=== PATIENT | female | born 1950 | race Caucasian/White ===

== ENCOUNTER 2016-09-29 21:40 | Emergency (ER) | payer MEDICARE, MEDICAID ==
[~2016-09-29 21:40] MED LIST: BENZ1TAB PO; FAMO20TA2 OR; HYDR-2768 PO; LISI-357 PO; ROSU20 PO; SERT-129 OR; TAB-TAB PO; THEO200T27 OR; TYLE500T PO; VENTAER INH; WARF2TAB OR; ZYPR20TA PO
[2016-09-29 21:43] VITALS: BP 159/67; PULSE 79; RESP 18; TEMP 97.9; O2SAT 99
[2016-09-29] MEDS ORDERED: TOBRAMYCIN SULF 0.3% OPHT SOLN 5 ML BTL EACH EYE STA (21:51)
[2016-09-29] MEDS ORDERED: TOBR0.3S EACH EYE (21:58)
--- NOTE | 2016-09-29 21:58 | PD ---
HPI Chief Complaint: Eye Problems/Injury Time Seen by Provider: 21:55 Travel History International Travel<30 days: No Contact w/Intl Traveler<30days: No Traveled to known affect area: No History of Present Illness HPI 66-year-old white female presents to emergency department with complaints of burning and itching her eyes along with mucoid drainage and matting. She states that this is been present for the past week. She denies any diplopia. No photophobia. No foreign body sensation or pain. She denies any trauma. No recent illness. PFSH Past Medical History Arthritis: Yes Asthma: No Autoimmune Disease: Yes Blood Disorders: No Anxiety: Yes Depression: Yes Heart Rhythm Problems: No Cancer: No Cardiovascular Problems: Yes High Cholesterol: Yes Chemotherapy: No Chest Pain: No Congestive Heart Failure: No COPD: Yes Cerebrovascular Accident: No Diabetes: No Diminished Hearing: No Endocrine: Yes Gastrointestinal Disorders: Yes (rectal pain) GERD: No Glaucoma: No Genitourinary: No Headaches: Yes Hepatitis: No Hiatal Hernia: No Hypertension: No Immune Disorder: No Kidney Stones: No Musculoskeletal: No Neurologic: Yes Psychiatric: Yes Reproductive: No Respiratory: Yes Immunizations Current: Yes Migraines: No Myocardial Infarction: No Radiation Therapy: No Renal Failure: No Schizophrenia: Yes Seizures: No Sickle Cell Disease: No Sleep Apnea: No Thyroid Disease: Yes Ulcer: No PNEUMOCCOCAL Vaccine (Year): 2008 Menopausal: Yes Past Surgical History Abdominal Surgery: Yes AICD: No Appendectomy: Yes Arteriovenous Shunt: No Cardiac Surgery: No Cholecystectomy: Yes Ear Surgery: No Endocrine Surgery: No Eye Surgery: No Genitourinary Surgery: No Gynecologic Surgery: No Insulin Pump: No Joint Replacement: No Neurologic Surgery: Yes ("WATER ON THE BRAIN" IN CHILDHOOD) Oral Surgery: No Pacemaker: No Thoracic Surgery: No Social History Alcohol Use: No Tobacco Use: Yes (2PPD) Substance Use: No Allergies-Medications (Allergen,Severity, Reaction): Coded Allergies: No Known Allergies (Verified , 09/29/16) Reported Meds & Prescriptions Reported Meds & Active Scripts Active Reported Hctz (Hydrochlorothiazide) 25 Mg Tab 25 Mg PO DAILY Sertraline Hcl (Sertraline HCl) 100 Mg Tab 200 Mg OR HS Ventolin Hfa (Albuterol Sulfate) 18 Gm Aero 2 Puff INH Q8HPRN * SHAKE WELL BEFORE USE * Acetaminophen 500 Mg Tab 500 Mg PO TIDPRN Zyprexa (Olanzapine) 20 Mg Tab 20 Mg PO HS Lisinopril 5 Mg Tab 5 Mg PO DAILY Cogentin (Benztropine Mesylate) 2 Mg Tab 1 Mg PO HS Crestor (Rosuvastatin Calcium) 20 Mg Tab 20 Mg PO DAILY Warfarin Sodium 2 Mg Tab 2 Mg OR DAILY Theophylline Er (Theophylline) 200 Mg Tab 200 Mg OR DAILY Famotidine 20 Mg Tab 20 Mg OR BID Multivitamin (Multivitamins) 1 Tab Tab 1 Tab PO DAILY Review of Systems Except as stated in HPI: all other systems reviewed are Neg General / Constitutional: No: Fever, Chills Eyes: Positive: Drainage, Redness, No: Diploplia, Blurred Vision, Photophobia , Foreign Body Sensation, Pain, Tearing, Visual changes HENT: No: Headaches, Sore Throat, Congestion, Earache Cardiovascular: No: Chest Pain or Discomfort, Palpitations Respiratory: No: Cough, Shortness of Breath Gastrointestinal: No: Nausea, Vomiting Physical Exam Narrative GENERAL: Well-developed, well-nourished in no acute distress. Nontoxic appearing. HEAD: Normocephalic, atraumatic. EYES: Pupils equal round and reactive. Extraocular motions intact. No scleral icterus. Patient has mild injection bilaterally with some crusting on the eyelashes. ENT: TMs clear without erythema. The external auditory canals clear. Nose: clear . Posterior pharynx is pink and moist. No tonsillar edema or exudate. Uvula midline. Airway patent. NECK: Trachea midline.Supple, nontender, moves head freely. No central bony tenderness or spasm. CARDIOVASCULAR: Regular rate and rhythm without murmurs, gallops, or rubs. RESPIRATORY: Clear to auscultation. Breath sounds equal bilaterally. No wheezes , rales, or rhonchi. GASTROINTESTINAL: Abdomen soft, non-tender, nondistended. No hepato-splenomegaly , or palpable masses. No guarding. EXTREMITIES: No clubbing, cyanosis, or edema. No joint tenderness, effusion, or edema noted. BACK: Nontender without deformity or crepitance. No flank tenderness. Data Data Last Documented VS Vital Signs Date Time Temp Pulse Resp B/P Pulse Ox O2 Delivery O2 Flow Rate FiO2 09/29/16 21:43 97.9 79 18 159/67 99 Room Air Orders Tobramycin 0.3% Opth Soln (Tobrex 0.3% O (09/29/16 21:51) MDM Medical Decision Making Medical Screen Exam Complete: Yes Emergency Medical Condition: Yes Medical Record Reviewed: Yes Differential Diagnosis MDM: High Differential diagnoses: Acute conjunctivitis (bacterial, viral, allergic, traumatic), glaucoma, iritis, traumatic globe injury, foreign body, corneal abrasion, corneal ulcer, diabetic retinopathy, photokeratitis, herpes keratitis , CMV retinitis Narrative Course This is conjunctivitis. Patient's given tobramycin ophthalmic drops 1 drop in each eye. She will continue 1 drop every 6 hours. Diagnosis Primary Impression: Conjunctivitis Qualified Code: H10.9 - Conjunctivitis of both eyes, unspecified conjunctivitis type Patient Instructions: General Instructions Additional Instructions: Rest. Wash eyelashes with baby shampoo 3 times daily. Warm compresses. Tobramycin ophthalmic drops. One drop in each eye every 6 hours for the next week. Followup with an eye doctor in one week. Follow-up with a medical doctor one week. Return to the ER if any problems. Med/Other Pt SpecificInfo: Prescription(s) given Disposition: 01 DISCHARGE HOME Condition: Guillaume Loja Sep 29, 2016 21:58
== END 2016-09-29 22:51 | disposition home or self-care (01) ==
LOC: NEPK 21:40
DX: H10.9 Unspecified conjunctivitis (principal); E78.00 Pure hypercholesterolemia, unspecified; J44.9 Chronic obstructive pulmonary disease, unspecified; F20.9 Schizophrenia, unspecified
CPT/HCPCS: 99283

== ENCOUNTER 2017-05-31 18:20 | Inpatient (IN) | payer MEDICARE, MEDICAID ==
[~2017-05-31] VITALS: Ht 157.5 cm; Wt 67.0 kg
[~2017-05-31 18:20] MED LIST changes: +TOBR0.3S EACH EYE
[2017-05-31 18:23] VITALS: BP 149/79; PULSE 101; RESP 16; TEMP 99.6; O2SAT 94
[2017-05-31 19:00] VITALS: BP 156/85; PULSE 96; RESP 20; O2SAT 95
[2017-05-31] MEDS ORDERED: SODIUM CHLORIDE 0.9% FLUSH 10 ML FLUSH IV FLUSH PRN ×2 (19:00→22:45)
[2017-05-31] MEDS ORDERED: PANTOPRAZOLE SODIUM 40 MG VIAL IV PUSH ONE (19:00)
[2017-05-31] MEDS ORDERED: MORPHINE SULFATE 4 MG/ML INJ IV PUSH ONE (19:00)
--- NOTE | 2017-05-31 19:00 | PD ---
HPI Chief Complaint: GI Complaint Time Seen by Provider: 18:56 Travel History International Travel<30 days: No Contact w/Intl Traveler<30days: No Traveled to known affect area: No History of Present Illness HPI 67-year-old female with PMH of paranoid schizophrenia, hypertension, CHF, COPD presents to the ED from her [facility] for evaluation of 7/10 rectal pain. Described as constant. Alleviated by lying down. Patient is unsure as to the onset of this pain. She endorses occasional BRBPR. She states she is unsure of her last BM, she estimates "sometime last week." She endorses urinary urgency but it is unsure of the chronicity of this symptom. She denies fevers, chills, nausea, vomiting, anorexia, melena, hematochezia. She treated at her [facility] with an enema and Anusol with no improvement of symptoms. She does not take blood thinners. PFSH Past Medical History Arthritis: Yes Asthma: No Autoimmune Disease: Yes Blood Disorders: No Bipolar Disorder: Yes Anxiety: Yes Depression: Yes Heart Rhythm Problems: No Cancer: No Cardiovascular Problems: Yes High Cholesterol: Yes Chemotherapy: No Chest Pain: No Congestive Heart Failure: No COPD: Yes Cerebrovascular Accident: No Diabetes: No Diminished Hearing: No Endocrine: Yes Gastrointestinal Disorders: Yes (rectal pain) GERD: No Glaucoma: No Genitourinary: No Headaches: Yes Hepatitis: No Hiatal Hernia: No Hypertension: Yes Immune Disorder: No Kidney Stones: No Musculoskeletal: No Neurologic: Yes Psychiatric: Yes Reproductive: No Respiratory: Yes Immunizations Current: Yes Migraines: No Myocardial Infarction: No Radiation Therapy: No Renal Failure: No Schizophrenia: Yes Seizures: No Sickle Cell Disease: No Sleep Apnea: No Thyroid Disease: Yes Ulcer: No Influenza Vaccination: Yes PNEUMOCCOCAL Vaccine (Year): 2008 Menopausal: Yes Past Surgical History Abdominal Surgery: Yes AICD: No Appendectomy: Yes Arteriovenous Shunt: No Cardiac Surgery: No Cholecystectomy: Yes Ear Surgery: No Endocrine Surgery: No Eye Surgery: No Genitourinary Surgery: No Gynecologic Surgery: No Insulin Pump: No Joint Replacement: No Neurologic Surgery: Yes ("WATER ON THE BRAIN" IN CHILDHOOD) Oral Surgery: No Pacemaker: No Thoracic Surgery: No Social History Alcohol Use: No Tobacco Use: Yes (1 PPD) Substance Use: No Allergies-Medications (Allergen,Severity, Reaction): Coded Allergies: No Known Allergies (Verified Adverse Reaction, Unknown, 05/31/17) Reported Meds & Prescriptions Reported Meds & Active Scripts Active Tobrex Opth Drops (Tobramycin Opth Drops) 0.3 % Soln 1 Drop EACH EYE Q6H Reported Hctz (Hydrochlorothiazide) 25 Mg Tab 25 Mg PO DAILY Sertraline 100 mg (Sertraline HCl) 100 Mg Tab 200 Mg OR HS Ventolin Hfa (Albuterol Sulfate) 18 Gm Aero 2 Puff INH Q8HPRN * SHAKE WELL BEFORE USE * Acetaminophen 500 Mg Tab 500 Mg PO TIDPRN Zyprexa (Olanzapine) 20 Mg Tab 20 Mg PO HS Lisinopril 5 mg (Lisinopril) 5 Mg Tab 5 Mg PO DAILY Benztropine Mesylate 2 Mg Tab 1 Mg PO HS Crestor (Rosuvastatin Calcium) 20 Mg Tab 20 Mg PO DAILY Warfarin Sodium 2 Mg Tab 2 Mg OR DAILY Theophylline Er (Theophylline) 200 Mg Tab 200 Mg OR DAILY Famotidine 20 Mg Tab 20 Mg OR BID Multivitamin (Multivitamins) 1 Tab Tab 1 Tab PO DAILY Review of Systems Except as stated in HPI: all other systems reviewed are Neg Physical Exam Narrative GENERAL: Well-nourished, well-developed female in no acute distress. SKIN: Focused skin assessment warm/dry. HEAD: Normocephalic. EYES: No scleral icterus. No injection or drainage. NECK: Supple, trachea midline. No JVD or lymphadenopathy. CARDIOVASCULAR: Regular rate and rhythm without murmurs, gallops, or rubs. RESPIRATORY: Breath sounds coarse but equal bilaterally. No accessory muscle use. GASTROINTESTINAL: Abdomen soft, non-tender, nondistended. Active bowel sounds. RECTAL EXAM: There is full thickness prolapse of the rectum, approximately 8 cm. Easily reducible. Stool is brown, mostly mucus. Guaiac positive. MUSCULOSKELETAL: No cyanosis, or edema. BACK: Nontender without obvious deformity. No CVA tenderness. Data Data Last Documented VS Vital Signs Date Time Temp Pulse Resp B/P (MAP) Pulse Ox O2 Delivery O2 Flow Rate FiO2 05/31/17 22:15 102 22 169/83 (111) 95 Room Air 05/31/17 20:11 21 05/31/17 18:23 99.6 Orders Orders Complete Blood Count With Diff (05/31/17 18:53) Comprehensive Metabolic Panel (05/31/17 18:53) Prothrombin Time / Inr (Pt) (05/31/17 18:53) Act Partial Throm Time (Ptt) (05/31/17 18:53) Urinalysis - C+S If Indicated (05/31/17 18:53) Iv Access Insert/Monitor (05/31/17 18:53) Ecg Monitoring (05/31/17 18:53) Oximetry (05/31/17 18:53) Morphine Inj (Morphine Inj) (05/31/17 19:00) Sodium Chloride 0.9% Flush (Ns Flush) (05/31/17 19:00) Pantoprazole Inj (Protonix Inj) (05/31/17 19:00) Chest, Single Ap (05/31/17 19:32) Methylprednisolone So Succ Inj (Solumedr (05/31/17 19:45) Albuterol Neb (Albuterol Neb) (05/31/17 19:45) Sodium Chlorid 0.9% 500 Ml Inj (Ns 500 M (05/31/17 20:30) Cath For Specimen (05/31/17 20:42) Urine Culture (05/31/17 21:22) Ceftriaxone Inj (Rocephin Inj) (05/31/17 22:30) Admit Order (Ed Use Only) (05/31/17 22:36) Labs Laboratory Tests Test 05/31/17 19:00 05/31/17 21:22 White Blood Count 14.8 TH/MM3 Red Blood Count 3.88 MIL/MM3 Hemoglobin 12.0 GM/DL Hematocrit 35.5 % Mean Corpuscular Volume 91.6 FL Mean Corpuscular Hemoglobin 30.8 PG Mean Corpuscular Hemoglobin Concent 33.7 % Red Cell Distribution Width 14.5 % Platelet Count 340 TH/MM3 Mean Platelet Volume 7.2 FL Neutrophils (%) (Auto) 85.6 % Lymphocytes (%) (Auto) 4.0 % Monocytes (%) (Auto) 9.4 % Eosinophils (%) (Auto) 0.7 % Basophils (%) (Auto) 0.3 % Neutrophils # (Auto) 12.6 TH/MM3 Lymphocytes # (Auto) 0.6 TH/MM3 Monocytes # (Auto) 1.4 TH/MM3 Eosinophils # (Auto) 0.1 TH/MM3 Basophils # (Auto) 0.0 TH/MM3 CBC Comment DIFF FINAL Differential Comment Prothrombin Time 12.4 SEC Prothromb Time International Ratio 1.2 RATIO Activated Partial Thromboplast Time 34.8 SEC Blood Urea Nitrogen 25 MG/DL Creatinine 1.70 MG/DL Random Glucose 162 MG/DL Total Protein 6.8 GM/DL Albumin 2.4 GM/DL Calcium Level 8.3 MG/DL Alkaline Phosphatase 124 U/L Aspartate Amino Transf (AST/SGOT) 29 U/L Alanine Aminotransferase (ALT/SGPT) 24 U/L Total Bilirubin 0.4 MG/DL Sodium Level 130 MEQ/L Potassium Level 4.3 MEQ/L Chloride Level 96 MEQ/L Carbon Dioxide Level 27.4 MEQ/L Anion Gap 7 MEQ/L Estimat Glomerular Filtration Rate 30 ML/MIN Urine Color YELLOW Urine Turbidity CLOUDY Urine pH 6.5 Urine Specific [place] 1.014 Urine Protein 100 mg/dL Urine Glucose (UA) NEG mg/dL Urine Ketones NEG mg/dL Urine Occult Blood LARGE Urine Nitrite NEG Urine Bilirubin NEG Urine Urobilinogen LESS THAN 2.0 MG/DL Urine Leukocyte Esterase LARGE Urine RBC /hpf Urine WBC /hpf Urine Squamous Epithelial Cells 2 /hpf Urine Amorphous Sediment RARE Urine Bacteria MANY /hpf Urine Mucus FEW /lpf Microscopic Urinalysis Comment CULTURE INDICATED MDM Medical Decision Making Medical Screen Exam Complete: Yes Emergency Medical Condition: Yes Differential Diagnosis rectal prolapse versus external hemorrhoids versus prolapsed internal hemorrhoids versus GI bleed versus other Narrative Course 67-year-old female with PMH of paranoid schizophrenia, hypertension, CHF, COPD presents to the ED from her [facility] for evaluation of 7/10 rectal pain. Patient is unsure as to the onset of this pain. She endorses occasional BRBPR. She states she is unsure of her last BM, she estimates "sometime last week." She endorses urinary urgency but it is unsure of the chronicity of this symptom. She treated at her [facility] with an enema and Anusol with no improvement of symptoms. She does not take blood thinners. On exam the patient's abdominal exam is unremarkable. There is an approximate 8 cm rectal prolapse. It is easily reducible but returns immediately after removing pressure. The stool is mostly mucus and guaiac positive. IV was established. Patient was administered 500 mL's normal saline, a dose of IV Protonix. CBC: WBC 14.8 with left shift CMP: Sodium 1:30, chloride 96. BUN 25, creatinine 1.70, chronic per chart review UA: Cloudy, large occult blood, large leukocyte esterase, numerable WBCs. Many bacteria. Coags: INR 1.2 CXR: No acute disease per radiology read. Patient was administered gram Rocephin. I discussed the patient's condition with Dr. Mast. He'll see the patient tomorrow to evaluate for surgical candidacy. I discussed the results the workup with the patient and the plan for admission. She is agreeable. Dr. Schultz agrees to accept the patient to the medicine service. Please see medicine and rectal notes for disposition. HemaPrompt Point of Care Internal Pos. & Neg. Controls: Passed Fecal Specimen Occult Blood: Positive Valorie Hopson May 31, 2017 19:00
[2017-05-31 19:28] LABS: AUTOMATED NEUTROPHIL # 12.6 TH/MM3 (1.8-7.7); BASOPHIL % 0.3 % (0.0-2.0); EOSINOPHIL # 0.1 TH/MM3 (0-0.4); EOSINOPHIL % 0.7 % (0.0-4.0); HEMATOCRIT 35.5 % (35.0-46.0); LYMPHOCYTE # 0.6 TH/MM3 (1.0-4.8); MEAN CELL VOLUME 91.6 FL (80.0-100.0); MEAN CORPUSCULAR HEMOGLOBIN 30.8 PG (27.0-34.0); MEAN CORPUSCULAR HGB CONC 33.7 % (32.0-36.0); MEAN PLATELET VOLUME 7.2 FL (7.0-11.0); MONO % 9.4 % (0.0-8.0); MONOCYTE # 1.4 TH/MM3 (0-0.9); NEUT % 85.6 % (16.0-70.0); PLATELET COUNT 340 TH/MM3 (150-450); RED BLOOD COUNT 3.88 MIL/MM3 (4.00-5.30); RED CELL DISTRIBUTION WIDTH 14.5 % (11.6-17.2); WHITE BLOOD COUNT 14.8 TH/MM3 (4.0-11.0)
[2017-05-31 19:42] LABS: INTERNATIONAL NORMALIZED RATIO 1.2 RATIO; PROTHROMBIN TIME - PATIENT 12.4 SEC (9.8-11.6)
[2017-05-31] MEDS ORDERED: methylPREDNISolone SOD SUCC 125 MG/2 ML VIAL IV PUSH ONE (19:45)
[2017-05-31 19:48] LABS: ALBUMIN 2.4 GM/DL (3.4-5.0); AST (GOT) 29 U/L (15-37); BICARBONATE 27.4 MEQ/L (21.0-32.0); BLOOD UREA NITROGEN 25 MG/DL (7-18); CALCIUM 8.3 MG/DL (8.5-10.1); CHLORIDE 96 MEQ/L (98-107); GLOMERULAR FILTRATION RATE 30 ML/MIN (>89); GLUCOSE,RANDOM 162 MG/DL (74-106); SODIUM (NA) 130 MEQ/L (136-145)
[2017-05-31 19:49] LABS: ALT (GPT) 24 U/L (10-53)
[2017-05-31 19:51] LABS: ALKALINE PHOSPHATASE 124 U/L (45-117); TOTAL BILIRUBIN ADULT 0.4 MG/DL (0.2-1.0); TOTAL PROTEIN 6.8 GM/DL (6.4-8.2)
--- NOTE | 2017-05-31 19:57 | RADRPT ---
EXAM DATE/TIME: 05/31/2017 19:42 [facility] COMPARISON: CHEST SINGLE AP, February 12, 2010, 20:17. INDICATIONS : Short of breath MEDICAL HISTORY : None. SURGICAL HISTORY : None. ENCOUNTER: Initial ACUITY: 1 day PAIN SCORE: 0/10 LOCATION: Bilateral chest FINDINGS: A single view of the chest demonstrates right shunt tube overlies right hemithorax. No consolidation or significant effusion. No pneumothorax. Tortuous aorta. CONCLUSION: 1. No active disease. Tortuous aorta. Guillaume Poole MD on May 31, 2017 at 19:54 Board Certified Radiologist. This report was verified electronically.
[2017-05-31 20:00] VITALS: BP 177/92; PULSE 93; RESP 20; O2SAT 96
[2017-05-31] MEDS: RESP: ALBUTEROL 2.5 MG/3 ML NEB (SCH) INH (20:06)
[2017-05-31 20:11] VITALS: O2SAT 95
[2017-05-31] MEDS ORDERED: SODIUM CHLORID 0.9% 500 ML INJ 500 ML IV ONE (20:30)
[2017-05-31 21:54] LABS: AMORPHOUS SEDIMENT, URINE RARE; BACTERIA, URINE MANY /hpf; BILIRUBIN, URINE NEG (NEG); BLOOD, URINE LARGE (NEG); GLUCOSE,URINE NEG (NEG); KETONE, URINE NEG (NEG); MUCUS URINE FEW /lpf (OCC); NITRITE,URINE NEG (NEG); PH, URINE 6.5 (5.0-8.5); SQUAMOUS EPITHELIAL CELL URINE 2 /hpf (0-5); URINE COLOR YELLOW (YELLW/STRAW); URINE LEUKOCYTE ESTERASE LARGE (NEG)
[2017-05-31 22:15] VITALS: BP 169/83; PULSE 102; RESP 22; O2SAT 95
[2017-05-31] MEDS ORDERED: cefTRIAXone INJ 1,000 MG in SODIUM CHLORIDE 0.9% INJ 100 ML IV ONE (22:30)
--- NOTE | 2017-05-31 22:38 | HHI.HP ---
HPI Service [facility] Primary Care Physician Unknown Admission Diagnosis rectal prolapse, UTI Diagnoses: (1) Rectal prolapse Diagnosis: Principal (2) Rectal bleeding Diagnosis: Principal (3) UTI (urinary tract infection) Diagnosis: Principal (4) Renal insufficiency Diagnosis: Principal (5) COPD (chronic obstructive pulmonary disease) Diagnosis: Principal (6) Schizophrenia (7) Tobacco abuse Diagnosis: Principal Travel History International Travel<30 Days: No Contact w/Intl Traveler <30 Da: No Traveled to Known Affected Are: No History of Present Illness This is a 67-year-old female with a PMH of Anxiety, Depression, Paranoid Schizophrenia, Tobacco Abuse and COPD who was sent to the ER by [facility] secondary to complaints of rectal pain x2-3 wks. Denies nausea/vomiting or diarrhea. Reports occasional episodes of rectal bleeding however unsure how often. On Coumadin per review of medication list, however pt unable to tell me if this is accurate. Pt poor historian, difficult to obtain history. BP 149/79, HR 101, O2 sat 94% on RA, Temp 99.6. WBC 14.8. Creatinine 1.70, previously 1.35 on 04/23/10. UA positive for UTI. CXR with no active disease. On exam, pt noted to have large rectal prolapse. Hemoccult +. Dr. Mast consulted by ER physician , will eval in am for likely surgical intervention. Review of Systems Except as stated in HPI: all other systems reviewed are Neg ROS: 14 point review of systems otherwise negative. Past Family Social History Past Medical History PMH: Anxiety, Depression, Paranoid Schizophrenia, Tobacco Abuse and COPD Past Surgical History PAST SURGICAL HISTORY: Appendectomy, Cholecystectomy Allergies: Coded Allergies: No Known Allergies (Verified Allergy, Unknown, 05/31/17) Family History PAST FAMILY HISTORY: Reviewed. No h/o DM or CAD Social History PAST SOCIAL HISTORY: Negative for alcohol or drugs. Smokes 2ppd. Physical Exam Vital Signs Vital Signs Date Time Temp Pulse Resp B/P (MAP) Pulse Ox O2 Delivery O2 Flow Rate FiO2 05/31/17 22:15 102 22 169/83 (111) 95 Room Air 05/31/17 20:11 95 21 05/31/17 20:00 93 20 177/92 (120) 96 Room Air 05/31/17 19:00 96 20 156/85 (108) 95 Room Air 05/31/17 18:23 99.6 101 16 149/79 (102) 94 Room Air Physical Exam PE: GENERAL: Middle-aged female in no acute distress. HEENT: PERRLA, EOMI. No scleral icterus or conjunctival pallor. No lid lag or facial droop. CARDIOVASCULAR: Regular rate and rhythm. No obvious murmurs to auscultation. No chest tenderness to palpation. RESPIRATORY: No obvious rhonchi, occasional wheezing. Clear to auscultation. Breath sounds equal bilaterally. GASTROINTESTINAL: Abdomen soft, non-tender, nondistended. BS normal. MUSCULOSKELETAL: Extremities without clubbing, cyanosis, or edema. No obvious deformities. NEUROLOGICAL: Awake, alert and oriented x4. No focal neurologic deficits. Moving both upper and lower extremities spontaneously. Laboratory Laboratory Tests Test 05/31/17 19:00 05/31/17 21:22 White Blood Count 14.8 Red Blood Count 3.88 Hemoglobin 12.0 Hematocrit 35.5 Mean Corpuscular Volume 91.6 Mean Corpuscular Hemoglobin 30.8 Mean Corpuscular Hemoglobin Concent 33.7 Red Cell Distribution Width 14.5 Platelet Count 340 Mean Platelet Volume 7.2 Neutrophils (%) (Auto) 85.6 Lymphocytes (%) (Auto) 4.0 Monocytes (%) (Auto) 9.4 Eosinophils (%) (Auto) 0.7 Basophils (%) (Auto) 0.3 Neutrophils # (Auto) 12.6 Lymphocytes # (Auto) 0.6 Monocytes # (Auto) 1.4 Eosinophils # (Auto) 0.1 Basophils # (Auto) 0.0 CBC Comment DIFF FINAL Differential Comment Prothrombin Time 12.4 Prothromb Time International Ratio 1.2 Activated Partial Thromboplast Time 34.8 Blood Urea Nitrogen 25 Creatinine 1.70 Random Glucose 162 Total Protein 6.8 Albumin 2.4 Calcium Level 8.3 Alkaline Phosphatase 124 Aspartate Amino Transf (AST/SGOT) 29 Alanine Aminotransferase (ALT/SGPT) 24 Total Bilirubin 0.4 Sodium Level 130 Potassium Level 4.3 Chloride Level 96 Carbon Dioxide Level 27.4 Anion Gap 7 Estimat Glomerular Filtration Rate 30 Urine Color YELLOW Urine Turbidity CLOUDY Urine pH 6.5 Urine Specific [place] 1.014 Urine Protein 100 Urine Glucose (UA) NEG Urine Ketones NEG Urine Occult Blood LARGE Urine Nitrite NEG Urine Bilirubin NEG Urine Urobilinogen LESS THAN 2.0 Urine Leukocyte Esterase LARGE Urine RBC Urine WBC Urine Squamous Epithelial Cells 2 Urine Amorphous Sediment RARE Urine Bacteria MANY Urine Mucus FEW Microscopic Urinalysis Comment CULTURE INDICATED Date/Time Source Procedure Growth Status 05/31/17 21:22 Urine Random Urine Urine Culture Pending Received Result Diagram: 05/31/17189905/31/171899 Caprini VTE Risk Assessment Caprini VTE Risk Assessment: Mod/High Risk (score >= 2) Caprini Risk Assessment Model Point Value = 1 Point Value = 2 Point Value = 3 Point Value = 5 Age 41-60 Minor surgery BMI > 25 kg/m2 Swollen legs Varicose veins or History of unexplained or recurrent spontaneous Oral contraceptives or hormone replacement Sepsis (< 1 month) Serious lung disease, including pneumonia (< 1 month) Abnormal pulmonary function Acute myocardial infarction Congestive heart failure (< 1 month) History of inflammatory bowel disease Medical patient at bed rest Age 61-74 Arthroscopic surgery Major open surgery (> 45 min) Laparoscopic surgery (> 45 min) Malignancy Confined to bed (> 72 hours) Immobilizing plaster cast Central venous access Age >= 75 History of VTE Family history of VTE Factor V Leiden Prothrombin [id number] Lupus anticoagulant Anticardiolipin antibodies Elevated serum homocysteine Heparin-induced thrombocytopenia Other congenital or acquired thrombophilia Stroke (< 1 month) Elective arthroplasty Hip, pelvis, or leg fracture Acute spinal cord injury (< 1 month) Prophylaxis Regimen Total Risk Factor Score Risk Level Prophylaxis Regimen 0-1 Low Early ambulation 2 Moderate Order ONE of the following: *Sequential Compression Device (SCD) *Heparin 5000 units SQ BID 3-4 Higher Order ONE of the following medications: *Heparin 5000 units SQ TID *Enoxaparin/Lovenox 40 mg SQ daily (WT < 150 kg, CrCl > 30 mL/min) *Enoxaparin/Lovenox 30 mg SQ daily (WT < 150 kg, CrCl > 10-29 mL/min) *Enoxaparin/Lovenox 30 mg SQ BID (WT < 150 kg, CrCl > 30 mL/min) AND/OR *Sequential Compression Device (SCD) 5 or more Highest Order ONE of the following medications: *Heparin 5000 units SQ TID (Preferred with Epidurals) *Enoxaparin/Lovenox 40 mg SQ daily (WT < 150 kg, CrCl > 30 mL/min) *Enoxaparin/Lovenox 30 mg SQ daily (WT < 150 kg, CrCl > 10-29 mL/min) *Enoxaparin/Lovenox 30 mg SQ BID (WT < 150 kg, CrCl > 30 mL/min) AND *Sequential Compression Device (SCD) Assessment and Plan Problem List: (1) Rectal prolapse ICD Code: K62.3 - Rectal prolapse (2) Rectal bleeding ICD Code: K62.5 - Hemorrhage of anus and rectum (3) Renal insufficiency ICD Code: N28.9 - Disorder of kidney and ureter, unspecified (4) UTI (urinary tract infection) ICD Code: N39.0 - Urinary tract infection, site not specified (5) COPD (chronic obstructive pulmonary disease) ICD Code: J44.9 - Chronic obstructive pulmonary disease, unspecified (6) Schizophrenia ICD Code: F20.9 - Schizophrenia, unspecified (7) Tobacco abuse ICD Code: Z72.0 - Tobacco use Assessment and Plan A/P: 1. Rectal Prolapse: c/o rectal pain, large rectal prolapse on exam, reducible. Dr. Mast consulted by ER physician, will eval in am for likely surgical intervention. NPO, IVF, analgesics/antiemetics as needed. 2. Rectal Bleeding: likely secondary to prolapse, Hgb stable at 12.0. Vitals normal. Will monitor, repeat Hgb/Hct in am. Noted to be on Coumadin per med list, unclear if accurate, will hold for now. 3. UTI: U/a w/ UTI. WBC 14, low-grade temp. S/p Rocephin in ER, will continue w/ IV Abx. 4. Renal Insufficiency: VETO. Creatinine 1.70, previously 1.35 on 04/23/10, IVF for hydration, treat UTI as above, repeat labs in am. 5. COPD: Chronic Respiratory Failure w/ Acute Exacerbation, Mild. S/p Solu- Medrol/DuoNeb in ER, will continue w/ treatment. 6. Schizophrenia: Stable. Resume home medications. 7. Tobacco Abuse: Pt counselled. NicoDerm prn if needed. 8. DVT Prophylaxis: SCD/Teds. 9. Social work for d/c planning as needed. 10. Case discussed w/ ER physician at length. Physician Certification 2 Midnight Certification Type: Admission for Inpatient Services Order for Inpatient Services The services are ordered in accordance with Medicare regulations or non- Medicare payer requirements, as applicable. In the case of services not specified as inpatient-only, they are appropriately provided as inpatient services in accordance with the 2-midnight benchmark. Estimated LOS (days): 2 days is the estimated time the patient will need to remain in the hospital, assuming treatment plan goals are met and no additional complications. Post-Hospital Plan: Not yet determined Remedios Schultz MD May 31, 2017 22:38
[2017-05-31] MEDS ORDERED: RESP: ALBUTEROL 2.5 MG/IPRATROPIUM 0.5 MG NEB (PRN) NEB (22:45)
[2017-05-31] MEDS ORDERED: LACTULOSE SYRUP 20 GM/30 ML CUP PO PRN (22:45)
[2017-05-31] MEDS ORDERED: SENNOSIDES 8.6 MG TAB PO PRN (22:45)
[2017-05-31] MEDS ORDERED: MORPHINE SULFATE 4 MG/ML INJ IV PUSH PRN (22:45)
[2017-05-31] MEDS ORDERED: ONDANSETRON HCL 4 MG/2 ML VIAL IVP PRN (22:45)
[2017-05-31] MEDS ORDERED: ACETAMINOPHEN 325 MG TAB PO PRN (22:45)
[2017-05-31] MEDS ORDERED: MAGNESIUM HYDROXIDE SUSP 30 ML CUP PO PRN (22:45)
[2017-05-31] MEDS ORDERED: OLAN20TA PO (23:17)
[2017-05-31] MEDS ORDERED: TYLE325T PO (23:17)
[2017-05-31] MEDS ORDERED: FLUTI44I INH (23:17)
[2017-05-31] MEDS ORDERED: LISI-519 PO (23:17)
[2017-05-31] MEDS ORDERED: DONE10TA7 PO (23:17)
[2017-05-31] MEDS ORDERED: OLAN10TA PO (23:17)
[2017-05-31] MEDS ORDERED: HALO2TAB PO (23:17)
[2017-05-31] MEDS ORDERED: TRAM50TA PO (23:17)
[2017-05-31] MEDS ORDERED: BUPR100T4 PO (23:17)
[2017-05-31] MEDS ORDERED: MULT-65 PO (23:17)
[2017-05-31] MEDS ORDERED: LAMO200T PO (23:17)
[2017-05-31] MEDS ORDERED: BENZ0.5T PO (23:17)
[2017-05-31] MEDS ORDERED: LEVO112T2 PO (23:17)
[2017-05-31] MEDS ORDERED: FURO20TA PO (23:17)
[2017-05-31] MEDS ORDERED: FAMO20TA2 PO (23:17)
[2017-06-01] VITALS: BP 165/78; PULSE 103; RESP 20; TEMP 99.7; O2SAT 95
[2017-06-01] MEDS: methylPREDNISolone SOD SUCC 40 MG/1 ML VIAL IV PUSH SCH ×3 (00:16→21:10)
[2017-06-01] MEDS: SODIUM CHLOR 0.9% 1000 ML INJ 1,000 ML IV SCH ×3 (00:18→11:23)
[2017-06-01] MEDS: ACETAMINOPHEN/HYDROcodone 325 MG/5 MG TAB PO PRN (00:27)
[2017-06-01] MEDS: PIPERACIL-TAZO 2.25 GM PREMIX 50 ML IV SCH ×3 (05:28→18:17)
[2017-06-01 08:00] VITALS: BP 174/80; PULSE 77; RESP 17; TEMP 97.2; O2SAT 92
[2017-06-01 08:21] LABS: AUTOMATED NEUTROPHIL # 13.5 TH/MM3 (1.8-7.7); BASOPHIL % 0.1 % (0.0-2.0); HEMATOCRIT 33.2 % (35.0-46.0); HEMOGLOBIN 11.4 GM/DL (11.6-15.3); LYMPH % 2.1 % (9.0-44.0); LYMPHOCYTE # 0.3 TH/MM3 (1.0-4.8); MEAN CELL VOLUME 92.4 FL (80.0-100.0); MEAN CORPUSCULAR HEMOGLOBIN 31.7 PG (27.0-34.0); MEAN CORPUSCULAR HGB CONC 34.3 % (32.0-36.0); MEAN PLATELET VOLUME 7.3 FL (7.0-11.0); MONO % 1.6 % (0.0-8.0); MONOCYTE # 0.2 TH/MM3 (0-0.9); NEUT % 96.2 % (16.0-70.0); PLATELET COUNT 329 TH/MM3 (150-450); RED CELL DISTRIBUTION WIDTH 14.5 % (11.6-17.2)
[2017-06-01] MEDS: DOCUSATE SODIUM 50 MG/SENNA 8.6 MG TAB PO SCH ×2 (08:35→21:00)
[2017-06-01] MEDS: SODIUM CHLORIDE 0.9% FLUSH 10 ML FLUSH IV FLUSH SCH ×2 (08:35→21:10)
[2017-06-01 08:49] LABS: ALBUMIN 2.3 GM/DL (3.4-5.0); AST (GOT) 23 U/L (15-37); BLOOD UREA NITROGEN 18 MG/DL (7-18); CALCIUM 8.3 MG/DL (8.5-10.1); CHLORIDE 101 MEQ/L (98-107); CREATININE 1.16 MG/DL (0.50-1.00); GLOMERULAR FILTRATION RATE 46 ML/MIN (>89); GLUCOSE,RANDOM 210 MG/DL (74-106); SODIUM (NA) 134 MEQ/L (136-145)
[2017-06-01 08:52] LABS: ALKALINE PHOSPHATASE 113 U/L (45-117); ALT (GPT) 21 U/L (10-53); TOTAL BILIRUBIN ADULT 0.3 MG/DL (0.2-1.0); TOTAL PROTEIN 6.4 GM/DL (6.4-8.2)
--- NOTE | 2017-06-01 10:37 | HHI.PR ---
Subjective Remarks Follow-up rectal prolapse/rectal bleeding/UTI 06/01/17-patient seen and examined, alert and oriented 3, denies any GI. BP elevated. Denies any shortness of breath or chest pain. Currently nothing by mouth pending further evaluation from CRS Objective Vitals Vital Signs Date Time Temp Pulse Resp B/P (MAP) Pulse Ox O2 Delivery O2 Flow Rate FiO2 06/01/17 08:00 97.2 77 17 174/80 (111) 92 06/01/17 01:36 20 06/01/17 00:00 99.7 103 20 165/78 (107) 95 05/31/17 23:41 05/31/17 22:15 102 22 169/83 (111) 95 Room Air 05/31/17 20:11 95 21 05/31/17 20:00 93 20 177/92 (120) 96 Room Air 05/31/17 19:00 96 20 156/85 (108) 95 Room Air 05/31/17 18:23 99.6 101 16 149/79 (102) 94 Room Air I/O 05/31/17 05/31/17 05/31/17 06/01/17 06/01/17 06/01/17 07:00 15:00 23:00 07:00 15:00 23:00 Intake Total 0 ml Balance 0 ml Intake Oral 0 ml # Voids 1 # Bowel Movements 0 Result Diagram: 06/01/17 0751 06/01/17 0751 Imaging Last Impressions Chest X-Ray 05/31/171931 Signed Impressions: Service Date/Time: May 19:42 - CONCLUSION: 1. No active disease. Tortuous aorta. Guillaume Poole MD Objective Remarks GENERAL: NAD SKIN: Warm and dry. HEAD: Normocephalic. EYES: No scleral icterus. No injection or drainage. NECK: Supple, trachea midline. No JVD or lymphadenopathy. CARDIOVASCULAR: Regular rate and rhythm without murmurs, gallops, or rubs. RESPIRATORY: Breath sounds equal bilaterally. No accessory muscle use. GASTROINTESTINAL: Abdomen soft, non-tender, nondistended. MUSCULOSKELETAL: No cyanosis, or edema. : deferred BACK: Nontender without obvious deformity. No CVA tenderness. A/P Problem List: (1) Rectal prolapse ICD Code: K62.3 - Rectal prolapse (2) Rectal bleeding ICD Code: K62.5 - Hemorrhage of anus and rectum (3) Renal insufficiency ICD Code: N28.9 - Disorder of kidney and ureter, unspecified (4) UTI (urinary tract infection) ICD Code: N39.0 - Urinary tract infection, site not specified (5) COPD (chronic obstructive pulmonary disease) ICD Code: J44.9 - Chronic obstructive pulmonary disease, unspecified (6) Schizophrenia ICD Code: F20.9 - Schizophrenia, unspecified (7) Tobacco abuse ICD Code: Z72.0 - Tobacco use Assessment and Plan 67-year-old female with 1. Rectal Prolapse: Dr. Mast consulted by ER physician, pending evaluation. NPO, IVF, analgesics/antiemetics as needed. 2. Rectal Bleeding: likely secondary to prolapse, Hgb stable at 12.0. Vitals normal. monitor, repeat Hgb/Hct in am. Noted to be on Coumadin per med list, unclear if accurate, continue to hold for now. 3. UTI: U/a w/ UTI. Continue Rocephin IV daily pending culture report 4. Renal Insufficiency: VETO. Creatinine 1.70, previously 1.35 on 04/23/10, IVF for hydration, treat UTI as above, repeat labs in am. 5. COPD: Chronic Respiratory Failure w/ Acute Exacerbation, Mild. Decrease Solu-Medrol to 20mg IV Q12H and continue with DuoNeb , LABA 6. Schizophrenia: Stable. continue home medications. 7. Tobacco Abuse: Pt counselled. NicoDerm prn if needed. 8. DVT Prophylaxis: SCD/Teds. 9. Hypertension: labile BP; resume outpatient medications; Vasotec IV PRN Young Foley MD Jun 01, 2017 10:37
[2017-06-01 12:00] VITALS: BP 143/83; PULSE 84; RESP 17; TEMP 98.1; O2SAT 96
[2017-06-01 16:00] VITALS: BP 180/77; PULSE 80; RESP 17; TEMP 98.3; O2SAT 93
[2017-06-01] MEDS ORDERED: MORPHINE SULFATE 2 MG/ML INJ IV PUSH PRN (16:30)
[2017-06-01] MEDS: ENALAPRILAT 2.5 MG/2 ML VIAL IV PUSH PRN (16:37)
[2017-06-01 20:00] VITALS: BP 146/70; PULSE 95; RESP 22; TEMP 99.1; O2SAT 96
[2017-06-01] MEDS: OLANZapine 10 MG TAB PO SCH ×2 (21:00→21:07)
[2017-06-01] MEDS: DONEPEZIL HCL 5 MG TAB PO SCH (21:06)
[2017-06-01] MEDS: SERTRALINE HCL 100 MG TAB PO SCH (21:06)
[2017-06-01] MEDS: buPROPion HCL 100 MG TAB PO SCH (21:07)
[2017-06-01] MEDS: BENZTROPINE MESYLATE 1 MG TAB PO SCH (21:07)
--- NOTE | 2017-06-01 22:24 | HHI.PR ---
Subjective Remarks C/R Surg Pt examined, chart reviewed 67 yo female with long standing incontinence, and now with progr rectal prolapse. Difficulty with control, and prolapse causing more discharge/bleeding. No diarrhea, melana no known wt loss Objective - Vital Signs Date Time Temp Pulse Resp B/P (MAP) Pulse Ox O2 Delivery O2 Flow Rate FiO2 06/01/17 20:00 99.1 95 22 146/70 (95) 96 05/31/17 22:15 Room Air 05/31/17 20:11 21 Result Diagram: 06/01/17 0751 06/01/17 0751 Objective Remarks PE alert Abd - soft, non-tender, no masses, min tympany Rectal - lg prolapse, extreme dilation of anal sphincter - no tone A/P Assessment and Plan Imp: rectal prolapse - difficult to repair due to size of prolapse, and weakness of sphincter cont PO diet if pt wants repair, will prep for Sunday or Sunday -sigmoidoscopy, repair of prolapse or maybe loop colostomy Abran Mast MD Jun 01, 2017 22:24
[2017-06-02] VITALS: BP 179/85; PULSE 72; RESP 22; TEMP 97.2; O2SAT 94
[2017-06-02] MEDS: SODIUM CHLOR 0.9% 1000 ML INJ 1,000 ML IV SCH ×3 (01:52→16:16)
[2017-06-02 04:00] VITALS: BP 168/79; PULSE 69; RESP 20; TEMP 97.3; O2SAT 97
[2017-06-02] MEDS: PIPERACIL-TAZO 2.25 GM PREMIX 50 ML IV SCH ×4 (05:15→17:06)
[2017-06-02] MEDS: LEVOTHYROXINE SODIUM 112 MCG TAB PO SCH (05:19)
[2017-06-02 08:00] VITALS: BP 184/81; PULSE 85; RESP 18; TEMP 97.5; O2SAT 94
[2017-06-02 08:08] LABS: AUTOMATED NEUTROPHIL # 13.2 TH/MM3 (1.8-7.7); BASOPHIL % 0.1 % (0.0-2.0); EOSINOPHIL % 0.1 % (0.0-4.0); HEMATOCRIT 32.3 % (35.0-46.0); LYMPH % 3.4 % (9.0-44.0); LYMPHOCYTE # 0.5 TH/MM3 (1.0-4.8); MEAN CELL VOLUME 91.9 FL (80.0-100.0); MEAN CORPUSCULAR HEMOGLOBIN 31.4 PG (27.0-34.0); MEAN CORPUSCULAR HGB CONC 34.1 % (32.0-36.0); MEAN PLATELET VOLUME 7.1 FL (7.0-11.0); MONOCYTE # 0.9 TH/MM3 (0-0.9); NEUT % 90.4 % (16.0-70.0); PLATELET COUNT 331 TH/MM3 (150-450); RED BLOOD COUNT 3.52 MIL/MM3 (4.00-5.30); RED CELL DISTRIBUTION WIDTH 14.5 % (11.6-17.2); WHITE BLOOD COUNT 14.6 TH/MM3 (4.0-11.0)
[2017-06-02 08:36] LABS: AST (GOT) 32 U/L (15-37); BICARBONATE 25.6 MEQ/L (21.0-32.0); BLOOD UREA NITROGEN 18 MG/DL (7-18); CALCIUM 8.2 MG/DL (8.5-10.1); CHLORIDE 102 MEQ/L (98-107); GLOMERULAR FILTRATION RATE 55 ML/MIN (>89); GLUCOSE,RANDOM 163 MG/DL (74-106); SODIUM (NA) 135 MEQ/L (136-145)
[2017-06-02 08:41] LABS: ALKALINE PHOSPHATASE 98 U/L (45-117); ALT (GPT) 26 U/L (10-53); TOTAL BILIRUBIN ADULT 0.3 MG/DL (0.2-1.0); TOTAL PROTEIN 6.1 GM/DL (6.4-8.2)
[2017-06-02] MEDS: LISINOPRIL 5 MG TAB PO SCH (08:54)
[2017-06-02] MEDS: methylPREDNISolone SOD SUCC 40 MG/1 ML VIAL IV PUSH SCH ×2 (08:54→20:36)
[2017-06-02] MEDS: DOCUSATE SODIUM 50 MG/SENNA 8.6 MG TAB PO SCH ×2 (08:54→20:35)
[2017-06-02] MEDS: DONEPEZIL HCL 5 MG TAB PO SCH ×2 (08:55→20:35)
[2017-06-02] MEDS: SODIUM CHLORIDE 0.9% FLUSH 10 ML FLUSH IV FLUSH SCH ×2 (08:55→20:37)
[2017-06-02] MEDS: buPROPion HCL 100 MG TAB PO SCH ×2 (08:55→20:35)
[2017-06-02] MEDS: FUROSEMIDE 20 MG TAB PO SCH (08:55)
--- NOTE | 2017-06-02 10:01 | HHI.PR ---
Subjective Remarks Follow-up rectal prolapse/rectal bleeding/UTI 06/01/17-patient seen and examined, alert and oriented 3, denies any GI. BP elevated. Denies any shortness of breath or chest pain. Currently nothing by mouth pending further evaluation from CRS 06/02/17-patient seen and examined, stable and no complaints. Was seen by colorectal surgery yesterday and plan for possible repair next week. Denies any bleeding at this time. Objective Vitals Vital Signs Date Time Temp Pulse Resp B/P (MAP) Pulse Ox O2 Delivery O2 Flow Rate FiO2 06/02/17 08:00 97.5 85 18 184/81 (115) 94 06/02/17 04:00 97.3 69 20 168/79 (108) 97 06/02/17 00:00 97.2 72 22 179/85 (116) 94 06/01/17 20:00 99.1 95 22 146/70 (95) 96 06/01/17 16:00 98.3 80 17 180/77 (111) 93 06/01/17 12:00 98.1 84 17 143/83 (103) 96 I/O 06/01/17 06/01/17 06/01/17 06/02/17 06/02/17 06/02/17 07:00 15:00 23:00 07:00 15:00 23:00 Intake Total 0 ml 0 ml 1270 ml Output Total 400 ml 800 ml Balance 0 ml -400 ml 470 ml Intake Oral 0 ml 0 ml 120 ml IV Total 1150 ml Output Urine Total 400 ml 800 ml # Voids 1 7 # Bowel Movements 0 2 0 Result Diagram: 06/02/17 0655 06/02/17 0651 Objective Remarks GENERAL: NAD SKIN: Warm and dry. HEAD: Normocephalic. EYES: No scleral icterus. No injection or drainage. NECK: Supple, trachea midline. No JVD or lymphadenopathy. CARDIOVASCULAR: Regular rate and rhythm without murmurs, gallops, or rubs. RESPIRATORY: Breath sounds equal bilaterally. No accessory muscle use. GASTROINTESTINAL: Abdomen soft, non-tender, nondistended. MUSCULOSKELETAL: No cyanosis, or edema. : deferred BACK: Nontender without obvious deformity. No CVA tenderness. A/P Problem List: (1) Rectal prolapse ICD Code: K62.3 - Rectal prolapse (2) Rectal bleeding ICD Code: K62.5 - Hemorrhage of anus and rectum (3) Renal insufficiency ICD Code: N28.9 - Disorder of kidney and ureter, unspecified (4) UTI (urinary tract infection) ICD Code: N39.0 - Urinary tract infection, site not specified (5) COPD (chronic obstructive pulmonary disease) ICD Code: J44.9 - Chronic obstructive pulmonary disease, unspecified (6) Schizophrenia ICD Code: F20.9 - Schizophrenia, unspecified (7) Tobacco abuse ICD Code: Z72.0 - Tobacco use Assessment and Plan 67-year-old female with 1. Rectal Prolapse: Dr. Mast consulted by ER physician and plan for repair next week. Continue analgesics/antiemetics as needed. 2. Rectal Bleeding: likely secondary to prolapse, Hgb stable .Noted to be on Coumadin per med list, unclear if accurate, continue to hold for now. 3. UTI: U/a w/ UTI. Continue Rocephin IV daily pending culture report 4. Renal Insufficiency: Improving with IVF for hydration 5. COPD: Chronic Respiratory Failure w/ Acute Exacerbation, Mild. Continue Solu-Medrol 20mg IV Q12H and continue with DuoNeb , LABA 6. Schizophrenia: Stable. continue home medications. 7. Tobacco Abuse: Pt counselled. NicoDerm prn if needed. 8. DVT Prophylaxis: SCD/Teds. 9. Hypertension: Labile BP, adjust outpatient medications accordingly; Vasotec IV PRN Young Foley MD Jun 02, 2017 10:01
[2017-06-02 12:00] VITALS: BP 174/81; PULSE 89; RESP 18; TEMP 98.4; O2SAT 94
[2017-06-02] MEDS: ENALAPRILAT 2.5 MG/2 ML VIAL IV PUSH PRN ×2 (13:21→22:31)
[2017-06-02 16:00] VITALS: BP 168/83; PULSE 79; RESP 18; TEMP 97.7; O2SAT 96
[2017-06-02 20:00] VITALS: BP 168/84; PULSE 80; RESP 18; TEMP 97; O2SAT 98
[2017-06-02] MEDS: BENZTROPINE MESYLATE 1 MG TAB PO SCH (20:35)
[2017-06-02] MEDS: OLANZapine 10 MG TAB PO SCH ×2 (20:35)
[2017-06-02] MEDS: SERTRALINE HCL 100 MG TAB PO SCH (20:43)
[2017-06-03] VITALS (7 sets, daily range): BP systolic 164–196; BP diastolic 78–96; PULSE 74–85; RESP 18–20; TEMP 96.8–98.9; O2SAT 92–99
[2017-06-03] MEDS: PIPERACIL-TAZO 2.25 GM PREMIX 50 ML IV SCH ×2 (00:54→05:49)
[2017-06-03] MEDS: LEVOTHYROXINE SODIUM 112 MCG TAB PO SCH (05:49)
[2017-06-03] MEDS: SODIUM CHLOR 0.9% 1000 ML INJ 1,000 ML IV SCH (05:49)
--- NOTE | 2017-06-03 07:24 | HHI.PR ---
Subjective Remarks Rectal prolapse comfortable Objective Vital Signs Date Time Temp Pulse Resp B/P (MAP) Pulse Ox O2 Delivery O2 Flow Rate FiO2 06/03/17 00:00 98.8 85 18 177/81 (113) 92 06/02/17 20:00 97.0 80 18 168/84 (112) 98 06/02/17 16:00 97.7 79 18 168/83 (111) 96 06/02/17 12:00 98.4 89 18 174/81 (112) 94 06/02/17 08:00 97.5 85 18 184/81 (115) 94 I/O 06/02/17 06/02/17 06/02/17 06/03/17 06/03/17 06/03/17 07:00 15:00 23:00 07:00 15:00 23:00 Intake Total 1270 ml 50 ml 530 ml 1050 ml Output Total 800 ml 2125 ml 2750 ml Balance 470 ml 50 ml -1595 ml -1700 ml Intake Oral 120 ml 480 ml IV Total 1150 ml 50 ml 50 ml 1050 ml Output Urine Total 800 ml 2125 ml 2750 ml # Bowel Movements 0 0 5 Result Diagram: 06/02/17 0655 06/02/17 0651 Objective Remarks Abdomen benign Assessment and Plan Assessment and Plan Dr Mast will be here tomorrow to determine type of repair/diversion and date of repair Urine cultures grew both E. Coli and S. aureus, Staph not sensitive to Zosyn, will change to Myrna Mendez MD Jun 03, 2017 07:24
[2017-06-03] MEDS: methylPREDNISolone SOD SUCC 40 MG/1 ML VIAL IV PUSH SCH ×2 (08:12→20:28)
[2017-06-03] MEDS: DONEPEZIL HCL 5 MG TAB PO SCH ×2 (08:12→20:28)
[2017-06-03] MEDS: SODIUM CHLORIDE 0.9% FLUSH 10 ML FLUSH IV FLUSH SCH ×2 (08:12→20:28)
[2017-06-03] MEDS: FUROSEMIDE 20 MG TAB PO SCH (08:12)
[2017-06-03] MEDS: CIPROFLOXACIN 500 MG TAB PO SCH ×2 (08:12→20:28)
[2017-06-03] MEDS: LISINOPRIL 5 MG TAB PO SCH (08:12)
[2017-06-03] MEDS: buPROPion HCL 100 MG TAB PO SCH ×2 (08:12→20:28)
[2017-06-03] MEDS: DOCUSATE SODIUM 50 MG/SENNA 8.6 MG TAB PO SCH ×2 (08:12→20:27)
--- NOTE | 2017-06-03 11:20 | HHI.PR ---
Subjective Remarks Follow-up rectal prolapse/rectal bleeding/UTI 06/01/17-patient seen and examined, alert and oriented 3, denies any GI. BP elevated. Denies any shortness of breath or chest pain. Currently nothing by mouth pending further evaluation from CRS 06/02/17-patient seen and examined, stable and no complaints. Was seen by colorectal surgery yesterday and plan for possible repair next week. Denies any bleeding at this time 06/03/17-patient seen and examined, no significant pain from rectal prolapse. Shortness of breath improved. Objective Vitals Vital Signs Date Time Temp Pulse Resp B/P (MAP) Pulse Ox O2 Delivery O2 Flow Rate FiO2 06/03/17 07:50 98.5 74 20 175/78 (110) 96 06/03/17 04:00 98.9 78 18 169/79 (109) 95 06/03/17 00:00 98.8 85 18 177/81 (113) 92 06/02/17 20:00 97.0 80 18 168/84 (112) 98 06/02/17 16:00 97.7 79 18 168/83 (111) 96 06/02/17 12:00 98.4 89 18 174/81 (112) 94 I/O 06/02/17 06/02/17 06/02/17 06/03/17 06/03/17 06/03/17 07:00 15:00 23:00 07:00 15:00 23:00 Intake Total 1270 ml 50 ml 530 ml 1050 ml Output Total 800 ml 2125 ml 2750 ml Balance 470 ml 50 ml -1595 ml -1700 ml Intake Oral 120 ml 480 ml IV Total 1150 ml 50 ml 50 ml 1050 ml Output Urine Total 800 ml 2125 ml 2750 ml # Voids 2 # Bowel Movements 0 0 5 Result Diagram: 06/02/17 0655 06/02/17 0651 Objective Remarks GENERAL: NAD SKIN: Warm and dry. HEAD: Normocephalic. EYES: No scleral icterus. No injection or drainage. NECK: Supple, trachea midline. No JVD or lymphadenopathy. CARDIOVASCULAR: Regular rate and rhythm without murmurs, gallops, or rubs. RESPIRATORY: Breath sounds equal bilaterally. No accessory muscle use. GASTROINTESTINAL: Abdomen soft, non-tender, nondistended. MUSCULOSKELETAL: No cyanosis, or edema. : deferred BACK: Nontender without obvious deformity. No CVA tenderness. A/P Problem List: (1) Rectal prolapse ICD Code: K62.3 - Rectal prolapse (2) Rectal bleeding ICD Code: K62.5 - Hemorrhage of anus and rectum (3) Renal insufficiency ICD Code: N28.9 - Disorder of kidney and ureter, unspecified (4) UTI (urinary tract infection) ICD Code: N39.0 - Urinary tract infection, site not specified (5) COPD (chronic obstructive pulmonary disease) ICD Code: J44.9 - Chronic obstructive pulmonary disease, unspecified (6) Schizophrenia ICD Code: F20.9 - Schizophrenia, unspecified (7) Tobacco abuse ICD Code: Z72.0 - Tobacco use Assessment and Plan 67-year-old female with 1. Rectal Prolapse: Dr. Mast consulted by ER physician and plan for repair next week. Continue analgesics/antiemetics as needed. 2. Rectal Bleeding: likely secondary to prolapse, Hgb stable .Noted to be on Coumadin per med list, unclear if accurate, continue to hold for now. 3. UTI-E coli: s/p Rocephin IV daily and now on Cipro 500mg BID 4. Renal Insufficiency: Improved with IVF for hydration 5. COPD: Chronic Respiratory Failure w/ Acute Exacerbation, Mild. Continue Solu-Medrol 20mg IV Q12H until 06/04/17 then switch to PO Prednisone and continue with DuoNeb , LABA 6. Schizophrenia: Stable. continue home medications. 7. Tobacco Abuse: Pt counselled. NicoDerm prn if needed. 8. DVT Prophylaxis: SCD/Teds. 9. Hypertension: Labile BP, Increase Lisinopril to 10mg daily and start Hydralazine 25mg Q8H; Vasotec IV PRN Young Foley MD Jun 03, 2017 11:20
[2017-06-03] MEDS ORDERED: LISINOPRIL 5 MG TAB PO ONE (11:30)
[2017-06-03] MEDS: hydrALAZINE HCL 25 MG TAB PO SCH ×3 (11:53→20:28)
[2017-06-03] MEDS: ENALAPRILAT 2.5 MG/2 ML VIAL IV PUSH PRN (16:19)
[2017-06-03] MEDS: BENZTROPINE MESYLATE 1 MG TAB PO SCH (20:27)
[2017-06-03] MEDS: OLANZapine 10 MG TAB PO SCH (20:28)
[2017-06-03] MEDS: SERTRALINE HCL 100 MG TAB PO SCH (20:33)
[2017-06-03] MEDS ORDERED: SULFAMETHOXAZOLE-TRIMETHOPRIM DS 800-160 MG TAB PO SCH (21:00)
[2017-06-04] VITALS (7 sets, daily range): BP systolic 115–186; BP diastolic 71–97; PULSE 80–100; RESP 16–20; TEMP 96–98.2; O2SAT 93–98
[2017-06-04] MEDS: ENALAPRILAT 2.5 MG/2 ML VIAL IV PUSH PRN (02:19)
[2017-06-04] MEDS: LEVOTHYROXINE SODIUM 112 MCG TAB PO SCH (05:50)
[2017-06-04] MEDS: hydrALAZINE HCL 25 MG TAB PO SCH ×3 (05:50→21:29)
[2017-06-04] MEDS: DONEPEZIL HCL 5 MG TAB PO SCH ×2 (08:00→20:09)
[2017-06-04] MEDS: methylPREDNISolone SOD SUCC 40 MG/1 ML VIAL IV PUSH SCH (08:00)
[2017-06-04] MEDS: LISINOPRIL 5 MG TAB PO SCH (08:00)
[2017-06-04] MEDS: FUROSEMIDE 20 MG TAB PO SCH (08:00)
[2017-06-04] MEDS: CIPROFLOXACIN 500 MG TAB PO SCH ×2 (08:01→20:09)
[2017-06-04] MEDS: SODIUM CHLORIDE 0.9% FLUSH 10 ML FLUSH IV FLUSH SCH ×2 (08:01→20:09)
[2017-06-04] MEDS: buPROPion HCL 100 MG TAB PO SCH ×2 (08:01→20:09)
[2017-06-04] MEDS: DOCUSATE SODIUM 50 MG/SENNA 8.6 MG TAB PO SCH ×2 (08:01→08:04)
[2017-06-04] MEDS ORDERED: MAGNESIUM CITRATE SOLN 300 ML BTL PO ONE (11:00)
[2017-06-04] MEDS ORDERED: LACTATED RINGER'S 1000 ML IV PRN (11:15)
[2017-06-04] MEDS ORDERED: METOPROLOL TARTRATE 25 MG TAB PO PRN (11:15)
[2017-06-04] MEDS ORDERED: POVIDONE IODINE 5% (ANTISEPSIS KIT) 4 APPLICATIONS EACH NARE PRN (11:15)
[2017-06-04] MEDS ORDERED: CHLORHEXIDINE GLUCONATE 2 % 1 PACK (2 CLOTHS) TOPICAL PRN (11:15)
[2017-06-04] MEDS ORDERED: SODIUM CHLORID 0.9% 500 ML IV PRN (11:15)
--- NOTE | 2017-06-04 14:28 | HHI.PR ---
Subjective Remarks The patient was nervous about her upcoming surgery. She said she was hungry and thirsty. She otherwise had no acute complaints. Discussed with nursing. Objective Vitals Vital Signs Date Time Temp Pulse Resp B/P (MAP) Pulse Ox O2 Delivery O2 Flow Rate FiO2 06/04/17 12:00 96.1 90 17 130/78 (95) 98 06/04/17 08:00 98.2 84 17 145/75 (98) 95 06/04/17 04:00 96.0 92 20 165/97 (119) 95 06/04/17 00:00 97.7 85 20 186/93 (124) 95 06/03/17 20:00 98.4 78 20 164/81 (108) 97 06/03/17 16:44 173/84 (113) 06/03/17 15:50 98.7 76 20 193/87 (122) 95 I/O 06/03/17 06/03/17 06/03/17 06/04/17 06/04/17 06/04/17 06:59 14:59 22:59 06:59 14:59 22:59 Intake Total 1200 ml 270 ml 1077 ml Output Total 2750 ml 1600 ml Balance -1550 ml 270 ml -523 ml Intake Oral 1077 ml IV Total 1200 ml 270 ml Output Urine Total 2750 ml 1600 ml # Voids 2 # Bowel Movements 5 5 Result Diagram: 06/02/17 0655 06/02/17 0651 Imaging Last Impressions Chest X-Ray 05/31/171931 Signed Impressions: Service Date/Time: May 19:42 - CONCLUSION: 1. No active disease. Tortuous aorta. Guillaume Poole MD Objective Remarks GENERAL: NAD. SKIN: Warm and dry. HEAD: Normocephalic. EYES: No scleral icterus. No injection or drainage. NECK: Supple, trachea midline. No JVD or lymphadenopathy. CARDIOVASCULAR: Regular rate and rhythm without murmurs, gallops, or rubs. RESPIRATORY: Breath sounds equal bilaterally. No accessory muscle use. GASTROINTESTINAL: Abdomen soft, non-tender, nondistended. MUSCULOSKELETAL: No cyanosis, or edema. BACK: Nontender without obvious deformity. No CVA tenderness. Medications and IVs Current Medications Medications (Trade) Dose Ordered Sig/Chrissie Route Start Time Stop Time Status Last Admin (NS Flush) 2 ml UNSCH PRN IV FLUSH 05/31/17 22:45 (NS Flush) 2 ml BID IV FLUSH 06/01/17 09:00 06/04/17 08:01 (Zofran Inj) 4 mg Q6H PRN IVP 05/31/17 22:45 (Tylenol) 650 mg Q6H PRN PO 05/31/17 22:45 ([place] 5-325 Mg) 1 tab Q4H PRN PO 05/31/17 22:45 06/01/17 00:27 (Asuncion-Colace) 1 tab BID PO 06/01/17 09:00 06/03/17 20:27 (Milk Of Magnesia Liq) 30 ml Q12H PRN PO 05/31/17 22:45 (Senokot) 17.2 mg Q12H PRN PO 05/31/17 22:45 (Lactulose Liq) 30 ml DAILY PRN PO 05/31/17 22:45 (Duoneb Neb) 1 ampule Q4HR NEB PRN NEB 05/31/17 22:45 (Cogentin) 1 mg HS PO 06/01/17 21:00 06/03/17 20:27 (Zoloft) 200 mg HS PO 06/01/17 21:00 06/03/17 20:33 (ZyPREXA) 20 mg HS PO 06/01/17 21:00 06/03/17 20:28 (SoluMEDROL INJ) 20 mg Q12HR IV PUSH 06/01/17 21:00 06/04/17 08:00 (Vasotec Inj) 2.5 mg Q6H PRN IV PUSH 06/01/17 10:45 06/04/17 02:19 (Wellbutrin) 100 mg BID PO 06/01/17 21:00 06/04/17 08:01 (Aricept) 10 mg BID PO 06/01/17 21:00 06/04/17 08:00 (Lasix) 20 mg DAILY PO 06/02/17 09:00 06/04/17 08:00 (Synthroid) 112 mcg DAILY@0600 PO 06/02/17 06:00 06/04/17 05:50 (Morphine Inj) 2 mg Q3H PRN IV PUSH 12/15/17 16:30 (Cipro) 500 mg Q12HR PO 06/03/17 09:00 06/04/17 08:01 (Prinivil) 10 mg DAILY PO 06/04/17 09:00 06/04/17 08:00 (Apresoline) 25 mg Q8HR PO 06/03/17 11:30 06/04/17 13:58 Lactated Ringer's 1,000 ml @ 30 mls/hr Q24H PRN IV 06/04/17 11:15 06/07/17 11:14 Sodium Chloride 500 ml @ 30 mls/hr [id number] PRN IV 06/04/17 11:15 06/07/17 11:14 (Lopressor) 25 mg [employer] TECHNICIAN PRN PO 06/04/17 11:15 06/07/17 11:14 (Betadine 5% Antisepsis Kit) 1 applic [employer] TECHNICIAN PRN EACH NARE 06/04/17 11:15 06/07/17 11:14 (Chlorhexidine 2% Cloth) 3 pack [employer] TECHNICIAN PRN TOPICAL 06/04/17 11:15 06/07/17 11:14 A/P Problem List: (1) Rectal prolapse ICD Code: K62.3 - Rectal prolapse (2) Rectal bleeding ICD Code: K62.5 - Hemorrhage of anus and rectum (3) Renal insufficiency ICD Code: N28.9 - Disorder of kidney and ureter, unspecified (4) UTI (urinary tract infection) ICD Code: N39.0 - Urinary tract infection, site not specified (5) COPD (chronic obstructive pulmonary disease) ICD Code: J44.9 - Chronic obstructive pulmonary disease, unspecified (6) Schizophrenia ICD Code: F20.9 - Schizophrenia, unspecified (7) Tobacco abuse ICD Code: Z72.0 - Tobacco use Assessment and Plan Rectal Prolapse Dr. Mast consulted by ER physician and plan for repair 06/04. - Continue analgesics/antiemetics as needed. Rectal Bleeding Likely secondary to prolapse, Hgb stable. Noted to be on Coumadin per med list, unclear if accurate. - continue to hold Coumadin for now. UTI/ Leukocytosis E coli. S/p Rocephin IV daily. - now on Cipro 500mg BID. Renal Insufficiency Improved with IVF for hydration. - monitor. COPD Chronic Respiratory Failure w/ Acute Exacerbation, Mild. - Continue Solu-Medrol 20mg IV Q12H until 06/04/17 then switch to PO Prednisone taper and continue with DuoNeb , LABA. Hypertension Labile BP. - Increase Lisinopril to 10mg daily and start Hydralazine 25mg Q8H; Vasotec IV PRN. DVT Prophylaxis: SCD/Teds. Ayan Lovett DO Jun 04, 2017 14:28
[2017-06-04] MEDS ORDERED: ESMOLOL HCL 100 MG/10 ML VIAL ONE (16:22)
--- NOTE | 2017-06-04 17:02 | EKG ---
Date Performed: 06/04/2017 Time Performed: 11:13:43 PTAGE: 67 years EKG: Sinus rhythm Since previous tracing, no significant change noted NORMAL ECG PREVIOUS TRACING : 02/12/2010 20.01 DOCTOR: Delvis Justice Interpretating Date/Time 06/04/2017 17:01:44
[2017-06-04] MEDS: OLANZapine 10 MG TAB PO SCH (20:09)
[2017-06-04] MEDS: BENZTROPINE MESYLATE 1 MG TAB PO SCH (20:09)
[2017-06-04] MEDS: SERTRALINE HCL 100 MG TAB PO SCH (20:09)
[2017-06-05] VITALS: BP 139/79; PULSE 79; RESP 18; TEMP 97.5; O2SAT 93
[2017-06-05] MEDS ORDERED: LACTATED RINGER'S 1000 ML IV PRN (00:30)
[2017-06-05] MEDS ORDERED: CHLORHEXIDINE GLUCONATE 2 % 1 PACK (2 CLOTHS) TOPICAL PRN (00:30)
[2017-06-05 04:00] VITALS: BP 140/82; PULSE 82; RESP 17; TEMP 96.8; O2SAT 94
[2017-06-05] MEDS: hydrALAZINE HCL 25 MG TAB PO SCH ×3 (05:16→21:15)
[2017-06-05] MEDS: LEVOTHYROXINE SODIUM 112 MCG TAB PO SCH (05:16)
[2017-06-05 08:00] VITALS: BP 144/61; PULSE 74; RESP 16; TEMP 97.3; O2SAT 98
[2017-06-05] MEDS: DONEPEZIL HCL 5 MG TAB PO SCH ×2 (09:51→21:16)
[2017-06-05] MEDS: CIPROFLOXACIN 500 MG TAB PO SCH (09:51)
[2017-06-05] MEDS: FUROSEMIDE 20 MG TAB PO SCH (09:51)
[2017-06-05] MEDS: LISINOPRIL 5 MG TAB PO SCH (09:52)
[2017-06-05] MEDS: buPROPion HCL 100 MG TAB PO SCH ×2 (09:52→21:15)
[2017-06-05] MEDS: predniSONE 20 MG TAB PO SCH (09:52)
[2017-06-05] MEDS: SODIUM CHLORIDE 0.9% FLUSH 10 ML FLUSH IV FLUSH SCH ×2 (09:53→21:00)
[2017-06-05 11:17] LABS: HEMATOCRIT 42.2 % (35.0-46.0); HEMOGLOBIN 14.3 GM/DL (11.6-15.3); MEAN CELL VOLUME 92.7 FL (80.0-100.0); MEAN CORPUSCULAR HEMOGLOBIN 31.4 PG (27.0-34.0); MEAN CORPUSCULAR HGB CONC 33.8 % (32.0-36.0); MEAN PLATELET VOLUME 7.2 FL (7.0-11.0); PLATELET COUNT 503 TH/MM3 (150-450); RED BLOOD COUNT 4.55 MIL/MM3 (4.00-5.30); RED CELL DISTRIBUTION WIDTH 14.8 % (11.6-17.2); WHITE BLOOD COUNT 16.4 TH/MM3 (4.0-11.0)
[2017-06-05 11:42] LABS: BICARBONATE 28.6 MEQ/L (21.0-32.0); CALCIUM 9.1 MG/DL (8.5-10.1); CREATININE 1.84 MG/DL (0.50-1.00); MAGNESIUM 2.2 MG/DL (1.5-2.5)
[2017-06-05 12:00] VITALS: BP 104/63; PULSE 90; RESP 16; TEMP 98.3; O2SAT 97
[2017-06-05] MEDS: SODIUM CHLOR 0.9% 1000 ML INJ 1,000 ML IV SCH ×2 (13:00→21:22)
--- NOTE | 2017-06-05 13:06 | HHI.PR ---
Subjective Remarks The patient was awaiting surgery but apparently drank a bottle of ensure recently. Nursing was at the bedside and was attempting to contact surgery about that. The patient said she wanted to go home soon. Objective Vitals Vital Signs Date Time Temp Pulse Resp B/P (MAP) Pulse Ox O2 Delivery O2 Flow Rate FiO2 06/05/17 08:00 97.3 74 16 144/61 (88) 98 06/05/17 04:00 96.8 82 17 140/82 (101) 94 06/05/17 00:00 97.5 79 18 139/79 (99) 93 06/04/17 20:03 96.8 80 17 115/71 (86) 97 06/04/17 17:09 96.7 100 17 131/94 (106) 93 06/04/17 16:45 98.0 81 18 164/94 (117) 100 06/04/17 16:00 97.2 94 16 152/76 (101) 95 I/O 06/04/17 06/04/17 06/04/17 06/05/17 06/05/17 06/05/17 07:00 15:00 23:00 07:00 15:00 23:00 Intake Total 1110 ml Output Total 1000 ml Balance 110 ml Intake Oral 960 ml Other 150 ml Output Urine Total 1000 ml # Voids 2 2 # Bowel Movements 3 Result Diagram: 06/05/17 0932 06/05/17 0932 Imaging Last Impressions Chest X-Ray 05/31/171931 Signed Impressions: Service Date/Time: May 19:42 - CONCLUSION: 1. No active disease. Tortuous aorta. Guillaume Poole MD Objective Remarks GENERAL: NAD. SKIN: Warm and dry. HEAD: Normocephalic. EYES: No scleral icterus. No injection or drainage. NECK: Supple, trachea midline. No JVD or lymphadenopathy. CARDIOVASCULAR: Regular rate and rhythm without murmurs, gallops, or rubs. RESPIRATORY: Breath sounds equal bilaterally. No accessory muscle use. GASTROINTESTINAL: Abdomen soft, non-tender, nondistended. MUSCULOSKELETAL: No cyanosis, or edema. BACK: Nontender without obvious deformity. No CVA tenderness. PSYCH: Flattened affect. Medications and IVs Current Medications Medications (Trade) Dose Ordered Sig/Chrissie Route Start Time Stop Time Status Last Admin (NS Flush) 2 ml UNSCH PRN IV FLUSH 05/31/17 22:45 (NS Flush) 2 ml BID IV FLUSH 06/01/17 09:00 06/05/17 09:53 (Zofran Inj) 4 mg Q6H PRN IVP 05/31/17 22:45 (Tylenol) 650 mg Q6H PRN PO 05/31/17 22:45 ([place] 5-325 Mg) 1 tab Q4H PRN PO 05/31/17 22:45 06/01/17 00:27 (Duoneb Neb) 1 ampule Q4HR NEB PRN NEB 05/31/17 22:45 (Cogentin) 1 mg HS PO 06/01/17 21:00 06/04/17 20:09 (Zoloft) 200 mg HS PO 06/01/17 21:00 06/04/17 20:09 (ZyPREXA) 20 mg HS PO 06/01/17 21:00 06/04/17 20:09 (Vasotec Inj) 2.5 mg Q6H PRN IV PUSH 06/01/17 10:45 06/04/17 02:19 (Wellbutrin) 100 mg BID PO 06/01/17 21:00 06/05/17 09:52 (Aricept) 10 mg BID PO 06/01/17 21:00 06/05/17 09:51 (Lasix) 20 mg DAILY PO 06/02/17 09:00 06/05/17 09:51 (Synthroid) 112 mcg DAILY@0600 PO 06/02/17 06:00 06/05/17 05:16 (Morphine Inj) 2 mg Q3H PRN IV PUSH 06/01/17 16:30 (Cipro) 500 mg Q12HR PO 06/03/17 09:00 06/05/17 09:51 (Prinivil) 10 mg DAILY PO 06/04/17 09:00 06/05/17 09:52 (Apresoline) 25 mg Q8HR PO 06/03/17 11:30 06/05/17 05:16 (Deltasone) 20 mg DAILY PO 06/05/17 09:00 06/05/17 09:52 Lactated Ringer's 1,000 ml @ 30 mls/hr Q24H PRN IV 06/05/17 00:30 06/08/17 00:29 (Chlorhexidine 2% Cloth) 3 pack [employer] CENTER ASSISTANT PRN TOPICAL 06/05/17 00:30 06/08/17 00:29 A/P Problem List: (1) Rectal prolapse ICD Code: K62.3 - Rectal prolapse (2) Rectal bleeding ICD Code: K62.5 - Hemorrhage of anus and rectum (3) Renal insufficiency ICD Code: N28.9 - Disorder of kidney and ureter, unspecified (4) UTI (urinary tract infection) ICD Code: N39.0 - Urinary tract infection, site not specified (5) COPD (chronic obstructive pulmonary disease) ICD Code: J44.9 - Chronic obstructive pulmonary disease, unspecified (6) Schizophrenia ICD Code: F20.9 - Schizophrenia, unspecified (7) Tobacco abuse ICD Code: Z72.0 - Tobacco use Assessment and Plan Rectal Prolapse Dr. Mast consulted by ER physician and plan for repair 06/06. Status post sigmoidoscopy. - Continue analgesics/antiemetics as needed. - Clear liquid diet and nothing by mouth after midnight. Rectal Bleeding Likely secondary to prolapse, Hgb stable. Noted to be on Coumadin per med list, unclear if accurate. - continue to hold Coumadin for now. UTI/ Leukocytosis E coli. S/p Rocephin IV daily. - now on Cipro 500mg BID. Renal Insufficiency Creatinine increased again. - DC Lasix and lisinopril for now. - IV fluids. - monitor. COPD Chronic Respiratory Failure w/ Acute Exacerbation, Mild. - Continue PO Prednisone taper and continue with DuoNeb , LABA. Hypertension Labile BP. - start Hydralazine 25mg Q8H; Vasotec IV PRN. - DC lisinopril. Add amlodipine if needed. DVT Prophylaxis: SCD/Teds. Discharge Planning Awaiting surgery Ayan Lovett DO Jun 05, 2017 13:06
[2017-06-05] MEDS ORDERED: PILL SPLITTER OTHER PRN (13:15)
[2017-06-05 16:00] VITALS: BP 135/73; PULSE 84; RESP 17; TEMP 97.9; O2SAT 98
--- NOTE | 2017-06-05 17:17 | HHI.PR ---
Subjective Remarks C/R Surg Pt examined, chart reviewed pt ate before surgery - need to lamine repair Objective - Vital Signs Date Time Temp Pulse Resp B/P (MAP) Pulse Ox O2 Delivery O2 Flow Rate FiO2 06/05/17 16:00 97.9 84 17 135/73 (93) 98 Result Diagram: 06/05/1732 06/05/17 0932 Objective Remarks PE alert Abd - soft, non-tender, no masses, min tympany Rectal - lg prolapse, extreme dilation of anal sphincter - no tone A/P Assessment and Plan Imp: rectal prolapse - difficult to repair due to size of prolapse, and weakness of sphincter cont PO diet - NPO after MN if pt wants to try again for tomorrow Abran Mast MD Jun 05, 2017 17:17
[2017-06-05 20:00] VITALS: BP 146/73; PULSE 79; RESP 24; TEMP 99.6; O2SAT 99
[2017-06-05] MEDS: BENZTROPINE MESYLATE 1 MG TAB PO SCH (21:15)
[2017-06-05] MEDS: ACETAMINOPHEN/HYDROcodone 325 MG/5 MG TAB PO PRN (21:15)
[2017-06-05] MEDS: OLANZapine 10 MG TAB PO SCH (21:15)
[2017-06-05] MEDS: SERTRALINE HCL 100 MG TAB PO SCH (21:16)
[2017-06-05] MEDS: CIPROFLOXACIN 750 MG TAB PO SCH (21:16)
[2017-06-06] VITALS (8 sets, daily range): BP systolic 97–133; BP diastolic 60–77; PULSE 75–91; RESP 16–22; TEMP 97.9–98.7; O2SAT 95–98
[2017-06-06] MEDS: LEVOTHYROXINE SODIUM 112 MCG TAB PO SCH (06:09)
[2017-06-06] MEDS: hydrALAZINE HCL 25 MG TAB PO SCH ×3 (06:09→20:46)
[2017-06-06] MEDS: CIPROFLOXACIN 750 MG TAB PO SCH (08:36)
[2017-06-06] MEDS: predniSONE 20 MG TAB PO SCH (08:36)
[2017-06-06] MEDS: buPROPion HCL 100 MG TAB PO SCH ×2 (08:36→20:46)
[2017-06-06] MEDS: DONEPEZIL HCL 5 MG TAB PO SCH ×2 (08:36→20:46)
[2017-06-06] MEDS: SODIUM CHLOR 0.9% 1000 ML INJ 1,000 ML IV SCH (08:41)
[2017-06-06] MEDS: SODIUM CHLORIDE 0.9% FLUSH 10 ML FLUSH IV FLUSH SCH ×2 (08:44→20:45)
[2017-06-06] MEDS ORDERED: ACETAMINOPHEN 1000 MG/100 ML 100 ML IV ONE (09:40)
[2017-06-06 09:51] LABS: HEMATOCRIT 37.2 % (35.0-46.0); HEMOGLOBIN 12.3 GM/DL (11.6-15.3); MEAN CELL VOLUME 92.7 FL (80.0-100.0); MEAN CORPUSCULAR HEMOGLOBIN 30.8 PG (27.0-34.0); MEAN CORPUSCULAR HGB CONC 33.2 % (32.0-36.0); MEAN PLATELET VOLUME 6.4 FL (7.0-11.0); PLATELET COUNT 366 TH/MM3 (150-450); RED BLOOD COUNT 4.01 MIL/MM3 (4.00-5.30); RED CELL DISTRIBUTION WIDTH 14.5 % (11.6-17.2); WHITE BLOOD COUNT 14.8 TH/MM3 (4.0-11.0)
[2017-06-06 10:09] LABS: BICARBONATE 25.7 MEQ/L (21.0-32.0); CREATININE 1.44 MG/DL (0.50-1.00); MAGNESIUM 2.2 MG/DL (1.5-2.5)
[2017-06-06] MEDS ORDERED: metroNIDAZOLE 500 MG INJ 100 ML IV ONE (10:22)
[2017-06-06] MEDS ORDERED: ceFAZolin INJ 1,000 MG VIAL ONE (10:23)
--- NOTE | 2017-06-06 10:24 | HHI.FF ---
Face to Face Verification Diagnosis: (1) Rectal bleeding (2) Rectal prolapse Physical Therapy Order: Evaluate and Treat, Improve ambulation, Strength and gait training Occupational Therapy Order: Evaluate and Treat, Improve ADL, Gross motor coordination, Fine motor coordination Home Health Nursing Order: Medical education Signs/symptoms of disease process Wound care and dressing changes Nursing assessment with vital signs I have seen patient Allison Urban on 06/06/17. My clinical findings support the need for the requested home health care services because: Ltd mobility - disease progression Deconditioned w/ increased weakness Limited ability to care for self Need for psychosocial assistance High risk of falls I certify that my clinical findings support that this patient is homebound because: Post-op weakness Unsteady gait/balance Unsafe to leave home unassisted Need for psychosocial assistance Ayan Lovett DO Jun 06, 2017 10:24
[2017-06-06] MEDS ORDERED: ePHEDrine/NS 25 MG/5 ML SYRINGE IV ONE (12:00)
[2017-06-06] MEDS ORDERED: LIDOCAINE HCL 1% PF 5 ML SYRINGE OTHER ONE (12:00)
[2017-06-06] MEDS ORDERED: NEOSTIGMINE 5 MG/5 ML SYRINGE IV PUSH ONE (12:00)
[2017-06-06] MEDS ORDERED: ESMOLOL HCL 100 MG/10 ML VIAL IV ONE (12:00)
[2017-06-06] MEDS ORDERED: PHENYLEPH/NS 1000 MCG/10 ML SYR IV ONE (12:00)
[2017-06-06] MEDS ORDERED: ROCURONIUM INJ 50 MG/5 ML SYRINGE IV PUSH ONE (12:00)
[2017-06-06] MEDS ORDERED: GLYCOPYRROLATE 1 MG/5 ML SYRINGE IV PUSH ONE (12:00)
[2017-06-06] MEDS ORDERED: NORMOSOL R INJ 1,000 ML IV ONE (12:00)
[2017-06-06] MEDS ORDERED: PROPOFOL 200 MG/20 ML AMP IV ONE (12:00)
[2017-06-06] MEDS ORDERED: ONDANSETRON HCL 4 MG/2 ML VIAL IV ONE (12:00)
[2017-06-06] MEDS ORDERED: DEXAMETHASONE SOD PHOS 4 MG/ML VIAL IV ONE (12:00)
[2017-06-06] MEDS ORDERED: MORPHINE SULFATE 30 MG/30 ML PCA IV SCH (12:15)
[2017-06-06] MEDS ORDERED: POTASSIUM CHLOR 20 MEQ PREMIX 100 ML IV PRN (12:15)
[2017-06-06] MEDS ORDERED: POTASSIUM CHLOR 40 MEQ PREMIX 100 ML IV PRN (12:15)
[2017-06-06] MEDS ORDERED: NALOXONE HCL 0.4 MG/ML AMP IV PUSH PRN (12:15)
[2017-06-06] MEDS ORDERED: BENZOCAINE 6 MG/MENTHOL 10 MG LOZENGE BUCCAL PRN (12:15)
[2017-06-06] MEDS ORDERED: ONDANSETRON HCL 4 MG/2 ML VIAL IV PUSH PRN (12:15)
[2017-06-06] MEDS ORDERED: KETOROLAC TROMETHAMINE 30 MG/ML (IVP) VIAL IVP PRN (12:15)
[2017-06-06] MEDS ORDERED: ACETAMINOPHEN/HYDROcodone 325 MG/5 MG TAB PO PRN (12:15)
[2017-06-06] MEDS ORDERED: Post-op Orders (for Pharmacy) XX ONE (12:15)
[2017-06-06] MEDS ORDERED: *morphine SULFATE 8 MG/ML PERIprocedure ONLY ONE ×2 (12:33→12:46)
[2017-06-06] MEDS: D5-NS + KCL 20 MEQ INJ 1,000 ML IV SCH ×2 (12:50→20:46)
[2017-06-06] MEDS ORDERED: *MEPERIDINE 25 MG INJ VIAL PERIprocedural Use ONLY ONE (12:57)
[2017-06-06] MEDS ORDERED: *HYDROmorphone PF 1 MG VIAL PERIprocedural Use ONLY ONE (12:57)
[2017-06-06] MEDS ORDERED: DO NOT ADM ANY ANTICOAGULANT DRUGS PRN (15:45)
--- NOTE | 2017-06-06 17:04 | HHI.PR ---
Subjective Remarks The pt said that she was scared to . 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 She said the surgery went well. No acute concerns reported. Objective Vitals Vital Signs Date Time Temp Pulse Resp B/P (MAP) Pulse Ox O2 Delivery O2 Flow Rate FiO2 06/06/17 16:47 17 06/06/17 14:30 98.1 90 16 144/72 (96) 99 Nasal Cannula 3 06/06/17 12:14 97.5 108 16 174/85 (114) 97 Nasal Cannula 3 06/06/17 08:00 98.6 78 16 133/63 (86) 95 06/06/17 00:00 98.6 75 22 126/60 (82) 96 06/05/17 20:00 99.6 79 24 146/73 (97) 99 I/O 06/05/17 06/05/17 06/05/17 06/06/17 06/06/17 06/06/17 07:00 15:00 23:00 07:00 15:00 23:00 Intake Total 780 ml 1500 ml 400 ml Output Total 325 ml 42 ml 325 ml Balance 780 ml -325 ml 1458 ml 75 ml Intake Oral 780 ml IV Total 400 ml Other 1500 ml Output Urine Total 325 ml 325 ml Stool Total 2 ml Estimated Blood Loss 40 ml # Voids 2 8 1 # Bowel Movements 3 1 Result Diagram: 06/06/1745 06/06/1745 Imaging Last Impressions Chest X-Ray 05/31/171931 Signed Impressions: Service Date/Time: May 19:42 - CONCLUSION: 1. No active disease. Tortuous aorta. Guillaume Poole MD Objective Remarks GENERAL: NAD. SKIN: Warm and dry. HEAD: Normocephalic. EYES: No scleral icterus. No injection or drainage. NECK: Supple, trachea midline. No JVD or lymphadenopathy. CARDIOVASCULAR: Regular rate and rhythm without murmurs, gallops, or rubs. RESPIRATORY: Breath sounds equal bilaterally. No accessory muscle use. GASTROINTESTINAL: Abdominal binder in place. MUSCULOSKELETAL: No cyanosis, or edema. BACK: Nontender without obvious deformity. No CVA tenderness. PSYCH: Flattened affect. Medications and IVs Current Medications Medications (Trade) Dose Ordered Sig/Chrissie Route Start Time Stop Time Status Last Admin (NS Flush) 2 ml UNSCH PRN IV FLUSH 05/31/17 22:45 (NS Flush) 2 ml BID IV FLUSH 06/01/17 09:00 06/05/17 09:53 (Zofran Inj) 4 mg Q6H PRN IVP 05/31/17 22:45 (Tylenol) 650 mg Q6H PRN PO 05/31/17 22:45 (Duoneb Neb) 1 ampule Q4HR NEB PRN NEB 05/31/17 22:45 (Cogentin) 1 mg HS PO 06/01/17 21:00 06/05/17 21:15 (Zoloft) 200 mg HS PO 06/01/17 21:00 06/05/17 21:16 (ZyPREXA) 20 mg HS PO 06/01/17 21:00 06/05/17 21:15 (Vasotec Inj) 2.5 mg Q6H PRN IV PUSH 06/01/17 10:45 06/04/17 02:19 (Wellbutrin) 100 mg BID PO 06/01/17 21:00 06/06/17 08:36 (Aricept) 10 mg BID PO 06/01/17 21:00 06/06/17 08:36 (Synthroid) 112 mcg DAILY@0600 PO 06/02/17 06:00 06/06/17 06:09 (Morphine Inj) 2 mg Q3H PRN IV PUSH 06/01/17 16:30 (Apresoline) 25 mg Q8HR PO 06/03/17 11:30 06/06/17 06:09 (Deltasone) 20 mg DAILY PO 06/05/17 09:00 06/06/17 08:36 (Chlorhexidine 2% Cloth) 3 pack ASSOCIATE MEDICAL DIRECTOR PRN TOPICAL 06/05/17 00:30 06/08/17 00:29 (Pill Splitter) 1 ea UNSCH PRN OTHER 06/05/17 13:15 Potassium Chloride/Dextrose/ Sod Cl 1,000 ml @ 150 mls/hr Q6H40M IV 06/06/17 12:06 06/06/17 12:50 Cefazolin Sodium 1000 mg/Sodium Chloride 100 ml @ 200 mls/hr Q8H IV 06/06/17 18:00 06/07/17 10:29 Metronidazole 100 ml @ 200 mls/hr Q8H IV 06/06/17 18:00 06/07/17 10:29 (Bard 5-325 Mg) 1 tab Q4H PRN PO 06/06/17 12:15 (Bard 5-325 Mg) 2 tab Q4H PRN PO 06/06/17 12:15 (Toradol Inj) 30 mg Q6H PRN IVP 06/06/17 12:15 06/09/17 12:14 (Protonix Inj) 40 mg DAILY IVP 06/07/17 09:00 (Protonix) 40 mg DAILY PO 06/07/17 09:00 (Reglan Inj) 10 mg Q12HR IVS 06/06/17 21:00 (Zofran Inj) 4 mg Q6H PRN IV PUSH 06/06/17 12:15 (Vasotec Inj) 1.25 mg Q4H PRN IV PUSH 06/06/17 12:15 (Chloraseptic Ole) 1 lozenge UNSCH PRN BUCCAL 06/06/17 12:15 Potassium Chloride 100 ml @ 50 mls/hr UNSCH PRN IV 06/06/17 12:15 Potassium Chloride 100 ml @ 25 mls/hr UNSCH PRN IV 06/06/17 12:15 (Narcan Inj) 0.4 mg UNSCH PRN IV PUSH 06/06/17 12:15 (Morphine 1 Mg/ ml WELCOME CENTER ATTENDANT) 30 mg UNSCH IV 06/06/17 12:15 06/06/17 16:47 WELCOME CENTER ATTENDANT Dosage Infused (Pha) 1 Q8HR .XX 06/06/17 14:00 Miscellaneous Information ALL NURSING DEPARTME... UNSCH PRN .XX 06/06/17 15:45 06/07/17 15:44 A/P Problem List: (1) Rectal prolapse ICD Code: K62.3 - Rectal prolapse (2) Rectal bleeding ICD Code: K62.5 - Hemorrhage of anus and rectum (3) Renal insufficiency ICD Code: N28.9 - Disorder of kidney and ureter, unspecified (4) UTI (urinary tract infection) ICD Code: N39.0 - Urinary tract infection, site not specified (5) COPD (chronic obstructive pulmonary disease) ICD Code: J44.9 - Chronic obstructive pulmonary disease, unspecified (6) Schizophrenia ICD Code: F20.9 - Schizophrenia, unspecified (7) Tobacco abuse ICD Code: Z72.0 - Tobacco use Assessment and Plan Rectal Prolapse Dr. Mast consulted by ER physician and plan for repair 06/06. Status post sigmoidoscopy. - Continue analgesics/antiemetics as needed. - s/p surgery 06/06. Management per CRS. Rectal Bleeding Likely secondary to prolapse, Hgb stable. Noted to be on Coumadin per med list, unclear if accurate. - continue to hold Coumadin for now. UTI/ Leukocytosis E coli. S/p Rocephin IV daily. - on cefazolin per surgery. Renal Insufficiency Creatinine seems stable. - DC Lasix and lisinopril for now. - IV fluids. - monitor. COPD Chronic Respiratory Failure w/ Acute Exacerbation, Mild. - Continue PO Prednisone taper and continue with DuoNeb , LABA. Hypertension Labile BP. - start Hydralazine 25mg Q8H; Vasotec IV PRN. - DC lisinopril. Add amlodipine if needed. DVT Prophylaxis: SCD/Teds. Discharge Planning Per surgery Ayan Lovett DO Jun 06, 2017 17:04
[2017-06-06] MEDS: PCA - TOTAL MG MORPHINE DELIVERED PER SHIFT SCH ×2 (18:30→21:42)
[2017-06-06] MEDS: metroNIDAZOLE 500 MG INJ 100 ML IV SCH (18:34)
[2017-06-06] MEDS: METOCLOPRAMIDE HCL 10 MG/2 ML VIAL IVS SCH (20:45)
[2017-06-06] MEDS: SERTRALINE HCL 100 MG TAB PO SCH (20:45)
[2017-06-06] MEDS: BENZTROPINE MESYLATE 1 MG TAB PO SCH (20:46)
[2017-06-06] MEDS: OLANZapine 10 MG TAB PO SCH (20:46)
[2017-06-07] VITALS (14 sets, daily range): BP systolic 107–159; BP diastolic 60–76; PULSE 74–95; RESP 17–20; TEMP 97–98.4; O2SAT 93–100
[2017-06-07] MEDS: D5-NS + KCL 20 MEQ INJ 1,000 ML IV SCH ×4 (01:26→23:34)
[2017-06-07] MEDS: metroNIDAZOLE 500 MG INJ 100 ML IV SCH ×2 (02:36→09:43)
[2017-06-07] MEDS: LEVOTHYROXINE SODIUM 112 MCG TAB PO SCH (05:39)
[2017-06-07] MEDS: PCA - TOTAL MG MORPHINE DELIVERED PER SHIFT SCH ×3 (05:39→22:00)
[2017-06-07] MEDS: hydrALAZINE HCL 25 MG TAB PO SCH ×3 (05:39→22:12)
[2017-06-07 06:20] LABS: AUTOMATED NEUTROPHIL # 12.5 TH/MM3 (1.8-7.7); BASOPHIL % 0.2 % (0.0-2.0); EOSINOPHIL % 0.3 % (0.0-4.0); HEMATOCRIT 30.8 % (35.0-46.0); LYMPH % 6.2 % (9.0-44.0); LYMPHOCYTE # 0.9 TH/MM3 (1.0-4.8); MEAN CELL VOLUME 94.4 FL (80.0-100.0); MEAN CORPUSCULAR HEMOGLOBIN 30.7 PG (27.0-34.0); MEAN CORPUSCULAR HGB CONC 32.6 % (32.0-36.0); MEAN PLATELET VOLUME 6.9 FL (7.0-11.0); MONO % 5.7 % (0.0-8.0); MONOCYTE # 0.8 TH/MM3 (0-0.9); NEUT % 87.6 % (16.0-70.0); PLATELET COUNT 290 TH/MM3 (150-450); RED BLOOD COUNT 3.26 MIL/MM3 (4.00-5.30); RED CELL DISTRIBUTION WIDTH 15.3 % (11.6-17.2); WHITE BLOOD COUNT 14.2 TH/MM3 (4.0-11.0)
[2017-06-07 06:59] LABS: BICARBONATE 25.5 MEQ/L (21.0-32.0); CALCIUM 7.1 MG/DL (8.5-10.1); CREATININE 1.59 MG/DL (0.50-1.00)
[2017-06-07 07:15] LABS: CALCIUM-PROTEIN CORRECTED 8.2 MG/DL (8.5-10.1); TOTAL PROTEIN 5.1 GM/DL (6.4-8.2)
--- NOTE | 2017-06-07 08:02 | HHI.PR ---
Subjective Remarks C/R Surg POD #1 Pt examined, chart reviewed Afebrile, VSS UO adeq Objective - Vital Signs Date Time Temp Pulse Resp B/P (MAP) Pulse Ox O2 Delivery O2 Flow Rate FiO2 06/07/17 06:39 80 06/07/17 05:39 16 06/07/17 03:00 98.4 107/60 (76) 100 06/07/17 00:05 Nasal Cannula 2.00 Result Diagram: 06/07/1744906/07/17 0450 Objective Remarks PE alert Abd - soft, non-tender, min tympany A/P Assessment and Plan Imp: stable post-op OOB keep Abran Gutierrez MD Jun 07, 2017 08:02
[2017-06-07] MEDS: buPROPion HCL 100 MG TAB PO SCH ×2 (09:39→22:49)
[2017-06-07] MEDS: DONEPEZIL HCL 5 MG TAB PO SCH ×2 (09:39→22:12)
[2017-06-07] MEDS: PANTOPRAZOLE SOD 40 MG DELAYED RELEASE TAB PO SCH (09:39)
[2017-06-07] MEDS: PANTOPRAZOLE SODIUM 40 MG VIAL IVP SCH (09:40)
[2017-06-07] MEDS: METOCLOPRAMIDE HCL 10 MG/2 ML VIAL IVS SCH ×2 (09:41→22:13)
[2017-06-07] MEDS: predniSONE 20 MG TAB PO SCH (09:41)
[2017-06-07] MEDS: SODIUM CHLORIDE 0.9% FLUSH 10 ML FLUSH IV FLUSH SCH ×2 (09:41→21:00)
[2017-06-07] MEDS: SERTRALINE HCL 100 MG TAB PO SCH (22:12)
[2017-06-07] MEDS: OLANZapine 10 MG TAB PO SCH (22:49)
[2017-06-07] MEDS: BENZTROPINE MESYLATE 1 MG TAB PO SCH (22:49)
[2017-06-07] MEDS: ACETAMINOPHEN/HYDROcodone 325 MG/5 MG TAB PO PRN (23:52)
[2017-06-08] VITALS (8 sets, daily range): BP systolic 113–168; BP diastolic 55–80; PULSE 60–101; RESP 18–20; TEMP 96.9–99.3; O2SAT 94–98
[2017-06-08] MEDS: DEXT 5%-NACL 0.9% 1000 ML INJ 1,000 ML IV SCH ×4 (02:05→20:12)
[2017-06-08] MEDS: hydrALAZINE HCL 25 MG TAB PO SCH ×3 (05:47→20:15)
[2017-06-08] MEDS: LEVOTHYROXINE SODIUM 112 MCG TAB PO SCH (05:47)
[2017-06-08] MEDS: PCA - TOTAL MG MORPHINE DELIVERED PER SHIFT SCH ×4 (05:49→23:49)
[2017-06-08] MEDS: DONEPEZIL HCL 5 MG TAB PO SCH ×2 (08:31→20:16)
[2017-06-08] MEDS: SODIUM CHLORIDE 0.9% FLUSH 10 ML FLUSH IV FLUSH SCH ×2 (08:31→20:15)
[2017-06-08] MEDS: PANTOPRAZOLE SODIUM 40 MG VIAL IVP SCH (08:31)
[2017-06-08] MEDS: predniSONE 20 MG TAB PO SCH (08:33)
[2017-06-08] MEDS: PANTOPRAZOLE SOD 40 MG DELAYED RELEASE TAB PO SCH (08:33)
[2017-06-08] MEDS: METOCLOPRAMIDE HCL 10 MG/2 ML VIAL IVS SCH ×3 (08:33→20:15)
[2017-06-08] MEDS: buPROPion HCL 100 MG TAB PO SCH ×2 (09:04→20:16)
[2017-06-08 10:32] LABS: AUTOMATED NEUTROPHIL # 18.4 TH/MM3 (1.8-7.7); BASOPHIL # 0.1 TH/MM3 (0-0.2); BASOPHIL % 0.4 % (0.0-2.0); EOSINOPHIL # 0.1 TH/MM3 (0-0.4); EOSINOPHIL % 0.3 % (0.0-4.0); HEMATOCRIT 32.7 % (35.0-46.0); HEMOGLOBIN 10.7 GM/DL (11.6-15.3); LYMPH % 2.8 % (9.0-44.0); LYMPHOCYTE # 0.6 TH/MM3 (1.0-4.8); MEAN CELL VOLUME 94.9 FL (80.0-100.0); MEAN CORPUSCULAR HEMOGLOBIN 31.1 PG (27.0-34.0); MEAN CORPUSCULAR HGB CONC 32.8 % (32.0-36.0); MONO % 4.3 % (0.0-8.0); MONOCYTE # 0.9 TH/MM3 (0-0.9); NEUT % 92.2 % (16.0-70.0); PLATELET COUNT 280 TH/MM3 (150-450); RED BLOOD COUNT 3.45 MIL/MM3 (4.00-5.30); RED CELL DISTRIBUTION WIDTH 15.5 % (11.6-17.2); WHITE BLOOD COUNT 19.9 TH/MM3 (4.0-11.0)
[2017-06-08 11:17] LABS: CALCIUM 8.3 MG/DL (8.5-10.1); CREATININE 1.13 MG/DL (0.50-1.00)
--- NOTE | 2017-06-08 11:28 | HHI.PR ---
Subjective Remarks late entry - patient seen on 06/07 at 7:30 pm Patient states has some pain in rectal area Denies cp/sob BP slightly elevated Objective Vitals Vital Signs Date Time Temp Pulse Resp B/P (MAP) Pulse Ox O2 Delivery O2 Flow Rate FiO2 06/08/17 08:00 99.2 98 20 168/77 (107) 96 06/08/17 04:56 97.5 78 18 152/72 (98) 94 06/08/17 01:48 97 06/08/17 00:00 99.3 94 18 113/55 (74) 96 06/07/17 20:26 84 06/07/17 20:00 97.0 77 18 153/71 (98) 96 06/07/17 16:00 97.8 94 20 159/74 (102) 98 06/07/17 15:08 98.2 95 18 137/76 (96) 98 06/07/17 14:20 17 06/07/17 12:18 93 Nasal Cannula 2.00 I/O 06/07/17 06/07/17 06/07/17 06/08/17 06/08/17 06/08/17 07:00 15:00 23:00 07:00 15:00 23:00 Intake Total 1180 ml 120 ml 1173 ml 120 ml Output Total 350 ml 350 ml 650 ml Balance -350 ml 830 ml 120 ml 523 ml 120 ml Intake Oral 120 ml 120 ml IV Total 1180 ml 1173 ml Output Urine Total 350 ml 350 ml 650 ml Result Diagram: 06/08/17 0940 06/08/17 0940 Objective Remarks GENERAL: in mild to moderate distress due to pain. SKIN: Warm and dry. HEAD: Normocephalic. EYES: No scleral icterus. No injection or drainage. NECK: Supple, trachea midline. No JVD or lymphadenopathy. CARDIOVASCULAR: Regular rate and rhythm without murmurs, gallops, or rubs. RESPIRATORY: Breath sounds equal bilaterally. No accessory muscle use. GASTROINTESTINAL: Abdominal binder in place. MUSCULOSKELETAL: No cyanosis, or edema. BACK: Nontender without obvious deformity. No CVA tenderness. PSYCH: Flattened affect. A/P Problem List: (1) Rectal prolapse ICD Code: K62.3 - Rectal prolapse (2) Rectal bleeding ICD Code: K62.5 - Hemorrhage of anus and rectum (3) Renal insufficiency ICD Code: N28.9 - Disorder of kidney and ureter, unspecified (4) UTI (urinary tract infection) ICD Code: N39.0 - Urinary tract infection, site not specified (5) COPD (chronic obstructive pulmonary disease) ICD Code: J44.9 - Chronic obstructive pulmonary disease, unspecified (6) Schizophrenia ICD Code: F20.9 - Schizophrenia, unspecified (7) Tobacco abuse ICD Code: Z72.0 - Tobacco use Assessment and Plan Rectal Prolapse Dr. Mast consulted by ER physician and plan for repair 06/06. Status post sigmoidoscopy. - Continue analgesics/antiemetics as needed. - s/p surgery 06/06. Management per CRS. 06/07 Patient with some rectal pain. Currently on Morphine LEAD GENERATOR pump. continue. Rectal Bleeding Likely secondary to prolapse, Hgb stable. Noted to be on Coumadin per med list, unclear if accurate. - continue to hold Coumadin. UTI/ Leukocytosis E coli. S/p Rocephin IV daily. - on cefazolin per surgery. VETO Creatinine seems stable. Lasix and ANGELIKA on hold. 06/07 Creatinine imrpoving and trending down. Continue IV fluids. COPD Chronic Respiratory Failure w/ Acute Exacerbation, Mild. - Continue PO Prednisone taper and continue with DuoNeb , LABA. 06/07 Prednisone taper ends 06/08. Hypertension Labile BP. - Continue 25mg Q8H; Vasotec IV PRN. - DC lisinopril. Add amlodipine if needed. Leukocytosis - Patient on steroids. Monitor cbc. Wali Villatoro MD Jun 08, 2017 11:28
[2017-06-08] MEDS ORDERED: CALCIUM CHLORIDE INJ 2 GM in SODIUM CHLORIDE 0.9% INJ 100 ML IV ONE (12:00)
[2017-06-08] MEDS: PIPERACIL-TAZO 4.5 GM PREMIX 100 ML IV SCH ×3 (12:00→23:50)
--- NOTE | 2017-06-08 14:22 | HHI.PR ---
Subjective Remarks "I feel thirsty ", patient denied having bowel movement today, to me she reported still having rectal bleeding but I'm not sure how reliable her story is at this point Objective Vitals Vital Signs Date Time Temp Pulse Resp B/P (MAP) Pulse Ox O2 Delivery O2 Flow Rate FiO2 06/08/17 12:00 97.7 80 19 163/72 (102) 95 06/08/17 08:00 99.2 98 20 168/77 (107) 96 06/08/17 04:56 97.5 78 18 152/72 (98) 94 06/08/17 01:48 97 06/08/17 00:00 99.3 94 18 113/55 (74) 96 06/07/17 20:26 84 06/07/17 20:00 97.0 77 18 153/71 (98) 96 06/07/17 16:00 97.8 94 20 159/74 (102) 98 06/07/17 15:08 98.2 95 18 137/76 (96) 98 I/O 06/07/17 06/07/17 06/07/17 06/08/17 06/08/17 06/08/17 07:00 15:00 23:00 07:00 15:00 23:00 Intake Total 1180 ml 120 ml 1173 ml 120 ml Output Total 350 ml 350 ml 650 ml Balance -350 ml 830 ml 120 ml 523 ml 120 ml Intake Oral 120 ml 120 ml IV Total 1180 ml 1173 ml Output Urine Total 350 ml 350 ml 650 ml Result Diagram: 06/08/17 0940 06/08/17 0940 Objective Remarks GENERAL: This is a well-nourished, well-developed patient, in no apparent distress. SKIN: No rashes, warm and dry HEAD: Atraumatic. Normocephalic. EYES: Pupils equal round and reactive. Extraocular motions intact. No scleral icterus. ENT: Nose without bleeding, or drainage, Airway patent. NECK: Trachea midline. Supple CARDIOVASCULAR: Regular rate and rhythm without murmurs, gallops, or rubs. RESPIRATORY: Fair air entry bilaterally. No wheezes, rales, or rhonchi. GASTROINTESTINAL: Abdomen soft, non-tender, nondistended. Positive bowel sounds MUSCULOSKELETAL: Extremities without clubbing, cyanosis, or edema. Pedal pulses appreciated NEUROLOGICAL: Awake and alert. Moves all extremity. Normal speech.no focal neurological deficit A/P Problem List: (1) Rectal prolapse ICD Code: K62.3 - Rectal prolapse (2) Rectal bleeding ICD Code: K62.5 - Hemorrhage of anus and rectum (3) Renal insufficiency ICD Code: N28.9 - Disorder of kidney and ureter, unspecified (4) UTI (urinary tract infection) ICD Code: N39.0 - Urinary tract infection, site not specified (5) COPD (chronic obstructive pulmonary disease) ICD Code: J44.9 - Chronic obstructive pulmonary disease, unspecified (6) Schizophrenia ICD Code: F20.9 - Schizophrenia, unspecified (7) Tobacco abuse ICD Code: Z72.0 - Tobacco use Assessment and Plan 06/08: Blood pressure around 168/77 with heart rate 98, WBC 19.9, neutrophil 92% , potassium at 5 creatinine improved from 1.59-1.13 patient is POD #2, will add Zosyn and monitor cultures and WBC CBC in a.m. A/P: Rectal Prolapse Dr. Mast consulted by ER physician and plan for repair 06/06. Status post sigmoidoscopy. - Continue analgesics/antiemetics as needed. - s/p surgery 06/06. Management per CRS. 06/07 Patient with some rectal pain. Currently on Morphine PRESCHOOL LEAD TEACHER pump. continue. Rectal Bleeding Likely secondary to prolapse, Hgb stable. Noted to be on Coumadin per med list, unclear if accurate. - continue to hold Coumadin. UTI/ Leukocytosis E coli with MSSA. S/p Rocephin IV daily. VETO Creatinine seems stable. Lasix and ANGELIKA on hold. 06/07 Creatinine imrpoving and trending down. Continue IV fluids. COPD Chronic Respiratory Failure w/ Acute Exacerbation, Mild. - Continue PO Prednisone taper and continue with DuoNeb , LABA. 06/07 Prednisone taper ends 06/08. Hypertension Labile BP. - Continue hydralazine 25mg Q8H; Vasotec IV PRN. - DC lisinopril. Add amlodipine if needed. Leukocytosis - Patient on steroids. Monitor cbc. Leland Nance MD Jun 08, 2017 14:21
--- NOTE | 2017-06-08 15:26 | HHI.PR ---
Subjective Remarks C/R Surg POD #2 Pt examined, chart reviewed Afebrile, VSS UO adeq Objective - Vital Signs Date Time Temp Pulse Resp B/P (MAP) Pulse Ox O2 Delivery O2 Flow Rate FiO2 06/08/17 14:00 16 06/08/17 12:00 97.7 80 163/72 (102) 95 06/07/17 12:18 Nasal Cannula 2.00 Result Diagram: 06/08/17 0940 06/08/17 0940 Objective Remarks PE alert Abd - soft, non-tender, min tympany, wound dry A/P Assessment and Plan Imp: OOB keep park start PO Abran aMst MD Jun 08, 2017 15:26
[2017-06-08] MEDS: OLANZapine 10 MG TAB PO SCH (20:16)
[2017-06-08] MEDS: BENZTROPINE MESYLATE 1 MG TAB PO SCH (20:16)
[2017-06-08] MEDS: SERTRALINE HCL 100 MG TAB PO SCH (20:16)
[2017-06-09] VITALS (8 sets, daily range): BP systolic 140–178; BP diastolic 66–80; PULSE 65–95; RESP 17–20; TEMP 96.8–98; O2SAT 95–98
[2017-06-09] MEDS: PIPERACIL-TAZO 4.5 GM PREMIX 100 ML IV SCH (05:38)
[2017-06-09] MEDS: hydrALAZINE HCL 25 MG TAB PO SCH ×3 (05:39→21:35)
[2017-06-09] MEDS: LEVOTHYROXINE SODIUM 112 MCG TAB PO SCH (05:39)
[2017-06-09 08:18] LABS: AUTOMATED NEUTROPHIL # 18.3 TH/MM3 (1.8-7.7); BASOPHIL % 0.2 % (0.0-2.0); EOSINOPHIL # 0.1 TH/MM3 (0-0.4); EOSINOPHIL % 0.5 % (0.0-4.0); HEMATOCRIT 31.1 % (35.0-46.0); HEMOGLOBIN 10.5 GM/DL (11.6-15.3); LYMPH % 2.9 % (9.0-44.0); LYMPHOCYTE # 0.6 TH/MM3 (1.0-4.8); MEAN CELL VOLUME 93.6 FL (80.0-100.0); MEAN CORPUSCULAR HEMOGLOBIN 31.6 PG (27.0-34.0); MEAN CORPUSCULAR HGB CONC 33.8 % (32.0-36.0); MEAN PLATELET VOLUME 7.6 FL (7.0-11.0); MONOCYTE # 0.8 TH/MM3 (0-0.9); NEUT % 92.4 % (16.0-70.0); PLATELET COUNT 241 TH/MM3 (150-450); RED BLOOD COUNT 3.32 MIL/MM3 (4.00-5.30); RED CELL DISTRIBUTION WIDTH 15.1 % (11.6-17.2); WHITE BLOOD COUNT 19.8 TH/MM3 (4.0-11.0)
[2017-06-09] MEDS: PANTOPRAZOLE SOD 40 MG DELAYED RELEASE TAB PO SCH (08:21)
[2017-06-09] MEDS: DONEPEZIL HCL 5 MG TAB PO SCH ×2 (08:21→20:13)
[2017-06-09] MEDS: METOCLOPRAMIDE HCL 10 MG/2 ML VIAL IVS SCH (08:22)
[2017-06-09] MEDS: buPROPion HCL 100 MG TAB PO SCH ×2 (08:22→20:13)
[2017-06-09] MEDS: ENALAPRILAT 1.25 MG/ML VIAL IV PUSH PRN ×2 (08:22→16:45)
[2017-06-09] MEDS: PANTOPRAZOLE SODIUM 40 MG VIAL IVP SCH (08:23)
[2017-06-09] MEDS: SODIUM CHLORIDE 0.9% FLUSH 10 ML FLUSH IV FLUSH SCH ×2 (08:23→20:13)
[2017-06-09] MEDS: DEXT 5%-NACL 0.9% 1000 ML INJ 1,000 ML IV SCH (08:24)
[2017-06-09] MEDS: ACETAMINOPHEN/HYDROcodone 325 MG/5 MG TAB PO PRN ×2 (08:35→16:45)
[2017-06-09 08:48] LABS: BICARBONATE 22.5 MEQ/L (21.0-32.0); CALCIUM 8.7 MG/DL (8.5-10.1); CREATININE 1.05 MG/DL (0.50-1.00)
[2017-06-09] MEDS ORDERED: METOCLOPRAMIDE HCL 10 MG/2 ML VIAL IVS PRN (09:45)
[2017-06-09] MEDS ORDERED: CIPROFLOXACIN 400 MG PREMIX 200 ML IV SCH (10:00)
--- NOTE | 2017-06-09 10:03 | HHI.PR ---
Subjective Remarks C/R Surg POD #3 Pt examined, chart reviewed Afebrile, VSS UO adeq +flatus kayla PO Objective - Vital Signs Date Time Temp Pulse Resp B/P (MAP) Pulse Ox O2 Delivery O2 Flow Rate FiO2 06/09/17 08:00 98.0 94 17 170/80 (110) 98 06/07/17 12:18 Nasal Cannula 2.00 Result Diagram: 06/09/17 0640 06/09/17 0640 Objective Remarks PE alert Abd - soft, non-tender, mod tympany, wound dry A/P Assessment and Plan Imp: OOB DC park start PO, adv Abran Mast MD Jun 09, 2017 10:03
--- NOTE | 2017-06-09 11:14 | MP ---
cc: ELSIE JONES M.D. DATE OF SURGERY: 06/06/2017. PREOPERATIVE DIAGNOSIS: Full thickness rectal prolapse. PROCEDURE: Exploratory laparotomy with rectopexy. POSTOPERATIVE DIAGNOSIS Persistent growing fluid-filled rectovaginal cyst, full-thickness rectal prolapse. SURGEON: Elsie Jones MD. DESCRIPTION OF THE PROCEDURE IN DETAIL: The patient was placed in the supine position. After adequate general anesthesia, her legs were placed in [place] stirrups and supported appropriately. The abdomen and perineum were then prepped with Betadine solution and draped in the usual sterile fashion. The abdomen was opened through a lower midline incision. Upon entering the abdomen, a small amount of clear straw-colored ascites was noted. Exploration revealed the peritoneal shunt to be present without any signs of vegetations. Small bowel was run from the ligament of Treitz down to the ileocecal valve and felt to be normal. The appendix did have several fecaliths, which were pushed back up into the cecal lumen. The colon was palpated and felt to be pretty unremarkable except for some redundancy and looping in the sigmoid with a very deep cul-de-sac. The uterus had been previously removed. Liver was palpably normal. Stomach and duodenum were unremarkable. First, the sigmoid colon was mobilized medially by dividing along the white line of T[place]t. The left ureter was identified and carefully preserved. Dissection then proceeded opening up the right retroperitoneal space and dissecting the rectosigmoid off the presacral fascia and dissecting down the presacral fascia toward the pelvic floor. After full mobilization. the cul-de-sac was opened releasing some adhesions anteriorly for full rectal mobilization. After full mobilization, four #0 Prolene the rectopexy stitches were placed through the mesentery tethering the rectosigmoid peritoneum to the presacral fascia. At completion, the rectum did appear to be adequately supported and the lumen of the rectosigmoid was not compromised. Hemostasis was achieved at all sites. The midline incision was closed anatomically in one layer using a running #1 PDS suture to reapproximate the midline fascia. The subcutaneous tissues were irrigated copiously and the skin closed with a few surgical mini. The wound area was washed with normal saline and dried, sterile dressing of Telfa and gauze applied. The patient tolerated the procedure quite well and was brought to recovery room in stable condition. Sponge and needle counts were correct at the end of the procedure. MD EVE Ruth/NKECHI /2:43 PM /10:54 AM
[2017-06-09] MEDS: METOPROLOL TARTRATE 25 MG TAB PO SCH ×2 (13:29→20:13)
--- NOTE | 2017-06-09 14:00 | HHI.PR ---
Subjective Remarks Resting in bed Afebrile Urine output is better, tolerating by mouth Objective Vitals Vital Signs Date Time Temp Pulse Resp B/P (MAP) Pulse Ox O2 Delivery O2 Flow Rate FiO2 06/09/17 12:00 97.3 95 20 149/66 (93) 96 06/09/17 11:42 98 06/09/17 08:00 98.0 94 17 170/80 (110) 98 06/09/17 04:00 87 06/09/17 04:00 97.3 90 18 178/80 (112) 96 06/09/17 00:00 73 06/09/17 00:00 97.2 75 18 166/79 (108) 95 06/08/17 20:00 101 06/08/17 20:00 99.2 100 18 168/80 (109) 94 06/08/17 16:00 96.9 60 20 145/65 (91) 98 06/08/17 15:47 96 06/08/17 14:00 16 I/O 06/08/17 06/08/17 06/08/17 06/09/17 06/09/17 06/09/17 07:00 15:00 23:00 07:00 15:00 23:00 Intake Total 1173 ml 120 ml 480 ml Output Total 650 ml 800 ml 1600 ml Balance 523 ml 120 ml -320 ml -1600 ml Intake Oral 120 ml 480 ml IV Total 1173 ml Output Urine Total 650 ml 800 ml 1600 ml Result Diagram: 06/09/17 0640 06/09/17 0640 Objective Remarks GENERAL: This is a well-nourished, well-developed patient, in no apparent distress. SKIN: No rashes, warm and dry HEAD: Atraumatic. Normocephalic. EYES: Pupils equal round and reactive. Extraocular motions intact. No scleral icterus. ENT: Nose without bleeding, or drainage, Airway patent. NECK: Trachea midline. Supple CARDIOVASCULAR: Regular rate and rhythm without murmurs, gallops, or rubs. RESPIRATORY: Fair air entry bilaterally. No wheezes, rales, or rhonchi. GASTROINTESTINAL: Abdomen soft, non-tender, nondistended. Positive bowel sounds MUSCULOSKELETAL: Extremities without clubbing, cyanosis, or edema. Pedal pulses appreciated NEUROLOGICAL: Awake and alert. Moves all extremity. Normal speech.no focal neurological deficit A/P Problem List: (1) Rectal prolapse ICD Code: K62.3 - Rectal prolapse (2) Rectal bleeding ICD Code: K62.5 - Hemorrhage of anus and rectum (3) Renal insufficiency ICD Code: N28.9 - Disorder of kidney and ureter, unspecified (4) UTI (urinary tract infection) ICD Code: N39.0 - Urinary tract infection, site not specified (5) COPD (chronic obstructive pulmonary disease) ICD Code: J44.9 - Chronic obstructive pulmonary disease, unspecified (6) Schizophrenia ICD Code: F20.9 - Schizophrenia, unspecified (7) Tobacco abuse ICD Code: Z72.0 - Tobacco use Assessment and Plan 06/08: Blood pressure around 168/77 with heart rate 98, WBC 19.9, neutrophil 92% , potassium at 5 creatinine improved from 1.59-1.13 patient is POD #2, will add Zosyn and monitor cultures and WBC CBC in a.m. 06/09: Culture showing Escherichia coli and MSSA will change Zosyn to Cipro for better sensitivity, uncontrolled hypertension with tachycardia will add low dose of Lopressor and monitor, appreciate Dr. Mast input, continue by mouth as tolerated, continue Garcia A/P: Rectal Prolapse Dr. Mast consulted by ER physician and plan for repair 06/06. Status post sigmoidoscopy. - Continue analgesics/antiemetics as needed. - s/p surgery 06/06. Management per CRS. 06/07 Patient with some rectal pain. Currently on Morphine BOBBIN WINDER pump. continue. Rectal Bleeding Likely secondary to prolapse, Hgb stable. Noted to be on Coumadin per med list, unclear if accurate. - continue to hold Coumadin. UTI/ Leukocytosis E coli with MSSA. S/p Rocephin IV daily. VETO Creatinine seems stable. Lasix and ANGELIKA on hold. 06/07 Creatinine imrpoving and trending down. Continue IV fluids. COPD Chronic Respiratory Failure w/ Acute Exacerbation, Mild. - Continue PO Prednisone taper and continue with DuoNeb , LABA. 06/07 Prednisone taper ends 06/08. Hypertension Labile BP. - Continue hydralazine 25mg Q8H; Vasotec IV PRN. - DC lisinopril. Add amlodipine if needed. Leukocytosis - Patient on steroids. Monitor cbc. Leland Nance MD Jun 09, 2017 14:00
[2017-06-09] MEDS: BENZTROPINE MESYLATE 1 MG TAB PO SCH (20:12)
[2017-06-09] MEDS: SERTRALINE HCL 100 MG TAB PO SCH (20:13)
[2017-06-09] MEDS: OLANZapine 10 MG TAB PO SCH (20:13)
[2017-06-10] VITALS: BP 140/75; PULSE 68; RESP 17; TEMP 96.8; O2SAT 95
[2017-06-10] MEDS: DEXT 5%-NACL 0.9% 1000 ML INJ 1,000 ML IV SCH (00:40)
[2017-06-10] MEDS ORDERED: CIPROFLOXACIN 400 MG PREMIX 200 ML IV SCH (01:00)
[2017-06-10 04:00] VITALS: BP 150/70; PULSE 73; RESP 17; TEMP 96.7; O2SAT 95
[2017-06-10] MEDS: hydrALAZINE HCL 25 MG TAB PO SCH ×3 (05:35→22:12)
[2017-06-10] MEDS: LEVOTHYROXINE SODIUM 112 MCG TAB PO SCH (05:35)
[2017-06-10 08:00] VITALS: BP 170/84; PULSE 71; PULSE 79; RESP 18; TEMP 99.7; O2SAT 94
[2017-06-10] MEDS: buPROPion HCL 100 MG TAB PO SCH ×2 (08:18→22:12)
[2017-06-10] MEDS: METOPROLOL TARTRATE 25 MG TAB PO SCH ×2 (08:19→22:13)
[2017-06-10] MEDS: DONEPEZIL HCL 5 MG TAB PO SCH ×2 (08:19→22:12)
[2017-06-10] MEDS: PANTOPRAZOLE SOD 40 MG DELAYED RELEASE TAB PO SCH (08:19)
[2017-06-10] MEDS: ACETAMINOPHEN/HYDROcodone 325 MG/5 MG TAB PO PRN (08:19)
[2017-06-10] MEDS: PANTOPRAZOLE SODIUM 40 MG VIAL IVP SCH (08:19)
[2017-06-10] MEDS: SODIUM CHLORIDE 0.9% FLUSH 10 ML FLUSH IV FLUSH SCH ×2 (08:20→21:00)
--- NOTE | 2017-06-10 09:32 | HHI.PR ---
Subjective Remarks C/R Surg POD 4 Pt examined, chart reviewed Afebrile, VSS UO adeq +flatus/BM kayla PO Objective - Vital Signs Date Time Temp Pulse Resp B/P (MAP) Pulse Ox O2 Delivery O2 Flow Rate FiO2 06/10/17 08:00 99.7 79 18 170/84 (112) 94 06/07/17 12:18 Nasal Cannula 2.00 Result Diagram: 06/09/1740 06/09/17 0640 Objective Remarks PE alert Abd - soft, non-tender, less tympany, wound dry A/P Assessment and Plan Imp: OOB DC park start PO, adv dc to SNF Abran Mast MD Jun 10, 2017 09:31
[2017-06-10] MEDS ORDERED: CIPR-9 PO (10:59)
[2017-06-10 12:00] VITALS: BP 145/78; PULSE 62; RESP 19; TEMP 97.8; O2SAT 97
[2017-06-10 12:12] LABS: AUTOMATED NEUTROPHIL # 14.2 TH/MM3 (1.8-7.7); BASOPHIL # 0.1 TH/MM3 (0-0.2); BASOPHIL % 0.3 % (0.0-2.0); EOSINOPHIL # 0.1 TH/MM3 (0-0.4); EOSINOPHIL % 0.8 % (0.0-4.0); HEMATOCRIT 31.2 % (35.0-46.0); HEMOGLOBIN 10.5 GM/DL (11.6-15.3); LYMPH % 6.2 % (9.0-44.0); MEAN CELL VOLUME 92.8 FL (80.0-100.0); MEAN CORPUSCULAR HEMOGLOBIN 31.3 PG (27.0-34.0); MEAN CORPUSCULAR HGB CONC 33.7 % (32.0-36.0); MEAN PLATELET VOLUME 7.8 FL (7.0-11.0); MONO % 5.5 % (0.0-8.0); MONOCYTE # 0.9 TH/MM3 (0-0.9); NEUT % 87.2 % (16.0-70.0); PLATELET COUNT 257 TH/MM3 (150-450); RED BLOOD COUNT 3.36 MIL/MM3 (4.00-5.30); WHITE BLOOD COUNT 16.2 TH/MM3 (4.0-11.0)
[2017-06-10 16:00] VITALS: BP 176/79; PULSE 66; RESP 16; TEMP 97.7; O2SAT 97
--- NOTE | 2017-06-10 17:00 | HHI.PR ---
Subjective Remarks Patient cleared by all her rectal surgeon for discharge, tolerating by mouth okay, also medically stable enough to be discharged however I discussed with the nurse seems to be difficulty placement around this time of the year, will initiate physical therapy pending proceeding to discharge Objective Vitals Vital Signs Date Time Temp Pulse Resp B/P (MAP) Pulse Ox O2 Delivery O2 Flow Rate FiO2 06/10/17 12:00 97.8 62 19 145/78 (100) 97 06/10/17 08:00 99.7 79 18 170/84 (112) 94 06/10/17 08:00 71 06/10/17 04:00 96.7 73 17 150/70 (96) 95 06/10/17 00:00 96.8 68 17 140/75 (96) 95 06/10/17 00:00 68 06/09/17 20:00 96.8 67 18 140/70 (93) 98 06/09/17 19:59 65 I/O 06/09/17 06/09/17 06/09/17 06/10/17 06/10/17 06/10/17 07:00 15:00 23:00 07:00 15:00 23:00 Intake Total 1300 ml 1875 ml 680 ml Output Total 1600 ml 900 ml 1100 ml 300 ml 350 ml Balance -1600 ml 1300 ml 975 ml -420 ml -300 ml -350 ml Intake Oral 875 ml 480 ml IV Total 1300 ml 1000 ml 200 ml Output Urine Total 1600 ml 900 ml 1100 ml 300 ml 350 ml # Bowel Movements 0 Result Diagram: 06/10/17 1140 06/09/17 0640 Objective Remarks GENERAL: This is a well-nourished, well-developed patient, in no apparent distress. SKIN: No rashes, warm and dry HEAD: Atraumatic. Normocephalic. EYES: Pupils equal round and reactive. Extraocular motions intact. No scleral icterus. ENT: Nose without bleeding, or drainage, Airway patent. NECK: Trachea midline. Supple CARDIOVASCULAR: Regular rate and rhythm without murmurs, gallops, or rubs. RESPIRATORY: Fair air entry bilaterally. No wheezes, rales, or rhonchi. GASTROINTESTINAL: Abdomen soft, non-tender, nondistended. Positive bowel sounds MUSCULOSKELETAL: Extremities without clubbing, cyanosis, or edema. Pedal pulses appreciated NEUROLOGICAL: Awake and alert. Moves all extremity. Normal speech.no focal neurological deficit A/P Problem List: (1) Rectal prolapse ICD Code: K62.3 - Rectal prolapse (2) Rectal bleeding ICD Code: K62.5 - Hemorrhage of anus and rectum (3) Renal insufficiency ICD Code: N28.9 - Disorder of kidney and ureter, unspecified (4) UTI (urinary tract infection) ICD Code: N39.0 - Urinary tract infection, site not specified (5) COPD (chronic obstructive pulmonary disease) ICD Code: J44.9 - Chronic obstructive pulmonary disease, unspecified (6) Schizophrenia ICD Code: F20.9 - Schizophrenia, unspecified (7) Tobacco abuse ICD Code: Z72.0 - Tobacco use Assessment and Plan 06/08: Blood pressure around 168/77 with heart rate 98, WBC 19.9, neutrophil 92% , potassium at 5 creatinine improved from 1.59-1.13 patient is POD #2, will add Zosyn and monitor cultures and WBC CBC in a.m. 06/09: Culture showing Escherichia coli and MSSA will change Zosyn to Cipro for better sensitivity, uncontrolled hypertension with tachycardia will add low dose of Lopressor and monitor, appreciate Dr. Mast input, continue by mouth as tolerated, continue Garcia 06/10: Patient stable and cleared by CRS for discharge, however difficulty placement in rehabilitation at this point, I ordered PT to start evaluating and treating until able to discharge patient, embedded case manager following, will continue Cipropo as an outpatient A/P: Rectal Prolapse Dr. Mast consulted by ER physician and plan for repair 06/06. Status post sigmoidoscopy. - Continue analgesics/antiemetics as needed. - s/p surgery 06/06. Management per CRS. 06/07 Patient with some rectal pain. 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 Rectal Bleeding Likely secondary to prolapse, Hgb stable. Noted to be on Coumadin per med list, unclear if accurate. - continue to hold Coumadin. UTI/ Leukocytosis E coli with MSSA. S/p Rocephin IV daily. VETO Creatinine seems stable. Lasix and ANGELIKA on hold. 06/07 Creatinine imrpoving and trending down. Continue IV fluids. COPD Chronic Respiratory Failure w/ Acute Exacerbation, Mild. - Continue PO Prednisone taper and continue with DuoNeb , LABA. 06/07 Prednisone taper ends 06/08. Hypertension Labile BP. - Continue hydralazine 25mg Q8H; Vasotec IV PRN. - DC lisinopril. Add amlodipine if needed. Leukocytosis - Patient on steroids. Monitor cbc. Leland Nance MD Jun 10, 2017 17:00
[2017-06-10 20:00] VITALS: BP 152/72; PULSE 75; RESP 17; TEMP 98.4; O2SAT 98
[2017-06-10] MEDS: BENZTROPINE MESYLATE 1 MG TAB PO SCH (22:12)
[2017-06-10] MEDS: SERTRALINE HCL 100 MG TAB PO SCH (22:13)
[2017-06-10] MEDS: OLANZapine 10 MG TAB PO SCH (22:13)
[2017-06-11] VITALS: BP 155/68; PULSE 71; RESP 17; TEMP 96.8; O2SAT 96
[2017-06-11] MEDS: hydrALAZINE HCL 25 MG TAB PO SCH ×2 (06:37→13:44)
[2017-06-11] MEDS: LEVOTHYROXINE SODIUM 112 MCG TAB PO SCH (06:37)
[2017-06-11 07:22] LABS: AUTOMATED NEUTROPHIL # 11.6 TH/MM3 (1.8-7.7); BASOPHIL % 0.2 % (0.0-2.0); EOSINOPHIL # 0.1 TH/MM3 (0-0.4); EOSINOPHIL % 0.9 % (0.0-4.0); HEMATOCRIT 29.8 % (35.0-46.0); HEMOGLOBIN 10.3 GM/DL (11.6-15.3); LYMPH % 7.2 % (9.0-44.0); MEAN CELL VOLUME 92.4 FL (80.0-100.0); MEAN CORPUSCULAR HEMOGLOBIN 31.8 PG (27.0-34.0); MEAN CORPUSCULAR HGB CONC 34.5 % (32.0-36.0); MONOCYTE # 0.8 TH/MM3 (0-0.9); NEUT % 85.7 % (16.0-70.0); PLATELET COUNT 240 TH/MM3 (150-450); RED BLOOD COUNT 3.23 MIL/MM3 (4.00-5.30); RED CELL DISTRIBUTION WIDTH 15.1 % (11.6-17.2); WHITE BLOOD COUNT 13.5 TH/MM3 (4.0-11.0)
[2017-06-11 07:47] LABS: BICARBONATE 22.7 MEQ/L (21.0-32.0); CALCIUM 8.4 MG/DL (8.5-10.1); CREATININE 1.08 MG/DL (0.50-1.00)
[2017-06-11 08:00] VITALS: BP 184/74; PULSE 72; RESP 21; TEMP 97.3; O2SAT 96
[2017-06-11 08:06] VITALS: O2SAT 98
[2017-06-11] MEDS: PANTOPRAZOLE SOD 40 MG DELAYED RELEASE TAB PO SCH (08:10)
[2017-06-11] MEDS: METOPROLOL TARTRATE 25 MG TAB PO SCH (08:10)
[2017-06-11] MEDS: buPROPion HCL 100 MG TAB PO SCH (08:10)
[2017-06-11] MEDS: PANTOPRAZOLE SODIUM 40 MG VIAL IVP SCH (08:11)
[2017-06-11] MEDS: DONEPEZIL HCL 5 MG TAB PO SCH (08:11)
[2017-06-11] MEDS: SODIUM CHLORIDE 0.9% FLUSH 10 ML FLUSH IV FLUSH SCH (08:11)
--- NOTE | 2017-06-11 09:40 | HHI.PR ---
Subjective Remarks C/R Surg POD 5 Pt examined, chart reviewed Afebrile, VSS UO adeq +flatus/BM kayla PO Objective - Vital Signs Date Time Temp Pulse Resp B/P (MAP) Pulse Ox O2 Delivery O2 Flow Rate FiO2 06/11/17 08:06 98 21 06/11/17 08:00 97.3 72 21 184/74 (110) 06/07/17 12:18 Nasal Cannula 2.00 Result Diagram: 06/11/1709 06/11/17 0609 Objective Remarks PE alert Abd - soft, non-tender, less tympany, wound dry A/P Assessment and Plan Imp: OOB start PO, adv dc to SNF Abran Mast MD Jun 11, 2017 09:40
--- NOTE | 2017-06-11 11:55 | HHI.DS ---
Discharge Summary Admission Date May 31, 2017 at 22:38 Discharge Date: Jun 11, 2017 Admitting Diagnosis rectal prolapse, UTI (1) Rectal prolapse ICD Code: K62.3 - Rectal prolapse (2) Rectal bleeding ICD Code: K62.5 - Hemorrhage of anus and rectum (3) Renal insufficiency ICD Code: N28.9 - Disorder of kidney and ureter, unspecified (4) UTI (urinary tract infection) ICD Code: N39.0 - Urinary tract infection, site not specified (5) COPD (chronic obstructive pulmonary disease) ICD Code: J44.9 - Chronic obstructive pulmonary disease, unspecified (6) Schizophrenia ICD Code: F20.9 - Schizophrenia, unspecified (7) Tobacco abuse ICD Code: Z72.0 - Tobacco use Procedures See below Brief History - From Admission This is a 67-year-old female with a PMH of Anxiety, Depression, Paranoid Schizophrenia, Tobacco Abuse and COPD who was sent to the ER by [facility] secondary to complaints of rectal pain x2-3 wks. Denies nausea/vomiting or diarrhea. Reports occasional episodes of rectal bleeding however unsure how often. On Coumadin per review of medication list, however pt unable to tell me if this is accurate. Pt poor historian, difficult to obtain history. BP 149/79, HR 101, O2 sat 94% on RA, Temp 99.6. WBC 14.8. Creatinine 1.70, previously 1.35 on 04/23/10. UA positive for UTI. CXR with no active disease. On exam, pt noted to have large rectal prolapse. Hemoccult +. Dr. Mast consulted by ER physician , tika douglas in am for likely surgical intervention. CBC/BMP: 06/11/17 0609 06/11/17 0609 Significant Findings Laboratory Tests Test 06/09/17 06:40 06/10/17 11:40 06/11/17 06:09 White Blood Count 19.8 TH/MM3 (4.0-11.0) 16.2 TH/MM3 (4.0-11.0) 13.5 TH/MM3 (4.0-11.0) Red Blood Count 3.32 MIL/MM3 (4.00-5.30) 3.36 MIL/MM3 (4.00-5.30) 3.23 MIL/MM3 (4.00-5.30) Hemoglobin 10.5 GM/DL (11.6-15.3) 10.5 GM/DL (11.6-15.3) 10.3 GM/DL (11.6-15.3) Hematocrit 31.1 % (35.0-46.0) 31.2 % (35.0-46.0) 29.8 % (35.0-46.0) Neutrophils (%) (Auto) 92.4 % (16.0-70.0) 87.2 % (16.0-70.0) 85.7 % (16.0-70.0) Lymphocytes (%) (Auto) 2.9 % (9.0-44.0) 6.2 % (9.0-44.0) 7.2 % (9.0-44.0) Neutrophils # (Auto) 18.3 TH/MM3 (1.8-7.7) 14.2 TH/MM3 (1.8-7.7) 11.6 TH/MM3 (1.8-7.7) Lymphocytes # (Auto) 0.6 TH/MM3 (1.0-4.8) Creatinine 1.05 MG/DL (0.50-1.00) 1.08 MG/DL (0.50-1.00) Random Glucose 135 MG/DL (74-106) 123 MG/DL (74-106) Sodium Level 134 MEQ/L (136-145) 135 MEQ/L (136-145) Estimat Glomerular Filtration Rate 52 ML/MIN (>89) 50 ML/MIN (>89) Blood Urea Nitrogen 22 MG/DL (7-18) Calcium Level 8.4 MG/DL (8.5-10.1) PE at Discharge PE alert Abd - soft, non-tender, less tympany, wound dry Hospital Course Patient had a sigmoidoscopy by Dr. Mast continued on pain management she had a surgery on 1220, we'll monitor hemoglobin, she was on Rocephin for UTI, she had an VETO we held her diuretic and sultana inhibitor, and monitored BMP, creatinine improved. By mouth started and she gradually tolerated okay Patient eventually cleared by Dr. Mast to be discharged to follow up with him as an outpatient [id number] encounter performed with the patient on discharge day, as well as physical exam, summary of hospitalization course and postdischarge plan has been D/W the patient. D/W nurse D/W case management manager. Discharge medications reviewed and printed and signed, post discharge follow up visit with PCP and other specialist as well as Brief hospital course and discharge summary has been placed. Pt Condition on Discharge: Good Discharge Disposition: Discharge to SNF Discharge Time: > 30 minutes Discharge Instructions DIET: Follow Instructions for: As Tolerated, No Restrictions Activities you can perform: Regular-No Restrictions Activities to Avoid: Lifting/Bending, Strenuous Activity, Driving Follow up Referrals: Appointment for Follow Up - 1 Week with Abran Mast MD New Medications: Ciprofloxacin (Cipro) 500 Mg Tab 500 MG PO BID for Infection, #8 TAB 0 Refills Continued Medications: Acetaminophen (Tylenol) 325 Mg Tab 500 MG PO TID PRN for PAIN 1 TO 10 AND/OR AGITATION, TAB 0 Refills Benztropine (Benztropine) 0.5 Mg Tab 0.5 MG PO BID, #60 TAB 0 Refills Benztropine Mesylate (Benztropine Mesylate) 2 Mg Tab 1 MG PO HS Bupropion HCl (Bupropion HCl) 100 Mg Tab 100 MG PO BID for Control Depression, TAB 0 Refills Donepezil (Donepezil) 10 Mg Tab 10 MG PO BID for Dementia, #30 TAB 0 Refills Famotidine (Famotidine) 20 Mg Tab 20 MG PO BID, #60 TAB 0 Refills Fluticasone 10.6 GM Inh (Flovent Hfa 10.6 GM Inh) 44 Mcg/Act Inh 1 PUFF INH BID for Asthma Management, #1 INHALER 0 Refills Use daily at the same time. Furosemide (Furosemide) 20 Mg Tab 20 MG PO DAILY, #30 TAB 0 Refills Haloperidol (Haloperidol) 2 Mg Tab 2 MG PO TID, TAB 0 Refills Lamotrigine (Lamotrigine) 200 Mg Tab 200 MG PO HS for Control Seizures, #30 TAB 0 Refills Levothyroxine (Levothyroxine) 112 Mcg Tab 112 MCG PO DAILY for Thyroid, #30 TAB 0 Refills Lisinopril 5 mg (Lisinopril 5 mg) 5 Mg Tab 5 MG PO DAILY Multiple Vitamin (Multi-Vitamin Daily) 1 Tab Tab 1 TAB PO DAILY for Nutritional Supplement, TAB 0 Refills Olanzapine (Zyprexa) 20 Mg Tab 20 MG PO HS Olanzapine (Olanzapine) 10 Mg Tab 10 MG PO HS, #30 TAB 0 Refills Olanzapine (Olanzapine) 20 Mg Tab 20 MG PO HS, #30 TAB 0 Refills Sertraline 100 mg (Sertraline 100 mg) 100 Mg Tab 200 MG OR HS Tramadol (Tramadol) 50 Mg Tab 50 MG PO TID PRN for PAIN, TAB 0 Refills Discontinued Medications: Lisinopril (Lisinopril) 5 Mg Tab 5 MG PO DAILY for Blood Pressure Management, #30 TAB 0 Refills Leland Nance MD Jun 11, 2017 11:55
[2017-06-11 12:00] VITALS: BP 134/69; PULSE 62; RESP 20; TEMP 98.9; O2SAT 97
[2017-06-11] MEDS: ACETAMINOPHEN/HYDROcodone 325 MG/5 MG TAB PO PRN (12:52)
[2017-06-11 16:00] VITALS: BP 133/60; PULSE 68; RESP 19; TEMP 99.2; O2SAT 97
== END 2017-06-11 16:22 | DRG 330 ==
LOC: NEPE 18:20 → NEDA 22:37 → OBSVTOIN 22:38 → N07B 23:44 → HCIS 06-06 12:32 → N07A 06-07 16:41
PROVIDERS: ADMIT Hospitalist; ATTEND Hospitalist
PROC: 0DSP0ZZ Reposition Rectum, Open Approach (ICD-10-PCS; principal; 2017-06-06 10:35)
DX: K62.3 Rectal prolapse (principal); K62.5 Hemorrhage of anus and rectum; J96.10 Chronic respiratory failure, unspecified whether with hypoxia or hypercapnia; J44.1 Chronic obstructive pulmonary disease with (acute) exacerbation; F20.9 Schizophrenia, unspecified; N89.8 Other specified noninflammatory disorders of vagina; N39.0 Urinary tract infection, site not specified; B96.20 Unspecified Escherichia coli [E. coli] as the cause of diseases classified elsewhere; B95.61 Methicillin susceptible Staphylococcus aureus infection as the cause of diseases classified elsewhere; Z16.11 Resistance to penicillins; N28.9 Disorder of kidney and ureter, unspecified; I10 Essential (primary) hypertension; F17.210 Nicotine dependence, cigarettes, uncomplicated; Z98.2 Presence of cerebrospinal fluid drainage device
CPT/HCPCS: 71010; 80048; 80053; 81001; 83735; 84155; 85025; 85027; 85610; 85730; 86403; 87077; 87086; 87147; 87186; 93005; 94640; 94664; 96374; 96375; C9113; J0131; J0690; J0696; J0744; J1100; J1170; J2175; J2270; J2370; J2405; J2543; J2710; J2765; J2920; J2930; J3480; J7030; J7040; J7042; J7120; J7512; J7613

== ENCOUNTER 2017-08-03 09:25 | Emergency (ER) | payer MEDICARE, MEDICAID ==
[~2017-08-03] VITALS: Ht 162.6 cm; Wt 60.0 kg
[~2017-08-03 09:25] MED LIST changes: +BENZ0.5T PO; +BUPR100T4 PO; +CIPR-9 PO; +DONE10TA7 PO; -FAMO20TA2 OR; +FAMO20TA2 PO; +FLUTI44I INH; +FURO20TA PO; +HALO2TAB PO; -HYDR-2768 PO; +LAMO200T PO; +LEVO112T2 PO; +MULT-65 PO; +OLAN10TA PO; +OLAN20TA PO; -ROSU20 PO; -TAB-TAB PO; -THEO200T27 OR; -TOBR0.3S EACH EYE; +TRAM50TA PO; +TYLE325T PO; -TYLE500T PO; -VENTAER INH; -WARF2TAB OR
[2017-08-03 09:28] VITALS: BP 127/86; PULSE 86; RESP 14; TEMP 97.8; O2SAT 99
[2017-08-03] MEDS ORDERED: SODIUM CHLOR 0.9% 1000 ML INJ 1,000 ML IV SCH (09:47)
[2017-08-03 09:50] VITALS: BP_SYST 110; BP_SYST 112; BP_SYST 117; BP_DIAS 56; BP_DIAS 60; BP_DIAS 66; RESP 16; O2SAT 99
--- NOTE | 2017-08-03 09:58 | PD ---
HPI Chief Complaint: GI Complaint Time Seen by Provider: 09:37 Travel History International Travel<30 days: No Contact w/Intl Traveler<30days: No Traveled to known affect area: No History of Present Illness HPI The patient is a 67-year-old female who presents emergency department for rectal bleeding and abdominal pain. The patient's symptoms started last night, lower abdominal and pelvic pain and cramping, now with bright red blood per rectum. Patient notes several episodes of bright red blood in the toilet, states it is red, is unable to describe whether it was bright red or dark red. She denies any obvious clots. She does have a history of similar symptoms in the past per her report. The patient was admitted in May for rectal prolapse, underwent evaluation by the colorectal surgeon, Dr. Mast. The patient denies any chest pain, shortness of breath, lightheadedness, or vomiting. She does complain of mild nausea with the abdominal pain. She does have a previous abdominal surgery, is unable to tell me what surgery she had performed. The patient does stay at [facility]. Symptoms are mild to moderate without any alleviating or exacerbating factors. PFSH Past Medical History Arthritis: Yes Asthma: No Autoimmune Disease: Yes Blood Disorders: No Bipolar Disorder: Yes Anxiety: Yes Depression: Yes Heart Rhythm Problems: No Cancer: No Cardiovascular Problems: Yes High Cholesterol: Yes Chemotherapy: No Chest Pain: No Congestive Heart Failure: No COPD: Yes Cerebrovascular Accident: No Diabetes: No Diminished Hearing: No Endocrine: Yes Gastrointestinal Disorders: Yes (rectal pain) GERD: No Glaucoma: No Genitourinary: No Headaches: Yes Hepatitis: No Hiatal Hernia: No Hypertension: Yes Immune Disorder: No Kidney Stones: No Musculoskeletal: No Neurologic: Yes Psychiatric: Yes Reproductive: No Respiratory: Yes Immunizations Current: Yes Migraines: No Myocardial Infarction: No Radiation Therapy: No Renal Failure: No Schizophrenia: Yes Seizures: No Sickle Cell Disease: No Sleep Apnea: No Thyroid Disease: Yes Ulcer: No PNEUMOCCOCAL Vaccine (Year): 2008 Menopausal: Yes Past Surgical History Abdominal Surgery: Yes AICD: No Appendectomy: Yes Arteriovenous Shunt: No Cardiac Surgery: No Cholecystectomy: Yes Ear Surgery: No Endocrine Surgery: No Eye Surgery: No Genitourinary Surgery: No Gynecologic Surgery: No Insulin Pump: No Joint Replacement: No Neurologic Surgery: Yes ("WATER ON THE BRAIN" IN CHILDHOOD) Oral Surgery: No Pacemaker: No Thoracic Surgery: No Social History Alcohol Use: No Tobacco Use: Yes (1 PPD) Substance Use: No Allergies-Medications (Allergen,Severity, Reaction): Coded Allergies: No Known Allergies (Verified Allergy, Unknown, 08/03/17) Reported Meds & Prescriptions Reported Meds & Active Scripts Active Reported Haloperidol 5 Mg Tab 5 Mg PO BID Zoloft (Sertraline HCl) 100 Mg Tab 100 Mg PO HS Lisinopril-Hctz 10-12.5 Mg Tab 1 Tab PO DAILY Atorvastatin (Atorvastatin Calcium) 40 Mg Tab 40 Mg PO HS Tramadol (Tramadol HCl) 50 Mg Tab 50 Mg PO TID PRN Tylenol (Acetaminophen) 325 Mg Tab 500 Mg PO TID PRN Multi-Vitamin Daily (Multiple Vitamin) 1 Tab Tab 1 Tab PO DAILY Olanzapine 10 Mg Tab 20 Mg PO HS Levothyroxine (Levothyroxine Sodium) 112 Mcg Tab 112 Mcg PO DAILY Lamotrigine 200 Mg Tab 200 Mg PO HS Furosemide 20 Mg Tab 20 Mg PO DAILY Flovent Hfa 10.6 GM Inh (Fluticasone Propionate) 44 Mcg/Act Inh 1 Puff INH BID Use daily at the same time. Famotidine 20 Mg Tab 20 Mg PO BID Donepezil 10 Mg Tab 10 Mg PO BID Bupropion HCl 100 Mg Tab 100 Mg PO BID Benztropine (Benztropine Mesylate) 0.5 Mg Tab 0.5 Mg PO BID Benztropine Mesylate 2 Mg Tab 1 Mg PO HS Review of Systems ROS Limitations: Poor Historian Except as stated in HPI: all other systems reviewed are Neg General / Constitutional: No: Fever HENT: No: Lightheadedness Cardiovascular: No: Chest Pain or Discomfort, Dyspnea on exertion Respiratory: No: Shortness of Breath Gastrointestinal: Positive: Nausea, Abdominal Pain, Hematochezia, No: Vomiting , Diarrhea Genitourinary: No: Dysuria Musculoskeletal: No: Weakness Neurologic: Positive: Dizziness Physical Exam Narrative GENERAL: Awake, alert, pleasant 67-year-old female who appears her stated age and is in no acute respiratory distress. SKIN: Focused skin assessment warm/dry. HEAD: Atraumatic. Normocephalic. EYES: Pupils equal and round. No obvious pallor. ENT: No nasal bleeding or discharge. Mucous membranes pink and moist. NECK: Trachea midline. No JVD. CARDIOVASCULAR: Regular rate and rhythm. No murmur appreciated. RESPIRATORY: No accessory muscle use. Clear to auscultation. Breath sounds equal bilaterally. GASTROINTESTINAL: Abdomen soft, well-healed midline surgical scar from the umbilicus inferiorly. Left lower quadrant tenderness but no guarding or rigidity. Rectal: Exam was performed in the presence of a female nurse. Partner blood on digital exam. Poor rectal tone. Grossly guaiac positive. MUSCULOSKELETAL: No obvious deformities. No clubbing. No cyanosis. No edema. NEUROLOGICAL: Awake and alert. No obvious cranial nerve deficits. Motor grossly within normal limits. Speaks in a low voice. Oriented 2 out of 4. PSYCHIATRIC: Appropriate mood and affect; insight and judgment normal. Data Data Last Documented VS Vital Signs Date Time Temp Pulse Resp B/P (MAP) Pulse Ox O2 Delivery O2 Flow Rate FiO2 08/03/17 12:00 97.8 69 15 140/69 (92) 98 Room Air Orders Orders Complete Blood Count With Diff (08/03/17 09:47) Comprehensive Metabolic Panel (08/03/17 09:47) Prothrombin Time / Inr (Pt) (08/03/17 09:47) Act Partial Throm Time (Ptt) (08/03/17 09:47) Ecg Monitoring (08/03/17 09:47) Iv Access Insert/Monitor (08/03/17 09:47) Orthostatic Vital Signs (08/03/17 09:47) Oximetry (08/03/17 09:47) Ondansetron Inj (Zofran Inj) (08/03/17 10:00) Pantoprazole Inj (Protonix Inj) (08/03/17 10:00) Sodium Chlor 0.9% 1000 Ml Inj (Ns 1000 M (08/03/17 09:47) Sodium Chloride 0.9% Flush (Ns Flush) (08/03/17 10:00) Morphine Inj (Morphine Inj) (08/03/17 10:00) Ct Abd/Pel W Iv Contrast(Rout) (08/03/17 ) Sodium Chlorid 0.9% 500 Ml Inj (Ns 500 M (08/03/17 11:15) Iodixanol 320 Inj (Rad Ct) (Visipaque 32 (08/03/17 11:32) Labs Laboratory Tests Test 08/03/17 09:52 White Blood Count 5.4 TH/MM3 Red Blood Count 3.72 MIL/MM3 Hemoglobin 11.3 GM/DL Hematocrit 33.0 % Mean Corpuscular Volume 88.7 FL Mean Corpuscular Hemoglobin 30.4 PG Mean Corpuscular Hemoglobin Concent 34.3 % Red Cell Distribution Width 15.2 % Platelet Count 293 TH/MM3 Mean Platelet Volume 7.0 FL Neutrophils (%) (Auto) 79.1 % Lymphocytes (%) (Auto) 10.6 % Monocytes (%) (Auto) 8.1 % Eosinophils (%) (Auto) 1.8 % Basophils (%) (Auto) 0.4 % Neutrophils # (Auto) 4.3 TH/MM3 Lymphocytes # (Auto) 0.6 TH/MM3 Monocytes # (Auto) 0.4 TH/MM3 Eosinophils # (Auto) 0.1 TH/MM3 Basophils # (Auto) 0.0 TH/MM3 CBC Comment DIFF FINAL Differential Comment Prothrombin Time 10.9 SEC Prothromb Time International Ratio 1.1 RATIO Activated Partial Thromboplast Time 27.8 SEC Blood Urea Nitrogen 32 MG/DL Creatinine 1.63 MG/DL Random Glucose 177 MG/DL Total Protein 7.2 GM/DL Albumin 3.3 GM/DL Calcium Level 9.1 MG/DL Alkaline Phosphatase 215 U/L Aspartate Amino Transf (AST/SGOT) 38 U/L Alanine Aminotransferase (ALT/SGPT) 39 U/L Total Bilirubin 0.4 MG/DL Sodium Level 125 MEQ/L Potassium Level 4.0 MEQ/L Chloride Level 91 MEQ/L Carbon Dioxide Level 29.2 MEQ/L Anion Gap 5 MEQ/L Estimat Glomerular Filtration Rate 31 ML/MIN [facility] Medical Decision Making Medical Screen Exam Complete: Yes Emergency Medical Condition: Yes Medical Record Reviewed: Yes Interpretation(s) Laboratory Tests Test 08/03/17 09:52 White Blood Count 5.4 TH/MM3 Red Blood Count 3.72 MIL/MM3 Hemoglobin 11.3 GM/DL Hematocrit 33.0 % Mean Corpuscular Volume 88.7 FL Mean Corpuscular Hemoglobin 30.4 PG Mean Corpuscular Hemoglobin Concent 34.3 % Red Cell Distribution Width 15.2 % Platelet Count 293 TH/MM3 Mean Platelet Volume 7.0 FL Neutrophils (%) (Auto) 79.1 % Lymphocytes (%) (Auto) 10.6 % Monocytes (%) (Auto) 8.1 % Eosinophils (%) (Auto) 1.8 % Basophils (%) (Auto) 0.4 % Neutrophils # (Auto) 4.3 TH/MM3 Lymphocytes # (Auto) 0.6 TH/MM3 Monocytes # (Auto) 0.4 TH/MM3 Eosinophils # (Auto) 0.1 TH/MM3 Basophils # (Auto) 0.0 TH/MM3 CBC Comment DIFF FINAL Differential Comment Prothrombin Time 10.9 SEC Prothromb Time International Ratio 1.1 RATIO Activated Partial Thromboplast Time 27.8 SEC Blood Urea Nitrogen 32 MG/DL Creatinine 1.63 MG/DL Random Glucose 177 MG/DL Total Protein 7.2 GM/DL Albumin 3.3 GM/DL Calcium Level 9.1 MG/DL Alkaline Phosphatase 215 U/L Aspartate Amino Transf (AST/SGOT) 38 U/L Alanine Aminotransferase (ALT/SGPT) 39 U/L Total Bilirubin 0.4 MG/DL Sodium Level 125 MEQ/L Potassium Level 4.0 MEQ/L Chloride Level 91 MEQ/L Carbon Dioxide Level 29.2 MEQ/L Anion Gap 5 MEQ/L Estimat Glomerular Filtration Rate 31 ML/MIN Last Impressions Abdomen/Pelvis CT 08/03/17 0000 Signed Impressions: Service Date/Time: Thursday, August 03, 2017 11:21 - CONCLUSION: 1. Fluid-filled loops of nondistended distal ileum likely reflecting enteritis. No significant bowel wall thickening or inflammatory change. 2. Normal appendix. 3. 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 4. Nonobstructing punctate bilateral calyceal calculi. 5. Cholelithiasis. 6. Additional ancillary findings, as above. Ford Hutchinson MD Differential Diagnosis Differential diagnosis includes diverticulosis, internal hemorrhoids, AV malformation, angiodysplasia, upper GI bleed, symptomatic anemia, gastritis. Narrative Course IV was established, labs are drawn and sent, and the patient was placed on cardiac telemetry monitoring and continuous pulse oximetry monitoring. Rectal exam was performed, bright red blood on rectal exam which is guaiac positive. CBC was sent to lab. CT of the abdomen and pelvis with IV contrast was obtained. Hemoglobin was 11.3, and improvement from previous hemoglobin during her hospitalization in May. However, sodium was down to 125, previous sodiums were in the 130s. Creatinine is elevated 1.63, baseline appears to be 1.1-1.2. CT reveals enteritis, no significant bowel wall thickening. The patient was administered IV fluids, she lives in the long term facility, she will need repeat sodium and creatinine level next week. She is advised to return if symptoms worsen or progress. Diagnosis Primary Impression: Acute kidney injury Additional Impressions: Hyponatremia Hematochezia Patient Instructions: General Instructions Additional Instructions: Please provide a patient a copy of her CT results and lab results at discharge. You will need a repeat BMP and one week. Follow-up with your primary physician at the long term facility. Disposition: 03 DISCHARGE TO SNF (discharge back to her long term facility) Condition: Stable Marvin Loza MD Aug 03, 2017 09:58
[2017-08-03] MEDS ORDERED: PANTOPRAZOLE SODIUM 40 MG VIAL IVP ONE (10:00)
[2017-08-03] MEDS ORDERED: ONDANSETRON HCL 4 MG/2 ML VIAL IVP ONE (10:00)
[2017-08-03] MEDS ORDERED: MORPHINE SULFATE 4 MG/ML INJ IV PUSH ONE (10:00)
[2017-08-03] MEDS ORDERED: SODIUM CHLORIDE 0.9% FLUSH 10 ML FLUSH IVF PRN (10:00)
[2017-08-03 10:21] LABS: AUTOMATED NEUTROPHIL # 4.3 TH/MM3 (1.8-7.7); BASOPHIL % 0.4 % (0.0-2.0); EOSINOPHIL # 0.1 TH/MM3 (0-0.4); EOSINOPHIL % 1.8 % (0.0-4.0); HEMOGLOBIN 11.3 GM/DL (11.6-15.3); LYMPH % 10.6 % (9.0-44.0); LYMPHOCYTE # 0.6 TH/MM3 (1.0-4.8); MEAN CELL VOLUME 88.7 FL (80.0-100.0); MEAN CORPUSCULAR HEMOGLOBIN 30.4 PG (27.0-34.0); MEAN CORPUSCULAR HGB CONC 34.3 % (32.0-36.0); MONO % 8.1 % (0.0-8.0); MONOCYTE # 0.4 TH/MM3 (0-0.9); NEUT % 79.1 % (16.0-70.0); PLATELET COUNT 293 TH/MM3 (150-450); RED BLOOD COUNT 3.72 MIL/MM3 (4.00-5.30); RED CELL DISTRIBUTION WIDTH 15.2 % (11.6-17.2); WHITE BLOOD COUNT 5.4 TH/MM3 (4.0-11.0)
[2017-08-03 10:30] LABS: INTERNATIONAL NORMALIZED RATIO 1.1 RATIO; PROTHROMBIN TIME - PATIENT 10.9 SEC (9.8-11.6)
[2017-08-03] MEDS ORDERED: ZOLO100T PO (10:40)
[2017-08-03] MEDS ORDERED: ATOR40TA16 PO (10:40)
[2017-08-03] MEDS ORDERED: LISI10TA PO (10:40)
[2017-08-03] MEDS ORDERED: HALO5TAB PO (10:40)
[2017-08-03 10:46] LABS: ALKALINE PHOSPHATASE 215 U/L (45-117); TOTAL BILIRUBIN ADULT 0.4 MG/DL (0.2-1.0); TOTAL PROTEIN 7.2 GM/DL (6.4-8.2)
[2017-08-03 10:53] LABS: ALBUMIN 3.3 GM/DL (3.4-5.0); ALT (GPT) 39 U/L (10-53); AST (GOT) 38 U/L (15-37); BICARBONATE 29.2 MEQ/L (21.0-32.0); BLOOD UREA NITROGEN 32 MG/DL (7-18); CALCIUM 9.1 MG/DL (8.5-10.1); CHLORIDE 91 MEQ/L (98-107); CREATININE 1.63 MG/DL (0.50-1.00); GLOMERULAR FILTRATION RATE 31 ML/MIN (>89); GLUCOSE,RANDOM 177 MG/DL (74-106); SODIUM (NA) 125 MEQ/L (136-145)
[2017-08-03] MEDS ORDERED: SODIUM CHLORID 0.9% 500 ML INJ 500 ML IV ONE (11:15)
[2017-08-03] MEDS ORDERED: IODIXANOL 320 MG/ML 10 ML VIAL (for Rad CT) IVCONTRAST ONE (11:32)
[2017-08-03 12:00] VITALS: BP 140/69; PULSE 69; RESP 15; TEMP 97.8; O2SAT 98
--- NOTE | 2017-08-03 12:02 | RADRPT ---
EXAM DATE/TIME: 08/03/2017 11:21 [facility] COMPARISON: CHEST SINGLE AP, May 31, 2017, 19:42. INDICATIONS : Abdominal pain, rectal bleeding. IV CONTRAST: 95 cc Visipaque (iodixanol) IV ORAL CONTRAST: No oral contrast ingested. RADIATION DOSE: 6.24 CTDIvol (mGy) MEDICAL HISTORY : Cardiovascular disease. Hypertension. Schizophrenia SURGICAL HISTORY : Appendectomy. Cholecystectomy. ENCOUNTER: Initial ACUITY: 1 day PAIN SCALE: 7/10 LOCATION: Bilateral Abdomen TECHNIQUE: Volumetric scanning of the abdomen and pelvis was performed. Using automated exposure control and ad justment of the mA and/or kV according to patient size, radiation dose was kept as low as reasonably achievable to obtain optimal diagnostic quality images. DICOM format image data is available electro nically for review and comparison. FINDINGS: LOWER LUNGS: The visualized lower lungs are clear. LIVER: Homogeneous density without lesion. There is no dilation of the biliary tree. Gallbladder is mildly distended and contains a single probable gallstone SPLEEN: Splenic calcifications consistent with prior granulomatous disease. PANCREAS: Within normal limits. KIDNEYS: 10 mm fat density exophytic lesion in the superior pole of the left kidney likely reflecting a small angiomyolipoma. A second very small subcentimeter hypodense lesion in the inferior pole of the left k idney is too small to characterize. Punctate calcification in the superior pole of the right and left kidney may reflect small calyceal calculi. Kidneys otherwise demonstrate symmetric enhancement witho ut evidence for hydronephrosis. ADRENAL GLANDS: Within normal limits. VASCULAR: Moderate infrarenal aortic calcifications without aneurysm. BOWEL/MESENTERY: Moderate amount of stool throughout the colon. Scattered colonic diverticula. Appendix is visualized and normal in appearance. There are several loops of distal ileum that are fluid-filled but not signi ficantly distended. Otherwise, no evidence for obstruction. No gross bowel wall thickening. No signif icant free fluid or drainable fluid collection. Apparent CONTRACT RUNNER shunt tubing in the right upper quadrant. ABDOMINAL WALL: Within normal limits. RETROPERITONEUM: There is no lymphadenopathy. BLADDER: Mildly distended but otherwise unremarkable. REPRODUCTIVE: Within normal limits. INGUINAL: There is no lymphadenopathy or hernia. MUSCULOSKELETAL: Within normal limits for patient age. CONCLUSION: 1. Fluid-filled loops of nondistended distal ileum likely reflecting enteritis. No significant bowel wall thickening or inflammatory change. 2. Normal appendix. 3. 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 4. Nonobstructing punctate bilateral calyceal calculi. 5. Cholelithiasis. 6. Additional ancillary findings, as above. Ford Hutchinson MD on August 03, 2017 at 11:48 Board Certified Radiologist. This report was verified electronically.
== END 2017-08-04 07:37 ==
LOC: NEPC 09:25 → NEPB 08-04 07:37
DX: N17.9 Acute kidney failure, unspecified (principal); E87.1 Hypo-osmolality and hyponatremia; K92.1 Melena; R10.30 Lower abdominal pain, unspecified; R10.2 Pelvic and perineal pain; R11.0 Nausea; I10 Essential (primary) hypertension; E78.00 Pure hypercholesterolemia, unspecified; E07.9 Disorder of thyroid, unspecified; M19.90 Unspecified osteoarthritis, unspecified site; F20.9 Schizophrenia, unspecified; F31.9 Bipolar disorder, unspecified; F41.8 Other specified anxiety disorders; F17.200 Nicotine dependence, unspecified, uncomplicated; Z86.79 Personal history of other diseases of the circulatory system; Z86.69 Personal history of other diseases of the nervous system and sense organs
CPT/HCPCS: 74177; 80053; 85025; 85610; 85730; 96361; 96374; 96375; 99284; C9113; J2270; J2405; J7030; J7040; Q9967

== ENCOUNTER 2017-08-16 10:41 | Emergency (ER) | payer MEDICARE, MEDICAID ==
[~2017-08-16 10:41] MED LIST changes: +ATOR40TA16 PO; -CIPR-9 PO; -HALO2TAB PO; +HALO5TAB PO; -LISI-357 PO; +LISI10TA PO; -OLAN20TA PO; -SERT-129 OR; +ZOLO100T PO; -ZYPR20TA PO
[2017-08-16 10:48] VITALS: BP 122/64; PULSE 83; RESP 18; TEMP 98.3; O2SAT 98
--- NOTE | 2017-08-16 11:20 | PD ---
HPI Chief Complaint: Pain: Acute or Chronic Time Seen by Provider: 11:04 Travel History International Travel<30 days: No Contact w/Intl Traveler<30days: No Traveled to known affect area: No History of Present Illness HPI 67-year-old female presents to the emergency room for evaluation of left humerus pain for the past 1-2 weeks. Patient states she was walking through the halls of the [facility], where she lives, when she walked into the wall. Since then she has had pain in the humerus. Pain is worsened with range of motion, especially overhead, and when she pushes on it. No radiation. She denies paresthesias. The facility has been giving her Tylenol which generally improves her symptoms. She denies any chest pain. Patient has history of breast cancer, hypercholesterolemia, schizoaffective disorder, COPD, hypothyroidism, and arthritis. PFSH Past Medical History Arthritis: Yes Asthma: No Autoimmune Disease: Yes Blood Disorders: No Bipolar Disorder: Yes Anxiety: Yes Depression: Yes Heart Rhythm Problems: No Cancer: Yes (breast) Cardiovascular Problems: Yes High Cholesterol: Yes Chemotherapy: No Chest Pain: No Congestive Heart Failure: No COPD: Yes Cerebrovascular Accident: No Diabetes: No Diminished Hearing: No Endocrine: Yes Gastrointestinal Disorders: Yes (rectal pain) GERD: No Glaucoma: No Genitourinary: No Headaches: Yes Hepatitis: No Hiatal Hernia: No Heparin Induced Thrombocytopen: No Hypertension: Yes Immune Disorder: No Kidney Stones: No Musculoskeletal: No Neurologic: Yes Psychiatric: Yes Reproductive: No Respiratory: Yes Immunizations Current: Yes Migraines: No Myocardial Infarction: No Radiation Therapy: No Renal Failure: No Schizophrenia: Yes Seizures: No Sickle Cell Disease: No Sleep Apnea: No Thyroid Disease: Yes Ulcer: No PNEUMOCCOCAL Vaccine (Year): 2008 Menopausal: Yes : 0 Para: 0 Past Surgical History Abdominal Surgery: Yes AICD: No Appendectomy: Yes Arteriovenous Shunt: No Cardiac Surgery: No Cholecystectomy: Yes Ear Surgery: No Endocrine Surgery: No Eye Surgery: No Genitourinary Surgery: No Gynecologic Surgery: No Insulin Pump: No Joint Replacement: No Neurologic Surgery: Yes ("WATER ON THE BRAIN" IN CHILDHOOD) Oral Surgery: No Pacemaker: No Thoracic Surgery: No Other Surgery: Yes (apendectomy, cholecystectomy) Social History Alcohol Use: No Tobacco Use: Yes (1 PPD) Substance Use: No Allergies-Medications (Allergen,Severity, Reaction): Coded Allergies: No Known Allergies (Verified Allergy, Unknown, 08/03/17) Reported Meds & Prescriptions Reported Meds & Active Scripts Active Reported Haloperidol 5 Mg Tab 5 Mg PO BID Zoloft (Sertraline HCl) 100 Mg Tab 100 Mg PO HS Lisinopril-Hctz 10-12.5 Mg Tab 1 Tab PO DAILY Atorvastatin (Atorvastatin Calcium) 40 Mg Tab 40 Mg PO HS Tramadol (Tramadol HCl) 50 Mg Tab 50 Mg PO TID PRN Tylenol (Acetaminophen) 325 Mg Tab 500 Mg PO TID PRN Multi-Vitamin Daily (Multiple Vitamin) 1 Tab Tab 1 Tab PO DAILY Olanzapine 10 Mg Tab 20 Mg PO HS Levothyroxine (Levothyroxine Sodium) 112 Mcg Tab 112 Mcg PO DAILY Lamotrigine 200 Mg Tab 200 Mg PO HS Furosemide 20 Mg Tab 20 Mg PO DAILY Flovent Hfa 10.6 GM Inh (Fluticasone Propionate) 44 Mcg/Act Inh 1 Puff INH BID Use daily at the same time. Famotidine 20 Mg Tab 20 Mg PO BID Donepezil 10 Mg Tab 10 Mg PO BID Bupropion HCl 100 Mg Tab 100 Mg PO BID Benztropine (Benztropine Mesylate) 0.5 Mg Tab 0.5 Mg PO BID Benztropine Mesylate 2 Mg Tab 1 Mg PO HS Review of Systems Except as stated in HPI: all other systems reviewed are Neg Physical Exam Narrative GENERAL: Well-nourished, well-developed female no acute distress. Afebrile. Ambulatory. SKIN: Focused skin assessment warm/dry. HEAD: Normocephalic. EYES: No scleral icterus. No injection or drainage. NECK: Supple, trachea midline. No JVD or lymphadenopathy. CARDIOVASCULAR: Regular rate and rhythm without murmurs, gallops, or rubs. RESPIRATORY: Breath sounds equal bilaterally. No accessory muscle use. MUSCULOSKELETAL: No cyanosis. No edema. Limited range overhead range of motion of the left upper extremity secondary to pain. No obvious deformity. Mild tenderness to palpation of the left humerus. 2+ radial pulse. Radial, ulnar, and median nerves intact. Data Data Last Documented VS Vital Signs Date Time Temp Pulse Resp B/P (MAP) Pulse Ox O2 Delivery O2 Flow Rate FiO2 08/16/17 10:48 98.3 83 18 122/64 (83) 98 Orders Orders Humerus (Min 2vws) (08/16/17 ) [facility] Medical Decision Making Medical Screen Exam Complete: Yes Emergency Medical Condition: Yes Medical Record Reviewed: Yes Differential Diagnosis Muscle spasm, strain, contusion, fracture Narrative Course 67-year-old female presents to the emergency room for evaluation of left upper extremity pain after injuring it 2 weeks ago. Patient ran into a wall. Denies any other injuries or fall. Left upper extremity is neurovascularly intact with 2+ radial pulse. Radial, ulnar, median nerves intact. There is tenderness to palpation of the humerus. There is also significant pain with overhead range of motion. Patient denies any chest pain or shortness of breath. X-ray is negative for fracture. There is no significant edema, ecchymosis, or laceration. I suspect muscle strain or tendinitis. She was discharged with orthopedic instructions and told to follow-up with a primary care physician or return for worsening symptoms. She understands and agrees to plan. Diagnosis Primary Impression: Left upper arm pain Referrals: Primary Care Physician Additional Instructions: Rest and drink plenty of fluids. Take Tylenol as directed, as needed for pain. Apply ice to the affected area for 20 minutes at a time, as needed for pain and swelling. Follow-up with a primary care physician. Return to the emergency room for worsening symptoms. Med/Other Pt SpecificInfo: Prescription(s) given Disposition: 01 DISCHARGE HOME Condition: Stable Lily Pickering Aug 16, 2017 11:20
--- NOTE | 2017-08-16 11:25 | RADRPT ---
EXAM DATE/TIME: 08/16/2017 11:13 [facility] COMPARISON: No previous studies available for comparison. INDICATIONS : Left arm pain; No known injury. MEDICAL HISTORY : None. SURGICAL HISTORY : None. ENCOUNTER: Initial ACUITY: 1 day PAIN SCORE: 5/10 LOCATION: Left humerus. FINDINGS: Two view examination of the left humerus demonstrates no evidence of fracture or dislocation. Bony m ineralization is normal. The soft tissue structures are intact. CONCLUSION: Unremarkable examination of the left humerus. Archie Albrecht MD on August 16, 2017 at 11:23 Board Certified Radiologist. This report was verified electronically.
== END 2017-08-16 12:02 | disposition home or self-care (01) ==
LOC: NEPK 10:41
DX: M79.622 Pain in left upper arm (principal); F17.200 Nicotine dependence, unspecified, uncomplicated; E03.9 Hypothyroidism, unspecified; E78.00 Pure hypercholesterolemia, unspecified; I10 Essential (primary) hypertension
CPT/HCPCS: 73060; 99283

== ENCOUNTER 2017-09-29 02:58 | Inpatient (IN) | payer MEDICARE, MEDICAID ==
[~2017-09-29] VITALS: Ht 149.9 cm; Wt 59.4 kg
[2017-09-29] VITALS (16 sets, daily range): BP systolic 118–182; BP diastolic 62–101; PULSE 67–92; RESP 14–27; TEMP 97.2–98.9; O2SAT 95–100
[2017-09-29] MEDS ORDERED: methylPREDNISolone SOD SUCC 125 MG/2 ML VIAL IV PUSH ONE (03:30)
[2017-09-29] MEDS ORDERED: FAMOTIDINE 20 MG/2 ML VIAL IV PUSH SCH (03:30)
[2017-09-29] MEDS ORDERED: RESP: ALBUTEROL 2.5 MG/IPRATROPIUM 0.5 MG NEB (SCH) NEB ONE (03:30)
--- NOTE | 2017-09-29 03:30 | PD ---
HPI Chief Complaint: Allergic/Adverse Reaction Time Seen by Provider: 03:08 Travel History International Travel<30 days: No Contact w/Intl Traveler<30days: No Traveled to known affect area: No History of Present Illness HPI pt has swollen tongue for 2 days and report from evac that Tongue is not acute , but has been swollen same amount and pt reconfirms that tongue is not getting worse , she has obvious tongue swelling but pt can communicate saying that she ate dunner tonight with her tongue this size , She is on lisinopril / HCTZ and EMS gave Benadryl 50 mg IVP en route , No stridor or resp distress on initial eval for possible intubation for airway protection . PFSH Past Medical History Arthritis: Yes Asthma: No Autoimmune Disease: Yes Blood Disorders: No Bipolar Disorder: Yes Anxiety: Yes Depression: Yes Heart Rhythm Problems: No Cancer: Yes (breast) Cardiovascular Problems: Yes High Cholesterol: Yes Chemotherapy: No Chest Pain: No Congestive Heart Failure: No COPD: Yes Cerebrovascular Accident: No Diabetes: No Diminished Hearing: No Endocrine: Yes Gastrointestinal Disorders: Yes (rectal pain) GERD: No Glaucoma: No Genitourinary: No Headaches: Yes Hepatitis: No Hiatal Hernia: No Heparin Induced Thrombocytopen: No Hypertension: Yes Immune Disorder: No Implanted Vascular Access Dvce: No Kidney Stones: No Musculoskeletal: No Neurologic: Yes Psychiatric: Yes Reproductive: No Respiratory: Yes Immunizations Current: Yes Migraines: No Myocardial Infarction: No Radiation Therapy: No Renal Failure: No Schizophrenia: Yes Seizures: No Sickle Cell Disease: No Sleep Apnea: No Thyroid Disease: Yes Ulcer: No Tetanus Vaccination: > 5 Years Influenza Vaccination: Yes PNEUMOCCOCAL Vaccine (Year): 2008 ?: Not Menopausal: Yes : 0 Para: 0 Past Surgical History Abdominal Surgery: Yes AICD: No Appendectomy: Yes Arteriovenous Shunt: No Cardiac Surgery: No Cholecystectomy: Yes Ear Surgery: No Endocrine Surgery: No Eye Surgery: No Genitourinary Surgery: No Gynecologic Surgery: No Insulin Pump: No Joint Replacement: No Neurologic Surgery: Yes ("WATER ON THE BRAIN" IN CHILDHOOD) Oral Surgery: No Pacemaker: No Thoracic Surgery: No Other Surgery: Yes (apendectomy, cholecystectomy) Social History Alcohol Use: No Tobacco Use: Yes (1 PPD) Substance Use: No Allergies-Medications (Allergen,Severity, Reaction): Coded Allergies: lisinopril (Verified Allergy, Severe, Swelling, 09/29/17) Reported Meds & Prescriptions Reported Meds & Active Scripts Active Review of Systems Except as stated in HPI: all other systems reviewed are Neg HENT: Positive: Other (tongue swelling , has been same size for 2 days no resp distress no stridor no SOB pt reports she was able to eat her meals with tongue this size on lisinporil ) Physical Exam Narrative GENERAL: tongue awellon , no stridor no drooling but talking with full mouth sound , SKIN: Warm and dry. HEAD: Atraumatic. Normocephalic. EYES: Pupils equal and round. No scleral icterus. No injection or drainage. ENT: No nasal bleeding or discharge. Tongue large symmetric swelling no lip invilvement uvula not swollen No drooling no stridor auscultated at neck NECK NO STRIDOR auscultated CARDIOVASCULAR: Regular rate and rhythm. RESPIRATORY: No accessory muscle use. Clear to auscultation. Breath sounds equal bilaterally. no resp distress no wheeze , no increase in RR GASTROINTESTINAL: Abdomen soft, non-tender, nondistended. Hepatic and splenic margins not palpable. MUSCULOSKELETAL: Extremities without clubbing, cyanosis, or edema. No obvious deformities. NEUROLOGICAL: Awake and alert. No obvious cranial nerve deficits. Motor grossly within normal limits. Five out of 5 muscle strength in the arms and legs. Normal speech. PSYCHIATRIC: Appropriate mood and affect; insight and judgment normal. Data Data Last Documented VS Vital Signs Date Time Temp Pulse Resp B/P (MAP) Pulse Ox O2 Delivery O2 Flow Rate FiO2 09/29/17 04:01 82 17 182/86 (118) 98 Room Air 09/29/17 03:11 2.00 09/29/17 03:06 98.7 Orders Orders Methylprednisolone So Succ Inj (Solumedr (09/29/17 03:30) Famotidine Inj (Pepcid Inj) (09/29/17 03:30) Albuterol-Ipratropium Neb (Duoneb Neb) (09/29/17 03:30) Epinephrine (1:10,000) Inj (Epinephrine (09/29/17 03:45) Admit Order (Ed Use Only) (09/29/17 04:07) MDM Medical Decision Making Medical Screen Exam Complete: Yes Emergency Medical Condition: Yes Differential Diagnosis lisinopril reaction allergic reaction C1 deficiency , trauma , anaphylaxis other cause of tongue enlargement Narrative Course due to duration of tongue swelling over 2 days without progression I decide to add to benadryl she received form EMS IV steroid pepcid and SQ epi and admit ICU for close monitoring of airway until decrease tongue size occurs . I decide NOT to intubate at this time for emergent airway protection. It is not indicated at this time Diagnosis Primary Impression: Swollen tongue Admitting Information Admitting Physician Requests: Admit Scripts Prednisone (21) 5 mg tab Dose Pack (Prednisone (21) 5 mg tab Dose Pack) 5 Mg Dspk 5 MG PO DIRECTED for Inflammation, #1 DSPK 0 Refills Prov: Hussain Arguelles DO 09/30/17 Sennosides-Docusate Sodium (Gnp Senna Plus 8.6-50 mg) 8.6 Mg-50 Mg Tab 2 TAB PO BID for Bowel Management, #120 TAB Prov: Hussain Arguelles DO 09/30/17 Amlodipine (Norvasc) 5 Mg Tab 5 MG PO DAILY for Blood Pressure Management, #30 TAB Prov: Hussain Arguelles DO 09/30/17 Donepezil (Donepezil) 10 Mg Tab 10 MG PO HS for Dementia, #30 TAB 0 Refills Prov: Hussain Arguelles DO 09/30/17 Benztropine (Benztropine) 0.5 Mg Tab 1 MG PO HS for Anxiety and/or Insomnia, #60 TAB 0 Refills Prov: Hussain Arguelles DO 09/30/17 Anastrozole (Anastrozole) 1 Mg Tab 1 MG PO DAILY for Breast Cancer, #30 TAB 0 Refills Prov: Hussain Arguelles DO 09/30/17 Haloperidol (Haloperidol) 5 Mg Tab 5 MG PO BID for Agitation, #60 TAB 0 Refills Prov: Hussain Arguelles DO 09/30/17 Sertraline (Zoloft) 100 Mg Tab 100 MG PO HS for Depression Control, #30 TAB 0 Refills Prov: Hussain Arguelles DO 09/30/17 Atorvastatin (Atorvastatin) 40 Mg Tab 40 MG PO HS for Cholesterol Management, #30 TAB 0 Refills Prov: Hussain Arguelles DO 09/30/17 Multiple Vitamin (Multi-Vitamin Daily) 1 Tab Tab 1 TAB PO DAILY for Nutritional Supplement, #30 TAB 0 Refills Prov: Hussain Arguelels DO 09/30/17 Olanzapine (Olanzapine) 10 Mg Tab 20 MG PO HS for Anxiety and/or Insomnia, #30 TAB 0 Refills Prov: Hussain Arguelles DO 09/30/17 Levothyroxine (Levothyroxine) 112 Mcg Tab 112 MCG PO DAILY for Thyroid, #30 TAB 0 Refills Prov: Hussain Arguelles DO 09/30/17 Lamotrigine (Lamotrigine) 200 Mg Tab 200 MG PO HS for Control Seizures, #30 TAB 0 Refills Prov: Hussain Arguelles DO 09/30/17 Furosemide (Furosemide) 20 Mg Tab 20 MG PO DAILY for Blood Pressure Management, #30 TAB 0 Refills Prov: Hussain Arguelles DO 09/30/17 Fluticasone 10.6 GM Inh (Flovent Hfa 10.6 GM Inh) 44 Mcg/Act Inh 1 PUFF INH BID for Asthma Management, #1 INHALER 0 Refills Use daily at the same time. Prov: Hussain Arguelles DO 09/30/17 Famotidine (Famotidine) 20 Mg Tab 20 MG PO BID for Manage Heartburn, #60 TAB 0 Refills Prov: Hussain Arguelles DO 09/30/17 Bupropion HCl (Bupropion HCl) 100 Mg Tab 100 MG PO BID for Control Depression, #60 TAB 0 Refills Prov: Hussain Arguelles DO 09/30/17 Benztropine (Benztropine) 0.5 Mg Tab 0.5 MG PO BID for Anxiety, #60 TAB 0 Refills Prov: Hussain Arguelles DO 09/30/17 Irvin Quiñones MD Sep 29, 2017 03:30
[2017-09-29] MEDS ORDERED: EPINEPHrine HCL (1:10,000) 1 MG/10 ML SYRINGE SQ ONE (03:45)
[2017-09-29] MEDS ORDERED: ANAS1TAB PO (04:13)
[2017-09-29] MEDS ORDERED: DONE10TA7 PO (04:13)
[2017-09-29] MEDS ORDERED: BENZ0.5T PO (04:13)
--- NOTE | 2017-09-29 04:23 | HHI.HP ---
[facility] Service Critical Care Medicine Primary Care Physician Unknown Admission Diagnosis swollen tongue Diagnosis: (1) Angioedema Diagnosis: Principal (2) COPD (chronic obstructive pulmonary disease) Diagnosis: Secondary (3) Schizophrenia Diagnosis: Secondary (4) Tobacco abuse Diagnosis: Secondary (5) HTN (hypertension) (6) HLD (hyperlipidemia) Travel History International Travel<30 Days: No Contact w/Intl Traveler <30 Da: No Traveled to Known Affected Are: No History of Present Illness 67-year-old female past medical history of paranoid schizophrenia, dementia, hypertension, hyperlipidemia, COPD, ongoing tobacco abuse, GERD, breast cancer who presented to [facility] emergency department from [facility] with 2 day history of tongue swelling. She states that her tongue began swelling the evening of 09/27/17, maybe slightly worse tonight. This has never happened before. She is on lisinopril and received doses the morning of 09/27 and again at 8 AM on 09/28. She is able to swallow her saliva and was able to eat dinner this evening. She received Benadryl 50 mg IV prior to arrival. In the emergency department she received Solu-Medrol 125 mg IV, epinephrine 0.15 mg subcut, famotidine 20 mg IV, DuoNeb. She states her symptoms feel much improved. ED RN at bedside states tongue swelling seems improved compared with arrival. No pruritus. [facility] which indicates no recent medication additions. Review of Systems ROS Limitations: Poor Historian (Dementia and schizophrenia) Constitutional: DENIES: Fever Eyes: DENIES: Diplopia Ears, nose, mouth, throat: DENIES: Hoarseness, Running Nose, Epistaxis Respiratory: COMPLAINS OF: Shortness of breath, DENIES: Sputum production Cardiovascular: DENIES: Chest pain Gastrointestinal: DENIES: Abdominal pain Musculoskeletal: DENIES: Joint pain Integumentary: DENIES: Rash Hematologic/lymphatic: DENIES: Bruising Immunologic/allergic: DENIES: Urticaria Neurologic: DENIES: Headache Past Family Social History Allergies: Coded Allergies: lisinopril (Verified Allergy, Severe, Swelling, 09/29/17) Past Medical History Paranoid schizophrenia Dementia Anxiety Hyperlipidemia Seizure disorder Rectal prolapse GERD Hypothyroidism Hypertension COPD Tobacco abuse Breast cancer pathology 11/17/15 invasive moderately differentiated ductal carcinoma Past Surgical History Appendectomy Cholecystectomy Normal pressure hydrocephalus status post SENIOR PRINCIPAL ARCHITECT shunt 03/29/16 (Dr. Lopez) Exploratory laparotomy with rectopexy for rectal prolapse 06/06/17 (Dr. Mast) Left breast biopsy 11/17/15 Reported Medications Donepezil 10 mg p.o. nightly Atorvastatin 40 mg p.o. nightly Lisinopril HCTZ 03/29.5 one tab p.o. daily at 8 AM Lamotrigine 200 mg p.o. nightly Bupropion 100 mg p.o. twice daily Sertraline 100 mg p.o. nightly Haldol 5 mg p.o. twice daily Olanzapine 20 mill grams p.o. nightly Benztropine 0.5 mg p.o. twice daily she takes an additional 1 mg p.o. nightly Lasix 20 mg p.o. daily Flovent 1 puff inhaled twice daily Famotidine 20 mg p.o. twice daily Anastrozole 1 mg p.o. daily Levothyroxine 112 micro grams p.o. daily Multivitamin 1 tab p.o. daily Family History No family history of coronary artery disease No known family history of angioedema Social History She has ongoing tobacco abuse, smokes 2 packs of cigarettes per day No alcohol or illicit drug use [facility] Physical Exam Vital Signs Vital Signs Date Time Temp Pulse Resp B/P (MAP) Pulse Ox O2 Delivery O2 Flow Rate FiO2 09/29/17 04:14 78 22 170/83 (112) 100 Room Air 09/29/17 04:01 82 17 182/86 (118) 98 Room Air 09/29/17 03:11 22 100 Nasal Cannula 2.00 09/29/17 03:06 98.7 69 22 180/84 (116) 100 Physical Exam Normal sinus rhythm on the monitor with rate of 83 blood pressure 170/83 sats 99 % on room air GENERAL: Well-nourished, well-developed patient who is sitting up in ED stretcher. She is alert and interactive. SKIN: Warm and dry. No urticaria or rash HEAD: Atraumatic. Normocephalic. EYES: Pupils equal and round. No scleral icterus. No injection or drainage. ENT: No face or appreciable lip swelling. Tongue is diffusely swollen. Edentulous with upper dentures in place; no lower teeth or dentures in place.. Uvula is not fully visualized. There is redundant tissue in her neck but submandibular and submental spaces are soft. No drooling. No nasal bleeding or discharge. Mucous membranes pink and moist. NECK: Trachea midline. No JVD. CARDIOVASCULAR: Regular rate and rhythm, sinus rhythm on the monitor. 2 out of 6 systolic murmur at the apex. RESPIRATORY: Breathing comfortably on room air with no accessory muscle use. Slight expiratory wheeze bilaterally with equal breath sounds bilaterally GASTROINTESTINAL: Abdomen soft, non-tender, nondistended. Bowel sounds present. Well-healed infraumbilical vertical incision. MUSCULOSKELETAL: Extremities without clubbing, cyanosis. Mild bipedal swelling NEUROLOGICAL: Awake and alert. No obvious cranial nerve deficits. Motor grossly within normal limits. Normal speech. Oriented to self, hospital. Caprini VTE Risk Assessment Caprini VTE Risk Assessment: Mod/High Risk (score >= 2) Caprini Risk Assessment Model Point Value = 1 Point Value = 2 Point Value = 3 Point Value = 5 Age 41-60 Minor surgery BMI > 25 kg/m2 Swollen legs Varicose veins or History of unexplained or recurrent spontaneous Oral contraceptives or hormone replacement Sepsis (< 1 month) Serious lung disease, including pneumonia (< 1 month) Abnormal pulmonary function Acute myocardial infarction Congestive heart failure (< 1 month) History of inflammatory bowel disease Medical patient at bed rest Age 61-74 Arthroscopic surgery Major open surgery (> 45 min) Laparoscopic surgery (> 45 min) Malignancy Confined to bed (> 72 hours) Immobilizing plaster cast Central venous access Age >= 75 History of VTE Family history of VTE Factor V Leiden Prothrombin [id number] Lupus anticoagulant Anticardiolipin antibodies Elevated serum homocysteine Heparin-induced thrombocytopenia Other congenital or acquired thrombophilia Stroke (< 1 month) Elective arthroplasty Hip, pelvis, or leg fracture Acute spinal cord injury (< 1 month) Prophylaxis Regimen Total Risk Factor Score Risk Level Prophylaxis Regimen 0-1 Low Early ambulation 2 Moderate Order ONE of the following: *Sequential Compression Device (SCD) *Heparin 5000 units SQ BID 3-4 Higher Order ONE of the following medications: *Heparin 5000 units SQ TID *Enoxaparin/Lovenox 40 mg SQ daily (WT < 150 kg, CrCl > 30 mL/min) *Enoxaparin/Lovenox 30 mg SQ daily (WT < 150 kg, CrCl > 10-29 mL/min) *Enoxaparin/Lovenox 30 mg SQ BID (WT < 150 kg, CrCl > 30 mL/min) AND/OR *Sequential Compression Device (SCD) 5 or more Highest Order ONE of the following medications: *Heparin 5000 units SQ TID (Preferred with Epidurals) *Enoxaparin/Lovenox 40 mg SQ daily (WT < 150 kg, CrCl > 30 mL/min) *Enoxaparin/Lovenox 30 mg SQ daily (WT < 150 kg, CrCl > 10-29 mL/min) *Enoxaparin/Lovenox 30 mg SQ BID (WT < 150 kg, CrCl > 30 mL/min) AND *Sequential Compression Device (SCD) Assessment and Plan Assessment and Plan NEURO: Paranoid schizophrenia Anxiety Dementia Seizure disorder NPH status post SENIOR PRINCIPAL ARCHITECT shunt 03/2016 Continue donepezil 10 mg p.o. nightly Continue lamotrigine 200 mg p.o. nightly, bupropion 100 m's p.o. twice daily, Zoloft 100 mg p.o. nightly, Haldol 5 mg p.o. twice daily, olanzapine 20 mg p.o. nightly Continue benztropine 0.5 mg every morning and 1.5 mg p.o. nightly for extrapyramidal symptoms RESP: COPD Ongoing tobacco abuse Tobacco cessation counseling Continue Flovent 1 puff inhaled twice daily Albuterol every 2 hours as needed Check baseline chest x-ray CV: Hypertension Hyperlipidemia Hold lisinopril/HCTZ. Lisinopril suspected culprit of angioedema Norvasc 5 mg p.o. daily for hypertension Continue atorvastatin 40 mg p.o. nightly Continue Lasix 20 mg p.o. daily GI: Patient has been tolerating p.o. well without difficulty. We will placed on mechanical soft diet. FEN/RENAL: Check BMP ICU electrolyte replacement protocol as long as creatinine is appropriate ID: Monitor for signs and symptoms of infection ALLERGY: Angioedema Symptoms started 09/27. Patient reports symptoms improving since arrival to [facility]. Received Solumedrol 125 mg IV in the ED. Continue 40 mg IV q12 hours. Continue famotidine. Continue Benadryl 25 mg IV q6 hours prn itching, already on anticholinergic therapy with cogentin so monitor for effects (urinary retention etc). Will monitor airway in ICU and plan to transfer back to SNF. Suspect lisinopril was the etiology of angioedema so will hold the lisinopril and use alternative antihypertensive agent. Anastrozole can also cause angioedema but this is much less frequently than with lisinopril. Will continue anastrozole for now while in monitored setting. If there is any worsening after this medication may need to confer with oncology regarding alternative agents HEME: Breast cancer Check CBC Continue anastrozole 1 mg p.o. daily as per discussion above ENDO: Hypothyroidism Continue Synthroid 112 mcg p.o. daily Monitor glucose before meals/at bedtime while on steroids and administer low- dose insulin sliding scale as an PROPH: SCDs and heparin 5000 units subcu every 12 hours for DVT prophylaxis. Famotidine as per above. ACCESS: Peripheral IV providing adequate access at this time Full code. Admit to ICU for airway monitoring, anticipate d/c to SNF tomorrow. Level 3 H&P Rosanna Schmid MD Sep 29, 2017 04:23
[2017-09-29] MEDS ORDERED: RESP: ALBUTEROL 2.5 MG/3 ML NEB (PRN) INH (04:30)
[2017-09-29] MEDS ORDERED: BISACODYL 10 MG SUPP RECTAL PRN (04:30)
[2017-09-29] MEDS ORDERED: ONDANSETRON HCL 4 MG/2 ML VIAL IV PUSH PRN (04:30)
[2017-09-29] MEDS ORDERED: ACETAMINOPHEN 325 MG TAB PO PRN (04:30)
[2017-09-29] MEDS ORDERED: SODIUM CHLORIDE 0.9% FLUSH 10 ML FLUSH IV FLUSH PRN (04:30)
[2017-09-29] MEDS ORDERED: CHLORHEXIDINE GLUCONATE 2 % 1 PACK (2 CLOTHS) TOP PRN (04:30)
[2017-09-29] MEDS ORDERED: MAGNESIUM HYDROXIDE SUSP 30 ML CUP PO PRN (04:30)
[2017-09-29] MEDS ORDERED: MISCELLANEOUS NURSING INFORMATION XX SCH (04:30)
[2017-09-29] MEDS ORDERED: LACTULOSE SYRUP 20 GM/30 ML CUP PO PRN (04:30)
[2017-09-29] MEDS ORDERED: SENNOSIDES 8.6 MG TAB PO PRN (04:30)
[2017-09-29] MEDS ORDERED: POTASSIUM CHLOR 40 MEQ PREMIX 100 ML IV PRN ×2 (04:45)
[2017-09-29] MEDS ORDERED: POTASSIUM PHOSPHATE MONOBASIC 500 MG TAB PO PRN (04:45)
[2017-09-29] MEDS ORDERED: MAGNESIUM OXIDE 400 MG TAB PO PRN (04:45)
[2017-09-29] MEDS ORDERED: POTASSIUM CHLOR 20 MEQ PREMIX 100 ML IV PRN ×2 (04:45)
[2017-09-29] MEDS ORDERED: POTASSIUM PHOSPHATE MONOBASIC 500 MG TAB PO/TUBE PRN (04:45)
[2017-09-29] MEDS ORDERED: POTASSIUM PHOSPHATE INJ 30 MMOL in SODIUM CHLOR 0.9% 250 ML INJ 250 ML IV PRN (04:45)
[2017-09-29] MEDS ORDERED: MAGNESIUM SULFATE INJ 2 GM in SODIUM CHLORIDE 0.9% INJ 96 ML IV PRN (04:45)
[2017-09-29] MEDS ORDERED: POTASSIUM CHLORIDE 25 MEQ EFFERVESCENT TAB PO PRN (04:45)
[2017-09-29] MEDS ORDERED: SODIUM PHOSPHATE INJ 30 MMOL in SODIUM CHLOR 0.9% 250 ML INJ 240 ML IV PRN (04:45)
[2017-09-29] MEDS ORDERED: DEXTROSE 50% IN WATER 50 ML VIAL(D50) IV PUSH PRN (04:45)
[2017-09-29] MEDS ORDERED: MAGNESIUM SULFATE INJ 4 GM in SODIUM CHLORIDE 0.9% INJ 92 ML IV PRN (04:45)
[2017-09-29] MEDS ORDERED: diphenhydrAMINE HCL 50 MG/ML VIAL IV PUSH PRN (04:45)
[2017-09-29] MEDS ORDERED: GLUCAGON 1 MG/ML VIAL OTHER PRN (04:45)
[2017-09-29 05:22] LABS: AUTOMATED NEUTROPHIL # 6.3 TH/MM3 (1.8-7.7); BASOPHIL % 0.5 % (0.0-2.0); EOSINOPHIL # 0.1 TH/MM3 (0-0.4); EOSINOPHIL % 1.7 % (0.0-4.0); HEMATOCRIT 34.3 % (35.0-46.0); HEMOGLOBIN 11.8 GM/DL (11.6-15.3); LYMPH % 10.9 % (9.0-44.0); LYMPHOCYTE # 0.8 TH/MM3 (1.0-4.8); MEAN CELL VOLUME 90.6 FL (80.0-100.0); MEAN CORPUSCULAR HEMOGLOBIN 31.1 PG (27.0-34.0); MEAN CORPUSCULAR HGB CONC 34.3 % (32.0-36.0); MEAN PLATELET VOLUME 7.3 FL (7.0-11.0); MONOCYTE # 0.3 TH/MM3 (0-0.9); NEUT % 82.9 % (16.0-70.0); PLATELET COUNT 191 TH/MM3 (150-450); RED BLOOD COUNT 3.79 MIL/MM3 (4.00-5.30); RED CELL DISTRIBUTION WIDTH 14.3 % (11.6-17.2); WHITE BLOOD COUNT 7.6 TH/MM3 (4.0-11.0)
[2017-09-29] MEDS: LEVOTHYROXINE SODIUM 112 MCG TAB PO SCH (05:28)
[2017-09-29] MEDS: HEPARIN SODIUM - SQ 10,000 UNITS/ML VIAL SQ SCH ×2 (05:28→17:28)
--- NOTE | 2017-09-29 05:38 | RADRPT ---
EXAM DATE/TIME: 09/29/2017 04:37 [place] COMPARISON: CHEST SINGLE AP, May 31, 2017, 19:42. INDICATIONS : Shortness of breath MEDICAL HISTORY : None. SURGICAL HISTORY : None. ENCOUNTER: Initial ACUITY: 1 day PAIN SCORE: Non-responsive. LOCATION: Bilateral chest FINDINGS: The cardiac silhouette is enlarged in transverse diameter. The lungs are free of acute parenchymal op acity. No effusions are identified. The aortic knob is prominent with tortuosity of the descending th oracic aorta. CONCLUSION: 1. Cardiomegaly. No acute pulmonary disease. John Schneider MD on September 29, 2017 at 5:35 Board Certified Radiologist. This report was verified electronically.
[2017-09-29 05:40] LABS: BICARBONATE 25.5 MEQ/L (21.0-32.0); CREATININE 1.27 MG/DL (0.50-1.00)
[2017-09-29] MEDS: INSULIN ASPART SUPPLEMENTAL SCALE SQ SCH ×4 (08:00→20:25)
[2017-09-29] MEDS: BENZTROPINE MESYLATE 1 MG TAB PO SCH ×2 (09:00→18:52)
[2017-09-29] MEDS: methylPREDNISolone SOD SUCC 40 MG/1 ML VIAL IV PUSH SCH ×2 (09:00→21:26)
[2017-09-29] MEDS ORDERED: BENZTROPINE MESYLATE 1 MG TAB PO SCH ×2 (09:00→21:00)
[2017-09-29] MEDS: SODIUM CHLORIDE 0.9% FLUSH 10 ML FLUSH IV FLUSH SCH ×2 (09:00→21:23)
[2017-09-29] MEDS: FAMOTIDINE 20 MG TAB PO SCH ×2 (09:09→21:25)
[2017-09-29] MEDS: amLODIPine BESYLATE 5 MG TAB PO SCH (09:09)
[2017-09-29] MEDS: MULTIVITAMIN TAB PO SCH (09:09)
[2017-09-29] MEDS: RESP: ALBUTEROL 2.5 MG/IPRATROPIUM 0.5 MG NEB (SCH) INH ×3 (09:16→20:48)
[2017-09-29] MEDS: FUROSEMIDE 20 MG TAB PO SCH (09:19)
[2017-09-29] MEDS: DOCUSATE SODIUM 50 MG/SENNA 8.6 MG TAB PO SCH ×2 (09:19→21:25)
[2017-09-29] MEDS: HALOPERIDOL 5 MG TAB PO SCH ×3 (10:32→22:39)
[2017-09-29] MEDS: ANASTROZOLE 1 MG TAB PO SCH (10:32)
[2017-09-29] MEDS: buPROPion HCL 100 MG TAB PO SCH ×2 (10:32→21:24)
--- NOTE | 2017-09-29 17:02 | EKG ---
Date Performed: 09/29/2017 Time Performed: 09:43:02 PTAGE: 67 years EKG: Sinus rhythm POSSIBLE LEFT ATRIAL ENLARGEMENT BORDERLINE ECG Since the PREVIOUS TRACING , no significant change noted PREVIOUS TRACIN06/04/2017 11.13 DOCTOR: Omayra Taylor Interpretating Date/Time 09/29/2017 17:00:38
[2017-09-29] MEDS ORDERED: DONEPEZIL HCL 5 MG TAB PO SCH (21:00)
[2017-09-29] MEDS ORDERED: SERTRALINE HCL 100 MG TAB PO SCH (21:00)
[2017-09-29] MEDS ORDERED: lamoTRIgine 100 MG TAB PO SCH (21:00)
[2017-09-29] MEDS ORDERED: OLANZapine 10 MG TAB PO SCH (21:00)
[2017-09-29] MEDS: FLUTICASONE PROPIONATE 44 MCG/ACT 10.6 GM INHALER INH SCH (21:28)
[2017-09-30] VITALS: BP 153/68; PULSE 83; RESP 18; TEMP 97.9; O2SAT 97
[2017-09-30 04:00] VITALS: BP 142/67; PULSE 74; RESP 18; TEMP 97.9; O2SAT 95
[2017-09-30] MEDS ORDERED: CHLORHEXIDINE GLUCONATE 2 % 1 PACK (2 CLOTHS) TOP SCH (04:00)
[2017-09-30] MEDS: RESP: ALBUTEROL 2.5 MG/IPRATROPIUM 0.5 MG NEB (SCH) INH ×2 (04:28→09:49)
[2017-09-30] MEDS: HEPARIN SODIUM - SQ 10,000 UNITS/ML VIAL SQ SCH (05:26)
[2017-09-30] MEDS: LEVOTHYROXINE SODIUM 112 MCG TAB PO SCH (06:17)
[2017-09-30 08:00] VITALS: BP 140/73; PULSE 73; RESP 18; TEMP 98; O2SAT 97
[2017-09-30] MEDS: SODIUM CHLORIDE 0.9% FLUSH 10 ML FLUSH IV FLUSH SCH (09:00)
[2017-09-30] MEDS: BENZTROPINE MESYLATE 1 MG TAB PO SCH (09:00)
[2017-09-30] MEDS: ANASTROZOLE 1 MG TAB PO SCH (09:00)
[2017-09-30] MEDS: HALOPERIDOL 5 MG TAB PO SCH (09:00)
[2017-09-30] MEDS: FLUTICASONE PROPIONATE 44 MCG/ACT 10.6 GM INHALER INH SCH (09:00)
[2017-09-30] MEDS: buPROPion HCL 100 MG TAB PO SCH (09:23)
[2017-09-30] MEDS: FAMOTIDINE 20 MG TAB PO SCH (09:23)
[2017-09-30] MEDS: DOCUSATE SODIUM 50 MG/SENNA 8.6 MG TAB PO SCH (09:23)
[2017-09-30] MEDS: MULTIVITAMIN TAB PO SCH (09:23)
[2017-09-30] MEDS: FUROSEMIDE 20 MG TAB PO SCH (09:23)
[2017-09-30] MEDS: methylPREDNISolone SOD SUCC 40 MG/1 ML VIAL IV PUSH SCH (09:24)
[2017-09-30] MEDS: amLODIPine BESYLATE 5 MG TAB PO SCH (09:24)
--- NOTE | 2017-09-30 11:27 | HHI.PR ---
Subjective Remarks 67-year-old female past medical history of paranoid schizophrenia, dementia, hypertension, hyperlipidemia, COPD, ongoing tobacco abuse, GERD, breast cancer who presented to [facility] emergency department from [facility] with 2 day history of tongue swelling. She states that her tongue began swelling the evening of 09/27/17, maybe slightly worse tonight. This has never happened before. She is on lisinopril and received doses the morning of 09/27 and again at 8 AM on 09/28. She is able to swallow her saliva and was able to eat dinner this evening. She received Benadryl 50 mg IV prior to arrival. In the emergency department she received Solu-Medrol 125 mg IV, epinephrine 0.15 mg subcut, famotidine 20 mg IV, DuoNeb. She states her symptoms feel much improved. ED RN at bedside states tongue swelling seems improved compared with arrival. No pruritus. Reviewed records from longterm which indicates no recent medication additions. 09-30 NO MORE SWELLING TOLERATING A DIET WANTS TO GO HOME DC TO SNF OR [facility] SIGNED DW RN AND CM AND PT Objective Vitals Vital Signs Date Time Temp Pulse Resp B/P (MAP) Pulse Ox O2 Delivery O2 Flow Rate FiO2 09/30/17 08:00 98.0 73 18 140/73 (95) 97 09/30/17 04:00 97.9 74 18 142/67 (92) 95 09/30/17 00:00 97.9 83 18 153/68 (96) 97 09/29/17 20:00 98.4 92 18 134/65 (88) 98 09/29/17 18:00 88 09/29/17 16:00 98.2 84 20 140/76 (97) 97 09/29/17 16:00 81 09/29/17 14:00 77 09/29/17 14:00 98.2 77 15 163/80 (107) 97 09/29/17 13:00 98.9 73 17 168/92 (117) 97 09/29/17 12:00 82 09/29/17 12:00 98.6 82 15 118/66 (83) 96 I/O 09/29/17 09/29/17 09/29/17 09/30/17 09/30/17 09/30/17 07:00 15:00 23:00 07:00 15:00 23:00 Intake Total 60 ml 1200 ml 240 ml Output Total 0 ml Balance 60 ml 1200 ml 240 ml Intake Oral 60 ml 1200 ml 240 ml Output Urine Total 0 ml Stool Total 0 ml # Voids 3 1 # Bowel Movements 0 1 Result Diagram: 09/29/17 0505 09/29/17 0505 Other Results Laboratory Tests Test 09/29/17 05:00 09/29/17 05:05 Nasal Screen MRSA (PCR) MRSA DETECTED White Blood Count 7.6 TH/MM3 Red Blood Count 3.79 MIL/MM3 Hemoglobin 11.8 GM/DL Hematocrit 34.3 % Mean Corpuscular Volume 90.6 FL Mean Corpuscular Hemoglobin 31.1 PG Mean Corpuscular Hemoglobin Concent 34.3 % Red Cell Distribution Width 14.3 % Platelet Count 191 TH/MM3 Mean Platelet Volume 7.3 FL Neutrophils (%) (Auto) 82.9 % Lymphocytes (%) (Auto) 10.9 % Monocytes (%) (Auto) 4.0 % Eosinophils (%) (Auto) 1.7 % Basophils (%) (Auto) 0.5 % Neutrophils # (Auto) 6.3 TH/MM3 Lymphocytes # (Auto) 0.8 TH/MM3 Monocytes # (Auto) 0.3 TH/MM3 Eosinophils # (Auto) 0.1 TH/MM3 Basophils # (Auto) 0.0 TH/MM3 CBC Comment DIFF FINAL Differential Comment Blood Urea Nitrogen 24 MG/DL Creatinine 1.27 MG/DL Random Glucose 148 MG/DL Calcium Level 9.0 MG/DL Sodium Level 128 MEQ/L Potassium Level 3.7 MEQ/L Chloride Level 94 MEQ/L Carbon Dioxide Level 25.5 MEQ/L Anion Gap 9 MEQ/L Estimat Glomerular Filtration Rate 51 ML/MIN Imaging Last Impressions Chest X-Ray 09/29/17 0000 Signed Impressions: Service Date/Time: Friday, September 29, 2017 04:37 - CONCLUSION: 1. Cardiomegaly. No acute pulmonary disease. John Schneider MD Objective Remarks GENERAL: Awake alert oriented 2-3 appears stated age SKIN: Warm and dry. HEAD: Atraumatic. Normocephalic. EYES: Pupils equal and round. No scleral icterus. No injection or drainage. Extraocular muscles intact ENT: No nasal bleeding or discharge. Mucous membranes pink and moist. Tongue is midline nonswollen NECK: Trachea midline. No JVD. Supple CARDIOVASCULAR: Regular rate and rhythm. S1-S2 no S3-S4 RESPIRATORY: No accessory muscle use. Clear to auscultation. Breath sounds equal bilaterally. GASTROINTESTINAL: Abdomen soft, non-tender, nondistended. Hepatic and splenic margins not palpable. MUSCULOSKELETAL: Extremities without clubbing, cyanosis, or edema. No obvious deformities. NEUROLOGICAL: Awake and alert. No obvious cranial nerve deficits. Motor grossly within normal limits. 4 out of 5 muscle strength in the arms and legs. Normal speech. PSYCHIATRIC: Appropriate mood and affect; insight and judgment normal. Procedures NONE Medications and IVs Current Medications Methylprednisolone Sodium Succinate (SoluMEDROL INJ) 125 mg ONCE ONCE IV PUSH Last administered on 09/29/17 03:27; Start 09/29/17 at 03:30; Stop 09/29/17 at 03:31; Status DC Famotidine (Pepcid Inj) 20 mg ONCE IV PUSH Last administered on 09/29/17at 03:27 ; Start 09/29/17 at 03:30 Albuterol/ Ipratropium (Duoneb Neb) 1 ampule ONCE ONCE NEB Last administered on 09/29/17at 03:32; Start 09/29/17 at 03:30; Stop 09/29/17 at 03:31; Status DC Epinephrine HCl (EPINEPHrine (1:10,000) INJ) 0.15 mg ONCE ONCE SQ Last administered on 09/29/17at 03:43; Start 09/29/17 at 03:45; Stop 09/29/17 at 03:46 ; Status DC Sodium Chloride (NS Flush) 2 ml UNSCH PRN IV FLUSH FLUSH AFTER USING IV ACCESS ; Start 09/29/17 at 04:30 Sodium Chloride (NS Flush) 2 ml BID IV FLUSH Last administered on 09/29/17at 21: 23; Start 09/29/17 at 09:00 Acetaminophen (Tylenol) 650 mg Q6H PRN PO PAIN 1-10 AND/OR FEVER >101F; Start 09/29/17 at 04:30 Famotidine (Pepcid) 20 mg Q12HR PO Last administered on 09/30/17at 09:23; Start 09/29/17 at 09:00 Ondansetron HCl (Zofran Inj) 4 mg Q6H PRN IV PUSH NAUSEA OR VOMITING; Start at 04:30 Albuterol/ Ipratropium (Duoneb Neb) 1 ampule Q6HR NEB INH Last administered on 09/30/17at 09:49; Start 09/29/17 at 10:00 Albuterol Sulfate (Albuterol Neb) 2.5 mg Q2HR NEB PRN INH SOB/WHEEZING; Start 09/29/17 at 04:30 Heparin Sodium (Porcine) (Heparin Inj) 5,000 units Q12H SQ Last administered on 09/30/17at 05:26; Start 09/29/17 at 05:00 Miscellaneous Information 1 [id number] XX Last administered on 09/29/17at 04:30; Start 09/29/17 at 04:30 Chlorhexidine Gluconate (Chlorhexidine 2% Cloth) 3 pack Taper DAILY@04 TOP ; Start 09/30/17 at 04:00; Stop 09/26/18 at 03:59 Chlorhexidine Gluconate (Chlorhexidine 2% Cloth) 3 pack UNSCH PRN TOP HYGIENIC CARE; Start 09/29/17 at 04:30 Senna/Docusate Sodium (Asuncion-Colace) 1 tab BID PO Last administered on at 09:23; Start 09/29/17 at 09:00 Magnesium Hydroxide (Milk Of Magnesia Liq) 30 ml Q12H PRN PO Mild constipation ; Start 09/29/17 at 04:30 Sennosides (Senokot) 17.2 mg Q12H PRN PO Moderate constipation; Start 09/29/17 at 04:30 Bisacodyl (Dulcolax Supp) 10 mg DAILY PRN RECTAL SEVERE CONSITIPATION/ IF NPO ; Start 09/29/17 at 04:30 Lactulose (Lactulose Liq) 30 ml DAILY PRN PO SEVERE CONSITIPATION/ IF PO; Start 09/29/17 at 04:30 Anastrozole (Arimidex) 1 mg DAILY PO Last administered on 09/29/17at 10:32; Start 09/29/17 at 09:00 Benztropine Mesylate (Cogentin) 0.5 mg BID PO ; Start 09/29/17 at 09:00; Stop at 09:00; Status DC Benztropine Mesylate (Cogentin) 1 mg HS PO Last administered on 09/29/17 21:23 ; Start 09/29/17 at 21:00 Bupropion HCl (Wellbutrin) 100 mg BID PO Last administered on 09/30/17 09:23; Start 09/29/17 at 09:00 Donepezil HCl (Aricept) 10 mg HS PO Last administered on 09/29/17 21:25; Start 09/29/17 at 21:00 Fluticasone Propionate (Flovent Hfa 44 Mcg Inh) 1 puff BID INH Last administered on 09/29/17 21:28; Start 09/29/17 at 09:00 Furosemide (Lasix) 20 mg DAILY PO Last administered on 09/30/17 09:23; Start 09/29/17 at 09:00 Haloperidol (Haldol) 5 mg BID PO Last administered on 09/29/17 22:39; Start at 09:00 Lamotrigine (LaMICtal) 200 mg HS PO Last administered on 09/29/17 21:24; Start 09/29/17 at 21:00 Levothyroxine Sodium (Synthroid) 112 mcg DAILY@0700 PO Last administered on 06:17; Start 09/29/17 at 07:00 Olanzapine (ZyPREXA) 20 mg HS PO Last administered on 09/29/17 22:37; Start at 21:00 Sertraline HCl (Zoloft) 100 mg HS PO Last administered on 09/29/17 21:25; Start 09/29/17 at 21:00 Multivitamins (Theragran) 1 tab DAILY PO Last administered on 09/30/17 09:23; Start 09/29/17 at 09:00 Benztropine Mesylate (Cogentin) 0.5 mg DAILY@0900,1800 PO Last administered on 09/29/17 18:52; Start 09/29/17 at 09:00 Dextrose (D50w (Vial) Inj) 50 ml UNSCH PRN IV PUSH HYPOGLYCEMIA-SEE COMMENTS; Start 09/29/17 at 04:45 Glucagon (Glucagon Inj) 1 mg UNSCH PRN OTHER HYPOGLYCEMIA-SEE COMMENTS; Start 09/29/17 at 04:45 Insulin Aspart (NovoLOG SUPPLEMENTAL SCALE) 1 ACHS SLIDING SCALE SQ Last administered on 09/29/17at 17:40; Start 09/29/17 at 08:00 Methylprednisolone Sodium Succinate (SoluMEDROL INJ) 40 mg Q12HR IV PUSH Last administered on 09/30/17at 09:24; Start 09/29/17 at 09:00 Potassium Chloride 100 ml @ 50 mls/hr Q2H PRN IV For Potassium 2.8 - 3.2 mEq/L ; Start 09/29/17 at 04:45; Stop 09/29/17 at 19:09; Status DC Potassium Chloride 100 ml @ 50 mls/hr Q2H PRN IV For Potassium 2.8 - 3.2 mEq/L ; Start 09/29/17 at 04:45; Stop 09/29/17 at 19:09; Status DC Potassium Bicarb/ Potassium Chloride (K-Lyte Cl Eff) 50 meq UNSCH PRN PO For Potassium 3.3 - 3.5 mEq/L; Start 09/29/17 at 04:45; Stop 09/29/17 at 19:09; Status DC Potassium Chloride 100 ml @ 25 mls/hr UNSCH PRN IV For Potassium 3.3 - 3.5 mEq /L; Start 09/29/17 at 04:45; Stop 09/29/17 at 19:09; Status DC Potassium Chloride 100 ml @ 50 mls/hr Q2H PRN IV For Potassium 3.3 - 3.5 mEq/L ; Start 09/29/17 at 04:45; Stop 09/29/17 at 19:09; Status DC Magnesium Sulfate 4 gm/Sodium Chloride 100 ml @ 50 mls/hr UNSCH PRN IV For Magnesium 0.9 - 1.1 mg/dL; Start 09/29/17 at 04:45; Stop 09/29/17 at 19:09; Status DC Magnesium Oxide (Mag-Ox) 800 mg UNSCH PRN PO For Magnesium 1.2 - 1.6 mg/dL; Start 09/29/17 at 04:45; Stop 09/29/17 at 19:09; Status DC Magnesium Sulfate 2 gm/Sodium Chloride 100 ml @ 50 mls/hr UNSCH PRN IV For Magnesium 1.2 - 1.6 mg/dL; Start 09/29/17 at 04:45; Stop 09/29/17 at 19:09; Status DC Potassium Phosphate (K-Phos) 2,000 mg Q4H PRN PO For Phosphorus < 2.5 mg/dL; Start 09/29/17 at 04:45; Stop 09/29/17 at 19:09; Status DC Sodium Phosphate 30 mmol/Sodium Chloride 250 ml @ 42 mls/hr UNSCH PRN IV For Phosphorus < 2.5 mg/dL; Start 09/29/17 at 04:45; Stop 09/29/17 at 19:09; Status DC Potassium Phosphate (K-Phos) 2,000 mg UNSCH PRN PO/TUBE SEE LABEL COMMENTS; Start 09/29/17 at 04:45; Stop 09/29/17 at 19:09; Status DC Potassium Phosphate 30 mmol/ Sodium Chloride 260 ml @ 42 mls/hr UNSCH PRN IV SEE LABEL COMMENTS; Start 09/29/17 at 04:45; Stop 09/29/17 at 19:09; Status DC Amlodipine Besylate (Norvasc) 5 mg DAILY PO Last administered on 09/30/17at 09: 24; Start 09/29/17 at 09:00 Diphenhydramine HCl (Benadryl Inj) 25 mg Q6H PRN IV PUSH itching; Start at 04:45 A/P Problem List: (1) Angioedema ICD Code: T78.3XXA - Angioneurotic edema, initial encounter (2) COPD (chronic obstructive pulmonary disease) ICD Code: J44.9 - Chronic obstructive pulmonary disease, unspecified (3) Schizophrenia ICD Code: F20.9 - Schizophrenia, unspecified (4) Tobacco abuse ICD Code: Z72.0 - Tobacco use (5) HTN (hypertension) ICD Code: I10 - Essential (primary) hypertension (6) HLD (hyperlipidemia) ICD Code: E78.5 - Hyperlipidemia, unspecified Assessment and Plan Assessment and Plan NEURO: Paranoid schizophrenia Anxiety Dementia Seizure disorder 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 nightly Continue lamotrigine 200 mg p.o. nightly, bupropion 100 m's p.o. twice daily, Zoloft 100 mg p.o. nightly, Haldol 5 mg p.o. twice daily, olanzapine 20 mg p.o. nightly Continue benztropine 0.5 mg every morning and 1.5 mg p.o. nightly for extrapyramidal symptoms RESP: COPD Ongoing tobacco abuse Tobacco cessation counseling Continue Flovent 1 puff inhaled twice daily Albuterol every 2 hours as needed Check baseline chest x-ray CV: Hypertension Hyperlipidemia Hold lisinopril/HCTZ. Lisinopril suspected culprit of angioedema Norvasc 5 mg p.o. daily for hypertension Continue atorvastatin 40 mg p.o. nightly Continue Lasix 20 mg p.o. daily Stop lisinopril GI: Patient has been tolerating p.o. well without difficulty. We will placed on mechanical soft diet. FEN/RENAL: Check [facility] ICU electrolyte replacement protocol as long as creatinine is appropriate ID: Monitor for signs and symptoms of infection ALLERGY: Angioedema Symptoms started 09/27. Patient reports symptoms improving since arrival to [facility]. Received Solumedrol 125 mg IV in the ED. Continue 40 mg IV q12 hours. Continue famotidine. Continue Benadryl 25 mg IV q6 hours prn itching, already on anticholinergic therapy with cogentin so monitor for effects (urinary retention etc). Will monitor airway in ICU and plan to transfer back to SNF. Suspect lisinopril was the etiology of angioedema so will hold the lisinopril and use alternative antihypertensive agent. Anastrozole can also cause angioedema but this is much less frequently than with lisinopril. Will continue anastrozole for now while in monitored setting. If there is any worsening after this medication may need to confer with oncology regarding alternative agents Stop lisinopril HEME: Breast cancer Check CBC Continue anastrozole 1 mg p.o. daily as per discussion above ENDO: Hypothyroidism Continue Synthroid 112 mcg p.o. daily Monitor glucose before meals/at bedtime while on steroids and administer low- dose insulin sliding scale as an PROPH: SCDs and heparin 5000 units subcu every 12 hours for DVT prophylaxis. Famotidine as per above. ACCESS: Peripheral IV providing adequate access at this time Full code. Stop lisinopril and patient can be discharged back to SNF versus [facility] today DC TO HOME Discharge Planning DC TO HOME TODAY Hussain Arguelles DO Sep 30, 2017 11:27
[2017-09-30] MEDS ORDERED: ZOLO100T PO (11:35)
[2017-09-30] MEDS ORDERED: ATOR40TA16 PO (11:35)
[2017-09-30] MEDS ORDERED: ANAS1TAB PO (11:35)
[2017-09-30] MEDS ORDERED: LEVO112T2 PO (11:35)
[2017-09-30] MEDS ORDERED: HALO5TAB PO (11:35)
[2017-09-30] MEDS ORDERED: OLAN10TA PO (11:35)
[2017-09-30] MEDS ORDERED: PRED5PAK PO (11:35)
[2017-09-30] MEDS ORDERED: MULT-65 PO (11:35)
[2017-09-30] MEDS ORDERED: BUPR100T4 PO (11:35)
[2017-09-30] MEDS ORDERED: FLUTI44I INH (11:35)
[2017-09-30] MEDS ORDERED: FAMO20TA2 PO (11:35)
[2017-09-30] MEDS ORDERED: BENZ0.5T PO ×2 (11:35)
[2017-09-30] MEDS ORDERED: FURO20TA PO (11:35)
[2017-09-30] MEDS ORDERED: DONE10TA7 PO (11:35)
[2017-09-30] MEDS ORDERED: PERI PO (11:35)
[2017-09-30] MEDS ORDERED: LAMO200T PO (11:35)
[2017-09-30] MEDS ORDERED: AMLO5 PO (11:35)
--- NOTE | 2017-09-30 11:36 | HHI.FF ---
Face to Face Verification Diagnosis: (1) HLD (hyperlipidemia) (2) HTN (hypertension) (3) Tobacco abuse (4) Schizophrenia (5) Angioedema (6) COPD (chronic obstructive pulmonary disease) (7) Renal insufficiency Physical Therapy Order: Evaluate and Treat, Improve ambulation, Strength and gait training Occupational Therapy Order: Evaluate and Treat, Improve ADL, Gross motor coordination, Fine motor coordination Speech Therapy Order: To Improve: Speech and communication skills, Cognitive skills, Swallowing Home Health Nursing Order: Signs/symptoms of disease process Nursing assessment with vital signs Home Health Aide Order: To Assist In: Bathing and personal care, oceanography professor and meal prep I have seen patient Allison Urban on 09/30/17. My clinical findings support the need for the requested home health care services because: Med compliance is questionable I certify that my clinical findings support that this patient is homebound because: Unsteady gait/balance Need for psychosocial assistance Hussain Arguelles DO Sep 30, 2017 11:36
--- NOTE | 2017-09-30 11:41 | HHI.DS ---
Discharge Summary Admission Date Sep 29, 2017 at 04:10 Discharge Date: Sep 30, 2017 Admitting Diagnosis swollen tongue (1) Angioedema ICD Code: T78.3XXA - Angioneurotic edema, initial encounter Diagnosis: Principal (2) COPD (chronic obstructive pulmonary disease) ICD Code: J44.9 - Chronic obstructive pulmonary disease, unspecified Diagnosis: Secondary (3) Schizophrenia ICD Code: F20.9 - Schizophrenia, unspecified Diagnosis: Secondary (4) Tobacco abuse ICD Code: Z72.0 - Tobacco use Diagnosis: Secondary (5) HTN (hypertension) ICD Code: I10 - Essential (primary) hypertension (6) HLD (hyperlipidemia) ICD Code: E78.5 - Hyperlipidemia, unspecified Procedures NONE Brief History - From Admission 67-year-old female past medical history of paranoid schizophrenia, dementia, hypertension, hyperlipidemia, COPD, ongoing tobacco abuse, GERD, breast cancer who presented to [facility] emergency department from [facility], [place] with 2 day history of tongue swelling. She states that her tongue began swelling the evening of 09/27/17, maybe slightly worse tonight. This has never happened before. She is on lisinopril and received doses the morning of 09/27 and again at 8 AM on 09/28. She is able to swallow her saliva and was able to eat dinner this evening. She received Benadryl 50 mg IV prior to arrival. In the emergency department she received Solu-Medrol 125 mg IV, epinephrine 0.15 mg subcut, famotidine 20 mg IV, DuoNeb. She states her symptoms feel much improved. ED RN at bedside states tongue swelling seems improved compared with arrival. No pruritus. [facility] which indicates no recent medication additions. CBC/BMP: 09/29/17 0505 09/29/17 0505 Significant Findings Laboratory Tests Test 09/29/17 05:00 09/29/17 05:05 Red Blood Count 3.79 MIL/MM3 (4.00-5.30) Hematocrit 34.3 % (35.0-46.0) Neutrophils (%) (Auto) 82.9 % (16.0-70.0) Lymphocytes # (Auto) 0.8 TH/MM3 (1.0-4.8) Blood Urea Nitrogen 24 MG/DL (7-18) Creatinine 1.27 MG/DL (0.50-1.00) Random Glucose 148 MG/DL (74-106) Sodium Level 128 MEQ/L (136-145) Chloride Level 94 MEQ/L (98-107) Estimat Glomerular Filtration Rate 51 ML/MIN (>89) Imaging Last Impressions Chest X-Ray 09/29/17 0000 Signed Impressions: Service Date/Time: Friday, September 29, 2017 04:37 - CONCLUSION: 1. Cardiomegaly. No acute pulmonary disease. John Schneider MD PE at Discharge GENERAL: Awake alert oriented 2-3 appears stated age SKIN: Warm and dry. HEAD: Atraumatic. Normocephalic. EYES: Pupils equal and round. No scleral icterus. No injection or drainage. Extraocular muscles intact ENT: No nasal bleeding or discharge. Mucous membranes pink and moist. Tongue is midline nonswollen NECK: Trachea midline. No JVD. Supple CARDIOVASCULAR: Regular rate and rhythm. S1-S2 no S3-S4 RESPIRATORY: No accessory muscle use. Clear to auscultation. Breath sounds equal bilaterally. GASTROINTESTINAL: Abdomen soft, non-tender, nondistended. Hepatic and splenic margins not palpable. MUSCULOSKELETAL: Extremities without clubbing, cyanosis, or edema. No obvious deformities. NEUROLOGICAL: Awake and alert. No obvious cranial nerve deficits. Motor grossly within normal limits. 4 out of 5 muscle strength in the arms and legs. Normal speech. PSYCHIATRIC: Appropriate mood and affect; insight and judgment normal. Hospital Course 67-year-old female past medical history of paranoid schizophrenia, dementia, hypertension, hyperlipidemia, COPD, ongoing tobacco abuse, GERD, breast cancer who presented to [facility] emergency department from [facility], [place] with 2 day history of tongue swelling. She states that her tongue began swelling the evening of 09/27/17, maybe slightly worse tonight. This has never happened before. She is on lisinopril and received doses the morning of 09/27 and again at 8 AM on 09/28. She is able to swallow her saliva and was able to eat dinner this evening. She received Benadryl 50 mg IV prior to arrival. In the emergency department she received Solu-Medrol 125 mg IV, epinephrine 0.15 mg subcut, famotidine 20 mg IV, DuoNeb. She states her symptoms feel much improved. ED RN at bedside states tongue swelling seems improved compared with arrival. No pruritus. [facility] which indicates no recent medication additions. 4-15 NO MORE SWELLING TOLERATING A DIET WANTS TO GO HOME DC TO SNF OR PRISON FORMS SIGNED DW RN AND CM AND PT STOP LISINOPRIL START ON NORVASC Pt Condition on Discharge: Good Discharge Disposition: Discharge to SNF Discharge Time: > 30 minutes Discharge Instructions DIET: Follow Instructions for: Heart Healthy Diet Speech Therapy-Diet Recommends: Regular Activities you can perform: Regular-No Restrictions Follow up Referrals: PCP Follow-up - 2-3 Days New Medications: Prednisone (21) 5 mg tab Dose Pack (Prednisone (21) 5 mg tab Dose Pack) 5 Mg Dspk 5 MG PO DIRECTED for Inflammation, #1 DSPK 0 Refills Amlodipine (Norvasc) 5 Mg Tab 5 MG PO DAILY for Blood Pressure Management, #30 TAB Sennosides-Docusate Sodium (Gnp Senna Plus 8.6-50 mg) 8.6 Mg-50 Mg Tab 2 TAB PO BID for Bowel Management, #120 TAB Continued Medications: Anastrozole (Anastrozole) 1 Mg Tab 1 MG PO DAILY for Breast Cancer, #30 TAB 0 Refills (This prescription has been renewed) Atorvastatin (Atorvastatin) 40 Mg Tab 40 MG PO HS for Cholesterol Management, #30 TAB 0 Refills (This prescription has been renewed) Benztropine (Benztropine) 0.5 Mg Tab 0.5 MG PO BID for Anxiety, #60 TAB 0 Refills (This prescription has been renewed ) Benztropine (Benztropine) 0.5 Mg Tab 1 MG PO HS for Anxiety and/or Insomnia, #60 TAB 0 Refills (This prescription has been renewed) Bupropion HCl (Bupropion HCl) 100 Mg Tab 100 MG PO BID for Control Depression, #60 TAB 0 Refills (This prescription has been renewed) Donepezil (Donepezil) 10 Mg Tab 10 MG PO HS for Dementia, #30 TAB 0 Refills (This prescription has been renewed) Famotidine (Famotidine) 20 Mg Tab 20 MG PO BID for Manage Heartburn, #60 TAB 0 Refills (This prescription has been renewed) Fluticasone 10.6 GM Inh (Flovent Hfa 10.6 GM Inh) 44 Mcg/Act Inh 1 PUFF INH BID for Asthma Management, #1 INHALER 0 Refills (This prescription has been renewed) Use daily at the same time. Furosemide (Furosemide) 20 Mg Tab 20 MG PO DAILY for Blood Pressure Management, #30 TAB 0 Refills (This prescription has been renewed) Haloperidol (Haloperidol) 5 Mg Tab 5 MG PO BID for Agitation, #60 TAB 0 Refills (This prescription has been renewed ) Lamotrigine (Lamotrigine) 200 Mg Tab 200 MG PO HS for Control Seizures, #30 TAB 0 Refills (This prescription has been renewed) Levothyroxine (Levothyroxine) 112 Mcg Tab 112 MCG PO DAILY for Thyroid, #30 TAB 0 Refills (This prescription has been renewed) Multiple Vitamin (Multi-Vitamin Daily) 1 Tab Tab 1 TAB PO DAILY for Nutritional Supplement, #30 TAB 0 Refills (This prescription has been renewed) Olanzapine (Olanzapine) 10 Mg Tab 20 MG PO HS for Anxiety and/or Insomnia, #30 TAB 0 Refills (This prescription has been renewed) Sertraline (Zoloft) 100 Mg Tab 100 MG PO HS for Depression Control, #30 TAB 0 Refills (This prescription has been renewed) Discontinued Medications: Lisinopril-Hctz (Lisinopril-Hctz) 10-12.5 Mg Tab 1 TAB PO DAILY for Blood Pressure Management, #30 TAB 0 Refills Hussain Arguelles DO Sep 30, 2017 11:41
[2017-09-30 11:58] VITALS: BP 156/71; PULSE 77; RESP 18; TEMP 97.9; O2SAT 97
== END 2017-09-30 14:12 | DRG 916 ==
LOC: NEPE 02:58 → NEDA 04:10 → N03A 04:51 → N06A 19:03
PROVIDERS: ADMIT Hospitalist; ATTEND Hospitalist
DX: T78.3XXA Angioneurotic edema, initial encounter (principal); F20.0 Paranoid schizophrenia; F03.90 Unspecified dementia, unspecified severity, without behavioral disturbance, psychotic disturbance, mood disturbance, and anxiety; C50.919 Malignant neoplasm of unspecified site of unspecified female breast; T46.4X5A Adverse effect of angiotensin-converting-enzyme inhibitors, initial encounter; J44.9 Chronic obstructive pulmonary disease, unspecified; I10 Essential (primary) hypertension; E78.5 Hyperlipidemia, unspecified; K21.9 Gastro-esophageal reflux disease without esophagitis; E03.9 Hypothyroidism, unspecified; G40.909 Epilepsy, unspecified, not intractable, without status epilepticus; R01.1 Cardiac murmur, unspecified; F41.9 Anxiety disorder, unspecified; E07.9 Disorder of thyroid, unspecified; M19.90 Unspecified osteoarthritis, unspecified site; F17.210 Nicotine dependence, cigarettes, uncomplicated
CPT/HCPCS: 71045; 80048; 82948; 85025; 87641; 93005; 94640; 94664; 96372; 96374; 96375; J0171; J1644; J1815; J2920; J2930

== ENCOUNTER 2018-04-04 16:23 | Inpatient (IN) ==
[2018-04-04] MEDS ORDERED: Sod Chloride 0.9% Inj 1,000 ML IV.SIG ONE (20:48)
--- NOTE | 2018-04-04 21:19 | XR ---
EXAM DATE: 04/04/2018 8:48 PM EDT AGE/SEX: 68 years / Female INDICATIONS: . Chest pain. CLINICAL DATA: This is the patient's initial encounter. Patient reports that signs and symptoms have been present for 1 day and indicates a pain score of 6/10. MEDICAL/SURGICAL HISTORY: . Cardiovascular disease. Hypertension. Schizophrenia None. COMPARISON: . FINDINGS: PA and lateral views of the chest demonstrate the lungs to be symmetrically aerated without evidence of mass, infiltrate or effusion. The cardiomediastinal contours are unremarkable. Osseous structures are intact. Patient has a ventriculoperitoneal shunt catheter. CONCLUSION: No acute cardiopulmonary disease demonstrated. Electronically signed by: Archie Tompkins MD 04/04/2018 9:18 PM EDT
--- NOTE | 2018-04-04 21:25 | ED ---
HPI General Chief Complaint: Dizziness Stated Complaint: Medical Clearance Time Seen by Provider: 04/04/18 20:35 Source: patient Mode of arrival: ambulatory Limitations: no limitations History of Present Illness HPI Narrative: Patient is a 68-year-old female with unknown past sickle history who presents with complaint of dizziness that began at some point this afternoon. Last known well is unknown. She states that she was eating and began to feel dizzy and is unsure if it is associated with head movement or not. She also describes slight weakness to the bilateral upper extremities but no numbness. She states that she is having a more difficult time trying to pronounce words than normal. No changes with swallowing. She has chronic blurry vision but states it is not worse than normal. No chest pain nor dyspnea. No abdominal pain. No headache. Patient asked "How do you know if you could be or not?" She insisted on making sure she was not . MD complaint: Reports dizziness Onset (ago): hour(s) Timing: sudden onset Description: Reports off-balance History of similar episodes: No History of trauma: No Severity: mild Relieving factors: nothing Exacerbating factors: nothing Related Data Home Medications Medication Instructions Recorded Confirmed acetaminophen 325 mg PO BID PRN 04/04/18 04/04/18 amlodipine 5 mg PO DAILY 04/04/18 04/04/18 anastrozole 1 mg PO DAILY 04/04/18 04/04/18 aspirin [Aspir-81] 81 mg PO DAILY 04/04/18 04/04/18 atorvastatin 40 mg PO HS 04/04/18 04/04/18 benztropine 0.5 mg PO BID 04/04/18 04/04/18 bupropion HCl [Wellbutrin SR] 100 mg PO BID 04/04/18 04/04/18 donepezil 10 mg PO HS 04/04/18 04/04/18 famotidine 20 mg PO BID 04/04/18 04/04/18 fluticasone [Flovent HFA] 1 inh INHALATION Q12H 04/04/18 04/04/18 furosemide 20 mg PO DAILY 04/04/18 04/04/18 haloperidol 5 mg PO BID 04/04/18 04/04/18 hydroxyzine pamoate 25 mg PO BID 04/04/18 04/04/18 lamotrigine 200 mg PO HS 04/04/18 04/04/18 levothyroxine 112 mcg PO DAILY 04/04/18 04/04/18 meloxicam 7.5 mg PO DAILY 04/04/18 04/04/18 olanzapine 20 mg PO DAILY 04/04/18 04/04/18 sennosides-docusate sodium [Senna 1 tab PO BID 04/04/18 04/04/18 with Docusate Sodium] sertraline 200 mg PO HS 04/04/18 04/04/18 Allergies Allergy/AdvReac Type Severity Reaction Status Date / Time lisinopril Allergy Severe Swelling Verified 09/29/17 04:17 Review of Systems ROS: all other systems reviewed are negative [facility] Medical History Medical History Medical history unknown (Acute) Surgical history unknown (Acute) Social History Social History Substance History: No History of Abuse Smoking Status: Current every day smoker Tobacco Type: Cigarettes How Often Do You Have a Drink Containing Alcohol: Never Recent Travel in [facility] within the Last 8 Weeks: No Recent Out of Country Travel within the Last 8 Weeks: No Immunization History Tetanus Immunization: Unsure Exam Narrative Exam Narrative: GENERAL: Well-appearing female in no acute distress SKIN: Focused skin assessment warm/dry. No rashes. HEAD: Atraumatic. Normocephalic. EYES: Pupils equal and round. No scleral icterus. No injection or drainage. ENT: No nasal bleeding or discharge. Mucous membranes pink and dry. No rashes. NECK: Trachea midline. No JVD. CARDIOVASCULAR: Regular rate and rhythm. No murmur appreciated. Intact and equal peripheral pulses. Normal cap refill. RESPIRATORY: No accessory muscle use. Clear to auscultation. Breath sounds equal bilaterally. GASTROINTESTINAL: Abdomen soft, non-tender, nondistended. Hepatic and splenic margins not palpable. MUSCULOSKELETAL: No obvious deformities. No clubbing. No cyanosis. No edema. NEUROLOGICAL: Awake and alert but confused. No obvious cranial nerve deficits. Motor grossly within normal limits. Normal sensation. Normal finger-nose with intermittently abnormal heel calderon. Normal speech. PSYCHIATRIC: Appropriate mood and affect; insight and judgment normal. Course Initial Documented Vital Signs Temperature 98.5 F 04/04/18 17:00 Pulse Rate 71 04/04/18 17:00 Blood Pressure 156/84 H 04/04/18 17:00 Pulse Oximetry 100 04/04/18 17:00 Last Documented Vital Signs Temperature 98.5 F 04/04/18 17:00 Pulse Rate 71 04/04/18 17:00 Blood Pressure 156/84 H 04/04/18 17:00 Pulse Oximetry 99 04/04/18 21:46 Medical Decision Making MDM Narrative Medical decision making narrative: Patient is a 68-year-old female with unknown past medical history who presents with complaint of dizziness. EKG is without acute ischemic changes. Labs show slight worsening of renal insufficiency but are otherwise unremarkable. Urine is pending. CT does show a [employer] shunt with hydronephrosis and no previous imaging with which to compare. An acute shunt series has been ordered and is pending. I spoke with Dr. Almeida, neurosurgeon on -call whom reviewed the images and recommended she be admitted, made NPO at midnight and have an MRI. Patient will be admitted to Dr Garg for further management. Medical Screen Exam Complete: Yes Emergency Medical Condition: Yes Differential Diagnosis Differential Diagnosis: Differential diagnosis includes but is not limited to stroke, TIA, UTI, electrolyte abnormality. Medical Records Medical records reviewed: Yes I reviewed the patient's medical records. Lab Data Lab results reviewed: Yes I reviewed the patient's lab results. Result diagrams: 04/04/18 21:22 04/04/18 21:22 POC Results POC Urine Results Negative Lab Results 04/04/18 04/04/18 04/04/18 Range/Units 21:22 21:22 21:22 WBC 7.8 (4.0-11.0) th/mm3 RBC 4.32 (4.00-5.30) mil/mm3 Hgb 13.8 (11.6-15.3) gm/dL Hct 40.1 (35.0-46.0) % MCV 93.0 (80.0-100.0) fL MCH 31.9 (27.0-34.0) pg MCHC 34.3 (32.0-36.0) % RDW 14.0 (11.6-17.2) % Plt Count 212 (150-450) th/mm3 MPV 7.9 (7.0-11.0) fL Neut % (Auto) 65.7 (16.0-70.0) % Lymph % (Auto) 22.2 (9.0-44.0) % [place] % (Auto) 9.9 H (0.0-8.0) % Eos % (Auto) 1.5 (0.0-4.0) % Baso % (Auto) 0.7 (0.0-2.0) % Neut # (Auto) 5.1 (1.8-7.7) th/mm3 Lymph # (Auto) 1.7 (1.0-4.8) th/mm3 [place] # (Auto) 0.8 (0.0-0.9) th/mm3 Eos # (Auto) 0.1 (0.0-0.4) th/mm3 Baso # (Auto) 0.1 (0.0-0.2) th/mm3 WBC Differential . Differential Comment Auto diff final Sodium 133 L (136-145) meq/L Potassium 3.8 (3.5-5.1) meq/L Chloride 98 (98-107) meq/L Carbon Dioxide 28.7 (21.0-32.0) meq/L Anion Gap 6 (5-15) meq/L BUN 20 H (7-18) mg/dL Creatinine 1.51 H (0.50-1.00) mg/dL Estimated GFR 41 L (>89) mL/min Random Glucose 93 (74-106) mg/dL Calcium 9.3 (8.5-10.1) mg/dL Troponin I Less than 0.02 L (0.02-0.05) ng/mL Imaging Data Attestation: I personally reviewed and interpreted this imaging study as follows : My impression: No acute cardiopulmonary process. Radiologist's impression: Chest X-Ray 04/04/18 20:48 CONCLUSION: No acute cardiopulmonary disease demonstrated. Head CT 04/04/18 20:48 CONCLUSION: 1. Right frontal ventriculostomy tube with mild to moderate hydrocephalus. Small frontal subdural hygromas. No prior study for comparison. No significant mass effect or midline shift. . Shunt Study 04/04/18 22:23 CONCLUSION: Normal appearance of the shunt tubing. ECG Data EKG Prior to Arrival: No Attestation: I personally reviewed and interpreted this ECG as follows: (Sinus rhythm at a rate of [address] or T wave changes.) Discharge Plan Discharge Disposition Patient Disposition: 30 Still Patient Discharge Condition Condition: Stable Discharge Details Diagnosis: Dizziness, S/P [employer] shunt Physicians Team ED Provider: Alejandra Garrido Primary Care Provider: UNKNOWN, Rxs /Orders / Referrals /Forms Prescriptions: No Action anastrozole 1 mg Tablet 1 mg PO DAILY RF: 0 acetaminophen 325 mg Tablet 325 mg PO BID PRN (Reason: Pain) RF: 0 benztropine 0.5 mg Tablet 0.5 mg PO BID RF: 0 lamotrigine 200 mg Tablet 200 mg PO HS RF: 0 haloperidol 5 mg Tablet 5 mg PO BID RF: 0 donepezil 10 mg Tablet 10 mg PO HS RF: 0 sennosides-docusate sodium [Senna with Docusate Sodium] 8.6-50 mg Tablet 1 tab PO BID RF: 0 sertraline 100 mg Tablet 200 mg PO HS RF: 0 aspirin [Aspir-81] 81 mg Tablet,Delayed Release (Dr/Ec) 81 mg PO DAILY RF: 0 bupropion HCl [Wellbutrin SR] 100 mg Tablet Sustained-Release 12 Hr 100 mg PO BID RF: 0 meloxicam 7.5 mg Tablet 7.5 mg PO DAILY RF: 0 famotidine 20 mg Tablet 20 mg PO BID RF: 0 fluticasone [Flovent HFA] 44 mcg/actuation Hfa Aerosol Inhaler 1 inh INHALATION Q12H RF: 0 furosemide 20 mg Tablet 20 mg PO DAILY RF: 0 olanzapine 20 mg Tablet 20 mg PO DAILY RF: 0 levothyroxine 112 mcg Tablet 112 mcg PO DAILY RF: 0 amlodipine 5 mg PO DAILY RF: 0 atorvastatin 40 mg PO HS RF: 0 hydroxyzine pamoate 25 mg PO BID RF: 0 Status ED Status: With Doctor
[2018-04-04 21:40] LABS: Baso # (Auto) 0.1 th/mm3 (0.0-0.2); Baso % (Auto) 0.7 % (0.0-2.0); Eos # (Auto) 0.1 th/mm3 (0.0-0.4); Eos % (Auto) 1.5 % (0.0-4.0); Hematocrit 40.1 % (35.0-46.0); Hemoglobin 13.8 gm/dL (11.6-15.3); Lymph # (Auto) 1.7 th/mm3 (1.0-4.8); Lymph % (Auto) 22.2 % (9.0-44.0); Mean Corpuscular HGB Conc 34.3 % (32.0-36.0); Mean Corpuscular Hemoglobin 31.9 pg (27.0-34.0); Mean Platelet Volume 7.9 fL (7.0-11.0); Mono # (Auto) 0.8 th/mm3 (0.0-0.9); Mono % (Auto) 9.9 % (0.0-8.0); Neut # (Auto) 5.1 th/mm3 (1.8-7.7); Neut % (Auto) 65.7 % (16.0-70.0); Platelet Count 212 th/mm3 (150-450); Red Blood Count 4.32 mil/mm3 (4.00-5.30); White Blood Count 7.8 th/mm3 (4.0-11.0)
[2018-04-04 21:59] LABS: Calcium 9.3 mg/dL (8.5-10.1); Carbon Dioxide 28.7 meq/L (21.0-32.0); Potassium 3.8 meq/L (3.5-5.1)
--- NOTE | 2018-04-04 22:17 | CT ---
EXAM DATE: 04/04/2018 9:05 PM EDT AGE/SEX: 68 years / Female INDICATIONS: Dizziness. CLINICAL DATA: This is the patient's initial encounter. Patient reports that signs and symptoms have been present for 1 day and indicates a pain score of 0/10. MEDICAL/SURGICAL HISTORY: None. None. RADIATION DOSE: 56.35 CTDI (mGy) COMPARISON: No prior exams available for comparison. TECHNIQUE: CT of the head without contrast. Using automated exposure control and adjustment of the mA and/or kV according to patient size, radiation dose was kept as low as reasonably achievable to ob tain optimal diagnostic quality images. DICOM format image data is available electronically for revi ew and comparison. FINDINGS: Right frontal ventriculostomy tube tip in the right lateral ventricle near septum pellucidum. Mild to moderate hydrocephalus present. No prior CT for comparison. Bifrontal subdural hygromas measuring up to around 9 mm in diameter. Paranasal sinuses are clear. No acute bony abnormality. No evidence for recent infarction. CONCLUSION: 1. Right frontal ventriculostomy tube with mild to moderate hydrocephalus. Small frontal subdural hy gromas. No prior study for comparison. No significant mass effect or midline shift. . Electronically signed by: Guillaume Poole MD 04/04/2018 10:15 PM EDT
--- NOTE | 2018-04-04 23:04 | XR ---
EXAM DATE: 04/04/2018 10:23 PM EDT AGE/SEX: 68 years / Female INDICATIONS: Shunt patency. CLINICAL DATA: This is the patient's initial encounter. Patient reports that signs and symptoms have been present for 1 day and indicates a pain score of 0/10. MEDICAL/SURGICAL HISTORY: . Cardiovascular disease. Hypertension. Schizophrenia None. COMPARISON: No prior exams available for comparison. FINDINGS: Examination includes two-view skull, two-view C-spine, and frontal views of the chest and abdomen. Ventriculostomy shunt tip is projected projects over the right frontal region. The alignment of th e tubing with the reservoir is maintained without evidence of separation. The shunt tubing has a normal course through the neck and chest without discontinuity or kink. The shunt tubing is coiled in the abdomen without displacement of the bowel about the distal tip. CONCLUSION: Normal appearance of the shunt tubing. Electronically signed by: Archie Reynaga MD 04/04/2018 11:02 PM EDT
[2018-04-04 23:08] LABS: Bilirubin,Urine Negative (Negative); Clarity,Urine Clear (Clear); Color,Urine Colorless (Yellw/Straw); Glucose,Urine (UA) Negative (Negative); Leukocyte Esterase,Urine Negative (Negative); Nitrite,Urine Negative (Negative); Specific Gravity,Urine 1.001 (1.002-1.035)
[2018-04-05] MEDS ORDERED: Bisacodyl 10 MG Supp RECTAL PRN (00:56)
[2018-04-05] MEDS ORDERED: Sodium Chloride 0.9% 2 ML Flush PRN IV.FLUSH (01:02)
[2018-04-05] MEDS: Sod Chloride 0.9% Inj 1,000 ML IV.CONT SCH ×3 (02:27→23:26)
--- NOTE | 2018-04-05 03:31 | P.HP ---
History of Present Illness Service: [facility] Primary Care Physician: UNKNOWN History of Present Illness: 68-year-old female who is an extremely poor historian but endorses a past medical history of arthritis presents to the emergency department for evaluation of difficulty with ambulation and standing. The patient reports that at approximately 3 PM yesterday after dinner, she stood up and attempted to walk and was afraid that she was going to fall over secondary to lower extremity weakness. She denies any syncopal episode. No chest pain or shortness of breath. No abdominal pain. No nausea/vomiting/diarrhea. She states her weakness was bilateral. On head CT the patient was noted to have a CPA TAX shunt with hydrocephalus. Inpatient Certification: I certify that the inpatient services were ordered in accordance with Medicare regulations governing the order. This includes certification that hospital inpatient services are reasonable and necessary and in the case of services not specified as inpatient-only under 42 CFR 419.22(n), that they are appropriately provided as inpatient services in accordance to with the 2-midnight benchmark under 43 CFR 412.3(e) Estimated Total Length of Stay (Days): 3 Plans for Post Hospital Care: Not yet determined Review of Systems All other systems reviewed negative except as stated in HPI PMFSH - History History Provided By: Patient - Medical History Medical History: Medical History (Last Reviewed 04/05/18 @ 03:22 by Lisa Garg MD) COPD (chronic obstructive pulmonary disease) Depression GERD (gastroesophageal reflux disease) HTN (hypertension) Hx of cardiac arrhythmia PTSD (post-traumatic stress disorder) Schizo affective schizophrenia - Surgical History Surgical History: Surgical History (Last Reviewed 04/05/18 @ 03:22 by Lisa Garg MD) History of brain shunt - Family History Family History: Family History (Last Updated 04/05/18 @ 03:23 by Lisa Garg MD) Other Family history unknown - Tobacco History Tobacco Use In Past 30 Days: Yes Smoking Status: Current every day smoker Tobacco Type: Cigarettes - Alcohol History How Often Do You Have a Drink Containing Alcohol: Never - Substance Use History Substance History: No History of Abuse - Travel History Recent Travel in the [place] Within the Last 8 Weeks: No Recent Travel Out of the Country Within the Last 8 Weeks: No - Immunization History Tetanus Immunization: Unsure Medications and Allergies Active Medications: Active Medications Albuterol (Duoneb Neb (Prn)) 1 ampul NEB Q2HR NEB PRN PRN Reason: SHORTNESS OF BREATH/WHEEZING Amlodipine Besylate (Norvasc) 5 mg PO DAILY [facility] Anastrozole (Arimidex) 1 mg PO DAILY [facility] Atorvastatin Calcium (Lipitor) 40 mg PO HS [facility] Benztropine Mesylate (Cogentin) 0.5 mg PO BID [facility] Bisacodyl (Dulcolax Supp) 10 mg RECTAL DAILY PRN PRN Reason: SEVERE CONSITIPATION Bupropion HCl (Wellbutrin Sr) 100 mg PO BID [facility] Donepezil HCl (Aricept) 10 mg PO HS [facility] Famotidine (Pepcid) 10 mg PO BID [facility] Furosemide (Lasix) 20 mg PO DAILY [facility] Haloperidol (Haldol) 5 mg PO BID [facility] Hydroxyzine Pamoate (Vistaril) 25 mg PO BID [facility] Sodium Chloride (Ns Inj) 1,000 mls @ 100 mls/hr IV.CONT .Q10H [facility] Last Admin: 04/05/18 02:27 Dose: 100 mls/hr Lamotrigine (Lamictal) 200 mg PO HS [facility] Levothyroxine Sodium (Synthroid) 112 mcg PO DAILY@0600 [facility] Miscellaneous (Pill Splitter) 1 each OTHER UNSCH PRN PRN Reason: PILL SPIT Olanzapine (Zyprexa) 20 mg PO DAILY [facility] Ondansetron HCl (Zofran Inj) 4 mg IV.PUSH Q6H PRN PRN Reason: NAUSEA OR VOMITING Senna/Docusate Sodium (Asuncion-Colace) 1 tab PO BID [facility] Sennosides (Senokot) 17.2 mg PO Q12H PRN PRN Reason: Moderate Constipation Sertraline HCl (Zoloft) 200 mg PO HS [facility] Sodium Chloride (Ns Flush) 2 ml IV.FLUSH BID [facility] Sodium Chloride (Ns Flush) 2 ml IV.FLUSH PRN PRN PRN Reason: FLUSH AFTER USING IV ACCESS Allergies Allergy/AdvReac Type Severity Reaction Status Date / Time lisinopril Allergy Severe Swelling Verified 09/29/17 04:17 Home Medications Medication Instructions Recorded Confirmed Type acetaminophen 325 mg PO BID PRN 04/04/18 04/04/18 History amlodipine 5 mg PO DAILY 04/04/18 04/04/18 History anastrozole 1 mg PO DAILY 04/04/18 04/04/18 History aspirin [Aspir-81] 81 mg PO DAILY 04/04/18 04/04/18 History atorvastatin 40 mg PO HS 04/04/18 04/04/18 History benztropine 0.5 mg PO BID 04/04/18 04/04/18 History bupropion HCl [Wellbutrin SR] 100 mg PO BID 04/04/18 04/04/18 History donepezil 10 mg PO HS 04/04/18 04/04/18 History famotidine 20 mg PO BID 04/04/18 04/04/18 History fluticasone [Flovent HFA] 1 inh INHALATION Q12H 04/04/18 04/04/18 History furosemide 20 mg PO DAILY 04/04/18 04/04/18 History haloperidol 5 mg PO BID 04/04/18 04/04/18 History hydroxyzine pamoate 25 mg PO BID 04/04/18 04/04/18 History lamotrigine 200 mg PO HS 04/04/18 04/04/18 History levothyroxine 112 mcg PO DAILY 04/04/18 04/04/18 History meloxicam 7.5 mg PO DAILY 04/04/18 04/04/18 History olanzapine 20 mg PO DAILY 04/04/18 04/04/18 History sennosides-docusate sodium [Senna 1 tab PO BID 04/04/18 04/04/18 History with Docusate Sodium] sertraline 200 mg PO HS 04/04/18 04/04/18 History Exam Vital signs: Vital Signs 04/04/18 17:00 04/04/18 21:46 04/04/18 23:30 Temperature 98.5 F Pulse Rate 71 76 Respiratory Rate 18 Blood Pressure 156/84 H 178/98 H Pulse Oximetry 100 99 97 04/05/18 00:35 04/05/18 00:57 Temperature Pulse Rate 74 72 Respiratory Rate 18 18 Blood Pressure 176/81 H Pulse Oximetry 97 95 Intake & Output 04/04/18 04/04/18 04/05/18 06:59 18:59 06:59 Intake Total 1000 / 1000 Balance 1000 / 1000 Weight 61.689 kg Intake: IV 1000 / 1000 NS Inj 1,000 ML @ Wide Open IV. 1000 / 1000 SIG BOLUS ONE Rx#:[id number] Narrative: Gen.: No acute distress Head: Normocephalic. Atraumatic. EENT: Pupils equal round and reactive to light. Nose without drainage. Airway intact. Throat without injection. Cardiovascular: Regular rate and rhythm. No murmurs, rubs or gallops. Respiratory: Lungs clear to auscultation bilaterally. No wheezes or rhonchi. Abdomen: Soft, nontender, nondistended. No peritoneal signs. Musculoskeletal: No gross deformities. No edema. Skin: No obvious rashes or erythema. Neuro: Cranial nerves II through XII grossly intact. 5/5 strength throughout. Normal speech. Results - Labs CBC & Chem 7: 04/04/18 21:22 04/04/18 21:22 Labs: Laboratory Results - last 24 hr 04/04/18 04/04/18 04/04/18 21:22 21:22 21:22 WBC 7.8 RBC 4.32 Hgb 13.8 Hct 40.1 MCV 93.0 MCH 31.9 MCHC 34.3 RDW 14.0 Plt Count 212 MPV 7.9 Neut % (Auto) 65.7 Lymph % (Auto) 22.2 [place] % (Auto) 9.9 H Eos % (Auto) 1.5 Baso % (Auto) 0.7 Neut # (Auto) 5.1 Lymph # (Auto) 1.7 [place] # (Auto) 0.8 Eos # (Auto) 0.1 Baso # (Auto) 0.1 WBC Differential . Differential Comment Auto diff final Sodium 133 L Potassium 3.8 Chloride 98 Carbon Dioxide 28.7 Anion Gap 6 BUN 20 H Creatinine 1.51 H Estimated GFR 41 L Random Glucose 93 Calcium 9.3 Troponin I Less than 0.02 L Urine Color Urine Clarity Urine pH Ur Specific [place] Urine Protein Urine Glucose (UA) Urine Ketones Urine Occult Blood Urine Nitrate Urine Bilirubin Urine Urobilinogen Ur Leukocyte Esterase Urine WBC Micro UA Comment Ur Microscopic Review Urine Culture Comments 04/04/18 22:46 WBC RBC Hgb Hct MCV MCH MCHC RDW Plt Count MPV Neut % (Auto) Lymph % (Auto) [place] % (Auto) Eos % (Auto) Baso % (Auto) Neut # (Auto) Lymph # (Auto) [place] # (Auto) Eos # (Auto) Baso # (Auto) WBC Differential Differential Comment Sodium Potassium Chloride Carbon Dioxide Anion Gap BUN Creatinine Estimated GFR Random Glucose Calcium Troponin I Urine Color Colorless Urine Clarity Clear Urine pH 7.0 Ur Specific [place] 1.001 L Urine Protein Negative Urine Glucose (UA) Negative Urine Ketones Negative Urine Occult Blood Negative Urine Nitrate Negative Urine Bilirubin Negative Urine Urobilinogen Less than 2 Ur Leukocyte Esterase Negative Urine WBC Less than 1 Micro UA Comment Culture not ind Ur Microscopic Review Not Reportable Urine Culture Comments Culture not ind - Imaging Impressions Chest X-Ray 04/04/18 20:48 CONCLUSION: No acute cardiopulmonary disease demonstrated. Head CT 04/04/18 20:48 CONCLUSION: 1. Right frontal ventriculostomy tube with mild to moderate hydrocephalus. Small frontal subdural hygromas. No prior study for comparison. No significant mass effect or midline shift. . Shunt Study 04/04/18 22:23 CONCLUSION: Normal appearance of the shunt tubing. Caprini VTE Risk Assessment Caprini VTE Risk Assessment: Moderate/High Risk (score >= 2) Caprini Risk Assessment Model: Point Value = 1 Point Value = 2 Point Value = 3 Point Value = 5 Age 41-60 Minor surgery BMI > 25 kg/m2 Swollen legs Varicose veins or History of unexplained or recurrent spontaneous Oral contraceptives or hormone replacement Sepsis (< 1 month) Serious lung disease, including pneumonia (< 1 month) Abnormal pulmonary function Acute myocardial infarction Congestive heart failure (< 1 month) History of inflammatory bowel disease Medical patient at bed rest Age 61-74 Arthroscopic surgery Major open surgery (> 45 min) Laparoscopic surgery (> 45 min) Malignancy Confined to bed (> 72 hours) Immobilizing plaster cast Central venous access Age >= 75 History of VTE Family history of VTE Factor V Leiden Prothrombin [id number] Lupus anticoagulant Anticardiolipin antibodies Elevated serum homocysteine Heparin-induced thrombocytopenia Other congenital or acquired thrombophilia Stroke (< 1 month) Elective arthroplasty Hip, pelvis, or leg fracture Acute spinal cord injury (< 1 month) Prophylaxis Regimen: Total Risk Factor Score Risk Level Prophylaxis Regimen 0-1 Low Early ambulation 2 Moderate Order ONE of the following: *Sequential Compression Device (SCD) *Heparin 5000 units SQ BID 3-4 Higher Order ONE of the following medications: *Heparin 5000 units SQ TID *Enoxaparin/Lovenox 40 mg SQ daily (WT < 150 kg, CrCl > 30 mL/min) *Enoxaparin/Lovenox 30 mg SQ daily (WT < 150 kg, CrCl > 10-29 mL/min) *Enoxaparin/Lovenox 30 mg SQ BID (WT < 150 kg, CrCl > 30 mL/min) AND/OR *Sequential Compression Device (SCD) 5 or more Highest Order ONE of the following medications: *Heparin 5000 units SQ TID (Preferred with Epidurals) *Enoxaparin/Lovenox 40 mg SQ daily (WT < 150 kg, CrCl > 30 mL/min) *Enoxaparin/Lovenox 30 mg SQ daily (WT < 150 kg, CrCl > 10-29 mL/min) *Enoxaparin/Lovenox 30 mg SQ BID (WT < 150 kg, CrCl > 30 mL/min) AND *Sequential Compression Device (SCD) Assessment and Plan - Plan Assessment/plan: 1. Weakness/hydrocephalus Head CT shows right frontal ventriculostomy tube with mild to moderate hydrocephalus Shunt study normal Neurosurgery consulted, appreciate recommendations 2. Hypertension/hyperlipidemia Continue home medications 3. Hypothyroidism Continue home Synthroid 4. Dementia/schizophrenia Continue home medications 5. Chronic kidney disease Creatinine 1.51, baseline Monitor renal function FEN NPO Electrolytes: Monitor and replete as needed NS at 100 cc/hour Holding pharmacologic anticoagulation until cleared by neurosurgery
[2018-04-05] MEDS: Levothyroxine 112 MCG Tablet PO SCH (05:36)
[2018-04-05] MEDS ORDERED: amLODIPine 5 MG Tablet PO SCH (09:00)
[2018-04-05] MEDS ORDERED: OLANZapine 10 MG Tablet PO SCH (09:00)
[2018-04-05] MEDS ORDERED: Haloperidol 5 MG Tablet PO SCH (09:00)
--- NOTE | 2018-04-05 09:08 | P.PNIM ---
Subjective Interval history: Follow up lower extremity weakness, hydrosephalus, HTN, and CKD. Patient seen in examined, PT in the room for evaluation and treatment. Patient denies any pain,, chest pain, but c/o some SOB with exertion. Patient denies any headache or dizziness at this time. Denies any nausea, vomiting, diarrhea or constipation. Denies any fever or chills, Patient stated she lives in an [facility] and all of a sudden she cannot walk. Patient stated she was walking before. Stated she might need the walker now. Physical Exam Vital signs: Vital Signs 04/04/18 17:00 04/04/18 21:46 04/04/18 23:30 Temperature 98.5 F Pulse Rate 71 76 Respiratory Rate 18 Blood Pressure 156/84 H 178/98 H Pulse Oximetry 100 99 97 04/05/18 00:35 04/05/18 00:57 04/05/18 05:00 Temperature Pulse Rate 74 72 81 Respiratory Rate 18 18 Blood Pressure 176/81 H 179/86 H Pulse Oximetry 97 95 97 04/05/18 07:45 Temperature 98.8 F Pulse Rate 76 Respiratory Rate 18 Blood Pressure 170/84 H Pulse Oximetry 97 Intake & Output 04/04/18 04/05/18 04/05/18 18:59 06:59 18:59 Intake Total 1000 / 1000 Balance 1000 / 1000 Weight 61.689 kg Intake: IV 1000 / 1000 NS Inj 1,000 ML @ Wide Open IV. 1000 / 1000 SIG BOLUS ONE Rx#:[id number] Narrative: GENERAL: well developed, elderly female, in no apparent distress SKIN: Warm and dry. HEAD: Atraumatic. Normocephalic. EYES: Pupils equal and round. No scleral icterus. No injection or drainage. ENT: No nasal bleeding or discharge. Mucous membranes pink and moist. NECK: Trachea midline. No JVD. CARDIOVASCULAR: Regular rate and rhythm. RESPIRATORY: No accessory muscle use. Clear to auscultation. Breath sounds equal bilaterally. GASTROINTESTINAL: Abdomen soft, non-tender, nondistended. Hepatic and splenic margins not palpable. MUSCULOSKELETAL: Extremities without clubbing, cyanosis, or edema. No obvious deformities. NEUROLOGICAL: Awake and alert. No obvious cranial nerve deficits. Generalized weakness, moving all 4 extremities. Normal speech. PSYCHIATRIC: Appropriate mood and affect; insight and judgment poor. Results - Labs CBC & Chem 7: 04/04/18 21:22 04/04/18 21:22 Laboratory Results - last 24 hr 04/04/18 04/04/18 04/04/18 21:22 21:22 21:22 WBC 7.8 RBC 4.32 Hgb 13.8 Hct 40.1 MCV 93.0 MCH 31.9 MCHC 34.3 RDW 14.0 Plt Count 212 MPV 7.9 Neut % (Auto) 65.7 Lymph % (Auto) 22.2 [place] % (Auto) 9.9 H Eos % (Auto) 1.5 Baso % (Auto) 0.7 Neut # (Auto) 5.1 Lymph # (Auto) 1.7 [place] # (Auto) 0.8 Eos # (Auto) 0.1 Baso # (Auto) 0.1 WBC Differential . Differential Comment Auto diff final Sodium 133 L Potassium 3.8 Chloride 98 Carbon Dioxide 28.7 Anion Gap 6 BUN 20 H Creatinine 1.51 H Estimated GFR 41 L Random Glucose 93 Calcium 9.3 Troponin I Less than 0.02 L Urine Color Urine Clarity Urine pH Ur Specific [place] Urine Protein Urine Glucose (UA) Urine Ketones Urine Occult Blood Urine Nitrate Urine Bilirubin Urine Urobilinogen Ur Leukocyte Esterase Urine WBC Micro UA Comment Ur Microscopic Review Urine Culture Comments 04/04/18 22:46 WBC RBC Hgb Hct MCV MCH MCHC RDW Plt Count MPV Neut % (Auto) Lymph % (Auto) [place] % (Auto) Eos % (Auto) Baso % (Auto) Neut # (Auto) Lymph # (Auto) [place] # (Auto) Eos # (Auto) Baso # (Auto) WBC Differential Differential Comment Sodium Potassium Chloride Carbon Dioxide Anion Gap BUN Creatinine Estimated GFR Random Glucose Calcium Troponin I Urine Color Colorless Urine Clarity Clear Urine pH 7.0 Ur Specific [place] 1.001 L Urine Protein Negative Urine Glucose (UA) Negative Urine Ketones Negative Urine Occult Blood Negative Urine Nitrate Negative Urine Bilirubin Negative Urine Urobilinogen Less than 2 Ur Leukocyte Esterase Negative Urine WBC Less than 1 Micro UA Comment Culture not ind Ur Microscopic Review Not Reportable Urine Culture Comments Culture not ind - Imaging Impressions Chest X-Ray 04/04/18 20:48 CONCLUSION: No acute cardiopulmonary disease demonstrated. Head CT 04/04/18 20:48 CONCLUSION: 1. Right frontal ventriculostomy tube with mild to moderate hydrocephalus. Small frontal subdural hygromas. No prior study for comparison. No significant mass effect or midline shift. . Shunt Study 04/04/18 22:23 CONCLUSION: Normal appearance of the shunt tubing. Assessment and Plan - Assessment (1) Hypertension, uncontrolled Code(s): I10 - Essential (primary) hypertension Status: Acute (2) Dementia Code(s): F03.90 - Unspecified dementia without behavioral disturbance Status: Acute (3) Schizophrenia Code(s): F20.9 - Schizophrenia, unspecified Status: Acute (4) Dizziness Code(s): R42 - Dizziness and giddiness Status: Acute (5) S/P [employer] shunt Code(s): Z98.2 - Presence of cerebrospinal fluid drainage device Status: Acute (6) Polypharmacy Code(s): Z79.899 - Other prison (current) drug therapy Status: Acute - Plan This is a 68yo elderly female with PMH of Hydrocephalus, came in to the ED for evaluation of unable to walk and lower extremity weakness Acute weakness/Hydrocephalus, acute on chronic Head CT shows right frontal ventriculostomy tube with mild to moderate hydrocephalus -Shunt study normal -Neurosurgery consulted, appreciate recommendations: Shunt system is continuous and ventricles appear consistent with mild brain atrophy consistent with baseline exam, not consistent with shunt malfunction. -Chest x-ray showed no acute cardiopulmonary disease -Continue IVF normal saline -PT OT rehab per protocol, gait training and ambulation History of dementia/schizophrenia/polypharmacy -Reviewed home medications, Zoloft, Aricept, Haldol, Zyprexa, patient was on the maximum dose of Zyprexa, and Zoloft and a high dose of Haldol most likely will contribute on her acute general weakness and unable to walk. Will taper dose down -Change Haldol to as needed, decrease Zyprexa dose -Continue Aricept and Zoloft -Monitor mental status Hypertension, uncontrolled Blood pressure uncontrolled -Increase amlodipine dose -Add as needed clonidine for systolic blood pressure greater than 160 and diastolic greater than 90 -Continue atorvastatin History of Hypothyroidism/ Hyperlipidemia -Continue home Synthroid -Continue atorvastatin -monitor TSH, lipid, BMP Chronic kidney disease -Creatinine 1.51, baseline -Monitor renal function -Avoid nephrotoxins DVT prophylaxis: SCD Code Status: Full code Discussed Condition With: Patient and nurse Discharge Planning: Plan for discharge back to the retirement in 2-3 days if patient stable, and cleared with physical therapy for gait training and ambulation.
--- NOTE | 2018-04-05 09:44 | P.CONNS ---
History of Present Illness Primary Care Provider: UNKNOWN Chief Complaint: confusion History of Present Illness: 68yoF who lives in a facility, presented with dizziness and confusion, noted to have a shunt. Imaging reviewed showing mild ventriculomegaly but external fluid spaces consistent with hydrocephalus ex vacuo. Shunt system evaluated on xrays and appears intact. Patient states shunt was placed a few years ago but no records of this here and she is not a great historian. [facility] - History History Provided By: Patient - Medical History Medical History: Medical History (Last Reviewed 04/05/18 @ 08:12 by Ayan Robledo) COPD (chronic obstructive pulmonary disease) Depression GERD (gastroesophageal reflux disease) HTN (hypertension) Hx of cardiac arrhythmia PTSD (post-traumatic stress disorder) Schizo affective schizophrenia - Surgical History Surgical History: Surgical History (Last Reviewed 04/05/18 @ 08:12 by Ayan Robledo) History of brain shunt - Family History Family History: Family History (Last Updated 04/05/18 @ 03:23 by Lisa Garg MD) Other Family history unknown - Tobacco History Tobacco Use In Past 30 Days: Yes Smoking Status: Current every day smoker Tobacco Type: Cigarettes - Alcohol History How Often Do You Have a Drink Containing Alcohol: Never - Substance Use History Substance History: No History of Abuse - Travel History Recent Travel in the [place] Within the Last 8 Weeks: No Recent Travel Out of the Country Within the Last 8 Weeks: No - Immunization History Tetanus Immunization: Unsure Medications and Allergies Active Medications: Active Medications Albuterol (Duoneb Neb (Prn)) 1 ampul NEB Q2HR NEB PRN PRN Reason: SHORTNESS OF BREATH/WHEEZING Amlodipine Besylate (Norvasc) 5 mg PO DAILY [facility] Anastrozole (Arimidex) 1 mg PO DAILY [facility] Atorvastatin Calcium (Lipitor) 40 mg PO HS [facility] Benztropine Mesylate (Cogentin) 0.5 mg PO BID [facility] Bisacodyl (Dulcolax Supp) 10 mg RECTAL DAILY PRN PRN Reason: SEVERE CONSITIPATION Bupropion HCl (Wellbutrin Sr) 100 mg PO BID [facility] Donepezil HCl (Aricept) 10 mg PO HS [facility] Famotidine (Pepcid) 10 mg PO BID [facility] Furosemide (Lasix) 20 mg PO DAILY [facility] Haloperidol (Haldol) 5 mg PO BID [facility] Hydroxyzine Pamoate (Vistaril) 25 mg PO BID [facility] Sodium Chloride (Ns Inj) 1,000 mls @ 100 mls/hr IV.CONT .Q10H [facility] Last Admin: 04/05/18 02:27 Dose: 100 mls/hr Lamotrigine (Lamictal) 200 mg PO HS [facility] Levothyroxine Sodium (Synthroid) 112 mcg PO DAILY@0600 [facility] Last Admin: 04/05/18 05:36 Dose: 112 mcg Miscellaneous (Pill Splitter) 1 each OTHER UNSCH PRN PRN Reason: PILL SPIT Olanzapine (Zyprexa) 20 mg PO DAILY [facility] Ondansetron HCl (Zofran Inj) 4 mg IV.PUSH Q6H PRN PRN Reason: NAUSEA OR VOMITING Senna/Docusate Sodium (Asuncion-Colace) 1 tab PO BID [facility] Sennosides (Senokot) 17.2 mg PO Q12H PRN PRN Reason: Moderate Constipation Sertraline HCl (Zoloft) 200 mg PO HS [facility] Sodium Chloride (Ns Flush) 2 ml IV.FLUSH BID [facility] Sodium Chloride (Ns Flush) 2 ml IV.FLUSH PRN PRN PRN Reason: FLUSH AFTER USING IV ACCESS Allergies Allergy/AdvReac Type Severity Reaction Status Date / Time lisinopril Allergy Severe Swelling Verified 09/29/17 04:17 Home Medications Medication Instructions Recorded Confirmed Type acetaminophen 325 mg PO BID PRN 04/04/18 04/04/18 History amlodipine 5 mg PO DAILY 04/04/18 04/04/18 History anastrozole 1 mg PO DAILY 04/04/18 04/04/18 History aspirin [Aspir-81] 81 mg PO DAILY 04/04/18 04/04/18 History atorvastatin 40 mg PO HS 04/04/18 04/04/18 History benztropine 0.5 mg PO BID 04/04/18 04/04/18 History bupropion HCl [Wellbutrin SR] 100 mg PO BID 04/04/18 04/04/18 History donepezil 10 mg PO HS 04/04/18 04/04/18 History famotidine 20 mg PO BID 04/04/18 04/04/18 History fluticasone [Flovent HFA] 1 inh INHALATION Q12H 04/04/18 04/04/18 History furosemide 20 mg PO DAILY 04/04/18 04/04/18 History haloperidol 5 mg PO BID 04/04/18 04/04/18 History hydroxyzine pamoate 25 mg PO BID 04/04/18 04/04/18 History lamotrigine 200 mg PO HS 04/04/18 04/04/18 History levothyroxine 112 mcg PO DAILY 04/04/18 04/04/18 History meloxicam 7.5 mg PO DAILY 04/04/18 04/04/18 History olanzapine 20 mg PO DAILY 04/04/18 04/04/18 History sennosides-docusate sodium [Senna 1 tab PO BID 04/04/18 04/04/18 History with Docusate Sodium] sertraline 200 mg PO HS 04/04/18 04/04/18 History Exam Vital signs: Vital Signs 04/04/18 17:00 04/04/18 21:46 04/04/18 23:30 Temperature 98.5 F Pulse Rate 71 76 Respiratory Rate 18 Blood Pressure 156/84 H 178/98 H Pulse Oximetry 100 99 97 04/05/18 00:35 04/05/18 00:57 04/05/18 05:00 Temperature Pulse Rate 74 72 81 Respiratory Rate 18 18 18 Blood Pressure 176/81 H 179/86 H Pulse Oximetry 97 95 97 04/05/18 07:45 Temperature 98.8 F Pulse Rate 76 Respiratory Rate 18 Blood Pressure 170/84 H Pulse Oximetry 97 Intake & Output 04/04/18 04/05/18 04/05/18 18:59 06:59 18:59 Intake Total 1000 / 1000 Balance 1000 / 1000 Weight 61.689 kg Intake: IV 1000 / 1000 NS Inj 1,000 ML @ Wide Open IV. 1000 / 1000 SIG BOLUS ONE Rx#:[id number] Narrative: A&O to person, place Full strength UE/LE Reflexes symmetric physiologic CN intact Results - Laboratory Findings CBC and BMP: 04/04/18 21:22 04/04/18 21:22 Abnormal lab findings: Abnormal Labs 04/04/18 04/04/18 04/04/18 21:22 21:22 21:22 [place] % (Auto) 9.9 H Sodium 133 L BUN 20 H Creatinine 1.51 H Estimated GFR 41 L Troponin I Less than 0.02 L Ur Specific [place] 04/04/18 22:46 [place] % (Auto) Sodium BUN Creatinine Estimated GFR Troponin I Ur Specific [place] 1.001 L Assessment and Plan - Plan 68yoF with dizziness and confusion. Reviewed her head CT and shunt series as well as examined her. This picture is not consistent with shunt malfunction. We do not have records of her shunt placement nor indication. She answered appropriately for me and did not endorse any kind fo headache. Shunt system is continuous and ventricles appear consistent with mild brain atrophy consistent with baseline exam. Defer remainder of workup to primary team.
[2018-04-05] MEDS: Famotidine 20 MG Tablet PO SCH ×2 (10:07→21:17)
[2018-04-05] MEDS: Senna/Docusate Sodium 8.6/50 MG Tablet PO SCH ×2 (10:08→21:17)
[2018-04-05] MEDS: Furosemide 20 MG Tablet PO SCH (10:08)
[2018-04-05] MEDS: Sodium Chloride 0.9% 2 ML Flush BID IV.FLUSH SCH ×2 (10:09→21:18)
[2018-04-05] MEDS: buPROPion 100 MG ER 12 HR Tablet PO SCH ×2 (10:38→21:17)
[2018-04-05] MEDS: Anastrozole 1 MG Tablet PO SCH (10:40)
[2018-04-05] MEDS ORDERED: Haloperidol 5 MG Tablet PO PRN (15:38)
[2018-04-05] MEDS ORDERED: Gadobutrol PF 7.5 MMOL/7.5 ML Vial (for RAD) IV.SIG ONE (17:39)
--- NOTE | 2018-04-05 17:57 | MR ---
EXAM DATE: 04/05/2018 3:46 PM EDT AGE/SEX: 68 years / Female INDICATIONS: Confusion. CLINICAL DATA: This is the patient's initial encounter. Patient reports that signs and symptoms have been present for 1 day and indicates a pain score of 0/10. MEDICAL/SURGICAL HISTORY: Carcinoma, breast. Chronic obstructive pulmonary disease. . Shunt pl acement. COMPARISON: [facility] [place], SHUNT SERIES, 04/04/2018. [facility] [place], CT HEAD W/O CONTRAST, 04/04/2018. . TECHNIQUE: Multiplanar, multisequence examination of the brain was performed without and with 6 ml Ga davist (gadobutrol) contrast as a single exam dose. FINDINGS: Fusion weighted images demonstrate no evidence for acute infarction. There are stable diffuse promine nce of the CSF spaces particularly the ventricles. The patient has a known LIFE EDUCATOR shunt, which is best vi sualized on recent CT. Bilateral mastoid secretions are noted. There is no hemorrhage or mass identif ied. No abnormal areas of enhancement are seen. CONCLUSION: 1. Stable ventriculomegaly and atrophy identified. Electronically signed by: Miles Saldivar MD 04/05/2018 5:55 PM EDT
[2018-04-05] MEDS: lamoTRIgine 100 MG Tablet PO SCH (21:16)
[2018-04-05] MEDS: amLODIPine 5 MG Tablet PO SCH (21:17)
[2018-04-05] MEDS: Sertraline 100 MG Tablet PO SCH (21:17)
--- NOTE | 2018-04-05 21:44 | ECG ---
Date Performed: 04/04/2018 Time Performed: 20:28:22 PTAGE: 68 years EKG: Sinus rhythm Since the previous tracing, no significant change noted NORMAL ECG PREVIOUS TRACING : 09/29/2017 09.43 DOCTOR: Jl Lozoya Interpretating Date/Time 04/05/2018 21:43:25
[2018-04-06] MEDS: Levothyroxine 112 MCG Tablet PO SCH (05:23)
[2018-04-06] MEDS: Sod Chloride 0.9% Inj 1,000 ML IV.CONT SCH ×3 (06:01→18:04)
[2018-04-06] MEDS: OLANZapine 10 MG Tablet PO SCH (09:07)
[2018-04-06] MEDS: Famotidine 20 MG Tablet PO SCH ×2 (09:08→20:43)
[2018-04-06] MEDS: Anastrozole 1 MG Tablet PO SCH (09:08)
[2018-04-06] MEDS: Senna/Docusate Sodium 8.6/50 MG Tablet PO SCH ×2 (09:08→20:44)
[2018-04-06] MEDS: Furosemide 20 MG Tablet PO SCH (09:08)
[2018-04-06] MEDS: amLODIPine 5 MG Tablet PO SCH (09:08)
[2018-04-06] MEDS: Sodium Chloride 0.9% 2 ML Flush BID IV.FLUSH SCH ×2 (09:09→20:44)
[2018-04-06] MEDS: buPROPion 100 MG ER 12 HR Tablet PO SCH ×2 (09:09→20:43)
[2018-04-06 09:39] LABS: Baso # (Auto) 0.1 th/mm3 (0.0-0.2); Eos # (Auto) 0.1 th/mm3 (0.0-0.4); Hematocrit 39.2 % (35.0-46.0); Lymph % (Auto) 15.6 % (9.0-44.0); Mean Corpuscular HGB Conc 33.3 % (32.0-36.0); Mean Corpuscular Hemoglobin 31.4 pg (27.0-34.0); Mean Corpuscular Volume 94.4 fL (80.0-100.0); Mean Platelet Volume 7.7 fL (7.0-11.0); Mono # (Auto) 0.6 th/mm3 (0.0-0.9); Mono % (Auto) 9.4 % (0.0-8.0); Neut # (Auto) 4.6 th/mm3 (1.8-7.7); Platelet Count 193 th/mm3 (150-450); Red Blood Count 4.15 mil/mm3 (4.00-5.30); Red Cell Distribution Width 14.6 % (11.6-17.2); White Blood Count 6.3 th/mm3 (4.0-11.0)
[2018-04-06 10:09] LABS: Magnesium 1.7 mg/dL (1.5-2.5)
[2018-04-06 10:18] LABS: Chol/HDL Ratio 3.29 Ratio; HDL Cholesterol 50.7 mg/dL (40.0-60.0); Thyroid Stimulating Hormone 1.27 uIU/mL (0.358-3.740)
--- NOTE | 2018-04-06 13:48 | P.PN ---
Subjective Interval history: Patient doing well. Reports that she is tolerating p.o. and voiding/stooling well. No overnight concerns per RN. Physical Exam Vital signs: Vital Signs 04/05/18 15:46 04/05/18 20:00 04/06/18 00:00 Temperature 97.9 F 98.3 F 97.9 F Pulse Rate 69 65 71 Respiratory Rate 16 18 18 Blood Pressure 174/91 H 161/90 H 149/78 H Pulse Oximetry 94 L 95 95 04/06/18 04:00 04/06/18 08:00 04/06/18 08:55 Temperature 97.6 F 98.5 F Pulse Rate 70 65 Respiratory Rate 18 18 18 Blood Pressure 170/85 H 154/82 H Pulse Oximetry 98 95 04/06/18 12:00 Temperature 97.9 F Pulse Rate 69 Respiratory Rate 20 Blood Pressure 148/90 H Pulse Oximetry 95 Intake & Output 04/05/18 04/06/18 04/06/18 18:59 06:59 18:59 Intake Total 1000 / 1000 1999 / 1999 1240 / 1240 Output Total 400 / 400 Balance 1000 / 1000 1999 / 1999 840 / 840 Weight 61.5 kg Intake: IV 1000 / 1000 1999 / 1999 1000 / 1000 NS Inj 1,000 ML @ 100 mls/hr IV 1000 / 1000 1999 / 2000 1000 / 1000 .CONT .Q10H JESÚS Rx#:[id number] Oral 0 / 0 240 / 240 Output: Urine 400 / 400 Other: # Voids 4 3 1 Date of Last Bowel Movement 04/06/18 # Bowel Movements 0 1 Narrative: GENERAL: well developed, elderly female, in no apparent distress SKIN: Warm and dry. HEENT: Atraumatic. Normocephalic. PERRLA. No scleral icterus. No injection or drainage. MOM. NECK: Trachea midline. No JVD. CARDIOVASCULAR: Regular rate and rhythm. S1 and S2, no murmurs, rubs, or gallops. RESPIRATORY: CTA x2 GASTROINTESTINAL: Abdomen soft, non-tender, nondistended. Hepatic and splenic margins not palpable. MUSCULOSKELETAL: Extremities without clubbing, cyanosis, or edema. No obvious deformities. NEUROLOGICAL: AAO x3, no focal deficits, right facial droop noted. PSYCHIATRIC: Appropriate mood and affect; insight and judgment poor. Results - Labs CBC & Chem 7: 10/20/18 08:44 04/04/18 21:22 Laboratory Results - last 24 hr 04/06/18 04/06/18 08:44 08:44 WBC 6.3 RBC 4.15 Hgb 13.0 Hct 39.2 MCV 94.4 MCH 31.4 MCHC 33.3 RDW 14.6 Plt Count 193 MPV 7.7 Neut % (Auto) 72.0 H Lymph % (Auto) 15.6 [place] % (Auto) 9.4 H Eos % (Auto) 2.0 Baso % (Auto) 1.0 Neut # (Auto) 4.6 Lymph # (Auto) 1.0 [place] # (Auto) 0.6 Eos # (Auto) 0.1 Baso # (Auto) 0.1 WBC Differential . Differential Comment Auto diff final Magnesium 1.7 Triglycerides 119 Cholesterol 167 LDL Cholesterol, Calc 93 HDL Cholesterol 50.7 Cholesterol/HDL Ratio 3.29 TSH 1.270 - Imaging Impressions Head MRI 04/05/18 07:05 CONCLUSION: 1. Stable ventriculomegaly and atrophy identified. Assessment and Plan - Assessment (1) Hypertension, uncontrolled Code(s): I10 - Essential (primary) hypertension Status: Chronic (2) Dementia Code(s): F03.90 - Unspecified dementia without behavioral disturbance Status: Chronic (3) Schizophrenia Code(s): F20.9 - Schizophrenia, unspecified Status: Chronic (4) Dizziness Code(s): R42 - Dizziness and giddiness Status: Resolved (5) S/P CRAWLER CRANE OPERATOR shunt Code(s): Z98.2 - Presence of cerebrospinal fluid drainage device Status: Chronic (6) Polypharmacy Code(s): Z79.899 - Other fpc (current) drug therapy Status: Acute - Plan This is a 68 y/o elderly female with PMHx of Hydrocephalus, dementia, and schizophrenia who presented to the ED reporting inability to walk, patient was admitted for inpatient management, HD#3 1. Acute weakness/Hx of Hydrocephalus s/p shunt, sx now resolved Head CT shows right frontal ventriculostomy tube with mild to moderate hydrocephalus Shunt study normal Neurosurgery consulted, appreciate recommendations: Shunt system is continuous and ventricles appear consistent with mild brain atrophy consistent with baseline exam, not consistent with shunt malfunction. Per PT needs SNF on D/C, patient lives at [facility] Per NeuroSx on 04/05: 68yoF with dizziness and confusion. Reviewed her head CT and shunt series as well as examined her. This picture is not consistent with shunt malfunction. We do not have records of her shunt placement nor indication. She answered appropriately for me and did not endorse any kind fo headache. Shunt system is continuous and ventricles appear consistent with mild brain atrophy consistent with baseline exam. Defer remainder of workup to primary team. 2. History of Dementia/Schizophrenia/Polypharmacy/Depression Reviewed home medications, Zoloft, Cogentin, Lamictal, Wellbutrin, Aricept, Haldol, Zyprexa, patient was on the maximum dose of Zyprexa, and Zoloft and a high dose of Haldol most likely will contribute on her acute general weakness and unable to walk. Doses decreased. Change Haldol to as needed, decrease Zyprexa dose Continue Aricept and Zoloft 3. Hypertension Blood pressure uncontrolled Increase Amlodipine to 10mg QD today, cont. Lasix Cont. Clonidine PRN Continue to monitor 4. History of Hypothyroidism/Hyperlipidemia Continue home Synthroid Continue atorvastatin 5. Acute on Chronic Kidney Disease Creatinine 1.51, 1.21 on 09/2017 Checking stat BMP Monitor renal function Avoid nephrotoxins 6. Hyponatremia Likely due to to psych meds Sodium 133 on 04/04 Follow-up stat BMP Follow-up in a.m. 7. Hx of Breast CA?? Patient on Anastrozole at home but is a poor historian Will continue 8. GI/DVT prophylaxis: SCD and Pepcid 9. Dispo: Needs SNF or HH, needs wheeled walker (came from [facility]), will discuss discharge with case management as patient stable. Code Status: full Discussed Condition With: patient, RN
[2018-04-06 17:46] LABS: Calcium 8.5 mg/dL (8.5-10.1); Carbon Dioxide 29.5 meq/L (21.0-32.0); Potassium 3.9 meq/L (3.5-5.1)
[2018-04-06] MEDS: amLODIPine 10 MG Tablet PO SCH (18:13)
[2018-04-06] MEDS: Sertraline 100 MG Tablet PO SCH (20:43)
[2018-04-06] MEDS: lamoTRIgine 100 MG Tablet PO SCH (20:44)
[2018-04-07 01:50] VITALS: RESP 18
[2018-04-07] MEDS: Sod Chloride 0.9% Inj 1,000 ML IV.CONT SCH (03:20)
[2018-04-07] MEDS: Levothyroxine 112 MCG Tablet PO SCH (06:22)
[2018-04-07] MEDS: amLODIPine 10 MG Tablet PO SCH ×2 (06:22→18:41)
[2018-04-07] MEDS: Senna/Docusate Sodium 8.6/50 MG Tablet PO SCH (08:40)
[2018-04-07] MEDS: Famotidine 20 MG Tablet PO SCH (08:40)
[2018-04-07] MEDS: buPROPion 100 MG ER 12 HR Tablet PO SCH (08:40)
[2018-04-07] MEDS: Anastrozole 1 MG Tablet PO SCH (08:40)
[2018-04-07] MEDS: Furosemide 20 MG Tablet PO SCH (08:40)
[2018-04-07] MEDS: Sodium Chloride 0.9% 2 ML Flush BID IV.FLUSH SCH (08:41)
[2018-04-07] MEDS: OLANZapine 10 MG Tablet PO SCH (08:41)
[2018-04-07 11:19] LABS: Baso % (Auto) 0.8 % (0.0-2.0); Eos # (Auto) 0.1 th/mm3 (0.0-0.4); Eos % (Auto) 1.8 % (0.0-4.0); Hematocrit 38.2 % (35.0-46.0); Hemoglobin 13.1 gm/dL (11.6-15.3); Lymph # (Auto) 0.8 th/mm3 (1.0-4.8); Lymph % (Auto) 12.9 % (9.0-44.0); Mean Corpuscular HGB Conc 34.4 % (32.0-36.0); Mean Platelet Volume 7.7 fL (7.0-11.0); Mono # (Auto) 0.6 th/mm3 (0.0-0.9); Mono % (Auto) 9.3 % (0.0-8.0); Neut # (Auto) 4.5 th/mm3 (1.8-7.7); Neut % (Auto) 75.2 % (16.0-70.0); Platelet Count 200 th/mm3 (150-450); Red Blood Count 4.11 mil/mm3 (4.00-5.30); Red Cell Distribution Width 14.1 % (11.6-17.2); White Blood Count 5.9 th/mm3 (4.0-11.0)
[2018-04-07 11:46] LABS: Alanine Aminotransferase 21 U/L (10-53); Albumin 3.2 g/dL (3.4-5.0); Alkaline Phosphatase 172 U/L (45-117); Anion Gap 8 meq/L (5-15); Aspartate Aminotransferase 17 U/L (15-37); Blood Urea Nitrogen 18 mg/dL (7-18); Calcium 9.3 mg/dL (8.5-10.1); Carbon Dioxide 26.8 meq/L (21.0-32.0); Chloride 103 meq/L (98-107); Glomerular Filtration Rate 49 mL/min (>89); Glucose,Random 120 mg/dL (74-106); Potassium 3.9 meq/L (3.5-5.1); Sodium 138 meq/L (136-145); Total Protein 6.9 g/dL (6.4-8.2)
--- NOTE | 2018-04-07 12:24 | P.PN ---
Subjective Interval history: Patient doing well. Reports that her strength is back to baseline. Patient is tolerating p.o., and voiding/stooling well. No overnight concerns per RN Physical Exam Vital signs: Vital Signs 04/06/18 16:00 04/06/18 16:31 04/06/18 20:00 Temperature 98 F 98.2 F Pulse Rate 65 66 66 Respiratory Rate 18 16 Blood Pressure 146/76 H 171/76 H Pulse Oximetry 98 98 04/07/18 00:00 04/07/18 04:00 04/07/18 07:49 Temperature 98.4 F 98.3 F Pulse Rate 62 60 Respiratory Rate 18 18 18 Blood Pressure 148/75 H 138/77 Pulse Oximetry 97 97 04/07/18 08:00 04/07/18 12:00 Temperature 98.8 F 97.4 F L Pulse Rate 63 79 Respiratory Rate 18 18 Blood Pressure 159/80 H 116/77 Pulse Oximetry 96 96 Intake & Output 04/06/18 04/07/18 04/07/18 18:59 06:59 18:59 Intake Total 1480 / 1480 1000 / 1000 900 / 900 Output Total 400 / 400 Balance 1080 / 1080 1000 / 1000 900 / 900 Weight 61.5 kg Intake: IV 1000 / 1000 1000 / 1000 900 / 900 NS Inj 1,000 ML @ 100 mls/hr IV 1000 / 1000 1000 / 1000 900 / 900 .CONT .Q10H JESÚS Rx#:[id number] Oral 480 / 480 Output: Urine 400 / 400 Other: # Voids 1 1 Date of Last Bowel Movement 04/06/18 # Bowel Movements 1 Narrative: GENERAL: well developed, elderly female, in no apparent distress SKIN: Warm and dry. HEENT: Atraumatic. Normocephalic. PERRLA. No scleral icterus. No injection or drainage. MOM. NECK: Trachea midline. No JVD. CARDIOVASCULAR: Regular rate and rhythm. S1 and S2, no murmurs, rubs, or gallops. RESPIRATORY: CTA x2 GASTROINTESTINAL: Abdomen soft, non-tender, nondistended. Hepatic and splenic margins not palpable. MUSCULOSKELETAL: Extremities without clubbing, cyanosis, or edema. No obvious deformities. NEUROLOGICAL: AAO x3, no focal deficits, right facial droop noted. PSYCHIATRIC: Appropriate mood and affect; insight and judgment poor. Results - Labs CBC & Chem 7: 04/07/18 10:30 10/21/18 10:30 Laboratory Results - last 24 hr 04/06/18 04/07/18 04/07/18 16:04 10:30 10:30 WBC 5.9 RBC 4.11 Hgb 13.1 Hct 38.2 MCV 93.0 MCH 32.0 MCHC 34.4 RDW 14.1 Plt Count 200 MPV 7.7 Neut % (Auto) 75.2 H Lymph % (Auto) 12.9 [place] % (Auto) 9.3 H Eos % (Auto) 1.8 Baso % (Auto) 0.8 Neut # (Auto) 4.5 Lymph # (Auto) 0.8 L [place] # (Auto) 0.6 Eos # (Auto) 0.1 Baso # (Auto) 0.0 WBC Differential . Differential Comment Auto diff final Sodium 139 138 Potassium 3.9 3.9 Chloride 104 103 Carbon Dioxide 29.5 26.8 Anion Gap 6 8 BUN 21 H 18 Creatinine 1.23 H 1.30 H Estimated GFR 52 L 49 L Random Glucose 80 120 H Calcium 8.5 D 9.3 D Total Bilirubin 0.4 AST 17 ALT 21 Alkaline Phosphatase 172 H Total Protein 6.9 Albumin 3.2 L Assessment and Plan - Assessment (1) Hypertension, uncontrolled Code(s): I10 - Essential (primary) hypertension Status: Chronic (2) Dementia Code(s): F03.90 - Unspecified dementia without behavioral disturbance Status: Chronic (3) Schizophrenia Code(s): F20.9 - Schizophrenia, unspecified Status: Chronic (4) Dizziness Code(s): R42 - Dizziness and giddiness Status: Resolved (5) S/P DIRECTOR ORANGE shunt Code(s): Z98.2 - Presence of cerebrospinal fluid drainage device Status: Chronic (6) Polypharmacy Code(s): Z79.899 - 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 Acute weakness/Hx of Hydrocephalus s/p shunt, sx now resolved Head CT shows right frontal ventriculostomy tube with mild to moderate hydrocephalus Shunt study normal Neurosurgery consulted, appreciate recommendations: Shunt system is continuous and ventricles appear consistent with mild brain atrophy consistent with baseline exam, not consistent with shunt malfunction. Per PT needs SNF on D/C, patient lives at [facility] which is an [facility] Per NeuroSx on 04/05: 68yoF with dizziness and confusion. Reviewed her head CT and shunt series as well as examined her. This picture is not consistent with shunt malfunction. We do not have records of her shunt placement nor indication. She answered appropriately for me and did not endorse any kind fo headache. Shunt system is continuous and ventricles appear consistent with mild brain atrophy consistent with baseline exam. Defer remainder of workup to primary team. 2. History of Dementia/Schizophrenia/Polypharmacy/Depression Reviewed home medications, Zoloft, Cogentin, Lamictal, Wellbutrin, Aricept, Haldol, Zyprexa, patient was on the maximum dose of Zyprexa, and Zoloft and a high dose of Haldol most likely will contribute on her acute general weakness and unable to walk. Doses decreased. Change Haldol to as needed, decrease Zyprexa dose Continue Aricept and Zoloft 3. Hypertension Improved Cont. Amlodipine 10mg QD and Lasix Cont. Clonidine PRN Continue to monitor 4. History of Hypothyroidism/Hyperlipidemia Continue home Synthroid Continue atorvastatin 5. Acute on Chronic Kidney Disease Creatinine 1.31 today, at baseline, 1.21 on 09/2017 Monitor renal function Avoid nephrotoxins 6. Hyponatremia, resolved Likely due to to psych meds Sodium 138 today 7. Hx of Breast CA?? Patient on Anastrozole at home but is a poor historian Will continue 8. GI/DVT prophylaxis: SCD and Pepcid 9. Dispo: Stable for discharge at [facility], given prescription for adjusted psych meds. Follow-up with PCP in 1 week. Code Status: full Discussed Condition With: patient, RN
--- NOTE | 2018-04-07 12:32 | P.DS ---
Date of admission: 04/04/18 23:03 Primary care physician: UNKNOWN Brief History from admission: This is a 68-year-old Female who is an extremely poor historian but endorses a PMhx of Arthritis presents to the emergency department for evaluation of difficulty with ambulation and standing. The patient reports that at approximately 3 PM yesterday after dinner, she stood up and attempted to walk and was afraid that she was going to fall over secondary to lower extremity weakness. She denies any syncopal episode. No chest pain or shortness of breath. No abdominal pain. No nausea/vomiting/diarrhea. She states her weakness was bilateral. On head CT the patient was noted to have a NUCLEAR STATION OPERATOR shunt with hydrocephalus. DS: Diagnosis - Discharge Diagnosis (1) Hypertension, uncontrolled Status: Chronic (2) Dementia Status: Chronic (3) Schizophrenia Status: Chronic (4) Dizziness Status: Resolved (5) S/P NUCLEAR STATION OPERATOR shunt Status: Chronic (6) Polypharmacy Status: Acute DS: Medications - Discharge Medications Prescriptions: amlodipine [Norvasc] 10 mg PO QAM #30 tab donepezil 5 mg PO HS 30 Days #30 tab lamotrigine [Lamictal] 200 mg PO HS #30 tab olanzapine 10 mg PO DAILY #30 tab DS: Summary Hospital Course: This is a 68 y/o elderly female with PMHx of Hydrocephalus, Dementia, and schizophrenia who presented to the ED reporting inability to walk, patient was admitted for inpatient management. Neurosurgery was consulted and the patient' s admission and a shunt study was done which was WNL. Per their recommendations , the shunt system was continuous and ventricles appeared consistent with mild brain atrophy consistent with baseline exam, not consistent with shunt malfunction. Upon admission it was noted that the patient was on multiple home medications for dementia, schizophrenia, and depression. These were adjusted as it was suspected polypharmacy was the cause of her symptoms. Patient at the time was on Haldol which was scheduled this was decreased to PRN only. The patient's Zyprexa dose was decreased to 10 mg from 20 mg. The patient's donepezil was decreased to 5 mg PO QD. per physical therapy evaluation patient needed to go to an SNF on discharge, despite the fact that the patient lives at an [facility] which is [facility]. The patient's confusion and weakness improved to baseline prior to her discharge. Patient was given a prescription for a wheeled walker which was recommended per PT. Patient was advised that she needs to take her meds as Rx as she may have weakness/falls if she does not take them appropriately. Due to poorly controlled hypertension during her hospitalization the patient's amlodipine was adjusted to 10 mg p.o. daily and her Lasix was continued. On the day of discharge patient had Creatinine 1.31, baseline was 1.21 on 2017. Of note patient is a poor historian, it is unsure if she has a Hx of Breast CA, however patient was continued on home Anastrozole. F/U with PCP in 1wk. - Time Spent with Patient Total time spent providing and/or coordinating discharge services: Greater than 30 minutes Exam Vital signs: Vital Signs 04/06/18 16:00 04/06/18 16:31 04/06/18 20:00 Temperature 98 F 98.2 F Pulse Rate 65 66 66 Respiratory Rate 18 16 Blood Pressure 146/76 H 171/76 H Pulse Oximetry 98 98 04/07/18 00:00 04/07/18 04:00 04/07/18 07:49 Temperature 98.4 F 98.3 F Pulse Rate 62 60 Respiratory Rate 18 18 18 Blood Pressure 148/75 H 138/77 Pulse Oximetry 97 97 04/07/18 08:00 04/07/18 12:00 Temperature 98.8 F 97.4 F L Pulse Rate 63 79 Respiratory Rate 18 18 Blood Pressure 159/80 H 116/77 Pulse Oximetry 96 96 Intake & Output 04/06/18 04/07/18 04/07/18 18:59 06:59 18:59 Intake Total 1480 / 1480 1000 / 1000 900 / 900 Output Total 400 / 400 Balance 1080 / 1080 1000 / 1000 900 / 900 Weight 61.5 kg Intake: IV 1000 / 1000 1000 / 1000 900 / 900 NS Inj 1,000 ML @ 100 mls/hr IV 1000 / 1000 1000 / 1000 900 / 900 .CONT .Q10H JESÚS Rx#:[id number] Oral 480 / 480 Output: Urine 400 / 400 Other: # Voids 1 1 Date of Last Bowel Movement 04/06/18 # Bowel Movements 1 Narrative: GENERAL: well developed, elderly female, in no apparent distress SKIN: Warm and dry. HEENT: Atraumatic. Normocephalic. PERRLA. No scleral icterus. No injection or drainage. MOM. NECK: Trachea midline. No JVD. CARDIOVASCULAR: Regular rate and rhythm. S1 and S2, no murmurs, rubs, or gallops. RESPIRATORY: CTA x2 GASTROINTESTINAL: Abdomen soft, non-tender, nondistended. Hepatic and splenic margins not palpable. MUSCULOSKELETAL: Extremities without clubbing, cyanosis, or edema. No obvious deformities. NEUROLOGICAL: AAO x3, no focal deficits, right facial droop noted. PSYCHIATRIC: Appropriate mood and affect; insight and judgment poor. Results Procedures completed during hospitalization: n/a Labs on day of discharge: Labs from last 24 hours 04/07/18 04/07/18 04/06/18 10:30 10:30 16:04 WBC 5.9 RBC 4.11 Hgb 13.1 Hct 38.2 MCV 93.0 MCH 32.0 MCHC 34.4 RDW 14.1 Plt Count 200 MPV 7.7 Neut % (Auto) 75.2 H Lymph % (Auto) 12.9 [place] % (Auto) 9.3 H Eos % (Auto) 1.8 Baso % (Auto) 0.8 Neut # (Auto) 4.5 Lymph # (Auto) 0.8 L [place] # (Auto) 0.6 Eos # (Auto) 0.1 Baso # (Auto) 0.0 WBC Differential . Differential Comment Auto diff final Sodium 138 139 Potassium 3.9 3.9 Chloride 103 104 Carbon Dioxide 26.8 29.5 Anion Gap 8 6 BUN 18 21 H Creatinine 1.30 H 1.23 H Estimated GFR 49 L 52 L Random Glucose 120 H 80 Calcium 9.3 D 8.5 D Total Bilirubin 0.4 AST 17 ALT 21 Alkaline Phosphatase 172 H Total Protein 6.9 Albumin 3.2 L - Impressions ITS Impressions Chest X-Ray 04/04/18 20:48 CONCLUSION: No acute cardiopulmonary disease demonstrated. Head CT 04/04/18 20:48 CONCLUSION: 1. Right frontal ventriculostomy tube with mild to moderate hydrocephalus. Small frontal subdural hygromas. No prior study for comparison. No significant mass effect or midline shift. . Shunt Study 04/04/18 22:23 CONCLUSION: Normal appearance of the shunt tubing. Head MRI 04/05/18 07:05 CONCLUSION: 1. Stable ventriculomegaly and atrophy identified. Discharge Plan - Discharge Disposition Patient Disposition: Discharge to SNF - Discharge Condition Condition: Stable - Discharge Order Discharge Orders: Discharge Order (Routine); Ordered 04/07/18 Ordered By: Daija Mcghee - Physicians Team Primary Care Provider: UNKNOWN, Attending Provider: Daija Mcghee Other Providers: Kash Almeida MD ; [facility]
[2018-04-07 16:52] VITALS: BP 128/72; TEMP 98.4; O2SAT 98
[2018-04-07 17:31] VITALS: PULSE 73
== END 2018-04-07 18:57 ==
LOC: NEPE 16:23 → NEDA 23:03 → NEDH 04-05 05:53 → N05 04-05 09:31
PROVIDERS: ADMIT Family Medicine; ATTEND Family Medicine

== ENCOUNTER 2018-07-28 13:48 | Inpatient (IN) ==
--- NOTE | 2018-07-28 14:34 | ED ---
HPI General Chief complaint: Altered Mental Status Stated complaint: AMS Time Seen by Provider: 07/28/18 13:54 History of Present Illness HPI narrative: Patient history and physical performed with female nurse radiotelegrapher present all times per Patient is a 68-year-old female apparently with a history of dementia schizophrenia normally feeds herself but is normally not oriented according to EMS report presents emergency department for evaluation of increased altered mental status. Patient apparently has a history of [employer] shunt in place, looking back through her records she was here in march of 2018 with increasing altered mental status and had been evaluated by neuro since then her baseline mental status appears to have been documented is nearly a phasic. The patient would not converse with me and would not follow any commands on my examination, her eyes are open and she does track me around the room and she is fairly alert. She did verbalize to nurse her name. This significantly limits further history. Related Data Home Medications Medication Instructions Recorded Confirmed acetaminophen 325 mg PO BID PRN 04/04/18 07/28/18 anastrozole 1 mg PO DAILY 04/04/18 07/28/18 aspirin [Aspir-81] 81 mg PO DAILY 04/04/18 07/28/18 atorvastatin 40 mg PO HS 04/04/18 07/28/18 benztropine 1.5 mg PO HS 04/04/18 07/28/18 bupropion HCl [Wellbutrin SR] 150 mg PO DAILY 04/04/18 07/28/18 famotidine 20 mg PO BID 04/04/18 07/28/18 furosemide 20 mg PO DAILY 04/04/18 07/28/18 levothyroxine 112 mcg PO DAILY 04/04/18 07/28/18 sennosides-docusate sodium [Senna 1 tab PO BID 04/04/18 07/28/18 with Docusate Sodium] alprazolam 0.5 mg PO DAILY 07/28/18 07/28/18 benztropine 1 mg PO QAM 07/28/18 07/28/18 potassium chloride 20 meq PO DAILY 07/28/18 07/28/18 Previous Rx's Medication Instructions Recorded amlodipine [Norvasc] 10 mg PO QAM #30 tab 04/07/18 Allergies Allergy/AdvReac Type Severity Reaction Status Date / Time lisinopril Allergy Severe Swelling Verified 07/28/18 14:15 Review of Systems ROS Unobtainable ROS Unobtainable: unobtainable due to mental status [facility] Medical History Medical History COPD (chronic obstructive pulmonary disease) (Acute) Depression (Acute) GERD (gastroesophageal reflux disease) (Acute) HTN (hypertension) (Acute) Hx of cardiac arrhythmia (Acute) PTSD (post-traumatic stress disorder) (Acute) Schizo affective schizophrenia (Acute) Surgical History Surgical History History of brain shunt (Acute) Family History Family History Other Family history unknown Social History Social History Substance History: Unable to Obtain Second Hand Smoke Exposure: No Smoking Status: Former smoker Tobacco Type: Cigarettes and Cigars Packs Per Day: 2 Cigarettes Per Day: 40.0 How Often Do You Have a Drink Containing Alcohol: Unable to Obtain Recent Travel in [facility] within the Last 8 Weeks: No Recent Out of Country Travel within the Last 8 Weeks: No Immunization History Tetanus Immunization: Unsure Exam Narrative Exam Narrative: GENERAL: Well-developed very thin nontoxic appearance. SKIN: Focused skin assessment warm/dry. No rash seen, no other bruising seen on her person. HEAD: Small bruise noted to right forehead, no joyce signs no raccoon's eyes. Normocephalic. EYES: Pupils equal and round. No scleral icterus. No injection or drainage. ENT: No nasal bleeding or discharge. Mucous membranes pink and moist. NECK: Trachea midline. No JVD. CARDIOVASCULAR: Regular rhythm with mild tachycardia. 2+ medical pulses in all 4 extremities.. No murmur appreciated. RESPIRATORY: No accessory muscle use. Clear to auscultation. Breath sounds equal bilaterally. GASTROINTESTINAL: Abdomen soft, non-tender, nondistended. Hepatic and splenic margins not palpable. MUSCULOSKELETAL: No obvious deformities. No clubbing. No cyanosis. No edema. NEUROLOGICAL: Awake and alert. We will not participate in neurologic exam. Does move all 4 extremities. PSYCHIATRIC: Unable to assess Course Initial Documented Vital Signs Temperature 99.3 F 07/28/18 13:58 Pulse Rate 106 H 07/28/18 13:58 Respiratory Rate 21 07/28/18 13:58 Blood Pressure 123/64 07/28/18 13:58 Pulse Oximetry 100 07/28/18 13:58 Last Documented Vital Signs Temperature 97.8 F 08/08/18 12:00 Pulse Rate 72 08/08/18 12:00 Respiratory Rate 17 08/08/18 12:00 Blood Pressure 125/65 08/08/18 12:00 Pulse Oximetry 97 08/08/18 12:00 Critical Care Time Critical Care Time: Yes Total Critical Care Time: 35 Attestation: Aggregate critical care time was 35 minutes. Time to perform other separately billable procedures was not included in the critical care time. My time did not include minutes spent treating any other patients simultaneously or on activities that did not directly contribute to the patient's treatment. The services I provided to this patient were to treat and/or prevent clinically significant deterioration that could result in: , disability, organ failure I provided critical care services requiring my management, as noted below: Chart data review, documentation time, medication orders and management, vital sign assessments/reviewing monitor data, ordering and reviewing lab tests, ordering and interpreting/reviewing x-rays and diagnostic studies, care of the patient and discussion of the patient with the admitting physicians. Medical Decision Making MDM Narrative Medical decision making narrative: Patient seen and examined by me, laboratory workup significant for bandemia, nitrate positive urine. Patient vital signs stable, given a liter normal saline, Rocephin, lactic acid within normal limits. Patient will be admitted for UTI with sepsis. Also with altered mental status. Discussed with hospitalist outside residential sales professional. Medical Screen Exam Complete: Yes Emergency Medical Condition: Yes Lab Data Result diagrams: 08/08/18 11:37 08/08/18 11:37 Lab Results 07/28/18 07/28/18 07/28/18 Range/Units 14:25 14:25 14:28 WBC 9.1 (4.0-11.0) th/mm3 RBC 3.80 L (4.00-5.30) mil/mm3 Hgb 12.3 (11.6-15.3) gm/dL Hct 36.1 (35.0-46.0) % MCV 94.9 (80.0-100.0) fL MCH 32.3 (27.0-34.0) pg MCHC 34.0 (32.0-36.0) % RDW 15.7 (11.6-17.2) % Plt Count 255 (150-450) th/mm3 MPV 7.8 (7.0-11.0) fL Prelim Diff (Auto) Manual diff required Neut % (Auto) (16.0-70.0) % Lymph % (Auto) (9.0-44.0) % [place] % (Auto) (0.0-8.0) % Eos % (Auto) (0.0-4.0) % Baso % (Auto) (0.0-2.0) % Neut # (Auto) (1.8-7.7) th/mm3 Lymph # (Auto) (1.0-4.8) th/mm3 [place] # (Auto) (0.0-0.9) th/mm3 Eos # (Auto) (0.0-0.4) th/mm3 Baso # (Auto) (0.0-0.2) th/mm3 WBC Differential Manual diff final Seg Neuts % (Manual) 72 H (16-70) % Band Neuts % (Manual) 24 H (0-6) % Lymphocytes % (Manual) 3 L (9-44) % Monocytes % (Manual) 1 (0-8) % Abs Neuts (Manual) 8.7 H (1.8-7.7) th/mm3 Differential Comment . Platelet Estimate Normal (Normal) Platelet Morphology Normal (Normal) RBC Morphology Normal (Normal) PT 11.0 (9.8-11.6) sec INR 1.1 Ratio APTT 22.3 L (23.4-31.7) sec Sodium (136-145) meq/L Potassium (3.5-5.1) meq/L Chloride (98-107) meq/L Carbon Dioxide (21.0-32.0) meq/L Anion Gap (5-15) meq/L BUN (7-18) mg/dL Creatinine (0.50-1.00) mg/dL Estimated GFR (>89) mL/min POC Glucose (68-110) mg/dl Random Glucose (74-106) mg/dL Lactic Acid (0.4-2.0) mmol/L Calcium (8.5-10.1) mg/dL Magnesium (1.5-2.5) mg/dL Total Bilirubin (0.2-1.0) mg/dL AST (15-37) U/L ALT (10-53) U/L Alkaline Phosphatase (45-117) U/L Total Protein (6.4-8.2) g/dL Albumin (3.4-5.0) g/dL Urine Color Yellow (Yellw/Straw) Urine Clarity Cloudy H (Clear) Urine pH 7.0 (5.0-8.5) Ur Specific [place] 1.009 (1.002-1.035) Urine Protein Negative (Neg-Trace) mg/dL Urine Glucose (UA) Negative (Negative) mg/dL Urine Ketones Negative (Negative) mg/dL Urine Occult Blood Negative (Negative) Urine Nitrate Positive H (Negative) Urine Bilirubin Negative (Negative) Urine Urobilinogen Less than 2 (Less than 2) mg/dL Ur Leukocyte Esterase Large H (Negative) Urine RBC 1 (0-3) /hpf Urine WBC (0-5) /hpf Urine WBC Clumps Few H (None) Ur Squamous Epith Cells 1 (0-5) /hpf Urine Bacteria Many H (None) /hpf Hyaline Casts 3 (0-3) /lpf Urine Mucus Few H (Occasional) /lpf Micro UA Comment Cath-culture ind Ur Microscopic Review Not Reportable Urine Culture Comments Cath-cult indicated CSF Volume (1) mL CSF Supernat Color (1) (Clear) CSF Gross Blood (1) (0) CSF Volume (2) mL CSF Supernat Color (2) (Clear) CSF Gross Blood (2) (0) CSF WBC (2) (0-10) /mm3 CSF RBC (2) (None) /mm3 CSF Neutrophils % % CSF Lymphocytes % % CSF Monocytes % % CSF Glucose (40-80) mg/dL Vancomycin Trough (5.0-10.0) mcg/mL 07/28/18 07/28/18 07/29/18 Range/Units 14:28 14:30 04:08 WBC 10.4 (4.0-11.0) th/mm3 RBC 3.46 L (4.00-5.30) mil/mm3 Hgb 11.2 L (11.6-15.3) gm/dL Hct 32.6 L (35.0-46.0) % MCV 94.2 (80.0-100.0) fL MCH 32.3 (27.0-34.0) pg MCHC 34.3 (32.0-36.0) % RDW 15.8 (11.6-17.2) % Plt Count 238 (150-450) th/mm3 MPV 8.2 (7.0-11.0) fL Prelim Diff (Auto) Neut % (Auto) 84.4 H (16.0-70.0) % Lymph % (Auto) 10.0 (9.0-44.0) % [place] % (Auto) 5.1 (0.0-8.0) % Eos % (Auto) 0.2 (0.0-4.0) % Baso % (Auto) 0.3 (0.0-2.0) % Neut # (Auto) 8.8 H (1.8-7.7) th/mm3 Lymph # (Auto) 1.0 (1.0-4.8) th/mm3 [place] # (Auto) 0.5 (0.0-0.9) th/mm3 Eos # (Auto) 0.0 (0.0-0.4) th/mm3 Baso # (Auto) 0.0 (0.0-0.2) th/mm3 WBC Differential . Seg Neuts % (Manual) (16-70) % Band Neuts % (Manual) (0-6) % Lymphocytes % (Manual) (9-44) % Monocytes % (Manual) (0-8) % Abs Neuts (Manual) (1.8-7.7) th/mm3 Differential Comment Auto diff final Platelet Estimate (Normal) Platelet Morphology (Normal) RBC Morphology (Normal) PT (9.8-11.6) sec INR Ratio APTT (23.4-31.7) sec Sodium 140 (136-145) meq/L Potassium 3.7 (3.5-5.1) meq/L Chloride 105 (98-107) meq/L Carbon Dioxide 27.6 (21.0-32.0) meq/L Anion Gap 7 (5-15) meq/L BUN 22 H (7-18) mg/dL Creatinine 1.36 H (0.50-1.00) mg/dL Estimated GFR 47 L (>89) mL/min POC Glucose (68-110) mg/dl Random Glucose 98 (74-106) mg/dL Lactic Acid 1.6 (0.4-2.0) mmol/L Calcium 8.7 (8.5-10.1) mg/dL Magnesium 1.7 (1.5-2.5) mg/dL Total Bilirubin 0.5 (0.2-1.0) mg/dL AST 23 (15-37) U/L ALT 18 (10-53) U/L Alkaline Phosphatase 160 H (45-117) U/L Total Protein 6.2 L (6.4-8.2) g/dL Albumin 2.9 L (3.4-5.0) g/dL Urine Color (Yellw/Straw) Urine Clarity (Clear) Urine pH (5.0-8.5) Ur Specific Adrian (1.002-1.035) Urine Protein (Neg-Trace) mg/dL Urine Glucose (UA) (Negative) mg/dL Urine Ketones (Negative) mg/dL Urine Occult Blood (Negative) Urine Nitrate (Negative) Urine Bilirubin (Negative) Urine Urobilinogen (Less than 2) mg/dL Ur Leukocyte Esterase (Negative) Urine RBC (0-3) /hpf Urine WBC (0-5) /hpf Urine WBC Clumps (None) Ur Squamous Epith Cells (0-5) /hpf Urine Bacteria (None) /hpf Hyaline Casts (0-3) /lpf Urine Mucus (Occasional) /lpf Micro UA Comment Ur Microscopic Review Urine Culture Comments CSF Volume (1) mL CSF Supernat Color (1) (Clear) CSF Gross Blood (1) (0) CSF Volume (2) mL CSF Supernat Color (2) (Clear) CSF Gross Blood (2) (0) CSF WBC (2) (0-10) /mm3 CSF RBC (2) (None) /mm3 CSF Neutrophils % % CSF Lymphocytes % % CSF Monocytes % % CSF Glucose (40-80) mg/dL Vancomycin Trough (5.0-10.0) mcg/mL 07/29/18 07/30/18 07/30/18 Range/Units 04:09 06:41 06:41 WBC (4.0-11.0) th/mm3 RBC (4.00-5.30) mil/mm3 Hgb (11.6-15.3) gm/dL Hct (35.0-46.0) % MCV (80.0-100.0) fL MCH (27.0-34.0) pg MCHC (32.0-36.0) % RDW (11.6-17.2) % Plt Count (150-450) th/mm3 MPV (7.0-11.0) fL Prelim Diff (Auto) Neut % (Auto) (16.0-70.0) % Lymph % (Auto) (9.0-44.0) % [place] % (Auto) (0.0-8.0) % Eos % (Auto) (0.0-4.0) % Baso % (Auto) (0.0-2.0) % Neut # (Auto) (1.8-7.7) th/mm3 Lymph # (Auto) (1.0-4.8) th/mm3 [place] # (Auto) (0.0-0.9) th/mm3 Eos # (Auto) (0.0-0.4) th/mm3 Baso # (Auto) (0.0-0.2) th/mm3 WBC Differential Seg Neuts % (Manual) (16-70) % Band Neuts % (Manual) (0-6) % Lymphocytes % (Manual) (9-44) % Monocytes % (Manual) (0-8) % Abs Neuts (Manual) (1.8-7.7) th/mm3 Differential Comment Platelet Estimate (Normal) Platelet Morphology (Normal) RBC Morphology (Normal) PT (9.8-11.6) sec INR Ratio APTT (23.4-31.7) sec Sodium 141 138 (136-145) meq/L Potassium 3.4 L 3.2 L (3.5-5.1) meq/L Chloride 107 105 (98-107) meq/L Carbon Dioxide 28.0 26.4 (21.0-32.0) meq/L Anion Gap 6 7 (5-15) meq/L BUN 21 H 15 (7-18) mg/dL Creatinine 1.06 H 0.83 (0.50-1.00) mg/dL Estimated GFR 62 L 68 L (>89) mL/min POC Glucose (68-110) mg/dl Random Glucose 111 H 142 H (74-106) mg/dL Lactic Acid (0.4-2.0) mmol/L Calcium 8.6 8.7 (8.5-10.1) mg/dL Magnesium 1.5 (1.5-2.5) mg/dL Total Bilirubin (0.2-1.0) mg/dL AST (15-37) U/L ALT (10-53) U/L Alkaline Phosphatase (45-117) U/L Total Protein (6.4-8.2) g/dL Albumin (3.4-5.0) g/dL Urine Color (Yellw/Straw) Urine Clarity (Clear) Urine pH (5.0-8.5) Ur Specific [place] (1.002-1.035) Urine Protein (Neg-Trace) mg/dL Urine Glucose (UA) (Negative) mg/dL Urine Ketones (Negative) mg/dL Urine Occult Blood (Negative) Urine Nitrate (Negative) Urine Bilirubin (Negative) Urine Urobilinogen (Less than 2) mg/dL Ur Leukocyte Esterase (Negative) Urine RBC (0-3) /hpf Urine WBC (0-5) /hpf Urine WBC Clumps (None) Ur Squamous Epith Cells (0-5) /hpf Urine Bacteria (None) /hpf Hyaline Casts (0-3) /lpf Urine Mucus (Occasional) /lpf Micro UA Comment Ur Microscopic Review Urine Culture Comments CSF Volume (1) mL CSF Supernat Color (1) (Clear) CSF Gross Blood (1) (0) CSF Volume (2) mL CSF Supernat Color (2) (Clear) CSF Gross Blood (2) (0) CSF WBC (2) (0-10) /mm3 CSF RBC (2) (None) /mm3 CSF Neutrophils % % CSF Lymphocytes % % CSF Monocytes % % CSF Glucose (40-80) mg/dL Vancomycin Trough (5.0-10.0) mcg/mL 07/30/18 07/31/18 07/31/18 Range/Units 13:59 08:08 08:08 WBC (4.0-11.0) th/mm3 RBC (4.00-5.30) mil/mm3 Hgb (11.6-15.3) gm/dL Hct (35.0-46.0) % MCV (80.0-100.0) fL MCH (27.0-34.0) pg MCHC (32.0-36.0) % RDW (11.6-17.2) % Plt Count (150-450) th/mm3 MPV (7.0-11.0) fL Prelim Diff (Auto) Neut % (Auto) (16.0-70.0) % Lymph % (Auto) (9.0-44.0) % [place] % (Auto) (0.0-8.0) % Eos % (Auto) (0.0-4.0) % Baso % (Auto) (0.0-2.0) % Neut # (Auto) (1.8-7.7) th/mm3 Lymph # (Auto) (1.0-4.8) th/mm3 [place] # (Auto) (0.0-0.9) th/mm3 Eos # (Auto) (0.0-0.4) th/mm3 Baso # (Auto) (0.0-0.2) th/mm3 WBC Differential Seg Neuts % (Manual) (16-70) % Band Neuts % (Manual) (0-6) % Lymphocytes % (Manual) (9-44) % Monocytes % (Manual) (0-8) % Abs Neuts (Manual) (1.8-7.7) th/mm3 Differential Comment Platelet Estimate (Normal) Platelet Morphology (Normal) RBC Morphology (Normal) PT (9.8-11.6) sec INR Ratio APTT (23.4-31.7) sec Sodium 136 (136-145) meq/L Potassium 3.6 (3.5-5.1) meq/L Chloride 103 (98-107) meq/L Carbon Dioxide 25.7 (21.0-32.0) meq/L Anion Gap 7 (5-15) meq/L BUN 10 (7-18) mg/dL Creatinine 0.84 Cancelled (0.50-1.00) mg/dL Estimated GFR 67 L Cancelled (>89) mL/min POC Glucose 128 H (68-110) mg/dl Random Glucose 129 H (74-106) mg/dL Lactic Acid (0.4-2.0) mmol/L Calcium 8.8 (8.5-10.1) mg/dL Magnesium (1.5-2.5) mg/dL Total Bilirubin (0.2-1.0) mg/dL AST (15-37) U/L ALT (10-53) U/L Alkaline Phosphatase (45-117) U/L Total Protein (6.4-8.2) g/dL Albumin (3.4-5.0) g/dL Urine Color (Yellw/Straw) Urine Clarity (Clear) Urine pH (5.0-8.5) Ur Specific [place] (1.002-1.035) Urine Protein (Neg-Trace) mg/dL Urine Glucose (UA) (Negative) mg/dL Urine Ketones (Negative) mg/dL Urine Occult Blood (Negative) Urine Nitrate (Negative) Urine Bilirubin (Negative) Urine Urobilinogen (Less than 2) mg/dL Ur Leukocyte Esterase (Negative) Urine RBC (0-3) /hpf Urine WBC (0-5) /hpf Urine WBC Clumps (None) Ur Squamous Epith Cells (0-5) /hpf Urine Bacteria (None) /hpf Hyaline Casts (0-3) /lpf Urine Mucus (Occasional) /lpf Micro UA Comment Ur Microscopic Review Urine Culture Comments CSF Volume (1) mL CSF Supernat Color (1) (Clear) CSF Gross Blood (1) (0) CSF Volume (2) mL CSF Supernat Color (2) (Clear) CSF Gross Blood (2) (0) CSF WBC (2) (0-10) /mm3 CSF RBC (2) (None) /mm3 CSF Neutrophils % % CSF Lymphocytes % % CSF Monocytes % % CSF Glucose (40-80) mg/dL Vancomycin Trough (5.0-10.0) mcg/mL 08/01/18 08/01/18 08/02/18 Range/Units 06:18 14:19 06:04 WBC (4.0-11.0) th/mm3 RBC (4.00-5.30) mil/mm3 Hgb (11.6-15.3) gm/dL Hct (35.0-46.0) % MCV (80.0-100.0) fL MCH (27.0-34.0) pg MCHC (32.0-36.0) % RDW (11.6-17.2) % Plt Count (150-450) th/mm3 MPV (7.0-11.0) fL Prelim Diff (Auto) Neut % (Auto) (16.0-70.0) % Lymph % (Auto) (9.0-44.0) % [place] % (Auto) (0.0-8.0) % Eos % (Auto) (0.0-4.0) % Baso % (Auto) (0.0-2.0) % Neut # (Auto) (1.8-7.7) th/mm3 Lymph # (Auto) (1.0-4.8) th/mm3 [place] # (Auto) (0.0-0.9) th/mm3 Eos # (Auto) (0.0-0.4) th/mm3 Baso # (Auto) (0.0-0.2) th/mm3 WBC Differential Seg Neuts % (Manual) (16-70) % Band Neuts % (Manual) (0-6) % Lymphocytes % (Manual) (9-44) % Monocytes % (Manual) (0-8) % Abs Neuts (Manual) (1.8-7.7) th/mm3 Differential Comment Platelet Estimate (Normal) Platelet Morphology (Normal) RBC Morphology (Normal) PT (9.8-11.6) sec INR Ratio APTT (23.4-31.7) sec Sodium 137 (136-145) meq/L Potassium 3.3 L (3.5-5.1) meq/L Chloride 102 (98-107) meq/L Carbon Dioxide 28.0 (21.0-32.0) meq/L Anion Gap 7 (5-15) meq/L BUN 13 (7-18) mg/dL Creatinine 1.13 H 0.95 (0.50-1.00) mg/dL Estimated GFR 48 L 58 L (>89) mL/min POC Glucose (68-110) mg/dl Random Glucose 122 H (74-106) mg/dL Lactic Acid (0.4-2.0) mmol/L Calcium 9.3 (8.5-10.1) mg/dL Magnesium (1.5-2.5) mg/dL Total Bilirubin (0.2-1.0) mg/dL AST (15-37) U/L ALT (10-53) U/L Alkaline Phosphatase (45-117) U/L Total Protein (6.4-8.2) g/dL Albumin (3.4-5.0) g/dL Urine Color (Yellw/Straw) Urine Clarity (Clear) Urine pH (5.0-8.5) Ur Specific [place] (1.002-1.035) Urine Protein (Neg-Trace) mg/dL Urine Glucose (UA) (Negative) mg/dL Urine Ketones (Negative) mg/dL Urine Occult Blood (Negative) Urine Nitrate (Negative) Urine Bilirubin (Negative) Urine Urobilinogen (Less than 2) mg/dL Ur Leukocyte Esterase (Negative) Urine RBC (0-3) /hpf Urine WBC (0-5) /hpf Urine WBC Clumps (None) Ur Squamous Epith Cells (0-5) /hpf Urine Bacteria (None) /hpf Hyaline Casts (0-3) /lpf Urine Mucus (Occasional) /lpf Micro UA Comment Ur Microscopic Review Urine Culture Comments CSF Volume (1) mL CSF Supernat Color (1) (Clear) CSF Gross Blood (1) (0) CSF Volume (2) mL CSF Supernat Color (2) (Clear) CSF Gross Blood (2) (0) CSF WBC (2) (0-10) /mm3 CSF RBC (2) (None) /mm3 CSF Neutrophils % % CSF Lymphocytes % % CSF Monocytes % % CSF Glucose (40-80) mg/dL Vancomycin Trough 10.6 H (5.0-10.0) mcg/mL 08/03/18 08/04/18 08/05/18 Range/Units 08:47 11:40 07:58 WBC (4.0-11.0) th/mm3 RBC (4.00-5.30) mil/mm3 Hgb (11.6-15.3) gm/dL Hct (35.0-46.0) % MCV (80.0-100.0) fL MCH (27.0-34.0) pg MCHC (32.0-36.0) % RDW (11.6-17.2) % Plt Count (150-450) th/mm3 MPV (7.0-11.0) fL Prelim Diff (Auto) Neut % (Auto) (16.0-70.0) % Lymph % (Auto) (9.0-44.0) % [place] % (Auto) (0.0-8.0) % Eos % (Auto) (0.0-4.0) % Baso % (Auto) (0.0-2.0) % Neut # (Auto) (1.8-7.7) th/mm3 Lymph # (Auto) (1.0-4.8) th/mm3 [place] # (Auto) (0.0-0.9) th/mm3 Eos # (Auto) (0.0-0.4) th/mm3 Baso # (Auto) (0.0-0.2) th/mm3 WBC Differential Seg Neuts % (Manual) (16-70) % Band Neuts % (Manual) (0-6) % Lymphocytes % (Manual) (9-44) % Monocytes % (Manual) (0-8) % Abs Neuts (Manual) (1.8-7.7) th/mm3 Differential Comment Platelet Estimate (Normal) Platelet Morphology (Normal) RBC Morphology (Normal) PT (9.8-11.6) sec INR Ratio APTT (23.4-31.7) sec Sodium 138 137 (136-145) meq/L Potassium 3.7 3.8 (3.5-5.1) meq/L Chloride 105 102 (98-107) meq/L Carbon Dioxide 25.7 24.8 (21.0-32.0) meq/L Anion Gap 7 10 (5-15) meq/L BUN 9 9 (7-18) mg/dL Creatinine 0.77 0.87 (0.50-1.00) mg/dL Estimated GFR 74 L 65 L (>89) mL/min POC Glucose (68-110) mg/dl Random Glucose 122 H 118 H (74-106) mg/dL Lactic Acid (0.4-2.0) mmol/L Calcium 8.7 9.4 (8.5-10.1) mg/dL Magnesium (1.5-2.5) mg/dL Total Bilirubin (0.2-1.0) mg/dL AST (15-37) U/L ALT (10-53) U/L Alkaline Phosphatase (45-117) U/L Total Protein (6.4-8.2) g/dL Albumin (3.4-5.0) g/dL Urine Color (Yellw/Straw) Urine Clarity (Clear) Urine pH (5.0-8.5) Ur Specific [place] (1.002-1.035) Urine Protein (Neg-Trace) mg/dL Urine Glucose (UA) (Negative) mg/dL Urine Ketones (Negative) mg/dL Urine Occult Blood (Negative) Urine Nitrate (Negative) Urine Bilirubin (Negative) Urine Urobilinogen (Less than 2) mg/dL Ur Leukocyte Esterase (Negative) Urine RBC (0-3) /hpf Urine WBC (0-5) /hpf Urine WBC Clumps (None) Ur Squamous Epith Cells (0-5) /hpf Urine Bacteria (None) /hpf Hyaline Casts (0-3) /lpf Urine Mucus (Occasional) /lpf Micro UA Comment Ur Microscopic Review Urine Culture Comments CSF Volume (1) mL CSF Supernat Color (1) (Clear) CSF Gross Blood (1) (0) CSF Volume (2) mL CSF Supernat Color (2) (Clear) CSF Gross Blood (2) (0) CSF WBC (2) (0-10) /mm3 CSF RBC (2) (None) /mm3 CSF Neutrophils % % CSF Lymphocytes % % CSF Monocytes % % CSF Glucose (40-80) mg/dL Vancomycin Trough 15.3 H (5.0-10.0) mcg/mL 08/06/18 08/06/18 08/07/18 Range/Units 17:20 17:20 06:21 WBC 5.7 (4.0-11.0) th/mm3 RBC 3.77 L (4.00-5.30) mil/mm3 Hgb 11.8 (11.6-15.3) gm/dL Hct 35.0 (35.0-46.0) % MCV 92.8 (80.0-100.0) fL MCH 31.4 (27.0-34.0) pg MCHC 33.8 (32.0-36.0) % RDW 15.4 (11.6-17.2) % Plt Count 338 D (150-450) th/mm3 MPV 8.1 (7.0-11.0) fL Prelim Diff (Auto) Neut % (Auto) 64.7 (16.0-70.0) % Lymph % (Auto) 18.3 (9.0-44.0) % [place] % (Auto) 14.9 H (0.0-8.0) % Eos % (Auto) 1.3 (0.0-4.0) % Baso % (Auto) 0.8 (0.0-2.0) % Neut # (Auto) 3.7 (1.8-7.7) th/mm3 Lymph # (Auto) 1.0 (1.0-4.8) th/mm3 [place] # (Auto) 0.8 (0.0-0.9) th/mm3 Eos # (Auto) 0.1 (0.0-0.4) th/mm3 Baso # (Auto) 0.0 (0.0-0.2) th/mm3 WBC Differential . Seg Neuts % (Manual) (16-70) % Band Neuts % (Manual) (0-6) % Lymphocytes % (Manual) (9-44) % Monocytes % (Manual) (0-8) % Abs Neuts (Manual) (1.8-7.7) th/mm3 Differential Comment Auto diff final Platelet Estimate (Normal) Platelet Morphology (Normal) RBC Morphology (Normal) PT (9.8-11.6) sec INR Ratio APTT (23.4-31.7) sec Sodium (136-145) meq/L Potassium (3.5-5.1) meq/L Chloride (98-107) meq/L Carbon Dioxide (21.0-32.0) meq/L Anion Gap (5-15) meq/L BUN (7-18) mg/dL Creatinine (0.50-1.00) mg/dL Estimated GFR (>89) mL/min POC Glucose (68-110) mg/dl Random Glucose (74-106) mg/dL Lactic Acid (0.4-2.0) mmol/L Calcium (8.5-10.1) mg/dL Magnesium (1.5-2.5) mg/dL Total Bilirubin (0.2-1.0) mg/dL AST (15-37) U/L ALT (10-53) U/L Alkaline Phosphatase (45-117) U/L Total Protein (6.4-8.2) g/dL Albumin (3.4-5.0) g/dL Urine Color (Yellw/Straw) Urine Clarity (Clear) Urine pH (5.0-8.5) Ur Specific [place] (1.002-1.035) Urine Protein (Neg-Trace) mg/dL Urine Glucose (UA) (Negative) mg/dL Urine Ketones (Negative) mg/dL Urine Occult Blood (Negative) Urine Nitrate (Negative) Urine Bilirubin (Negative) Urine Urobilinogen (Less than 2) mg/dL Ur Leukocyte Esterase (Negative) Urine RBC (0-3) /hpf Urine WBC (0-5) /hpf Urine WBC Clumps (None) Ur Squamous Epith Cells (0-5) /hpf Urine Bacteria (None) /hpf Hyaline Casts (0-3) /lpf Urine Mucus (Occasional) /lpf Micro UA Comment Ur Microscopic Review Urine Culture Comments CSF Volume (1) 4.0 mL CSF Supernat Color (1) Clear (Clear) CSF Gross Blood (1) 0 (0) CSF Volume (2) 6.0 mL CSF Supernat Color (2) Clear (Clear) CSF Gross Blood (2) 0 (0) CSF WBC (2) 1 (0-10) /mm3 CSF RBC (2) 1 H (None) /mm3 CSF Neutrophils % 0 % CSF Lymphocytes % 72 % CSF Monocytes % 28 % CSF Glucose 75 (40-80) mg/dL Vancomycin Trough (5.0-10.0) mcg/mL 08/07/18 08/08/18 08/08/18 Range/Units 06:21 09:45 11:37 WBC 5.4 (4.0-11.0) th/mm3 RBC 4.11 (4.00-5.30) mil/mm3 Hgb 12.8 (11.6-15.3) gm/dL Hct 38.5 (35.0-46.0) % MCV 93.8 (80.0-100.0) fL MCH 31.1 (27.0-34.0) pg MCHC 33.2 (32.0-36.0) % RDW 15.5 (11.6-17.2) % Plt Count 376 (150-450) th/mm3 MPV 8.1 (7.0-11.0) fL Prelim Diff (Auto) Neut % (Auto) (16.0-70.0) % Lymph % (Auto) (9.0-44.0) % [place] % (Auto) (0.0-8.0) % Eos % (Auto) (0.0-4.0) % Baso % (Auto) (0.0-2.0) % Neut # (Auto) (1.8-7.7) th/mm3 Lymph # (Auto) (1.0-4.8) th/mm3 [place] # (Auto) (0.0-0.9) th/mm3 Eos # (Auto) (0.0-0.4) th/mm3 Baso # (Auto) (0.0-0.2) th/mm3 WBC Differential Seg Neuts % (Manual) (16-70) % Band Neuts % (Manual) (0-6) % Lymphocytes % (Manual) (9-44) % Monocytes % (Manual) (0-8) % Abs Neuts (Manual) (1.8-7.7) th/mm3 Differential Comment Platelet Estimate (Normal) Platelet Morphology (Normal) RBC Morphology (Normal) PT (9.8-11.6) sec INR Ratio APTT (23.4-31.7) sec Sodium 139 (136-145) meq/L Potassium 3.7 (3.5-5.1) meq/L Chloride 104 (98-107) meq/L Carbon Dioxide 26.4 (21.0-32.0) meq/L Anion Gap 9 (5-15) meq/L BUN 10 (7-18) mg/dL Creatinine 0.83 (0.50-1.00) mg/dL Estimated GFR 68 L (>89) mL/min POC Glucose (68-110) mg/dl Random Glucose 138 H (74-106) mg/dL Lactic Acid (0.4-2.0) mmol/L Calcium 9.3 (8.5-10.1) mg/dL Magnesium (1.5-2.5) mg/dL Total Bilirubin (0.2-1.0) mg/dL AST (15-37) U/L ALT (10-53) U/L Alkaline Phosphatase (45-117) U/L Total Protein (6.4-8.2) g/dL Albumin (3.4-5.0) g/dL Urine Color (Yellw/Straw) Urine Clarity (Clear) Urine pH (5.0-8.5) Ur Specific Adrian (1.002-1.035) Urine Protein (Neg-Trace) mg/dL Urine Glucose (UA) (Negative) mg/dL Urine Ketones (Negative) mg/dL Urine Occult Blood (Negative) Urine Nitrate (Negative) Urine Bilirubin (Negative) Urine Urobilinogen (Less than 2) mg/dL Ur Leukocyte Esterase (Negative) Urine RBC (0-3) /hpf Urine WBC (0-5) /hpf Urine WBC Clumps (None) Ur Squamous Epith Cells (0-5) /hpf Urine Bacteria (None) /hpf Hyaline Casts (0-3) /lpf Urine Mucus (Occasional) /lpf Micro UA Comment Ur Microscopic Review Urine Culture Comments CSF Volume (1) mL CSF Supernat Color (1) (Clear) CSF Gross Blood (1) (0) CSF Volume (2) mL CSF Supernat Color (2) (Clear) CSF Gross Blood (2) (0) CSF WBC (2) (0-10) /mm3 CSF RBC (2) (None) /mm3 CSF Neutrophils % % CSF Lymphocytes % % CSF Monocytes % % CSF Glucose (40-80) mg/dL Vancomycin Trough 20.4 H (5.0-10.0) mcg/mL 08/08/18 Range/Units 11:37 WBC (4.0-11.0) th/mm3 RBC (4.00-5.30) mil/mm3 Hgb (11.6-15.3) gm/dL Hct (35.0-46.0) % MCV (80.0-100.0) fL MCH (27.0-34.0) pg MCHC (32.0-36.0) % RDW (11.6-17.2) % Plt Count (150-450) th/mm3 MPV (7.0-11.0) fL Prelim Diff (Auto) Neut % (Auto) (16.0-70.0) % Lymph % (Auto) (9.0-44.0) % [place] % (Auto) (0.0-8.0) % Eos % (Auto) (0.0-4.0) % Baso % (Auto) (0.0-2.0) % Neut # (Auto) (1.8-7.7) th/mm3 Lymph # (Auto) (1.0-4.8) th/mm3 [place] # (Auto) (0.0-0.9) th/mm3 Eos # (Auto) (0.0-0.4) th/mm3 Baso # (Auto) (0.0-0.2) th/mm3 WBC Differential Seg Neuts % (Manual) (16-70) % Band Neuts % (Manual) (0-6) % Lymphocytes % (Manual) (9-44) % Monocytes % (Manual) (0-8) % Abs Neuts (Manual) (1.8-7.7) th/mm3 Differential Comment Platelet Estimate (Normal) Platelet Morphology (Normal) RBC Morphology (Normal) PT (9.8-11.6) sec INR Ratio APTT (23.4-31.7) sec Sodium 141 (136-145) meq/L Potassium 3.7 (3.5-5.1) meq/L Chloride 105 (98-107) meq/L Carbon Dioxide 28.9 (21.0-32.0) meq/L Anion Gap 7 (5-15) meq/L BUN 13 (7-18) mg/dL Creatinine 1.01 H (0.50-1.00) mg/dL Estimated GFR 54 L (>89) mL/min POC Glucose (68-110) mg/dl Random Glucose 83 (74-106) mg/dL Lactic Acid (0.4-2.0) mmol/L Calcium 9.3 (8.5-10.1) mg/dL Magnesium (1.5-2.5) mg/dL Total Bilirubin (0.2-1.0) mg/dL AST (15-37) U/L ALT (10-53) U/L Alkaline Phosphatase (45-117) U/L Total Protein (6.4-8.2) g/dL Albumin (3.4-5.0) g/dL Urine Color (Yellw/Straw) Urine Clarity (Clear) Urine pH (5.0-8.5) Ur Specific Adrian (1.002-1.035) Urine Protein (Neg-Trace) mg/dL Urine Glucose (UA) (Negative) mg/dL Urine Ketones (Negative) mg/dL Urine Occult Blood (Negative) Urine Nitrate (Negative) Urine Bilirubin (Negative) Urine Urobilinogen (Less than 2) mg/dL Ur Leukocyte Esterase (Negative) Urine RBC (0-3) /hpf Urine WBC (0-5) /hpf Urine WBC Clumps (None) Ur Squamous Epith Cells (0-5) /hpf Urine Bacteria (None) /hpf Hyaline Casts (0-3) /lpf Urine Mucus (Occasional) /lpf Micro UA Comment Ur Microscopic Review Urine Culture Comments CSF Volume (1) mL CSF Supernat Color (1) (Clear) CSF Gross Blood (1) (0) CSF Volume (2) mL CSF Supernat Color (2) (Clear) CSF Gross Blood (2) (0) CSF WBC (2) (0-10) /mm3 CSF RBC (2) (None) /mm3 CSF Neutrophils % % CSF Lymphocytes % % CSF Monocytes % % CSF Glucose (40-80) mg/dL Vancomycin Trough (5.0-10.0) mcg/mL Imaging Data Radiologist's impression: Head CT 07/28/18 14:15 CONCLUSION: 1. No acute intracranial abnormality. 2. Stable ventriculomegaly with shunt. . Shunt Study 07/28/18 14:15 CONCLUSION: Unremarkable exam. Shuntogram 08/06/18 11:20 CONCLUSION: 1. Uncomplicated shunt aspiration with patent intraventricular limb Discharge Plan Discharge Disposition Patient Disposition: ED Admit(ED Internal Use Only) Discharge Condition Condition: Fair Discharge Order Discharge Orders: Discharge Order (Routine); Ordered 08/08/18 Ordered By: Nessa Mccollum ED Use Only Admit Order (Routine); Ordered 07/28/18 Ordered By: Donald Ace Discharge Details Anticipated Discharge Date: 08/08/18 Diagnosis: Acute UTI, Sepsis Physicians Team ED Provider: Donald Ace Primary Care Provider: UNKNOWN, Attending Provider: Ry Robison Other Providers: [facility] ; Fang Mendieta ; Dajuan Lopez ; Mendez Feliciano Status ED Status: Left Department Discharge Information Discharge Date/Time: 07/28/18 18:05
[2018-07-28 14:40] LABS: Hematocrit 36.1 % (35.0-46.0); Hemoglobin 12.3 gm/dL (11.6-15.3); Mean Corpuscular Hemoglobin 32.3 pg (27.0-34.0); Mean Corpuscular Volume 94.9 fL (80.0-100.0); Mean Platelet Volume 7.8 fL (7.0-11.0); Platelet Count 255 th/mm3 (150-450); Red Cell Distribution Width 15.7 % (11.6-17.2); White Blood Count 9.1 th/mm3 (4.0-11.0)
[2018-07-28 14:51] LABS: Bacteria,Urine Many /hpf; Bilirubin,Urine Negative (Negative); Clarity,Urine Cloudy (Clear); Color,Urine Yellow (Yellw/Straw); Glucose,Urine (UA) Negative (Negative); Hyaline Casts,Urine 3 /lpf (0-3); Leukocyte Esterase,Urine Large (Negative); Mucus,Urine Few /lpf (Occasional); Nitrite,Urine Positive (Negative); Specific Gravity,Urine 1.009 (1.002-1.035); Squamous Epithelial Cell,Urine 1 /hpf (0-5)
--- NOTE | 2018-07-28 15:03 | XR ---
EXAM DATE: 07/28/2018 2:56 PM EST AGE/SEX: 68 years / Female INDICATIONS: Shunt patency CLINICAL DATA: This is the patient's initial encounter. Patient reports that signs and symptoms have been present for 1 day and indicates a pain score of Nonresponsive. MEDICAL/SURGICAL HISTORY: . Hypertension. Chronic obstructive pulmonary disease. Gastroesophage al reflux disease. Smoker. Schizophrenia. Cardiac arrhythmia. . Shunt. COMPARISON: No prior exams available for comparison. FINDINGS: Examination includes two-view skull, two-view C-spine, and frontal views of the chest and abdomen. Ventriculostomy shunt tip is projected in the midline approaching from a right parietal approach . The alignment of the tubing with the reservoir is maintained without evidence of separation. The shunt tubing has a normal course through the neck and chest without discontinuity or kink. The shunt tubing is within the right lower quadrant without displacement of the bowel about the dista l tip. CONCLUSION: Unremarkable exam. Electronically signed by: Servando Matt MD Board Certified Radiologist 07/28/2018 3:02 PM EST
[2018-07-28 15:06] LABS: Alanine Aminotransferase 18 U/L (10-53); Albumin 2.9 g/dL (3.4-5.0); Anion Gap 7 meq/L (5-15); Aspartate Aminotransferase 23 U/L (15-37); Blood Urea Nitrogen 22 mg/dL (7-18); Calcium 8.7 mg/dL (8.5-10.1); Carbon Dioxide 27.6 meq/L (21.0-32.0); Chloride 105 meq/L (98-107); Glomerular Filtration Rate 47 mL/min (>89); Glucose,Random 98 mg/dL (74-106); Magnesium 1.7 mg/dL (1.5-2.5); Potassium 3.7 meq/L (3.5-5.1); Sodium 140 meq/L (136-145)
[2018-07-28 15:07] LABS: Activated Partial Thrombo Time 22.3 sec (23.4-31.7); INR 1.1 Ratio
[2018-07-28 15:08] LABS: Alkaline Phosphatase 160 U/L (45-117); Total Protein 6.2 g/dL (6.4-8.2)
[2018-07-28 15:16] LABS: Lymphocytes 3 % (9-44); Monocytes 1 % (0-8); Platelet Estimate Normal (Normal); Platelet Morphology Normal (Normal); RBC Morphology Normal (Normal)
[2018-07-28] MEDS ORDERED: Sod Chloride 0.9% Inj 1,000 ML IV.SIG SCH (15:45)
--- NOTE | 2018-07-28 16:20 | CT ---
EXAM DATE: 07/28/2018 4:09 PM EST AGE/SEX: 68 years / Female INDICATIONS: Cephalgia. CLINICAL DATA: This is the patient's initial encounter. Patient reports that signs and symptoms have been present for 1 day and indicates a pain score of Nonresponsive. MEDICAL/SURGICAL HISTORY: Chronic obstructive pulmonary disease. Hypertension. Gastroesophageal r eflux disease. . brain shunt RADIATION DOSE: 34.50 CTDI (mGy) [place] [facility] [place]. . TECHNIQUE: CT of the head without contrast. Using automated exposure control and adjustment of the mA and/or kV according to patient size, radiation dose was kept as low as reasonably achievable to ob tain optimal diagnostic quality images. DICOM format image data is available electronically for revi ew and comparison. FINDINGS: Cerebrum: Ventriculomegaly is unchanged from the prior examination. A ventriculostomy is seen enteri ng via a right frontal approach and terminating in the region of the right lateral ventricle near the midline. No evidence of midline shift, mass lesion, hemorrhage or acute infarction. No extraaxial f luid collections are seen. Posterior Fossa: The cerebellum and brainstem are intact. The 4th ventricle is midline. The cerebe llopontine angle is unremarkable. Extracranial: The visualized portion of the orbits is intact. Skull: The calvaria is intact. No evidence of skull fracture. CONCLUSION: 1. No acute intracranial abnormality. 2. Stable ventriculomegaly with shunt. . Electronically signed by: Servando Matt MD Board Certified Radiologist 07/28/2018 4:19 PM EST
[2018-07-28] MEDS ORDERED: Bisacodyl 10 MG Supp RECTAL PRN (16:44)
[2018-07-28] MEDS ORDERED: Acetaminophen 325 MG Tablet PO PRN (16:44)
[2018-07-28] MEDS ORDERED: Enoxaparin Inj 40 MG/0.4 ML Syringe SQ SCH ×2 (16:45→16:48)
[2018-07-28] MEDS: amLODIPine 10 MG Tablet PO SCH (17:40)
[2018-07-28] MEDS: Sod Chloride 0.9% Inj 1,000 ML IV.CONT SCH (17:49)
--- NOTE | 2018-07-28 18:36 | P.HPIM ---
History of Present Illness Primary Care Physician: UNKNOWN Chief Complaint: Altered mental status History of Present Illness: Patient is a 68-year-old female apparently with a history of dementia schizophrenia normally feeds herself but is normally not oriented according to EMS report presents emergency department for evaluation of increased altered mental status. 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 The patient would not converse with me and would not follow any commands on my examination, her eyes are open and she does track me around the room and she is fairly alert. She did verbalize to nurse her name. This significantly limits further history. The patient is found with UTI and sepsis she is admitted in the hospital for further evaluation and treatment. Inpatient Certification Inpatient Certification: I certify that the inpatient services were ordered in accordance with Medicare regulations governing the order. This includes certification that hospital inpatient services are reasonable and necessary and in the case of services not specified as inpatient-only under 42 CFR 419.22(n), that they are appropriately provided as inpatient services in accordance to with the 2-midnight benchmark under 43 CFR 412.3(e) Estimated Total Length of Stay (Days): 4 Plans for Post Hospital Care: Not yet determined Review of Systems Records reviewed, history obtained from records and staff ROS Unobtainable: unobtainable due to mental condition and unobtainable due to mental status PMFSH Medical History Medical History COPD (chronic obstructive pulmonary disease) (Acute) Depression (Acute) GERD (gastroesophageal reflux disease) (Acute) HTN (hypertension) (Acute) Hx of cardiac arrhythmia (Acute) PTSD (post-traumatic stress disorder) (Acute) Schizo affective schizophrenia (Acute) Surgical History Surgical History History of brain shunt (Acute) Family History Family History Other Family history unknown Social History Social History Substance History: Unable to Obtain Second Hand Smoke Exposure: No Smoking Status: Cognitive impairment Tobacco Type: Cigarettes and Cigars How Often Do You Have a Drink Containing Alcohol: Unable to Obtain Recent Travel in [facility] within the Last 8 Weeks: No Recent Out of Country Travel within the Last 8 Weeks: No Immunization History Tetanus Immunization: Unsure Medications and Allergies Allergies Allergy/AdvReac Type Severity Reaction Status Date / Time lisinopril Allergy Severe Swelling Verified 07/28/18 14:15 Home Medications Medication Instructions Recorded Confirmed Type acetaminophen 325 mg PO BID PRN 04/04/18 07/28/18 History anastrozole 1 mg PO DAILY 04/04/18 07/28/18 History aspirin [Aspir-81] 81 mg PO DAILY 04/04/18 07/28/18 History atorvastatin 40 mg PO HS 04/04/18 07/28/18 History benztropine 1.5 mg PO HS 04/04/18 07/28/18 History bupropion HCl [Wellbutrin SR] 150 mg PO DAILY 04/04/18 07/28/18 History famotidine 20 mg PO BID 04/04/18 07/28/18 History furosemide 20 mg PO DAILY 04/04/18 07/28/18 History levothyroxine 112 mcg PO DAILY 04/04/18 07/28/18 History sennosides-docusate sodium [Senna 1 tab PO BID 04/04/18 07/28/18 History with Docusate Sodium] alprazolam 0.5 mg PO DAILY 07/28/18 07/28/18 History benztropine 1 mg PO QAM 07/28/18 07/28/18 History potassium chloride 20 meq PO DAILY 07/28/18 07/28/18 History Active Medications: Active Medications Acetaminophen (Tylenol) 650 mg PO Q4H PRN PRN Reason: Temp > 100.4 Al Hydroxide/Mg Hydroxide (Milk Of Magnesia Liq) 30 ml PO Q12H PRN PRN Reason: Mild Constipation Amlodipine Besylate (Norvasc) 10 mg PO DAILY [facility] Last Admin: 07/28/18 17:40 Dose: 10 mg Anastrozole (Arimidex) 1 mg PO DAILY [facility] Aspirin (Ecotrin) 81 mg PO DAILY [facility] Atorvastatin Calcium (Lipitor) 40 mg PO HS [facility] Benztropine Mesylate (Cogentin) 1.5 mg PO HS [facility] Benztropine Mesylate (Cogentin) 1 mg PO DAILY [facility] Bisacodyl (Dulcolax Supp) 10 mg RECTAL DAILY PRN PRN Reason: SEVERE CONSITIPATION Bupropion HCl (Wellbutrin Sr) 150 mg PO DAILY [facility] Enoxaparin Sodium (Lovenox Inj) 30 mg SQ Q24H [facility] Famotidine (Pepcid) 10 mg PO BID [facility] Furosemide (Lasix) 20 mg PO DAILY [facility] Ceftriaxone Sodium 1,000 mg/ (Sodium Chloride) 100 mls @ 200 mls/hr IV.SIG Q24H [facility] Sodium Chloride (Ns Inj) 1,000 mls @ 70 mls/hr IV.CONT .[id number] [facility] Last Admin: 07/28/18 17:49 Dose: 70 mls/hr Lactulose (Lactulose Liq) 30 ml PO DAILY PRN PRN Reason: SEVERE CONSITIPATION Levothyroxine Sodium (Synthroid) 112 mcg PO DAILY@0600 [facility] Miscellaneous (Pill Splitter) 1 each OTHER UNSCH PRN PRN Reason: PILL SPLITTER Ondansetron HCl (Zofran Inj) 4 mg IV.PUSH Q6H PRN PRN Reason: NAUSEA OR VOMITING Potassium Chloride (K-Dur) 20 meq PO DAILY [facility] Senna/Docusate Sodium (Asuncion-Colace) 1 tab PO BID [facility] Sennosides (Senokot) 17.2 mg PO Q12H PRN PRN Reason: Moderate Constipation Sodium Chloride (Ns Flush) 2 ml IV.FLUSH BID [facility] Sodium Chloride (Ns Flush) 2 ml IV.FLUSH UNSCH PRN PRN Reason: FLUSH AFTER USING IV ACCESS Physical Exam Vital signs: Vital Signs 07/28/18 13:58 07/28/18 14:36 07/28/18 16:44 Temperature 99.3 F Pulse Rate 106 H 102 H 109 H Respiratory Rate 21 21 Blood Pressure 123/64 Pulse Oximetry 100 100 100 07/28/18 17:33 07/28/18 17:34 Temperature Pulse Rate 110 H 106 H Respiratory Rate 14 Blood Pressure 123/82 Pulse Oximetry 94 L Intake & Output 07/27/18 07/28/18 07/28/18 18:59 06:59 18:59 Intake Total 1100 / 1100 Balance 1100 / 1100 Weight 45.359 kg Intake: IV 1100 / 1100 NS Inj 1,000 ML @ 1000 mls/hr 1000 / 1000 IV.SIG BOLUS [facility] Rx#:[id number] Rocephin Inj 1,000 MG In NS Inj 100 / 100 100 ML @ 200 mls/hr IV.SIG ONCE ONE Rx#:[id number] Other: # Voids 1 Narrative: GENERAL: Well-developed, very thin 68 yo female, appears in nad. SKIN: warm/dry. HEAD: Small bruise noted to right forehead, no joyce signs no raccoon's eyes. Normocephalic. EYES: No scleral icterus. No injection or drainage. ENT: No nasal bleeding or discharge. Mucous membranes pink and moist. NECK: Trachea midline. No JVD. CARDIOVASCULAR: Regular rhythm with mild tachycardia. RESPIRATORY: No accessory muscle use. Clear to auscultation. Breath sounds equal bilaterally. GASTROINTESTINAL: Abdomen soft, non-tender, nondistended. Hepatic and splenic margins not palpable. MUSCULOSKELETAL: No obvious deformities. No clubbing. No cyanosis. No edema. NEUROLOGICAL: Awake and alert. We will not participate in neurologic exam. Does move all 4 extremities. Per records patient appears to be at baseline mentation. PSYCHIATRIC: Unable to assess, however per records patient is at baseline Urinary Catheter Management Straight: Cath placed during this visit: yes Reason for continuing: Not indwelling catheter Insertion date: 07/28/18 Insertion time: 14:20 Results Labs CBC & Chem 7: 07/28/18 14:25 07/28/18 14:[address] 07/28/18 14:15 CONCLUSION: 1. No acute intracranial abnormality. 2. Stable ventriculomegaly with shunt. . Shunt Study 07/28/18 14:15 CONCLUSION: Unremarkable exam. Caprini VTE Risk Assessment Caprini VTE Risk Assessment: Moderate/High Risk (score >= 2) Caprini Risk Assessment Model: Point Value = 1 Point Value = 2 Point Value = 3 Point Value = 5 Age 41-60 Minor surgery BMI > 25 kg/m2 Swollen legs Varicose veins or History of unexplained or recurrent spontaneous Oral contraceptives or hormone replacement Sepsis (< 1 month) Serious lung disease, including pneumonia (< 1 month) Abnormal pulmonary function Acute myocardial infarction Congestive heart failure (< 1 month) History of inflammatory bowel disease Medical patient at bed rest Age 61-74 Arthroscopic surgery Major open surgery (> 45 min) Laparoscopic surgery (> 45 min) Malignancy Confined to bed (> 72 hours) Immobilizing plaster cast Central venous access Age >= 75 History of VTE Family history of VTE Factor V Leiden Prothrombin [id number] Lupus anticoagulant Anticardiolipin antibodies Elevated serum homocysteine Heparin-induced thrombocytopenia Other congenital or acquired thrombophilia Stroke (< 1 month) Elective arthroplasty Hip, pelvis, or leg fracture Acute spinal cord injury (< 1 month) Prophylaxis Regimen: Total Risk Factor Score Risk Level Prophylaxis Regimen 0-1 Low Early ambulation 2 Moderate Order ONE of the following: *Sequential Compression Device (SCD) *Heparin 5000 units SQ BID 3-4 Higher Order ONE of the following medications: *Heparin 5000 units SQ TID *Enoxaparin/Lovenox 40 mg SQ daily (WT < 150 kg, CrCl > 30 mL/min) *Enoxaparin/Lovenox 30 mg SQ daily (WT < 150 kg, CrCl > 10-29 mL/min) *Enoxaparin/Lovenox 30 mg SQ BID (WT < 150 kg, CrCl > 30 mL/min) AND/OR *Sequential Compression Device (SCD) 5 or more Highest Order ONE of the following medications: *Heparin 5000 units SQ TID (Preferred with Epidurals) *Enoxaparin/Lovenox 40 mg SQ daily (WT < 150 kg, CrCl > 30 mL/min) *Enoxaparin/Lovenox 30 mg SQ daily (WT < 150 kg, CrCl > 10-29 mL/min) *Enoxaparin/Lovenox 30 mg SQ BID (WT < 150 kg, CrCl > 30 mL/min) AND *Sequential Compression Device (SCD) Assessment and Plan Plan 68-year-old female apparently with a history of dementia schizophrenia normally feeds herself but is normally not oriented according to EMS report presents emergency department for evaluation of increased altered mental status. 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 The patient is found with UTI and sepsis on admission she is admitted for further evaluation and treatment. 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
[2018-07-28] MEDS: Enoxaparin Inj 30 MG/0.3 ML Syringe SQ SCH (21:43)
[2018-07-28] MEDS: Famotidine 20 MG Tablet PO SCH (21:43)
[2018-07-28] MEDS: Senna/Docusate Sodium 8.6/50 MG Tablet PO SCH (21:43)
[2018-07-29 04:54] LABS: Baso % (Auto) 0.3 % (0.0-2.0); Eos % (Auto) 0.2 % (0.0-4.0); Hematocrit 32.6 % (35.0-46.0); Hemoglobin 11.2 gm/dL (11.6-15.3); Mean Corpuscular HGB Conc 34.3 % (32.0-36.0); Mean Corpuscular Hemoglobin 32.3 pg (27.0-34.0); Mean Corpuscular Volume 94.2 fL (80.0-100.0); Mean Platelet Volume 8.2 fL (7.0-11.0); Mono # (Auto) 0.5 th/mm3 (0.0-0.9); Mono % (Auto) 5.1 % (0.0-8.0); Neut # (Auto) 8.8 th/mm3 (1.8-7.7); Neut % (Auto) 84.4 % (16.0-70.0); Platelet Count 238 th/mm3 (150-450); Red Blood Count 3.46 mil/mm3 (4.00-5.30); Red Cell Distribution Width 15.8 % (11.6-17.2); White Blood Count 10.4 th/mm3 (4.0-11.0)
[2018-07-29 05:14] LABS: Calcium 8.6 mg/dL (8.5-10.1); Potassium 3.4 meq/L (3.5-5.1)
[2018-07-29] MEDS: Levothyroxine 112 MCG Tablet PO SCH (05:32)
[2018-07-29] MEDS: Furosemide 20 MG Tablet PO SCH (09:52)
[2018-07-29] MEDS: Senna/Docusate Sodium 8.6/50 MG Tablet PO SCH ×2 (09:52→20:44)
[2018-07-29] MEDS: Famotidine 20 MG Tablet PO SCH ×2 (09:52→20:44)
[2018-07-29] MEDS: Anastrozole 1 MG Tablet PO SCH (09:54)
[2018-07-29] MEDS: buPROPion 150 MG 12 HR Tablet PO SCH (09:55)
[2018-07-29] MEDS: amLODIPine 10 MG Tablet PO SCH (09:55)
[2018-07-29] MEDS ORDERED: Vancomycin Consult Pharmacy OTHER PRN (11:33)
[2018-07-29] MEDS ORDERED: Vancomycin Inj 1,000 MG in Sodium Chlor 0.9% Inj 250 ML IV.SIG ONE (11:34)
[2018-07-29] MEDS: Sod Chloride 0.9% Inj 1,000 ML IV.CONT SCH ×2 (12:22→20:45)
--- NOTE | 2018-07-29 13:18 | P.PNIM ---
Subjective Interval history: Follow up for Sepsis, UTI: Patient seen and examined, opens eyes, not verbalizing much. Not following commands. No fever. Difficult to obtain ROS. Discussed with RN, no acute changes overnight. Physical Exam Vital signs: Vital Signs 07/28/18 13:58 07/28/18 14:36 07/28/18 16:44 Temperature 99.3 F Pulse Rate 106 H 102 H 109 H Respiratory Rate 21 21 Blood Pressure 123/64 Pulse Oximetry 100 100 100 07/28/18 17:33 07/28/18 17:34 07/28/18 20:00 Temperature 98.0 F Pulse Rate 110 H 106 H 107 H Respiratory Rate 14 20 Blood Pressure 123/82 148/79 H Pulse Oximetry 94 L 97 07/29/18 00:00 07/29/18 04:00 07/29/18 07:30 Temperature 97.7 F 97.0 F L 97.5 F L Pulse Rate 95 H 87 Respiratory Rate 18 18 20 Blood Pressure 122/60 120/65 119/56 L Pulse Oximetry 96 99 98 07/29/18 11:53 Temperature 97.8 F Pulse Rate 82 Respiratory Rate 20 Blood Pressure 103/62 Pulse Oximetry 98 Intake & Output 07/28/18 07/29/18 07/29/18 18:59 06:59 18:59 Intake Total 1100 / 1100 0 / 0 600 / 600 Balance 1100 / 1100 0 / 0 600 / 600 Weight 45.359 kg 47 kg Intake: IV 1100 / 1100 600 / 600 NS Inj 1,000 ML @ 70 mls/hr IV. 600 / 600 CONT .[id number] [facility] Rx#:[id number] NS Inj 1,000 ML @ 1000 mls/hr 1000 / 1000 IV.SIG BOLUS [facility] Rx#:[id number] Rocephin Inj 1,000 MG In NS Inj 100 / 100 100 ML @ 200 mls/hr IV.SIG ONCE ONE Rx#:[id number] Oral 0 / 0 Other: # Voids 1 1 Date of Last Bowel Movement 07/26/18 Narrative: GENERAL: 88-year-old thin built, female, appears older than stated age SKIN: warm/dry. HEAD: Small bruise noted to right forehead, Normocephalic. EYES: No scleral icterus. No injection or drainage. ENT: No nasal bleeding or discharge. Mucous membranes pink and moist. NECK: Trachea midline. No JVD. CARDIOVASCULAR: Regular rhythm with mild tachycardia. RESPIRATORY: No accessory muscle use. Clear to auscultation. Breath sounds equal bilaterally. GASTROINTESTINAL: Abdomen soft, non-tender, nondistended. Hepatic and splenic margins not palpable. MUSCULOSKELETAL: No obvious deformities. No clubbing. No cyanosis. No edema. NEUROLOGICAL: Awake and alert. Does move all 4 extremities. Does not verbalize. PSYCHIATRIC: Unable to assess. Urinary Catheter Management Straight: Cath placed during this visit: yes Reason for continuing: Not indwelling catheter Insertion date: 07/28/18 Insertion time: 14:20 Results Labs CBC & Chem 7: 07/29/18 04:08 07/29/18 04:09 Labs: Microbiology 07/28/18 14:29 Blood - Peripheral Aerobic Blood Culture - Preliminary No growth in 1 day 07/28/18 14:29 Blood - Peripheral Anaerobic Blood Culture - Preliminary Group B beta Strep 07/28/18 14:30 Blood - Peripheral Aerobic Blood Culture - Preliminary No growth in 1 day 07/28/18 14:30 Blood - Peripheral Anaerobic Blood Culture - Preliminary gram positive cocci Imaging Imaging: Impressions Head CT 07/28/18 14:15 CONCLUSION: 1. No acute intracranial abnormality. 2. Stable ventriculomegaly with shunt. . Shunt Study 07/28/18 14:15 CONCLUSION: Unremarkable exam. Assessment and Plan (1) Sepsis: Code(s): A41.9 - Sepsis, unspecified organism Status: Acute (2) Acute UTI: Code(s): N39.0 - Urinary tract infection, site not specified Status: Acute (3) Schizophrenia: Code(s): F20.9 - Schizophrenia, unspecified Status: Chronic (4) Dementia: Code(s): F03.90 - Unspecified dementia without behavioral disturbance Status: Chronic (5) Hypertension, uncontrolled: Code(s): I10 - Essential (primary) hypertension Status: Chronic (6) Acute metabolic encephalopathy: Code(s): G93.41 - Metabolic encephalopathy Status: Acute Plan Patient is a 68-year-old female apparently with a history of dementia schizophrenia normally feeds herself but is normally not oriented. Per EMS report presented to emergency department for evaluation of increased altered mental status. 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 Pt. unable to provide any history, per review of EMR, pt. aphasic. Found with UTI and sepsis. Sepsis on admission with bandemia and tachycardia, UTI -Continue with IV fluids--Normal saline at 70 an hour Continue with Rocephin 1 g IV daily Follow urine cultures, Urine culture positive for gram-negative rods Blood cultures positive for gram-positive cocci -Add 1 g of Vanco, pharmacy for consult -May need ID consult, follow cultures VETO Secondary to dehydration Continue with IV fluids Avoid nephrotoxic agents Follow BMP -Replace potassium -Creatinine improved Acute metabolic encephalopathy, secondary to infection, also with history of schizophrenia, dementia -Continue Cogentin -Continue Wellbutrin History of [employer] shunt -[employer] shunt study done, findings stable Hypertension Continue Norvasc 10 mg p.o. daily Continue Lasix 20 mg p.o. daily/Continue replacement potassium daily -Monitor blood pressure and adjust as necessary History of breast cancer -Continue with anastrozole 1 mg p.o. daily Lovenox for DVT prophylaxis Pepcid for GI prophylaxis Physical therapy evaluation Follow labs in the morning Code Status: Full code Discussed Condition With: RN, Dr. Hiral Solis CM Discharge Planning: Poss dc in 2 days back to SNF Progress Note: Quality VTE Deep Vein Thrombosis/Pulmonary Embolism Present on Admission: No _ (1) Dementia Qualifiers: Alzheimer's disease onset: Dementia behavioral disturbance: Dementia type : (2) Schizophrenia Qualifiers: Schizophrenia type: (3) Sepsis Qualifiers: Sepsis type:
--- NOTE | 2018-07-29 14:04 | ECG ---
Date Performed: 07/28/2018 Time Performed: 15:07:18 PTAGE: 68 years EKG: SINUS TACHYCARDIA NONSPECIFIC T-WAVE ABNORMALITY ABNORMAL RHYTHM ECG Since the PREVIOUS TRACING , no significant change noted PREVIOUS TRACIN06/03/2018 04.20 DOCTOR: Alfredo Mendieta Interpretating Date/Time 07/29/2018 14:03:58
[2018-07-29] MEDS: Enoxaparin Inj 30 MG/0.3 ML Syringe SQ SCH (17:51)
[2018-07-29] MEDS: Vancomycin Inj 750 MG in Sodium Chlor 0.9% Inj 250 ML IV.SIG SCH (17:51)
[2018-07-30] MEDS: Levothyroxine 112 MCG Tablet PO SCH (05:35)
[2018-07-30 07:56] LABS: Calcium 8.7 mg/dL (8.5-10.1); Carbon Dioxide 26.4 meq/L (21.0-32.0); Potassium 3.2 meq/L (3.5-5.1)
[2018-07-30] MEDS ORDERED: Magnesium Oxide 400 MG Tablet PO ONE (09:26)
[2018-07-30] MEDS: Senna/Docusate Sodium 8.6/50 MG Tablet PO SCH ×2 (09:41→22:39)
[2018-07-30] MEDS: Furosemide 20 MG Tablet PO SCH (09:41)
[2018-07-30] MEDS: buPROPion 150 MG 12 HR Tablet PO SCH (09:42)
[2018-07-30] MEDS: Famotidine 20 MG Tablet PO SCH ×2 (09:43→22:39)
[2018-07-30] MEDS: Anastrozole 1 MG Tablet PO SCH (09:43)
[2018-07-30] MEDS: amLODIPine 10 MG Tablet PO SCH (10:01)
[2018-07-30] MEDS: Sod Chloride 0.9% Inj 1,000 ML IV.CONT SCH ×2 (10:27→15:36)
--- NOTE | 2018-07-30 13:32 | P.PNIM ---
Subjective Interval history: Follow up on patient with sepsis, UTI. Patient seen and examined. Patient encountered in her room voraciously eating breakfast with assistance. Patient does not indicate that she is in any pain. Discussed with nursing staff, no adverse events noted overnight. Physical Exam Vital signs: Vital Signs 07/29/18 16:00 07/29/18 20:00 07/29/18 23:33 Temperature 98.5 F 98.9 F 98.5 F Pulse Rate 80 89 89 Respiratory Rate 17 16 17 Blood Pressure 116/60 166/88 H 126/82 Pulse Oximetry 95 100 100 07/30/18 03:15 07/30/18 04:21 07/30/18 08:00 Temperature 98.9 F 98.8 F Pulse Rate 91 H 95 H 87 Respiratory Rate 17 16 Blood Pressure 140/80 110/81 Pulse Oximetry 99 94 L 07/30/18 12:00 Temperature 98.4 F Pulse Rate 87 Respiratory Rate 18 Blood Pressure 115/58 L Pulse Oximetry 100 Intake & Output 07/29/18 07/30/18 07/30/18 18:59 06:59 18:59 Intake Total 700 / 700 1037.5 / 1037.5 1000 / 1000 Output Total 580 / 580 Balance 700 / 700 457.5 / 457.5 1000 / 1000 Weight 47 kg Intake: IV 700 / 700 657.5 / 657.5 1000 / 1000 NS Inj 1,000 ML @ 70 mls/hr IV. 600 / 600 400 / 400 1000 / 1000 CONT .[id number] [facility] Rx#:[id number] Vancomycin Inj 750 MG In NS Inj 257.5 / 257.5 250 ML @ 250 mls/hr IV.SIG Q24H [facility] Rx#:[id number] Rocephin Inj 1,000 MG In NS Inj 100 / 100 100 ML @ 200 mls/hr IV.SIG Q24H [facility] Rx#:[id number] Oral 380 / 380 Output: Urine 580 / 580 Other: # Voids 3 Date of Last Bowel Movement 07/26/18 07/26/18 07/26/18 Narrative: GENERAL: This is a well-developed well-nourished elderly female patient, who appears older than stated age, no acute distress. Awake. SKIN: Warm/dry, no generalized rash. HEAD: Small bruise noted to right forehead, Normocephalic. EYES: Pupils equal and round. No scleral icterus. ENT: No nasal discharge. Mucous membranes pink and moist. NECK: Trachea midline. CARDIOVASCULAR: Regular rate and rhythm RESPIRATORY: No accessory muscle use. Clear to auscultation. Breath sounds equal bilaterally. GASTROINTESTINAL: Abdomen soft, non-tender, nondistended. MUSCULOSKELETAL: No obvious deformities. No edema noted. NEUROLOGICAL: Awake and alert. +Aphasia. Does not follow commands. Able to move all extremities spontaneously. PSYCHIATRIC: Unable to assess. Urinary Catheter Management Straight: Cath placed during this visit: yes Reason for continuing: Not indwelling catheter Insertion date: 07/28/18 Insertion time: 14:20 Results Labs CBC & Chem 7: 07/29/18 04:08 07/30/18 06:41 Labs: Microbiology 07/28/18 14:30 Blood - Peripheral Aerobic Blood Culture - Preliminary No growth in 2 days 07/28/18 14:30 Blood - Peripheral Anaerobic Blood Culture - Preliminary gram positive cocci 07/28/18 14:29 Blood - Peripheral Aerobic Blood Culture - Preliminary No growth in 2 days 07/28/18 14:29 Blood - Peripheral Anaerobic Blood Culture - Preliminary Group B beta Strep 07/28/18 14:25 Catheterized Urine Urine Culture - Final Escherichia coli Assessment and Plan (1) Sepsis: Code(s): A41.9 - Sepsis, unspecified organism Status: Acute (2) Acute UTI: Code(s): N39.0 - Urinary tract infection, site not specified Status: Acute (3) Schizophrenia: Code(s): F20.9 - Schizophrenia, unspecified Status: Chronic (4) Dementia: Code(s): F03.90 - Unspecified dementia without behavioral disturbance Status: Chronic (5) Hypertension, uncontrolled: Code(s): I10 - Essential (primary) hypertension Status: Chronic (6) Acute metabolic encephalopathy: Code(s): G93.41 - Metabolic encephalopathy Status: Acute Plan 68-year-old female apparently with a history of dementia schizophrenia normally feeds herself but is normally not oriented. Per EMS report presented to emergency department for evaluation of increased altered mental status. 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 Pt. unable to provide any history, per review of EMR, pt. aphasic. Found with UTI and sepsis. Sepsis on admission with bandemia and tachycardia, UTI, improved Bacteremia -ID consulted, appreciate assistance -BCX + GPC and group B beta strep -UCX +E coli -Continue on IV vancomycin and Rocephin pending ID eval/recs -Follow blood cultures until finalized VETO Secondary to dehydration, resolved s/p IVF hydration -D/C IV fluids -Avoid nephrotoxic agents -Continue to monitor renal indices as indicated Acute metabolic encephalopathy, secondary to infection, also with history of schizophrenia, dementia Aphasia -suspect patient has returned to baseline mentation -Continue Cogentin -Continue Wellbutrin -consult speech therapy for swallow evaluation History of ROUTER OPERATOR RADIAL shunt -ROUTER OPERATOR RADIAL shunt study done, findings stable Hypertension -Continue Norvasc 10 mg p.o. daily -Continue Lasix 20 mg p.o. daily/Continue replacement potassium daily -Monitor blood pressure and adjust as necessary Hypokalemia -K 3.2, mag level 1.5 -po repletion ordered -repeat BMP in am History of breast cancer -Continue with anastrozole 1 mg p.o. daily Lovenox for DVT prophylaxis Pepcid for GI prophylaxis Code Status: FULL Discussed Condition With: patient, nursing staff, Dr. Bell Progress Note: Quality VTE Deep Vein Thrombosis/Pulmonary Embolism Present on Admission: No _ (1) Dementia Qualifiers: Alzheimer's disease onset: Dementia behavioral disturbance: Dementia type : (2) Schizophrenia Qualifiers: Schizophrenia type: (3) Sepsis Qualifiers: Sepsis type:
[2018-07-30] MEDS: Vancomycin Inj 750 MG in Sodium Chlor 0.9% Inj 250 ML IV.SIG SCH (14:03)
[2018-07-30] MEDS: Enoxaparin Inj 30 MG/0.3 ML Syringe SQ SCH (17:07)
--- NOTE | 2018-07-30 18:12 | P.CONID ---
History of Present Illness Service: ID Consult date: 07/30/18 Requesting Physician: Nessa Mccollum Reason for Consult: bacteremia UTI Primary Care Provider: UNKNOWN Chief Complaint: Altered mental status History of Present Illness: Pt is unable to provide meaningful history HIstory obtained thru the chart 68-year-old female apparently with a history of dementia schizophrenia and DATABASE ARCHITECT shunt presents emergency department for evaluation of increased altered mental status. The patient would not converse with me and would not follow any commands on my examination, her eyes are open and she does track me around the room and she is fairly alert. Initial w/u showed abnormal UA with pyuria, urine clx + for E.coli Pt has also bacteremia 2/2 group B strap Pt denies abdominal pain or headach Pt is on ROcvephin and vancomycin CT head with stable venticulomegaly and shunt Review of Systems unobtainable due to mental status PMFSH - History History Provided By: Medical Record - Medical History Medical History: Medical History (Last Reviewed 07/28/18 @ 18:28 by Fabi Kolb MD) COPD (chronic obstructive pulmonary disease) Depression GERD (gastroesophageal reflux disease) HTN (hypertension) Hx of cardiac arrhythmia PTSD (post-traumatic stress disorder) Schizo affective schizophrenia - Surgical History Surgical History: Surgical History (Last Reviewed 07/28/18 @ 18:28 by Fabi Kolb MD) History of brain shunt - Family History Family History: Family History (Last Reviewed 07/28/18 @ 18:28 by Fabi Kolb MD) Other Family history unknown - Tobacco History Second Hand Smoke Exposure: No Smoking Status: Cognitive impairment Tobacco Type: Cigarettes, Cigars - Alcohol History How Often Do You Have a Drink Containing Alcohol: Unable to Obtain - Substance Use History Substance History: Unable to Obtain - Travel History Recent Travel in the [place] Within the Last 8 Weeks: No Recent Travel Out of the Country Within the Last 8 Weeks: No - Immunization History Tetanus Immunization: Unsure Medications and Allergies Active Medications: Active Medications Acetaminophen (Tylenol) 650 mg PO Q4H PRN PRN Reason: Temp > 100.4 Al Hydroxide/Mg Hydroxide (Milk Of Magnesia Liq) 30 ml PO Q12H PRN PRN Reason: Mild Constipation Amlodipine Besylate (Norvasc) 10 mg PO DAILY [facility] Last Admin: 07/30/18 10:01 Dose: 10 mg Anastrozole (Arimidex) 1 mg PO DAILY [facility] Last Admin: 07/30/18 09:43 Dose: 1 mg Aspirin (Ecotrin) 81 mg PO DAILY [facility] Last Admin: 07/30/18 09:42 Dose: 81 mg Atorvastatin Calcium (Lipitor) 40 mg PO HS [facility] Last Admin: 07/29/18 20:45 Dose: 40 mg Benztropine Mesylate (Cogentin) 1.5 mg PO HS [facility] Last Admin: 07/29/18 20:44 Dose: 1.5 mg Benztropine Mesylate (Cogentin) 1 mg PO DAILY [facility] Last Admin: 07/30/18 10:00 Dose: 1 mg Bisacodyl (Dulcolax Supp) 10 mg RECTAL DAILY PRN PRN Reason: SEVERE CONSITIPATION Bupropion HCl (Wellbutrin Sr) 150 mg PO DAILY [facility] Last Admin: 07/30/18 09:42 Dose: 150 mg Enoxaparin Sodium (Lovenox Inj) 30 mg SQ Q24H [facility] Last Admin: 07/30/18 17:07 Dose: 30 mg Famotidine (Pepcid) 10 mg PO BID [facility] Last Admin: 07/30/18 09:43 Dose: 10 mg Furosemide (Lasix) 20 mg PO DAILY [facility] Last Admin: 07/30/18 09:41 Dose: 20 mg Ceftriaxone Sodium 1,000 mg/ (Sodium Chloride) 100 mls @ 200 mls/hr IV.SIG Q24H [facility] Last Admin: 07/30/18 16:46 Dose: 200 mls/hr Sodium Chloride (Ns Inj) 1,000 mls @ 70 mls/hr IV.CONT .[id number] [facility] Last Admin: 07/30/18 15:36 Dose: Not Given Vancomycin HCl 750 mg/ Sodium (Chloride) 257.5 mls @ 250 mls/hr IV.SIG Q24H [facility] Last Infusion: 07/30/18 15:05 Dose: Infused Lactulose (Lactulose Liq) 30 ml PO DAILY PRN PRN Reason: SEVERE CONSITIPATION Levothyroxine Sodium (Synthroid) 112 mcg PO DAILY@0600 [facility] Last Admin: 07/30/18 05:35 Dose: 112 mcg Miscellaneous (Pill Splitter) 1 each OTHER UNSCH PRN PRN Reason: PILL SPLITTER Miscellaneous Information ([facility] Ordered Lab Info) 1 each OTHER ONCE ONE Stop: 08/01/18 13:46 Ondansetron HCl (Zofran Inj) 4 mg IV.PUSH Q6H PRN PRN Reason: NAUSEA OR VOMITING Pharmacy Profile Note (Vancomycin Consult Pharmacy) 1 each OTHER UNSCH PRN PRN Reason: Pharmacy to dose Potassium Chloride (K-Dur) 20 meq PO DAILY [facility] Last Admin: 07/30/18 10:00 Dose: 20 meq Senna/Docusate Sodium (Asuncion-Colace) 1 tab PO BID [facility] Last Admin: 07/30/18 09:41 Dose: 1 tab Sennosides (Senokot) 17.2 mg PO Q12H PRN PRN Reason: Moderate Constipation Sodium Chloride (Ns Flush) 2 ml IV.FLUSH BID [facility] Last Admin: 07/30/18 09:50 Dose: 2 ml Sodium Chloride (Ns Flush) 2 ml IV.FLUSH UNSCH PRN PRN Reason: FLUSH AFTER USING IV ACCESS Allergies Allergy/AdvReac Type Severity Reaction Status Date / Time lisinopril Allergy Severe Swelling Verified 07/28/18 14:15 Home Medications Medication Instructions Recorded Confirmed Type acetaminophen 325 mg PO BID PRN 04/04/18 07/28/18 History anastrozole 1 mg PO DAILY 04/04/18 07/28/18 History aspirin [Aspir-81] 81 mg PO DAILY 04/04/18 07/28/18 History atorvastatin 40 mg PO HS 04/04/18 07/28/18 History benztropine 1.5 mg PO HS 04/04/18 07/28/18 History bupropion HCl [Wellbutrin SR] 150 mg PO DAILY 04/04/18 07/28/18 History famotidine 20 mg PO BID 04/04/18 07/28/18 History furosemide 20 mg PO DAILY 04/04/18 07/28/18 History levothyroxine 112 mcg PO DAILY 04/04/18 07/28/18 History sennosides-docusate sodium [Senna 1 tab PO BID 04/04/18 07/28/18 History with Docusate Sodium] alprazolam 0.5 mg PO DAILY 07/28/18 07/28/18 History benztropine 1 mg PO QAM 07/28/18 07/28/18 History potassium chloride 20 meq PO DAILY 07/28/18 07/28/18 History Exam Vital signs: Vital Signs 07/29/18 20:00 07/29/18 23:33 07/30/18 03:15 Temperature 98.9 F 98.5 F Pulse Rate 89 89 91 H Respiratory Rate 16 17 Blood Pressure 166/88 H 126/82 Pulse Oximetry 100 100 07/30/18 04:21 07/30/18 08:00 07/30/18 12:00 Temperature 98.9 F 98.8 F 98.4 F Pulse Rate 95 H 82 87 Respiratory Rate 17 16 18 Blood Pressure 140/80 110/81 115/58 L Pulse Oximetry 99 94 L 100 07/30/18 16:00 Temperature 97.9 F Pulse Rate 86 Respiratory Rate 17 Blood Pressure 118/90 Pulse Oximetry 97 Intake & Output 07/29/18 07/30/18 07/30/18 18:59 06:59 18:59 Intake Total 700 / 700 1037.5 / 1037.5 1457.5 / 1457.5 Output Total 580 / 580 Balance 700 / 700 457.5 / 457.5 1457.5 / 1457.5 Weight 47 kg Intake: IV 700 / 700 657.5 / 657.5 1457.5 / 1457.5 NS Inj 1,000 ML @ 70 mls/hr IV. 600 / 600 400 / 400 1000 / 1000 CONT .[id number] [facility] Rx#:[id number] Vancomycin Inj 750 MG In NS Inj 257.5 / 257.5 257.5 / 257.5 250 ML @ 250 mls/hr IV.SIG Q24H [facility] Rx#:[id number] Rocephin Inj 1,000 MG In NS Inj 100 / 100 100 ML @ 200 mls/hr IV.SIG Q24H [facility] Rx#:[id number] Oral 380 / 380 Output: Urine 580 / 580 Other: # Voids 3 Date of Last Bowel Movement 07/26/18 07/26/18 07/26/18 - Constitutional no acute distress, thin - Routine HEENT Exam Head: Present: normocephalic, atraumatic Eye: Present: EOMI, PERRL ENT: Present: mucous membranes dry. Absent: dentition normal (edentuoous) Comments: SHunt reservoir palpable R paretal area - Routine Neck Exam Present: supple. Absent: JVD, lymphadenopathy - Routine Respiratory Exam Present: CTA bilaterally. Absent: accessory muscle use, decreased breath sounds - Routine Cardiovascular Exam Present: RRR, S1, S2. Absent: murmur, gallop, rubs - Routine Abdominal Exam Present: soft, normoactive bowel sounds. Absent: tenderness, distended - Routine Extremities Exam Absent: cyanosis, clubbing, edema - Routine Skin Exam Present: intact. Absent: cyanosis, rash - Routine Neurological Exam Present: alert, moving all extremities. Absent: oriented X3, CN II-XII intact, normal speech (incoherent speech) Results - Labs CBC & Chem 7: 07/29/18 04:08 07/30/18 06:41 Labs: Laboratory Results - last 24 hr 07/30/18 07/30/18 07/30/18 06:41 06:41 13:59 Sodium 138 Potassium 3.2 L Chloride 105 Carbon Dioxide 26.4 Anion Gap 7 BUN 15 Creatinine 0.83 Estimated GFR 68 L POC Glucose 128 H Random Glucose 142 H Calcium 8.7 Magnesium 1.5 - Imaging Head CT 07/28/18 14:15 CONCLUSION: 1. No acute intracranial abnormality. 2. Stable ventriculomegaly with shunt. . Shunt Study 07/28/18 14:15 CONCLUSION: Unremarkable exam. Assessment and Plan - Plan Group Bstrep bacteremia MOre groam positive bacteremia, ID still P UTI, E.coli cont CFTX cont vancomycin 2 D echo further rec' sto follow
[2018-07-31] MEDS: Levothyroxine 112 MCG Tablet PO SCH (05:11)
--- NOTE | 2018-07-31 07:40 | P.PNIM ---
Subjective Interval history: Follow up on patient with sepsis, UTI. Patient seen and examined. Patient is encountered in her room bare chested with her gown up around her neck. She begins to giggle when I walk in the room. Patient does respond when asked how she is doing by responding "I think I am all right". She does not respond to any other ROS questions. DW nursing staff, no adverse events noted overnight. Physical Exam Vital signs: Vital Signs 07/30/18 08:00 07/30/18 12:00 07/30/18 16:00 Temperature 98.8 F 98.4 F 97.9 F Pulse Rate 82 87 86 Respiratory Rate 16 18 17 Blood Pressure 110/81 115/58 L 118/90 Pulse Oximetry 94 L 100 97 07/30/18 18:31 07/30/18 20:00 07/30/18 23:25 Temperature 97.6 F Pulse Rate 84 80 84 Respiratory Rate 17 Blood Pressure 129/60 Pulse Oximetry 95 07/30/18 23:53 07/31/18 04:08 Temperature 98.0 F 98.0 F Pulse Rate 85 95 H Respiratory Rate 18 17 Blood Pressure 114/76 138/80 Pulse Oximetry 96 97 Intake & Output 07/30/18 07/31/18 07/31/18 18:59 06:59 18:59 Intake Total 1557.5 / 1557.5 380 / 380 Output Total 700 / 700 2500 / 2500 Balance 857.5 / 857.5 -2120 / -2120 Weight 47 kg Intake: IV 1557.5 / 1557.5 NS Inj 1,000 ML @ 70 mls/hr IV. 1000 / 1000 CONT .[id number] [facility] Rx#:[id number] Vancomycin Inj 750 MG In NS Inj 257.5 / 257.5 250 ML @ 250 mls/hr IV.SIG Q24H [facility] Rx#:[id number] Rocephin Inj 1,000 MG In NS Inj 100 / 100 100 ML @ 200 mls/hr IV.SIG Q24H [facility] Rx#:[id number] Oral 380 / 380 Output: Urine 700 / 700 2500 / 2500 Other: Date of Last Bowel Movement 07/26/18 07/26/18 # Incontinent Bowel Movements 0 Narrative: GENERAL: This is a well-developed well-nourished elderly female patient, who appears older than stated age, no acute distress. Awake and alert. Confused. SKIN: Warm/dry, no generalized rash. HEAD: Small bruise noted to right forehead, Normocephalic. EYES: Pupils equal and round. No scleral icterus. ENT: No nasal discharge. Mucous membranes pink and moist. NECK: Trachea midline. CARDIOVASCULAR: Regular rate and rhythm RESPIRATORY: No accessory muscle use. Clear to auscultation. Breath sounds equal bilaterally. GASTROINTESTINAL: Abdomen soft, non-tender, nondistended. MUSCULOSKELETAL: No obvious deformities. No edema noted. NEUROLOGICAL: Awake and alert. +Aphasia. Confused. Does not follow commands. Able to move all extremities spontaneously. Minimal verbalization. PSYCHIATRIC: Calm and cooperative. Urinary Catheter Management Straight: Cath placed during this visit: yes Reason for continuing: Not indwelling catheter Insertion date: 07/28/18 Insertion time: 14:20 Results Labs CBC & Chem 7: 07/29/18 04:08 07/31/18 08:08 Labs: Microbiology 07/28/18 14:29 Blood - Peripheral Aerobic Blood Culture - Preliminary gram positive cocci 07/28/18 14:29 Blood - Peripheral Anaerobic Blood Culture - Preliminary Group B beta Strep 07/28/18 14:30 Blood - Peripheral Aerobic Blood Culture - Preliminary No growth in 2 days 07/28/18 14:30 Blood - Peripheral Anaerobic Blood Culture - Preliminary gram positive cocci 07/28/18 14:25 Catheterized Urine Urine Culture - Final Escherichia coli Assessment and Plan Plan 68-year-old female apparently with a history of dementia schizophrenia normally feeds herself but is normally not oriented. Per EMS report presented to emergency department for evaluation of increased altered mental status. 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 Pt. unable to provide any history, per review of EMR, pt. aphasic. Found with UTI and sepsis. Sepsis on admission with bandemia and tachycardia, UTI, improved Bacteremia -ID consulted, appreciate assistance. 2D echo ordered/pending -BCX + staph aureus and group B beta strep -UCX +E coli -Continue on IV vancomycin and Rocephin pending ID eval/recs -Repeat blood cultures ordered. 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 daily -Continue Lasix 20 mg p.o. daily/Continue replacement potassium daily -Monitor blood pressure and adjust as necessary Hypokalemia -resolved s/p repletion History of breast cancer -Continue with anastrozole 1 mg p.o. daily Lovenox for DVT prophylaxis Pepcid for GI prophylaxis Code Status: FULL Discussed Condition With: patient, nursing staff, Dr. Bell Progress Note: Quality VTE Deep Vein Thrombosis/Pulmonary Embolism Present on Admission: No
[2018-07-31 08:37] LABS: Calcium 8.8 mg/dL (8.5-10.1); Carbon Dioxide 25.7 meq/L (21.0-32.0); Potassium 3.6 meq/L (3.5-5.1)
[2018-07-31] MEDS: amLODIPine 10 MG Tablet PO SCH (10:48)
[2018-07-31] MEDS: buPROPion 150 MG 12 HR Tablet PO SCH (10:48)
[2018-07-31] MEDS: Furosemide 20 MG Tablet PO SCH (10:48)
[2018-07-31] MEDS: Senna/Docusate Sodium 8.6/50 MG Tablet PO SCH ×2 (10:48→21:05)
[2018-07-31] MEDS: Anastrozole 1 MG Tablet PO SCH (10:49)
[2018-07-31] MEDS: Famotidine 20 MG Tablet PO SCH ×2 (10:49→21:05)
[2018-07-31] MEDS: Vancomycin Inj 750 MG in Sodium Chlor 0.9% Inj 250 ML IV.SIG SCH (13:00)
--- NOTE | 2018-07-31 16:25 | P.PNID ---
Subjective Remarks: pt is afebrile and confused she is growing MSSA, GBS in multiple bottles pt denies [employer] SLEEP SCIENTIST shunt [place] [address] Lopez Antibiotics: CFTX vanco Past Medical History: dementia, schitzophrenia Allergies/Adverse Reactions: Allergies lisinopril Allergy (Severe, Verified 07/28/18 14:15) Swelling Objective Vital Signs 07/30/18 16:00 07/30/18 18:31 07/30/18 20:00 Temperature 97.9 F 97.6 F Pulse Rate 86 84 80 Respiratory Rate 17 17 Blood Pressure 118/90 129/60 Pulse Oximetry 97 95 07/30/18 23:25 07/30/18 23:53 07/31/18 04:08 Temperature 98.0 F 98.0 F Pulse Rate 84 85 95 H Respiratory Rate 18 17 Blood Pressure 114/76 138/80 Pulse Oximetry 96 97 07/31/18 08:00 07/31/18 12:00 07/31/18 14:56 Temperature 97.7 F 98.5 F 98.2 F Pulse Rate 114 H 114 H 82 Respiratory Rate 17 19 18 Blood Pressure 128/77 154/88 H 130/62 Pulse Oximetry 99 96 99 Intake & Output 07/30/18 07/31/18 07/31/18 18:59 06:59 18:59 Intake Total 1557.5 / 1557.5 380 / 380 Output Total 700 / 700 2500 / 2500 800 / 800 Balance 857.5 / 857.5 -2120 / -2120 -800 / -800 Weight 47 kg Intake: IV 1557.5 / 1557.5 NS Inj 1,000 ML @ 70 mls/hr IV. 1000 / 1000 CONT .[id number] [facility] Rx#:[id number] Vancomycin Inj 750 MG In NS Inj 257.5 / 257.5 250 ML @ 250 mls/hr IV.SIG Q24H [facility] Rx#:[id number] Rocephin Inj 1,000 MG In NS Inj 100 / 100 100 ML @ 200 mls/hr IV.SIG Q24H [facility] Rx#:[id number] Oral 380 / 380 Output: Urine 700 / 700 2500 / 2500 800 / 800 Other: Date of Last Bowel Movement 07/26/18 07/26/18 07/26/18 # Incontinent Bowel Movements 0 07/28/18 14:30 Blood - Peripheral Aerobic Blood Culture - Preliminary Group B beta Strep Staphylococcus aureus 07/28/18 14:30 Blood - Peripheral Anaerobic Blood Culture - Preliminary 07/28/18 14:29 Blood - Peripheral Aerobic Blood Culture - Preliminary gram positive cocci 07/28/18 14:29 Blood - Peripheral Anaerobic Blood Culture - Preliminary Group B beta Strep Staphylococcus aureus 07/28/18 14:25 Catheterized Urine Urine Culture - Final Escherichia coli Lab - Chemistry Results 07/30/18 07/30/18 07/30/18 06:41 06:41 13:59 Sodium 138 Potassium 3.2 L Chloride 105 Carbon Dioxide 26.4 Anion Gap 7 BUN 15 Creatinine 0.83 Estimated GFR 68 L POC Glucose 128 H Random Glucose 142 H Calcium 8.7 Magnesium 1.5 07/31/18 07/31/18 08:08 08:08 Sodium 136 Potassium 3.6 Chloride 103 Carbon Dioxide 25.7 Anion Gap 7 BUN 10 Creatinine 0.84 Cancelled Estimated GFR 67 L Cancelled POC Glucose Random Glucose 129 H Calcium 8.8 Magnesium Imaging: ITS Impressions Head CT 07/28/18 14:15 CONCLUSION: 1. No acute intracranial abnormality. 2. Stable ventriculomegaly with shunt. . Shunt Study 07/28/18 14:15 CONCLUSION: Unremarkable exam. Physical Exam: GENERAL: NAD SKIN: Warm and dry. HEAD: Atraumatic. Normocephalic. EYES: Pupils equal and round. No scleral icterus. No injection or drainage. ENT: No nasal bleeding or discharge. Mucous membranes pink and moist. NECK: Trachea midline. No JVD. CARDIOVASCULAR: Regular rate and rhythm. RESPIRATORY: No accessory muscle use. Clear to auscultation. Breath sounds equal bilaterally. GASTROINTESTINAL: Abdomen soft, non-tender, nondistended. Hepatic and splenic margins not palpable. MUSCULOSKELETAL: Extremities without clubbing, cyanosis, or edema. NEUROLOGICAL: Awake and alert. Incoherent speech . follwos commands PSYCHIATRIC: calm, cooperative but definetely incoherent Assessment and Plan - Plan Group Bstrep bacteremia MSSA bacteremia Source is unclear. UTI, E.coli cont CFTX cont vancomycin 2 D echo repat blood clx If w/u unrevealing for source will consider shunt resevoir aspiration
[2018-07-31] MEDS: Enoxaparin Inj 30 MG/0.3 ML Syringe SQ SCH (17:26)
[2018-07-31] MEDS: Metoprolol Tartrate 25 MG Tablet PO SCH (21:04)
[2018-08-01] MEDS: Levothyroxine 112 MCG Tablet PO SCH (05:26)
[2018-08-01] MEDS: Metoprolol Tartrate 25 MG Tablet PO SCH ×2 (08:38→22:11)
[2018-08-01] MEDS: buPROPion 150 MG 12 HR Tablet PO SCH (08:38)
[2018-08-01] MEDS: amLODIPine 10 MG Tablet PO SCH (08:39)
[2018-08-01] MEDS: Furosemide 20 MG Tablet PO SCH (08:39)
[2018-08-01] MEDS: Anastrozole 1 MG Tablet PO SCH (08:39)
[2018-08-01] MEDS: Famotidine 20 MG Tablet PO SCH ×2 (08:40→22:10)
[2018-08-01] MEDS: Senna/Docusate Sodium 8.6/50 MG Tablet PO SCH ×2 (08:40→22:11)
[2018-08-01] MEDS ORDERED: Pharmacy Ordered Lab Info OTHER ONE (13:45)
[2018-08-01] MEDS ORDERED: Sod Chloride 0.9% Inj 1,000 ML IV.CONT SCH (13:53)
--- NOTE | 2018-08-01 13:59 | P.PNIM ---
Subjective Interval history: Follow up on patient with sepsis, UTI. Patient seen and examined. Patient does not voice any acute medical complaints or concerns. Appears comfortable. DW RN, no adverse events noted overnight. Physical Exam Vital signs: Vital Signs 07/31/18 14:56 07/31/18 20:00 08/01/18 00:00 Temperature 98.2 F 97.8 F 98.0 F Pulse Rate 82 87 80 Respiratory Rate 18 18 18 Blood Pressure 130/62 110/88 142/83 H Pulse Oximetry 99 97 95 08/01/18 04:00 08/01/18 08:00 Temperature 98.6 F 97.7 F Pulse Rate 72 76 Respiratory Rate 18 16 Blood Pressure 125/59 L 125/74 Pulse Oximetry 95 98 Intake & Output 07/31/18 08/01/18 08/01/18 18:59 06:59 18:59 Intake Total 1077.5 / 1077.5 120 / 120 Output Total 800 / 800 Balance 277.5 / 277.5 120 / 120 Weight 47.1 kg Intake: IV 357.5 / 357.5 Vancomycin Inj 750 MG In NS Inj 257.5 / 257.5 250 ML @ 250 mls/hr IV.SIG Q24H [facility] Rx#:[id number] Rocephin Inj 1,000 MG In NS Inj 100 / 100 100 ML @ 200 mls/hr IV.SIG Q24H [facility] Rx#:[id number] Oral 720 / 720 120 / 120 Output: Urine 800 / 800 Other: # Voids 3 # Urine Diapers 3 Date of Last Bowel Movement 07/26/18 08/01/18 # Bowel Movements 1 Narrative: GENERAL: This is a well-developed well-nourished elderly female patient, who appears older than stated age, no acute distress. Awake and alert. Confused. SKIN: Warm/dry, no generalized rash. HEENT: Normocephalic. Pupils equal and round. No scleral icterus. No nasal discharge. Mucous membranes pink and moist. NECK: Trachea midline. CARDIOVASCULAR: Regular rate and rhythm RESPIRATORY: No accessory muscle use. Poor effort. Clear to auscultation anteriorly. Breath sounds equal bilaterally. GASTROINTESTINAL: Abdomen soft, non-tender, nondistended. +BS. MUSCULOSKELETAL: No obvious deformities. No edema noted. NEUROLOGICAL: Awake and alert. +Aphasia. Confused. Does not follow commands. Able to move all extremities spontaneously. Minimal verbalization. PSYCHIATRIC: Calm and cooperative. Urinary Catheter Management Straight: Cath placed during this visit: yes Reason for continuing: Not indwelling catheter Insertion date: 07/28/18 Insertion time: 14:20 Results Labs CBC & Chem 7: 07/29/18 04:08 08/01/18 06:18 Labs: Microbiology 07/31/18 16:00 Blood - Peripheral Aerobic Blood Culture - Preliminary No growth in 1 day 07/31/18 16:00 Blood - Peripheral Anaerobic Blood Culture - Preliminary No growth in 1 day 07/31/18 16:05 Blood - Peripheral Aerobic Blood Culture - Preliminary No growth in 1 day 07/31/18 16:05 Blood - Peripheral Anaerobic Blood Culture - Preliminary No growth in 1 day 07/28/18 14:30 Blood - Peripheral Aerobic Blood Culture - Final Group B beta Strep S. aureus MRSA 07/28/18 14:30 Blood - Peripheral Anaerobic Blood Culture - Preliminary 07/28/18 14:29 Blood - Peripheral Aerobic Blood Culture - Final Rothia species 07/28/18 14:29 Blood - Peripheral Anaerobic Blood Culture - Final Group B beta Strep S. aureus MRSA Assessment and Plan Plan 68-year-old female apparently with a history of dementia schizophrenia normally feeds herself but is normally not oriented. Per EMS report presented to emergency department for evaluation of increased altered mental status. Patient apparently has a history of PROPERTY MANAGEMENT COORDINATOR shunt in place. Pt. unable to provide any history, per review of EMR, pt. aphasic. Found with UTI and sepsis. Sepsis on admission with bandemia and tachycardia, UTI, improved MSSA and GBS Bacteremia -ID following, appreciate assistance. 2D echo ordered/pending. Per ID, If w/u unrevealing for source will consider shunt resevoir aspiration -BCX + staph aureus and group B beta strep -Continue on IV vancomycin and Rocephin pending ID eval/recs -Repeat blood cultures with no growth x 1 day, follow until finalized Ecoli UTI -on IV abx as above VETO on suspected CKD ?Vancomycin related -give 1L IVF -monitor I&Os -alerted ID, consider holding Vanc -hold Lasix -Avoid nephrotoxic agents -Continue to monitor renal indices as indicated Acute metabolic encephalopathy, secondary to infection, also with history of schizophrenia, dementia Aphasia -suspect patient has returned to baseline mentation -Continue Cogentin -Continue Wellbutrin -per ST, changed to puree diet with thin liquids History of PROPERTY MANAGEMENT COORDINATOR shunt -PROPERTY MANAGEMENT COORDINATOR shunt study done, findings stable Hypertension -Continue Norvasc 10 mg p.o. daily and Lopressor 12.5mg BID -Lasix on hold - monitor K, may need to d/c scheduled K repletion, will continue for now while on IVF. -Monitor blood pressure and adjust as necessary Hypokalemia -resolved s/p repletion History of breast cancer -Continue with anastrozole 1 mg p.o. daily Lovenox for DVT prophylaxis Pepcid for GI prophylaxis Code Status: FULL Discussed Condition With: patient, nursing staff, Dr. Bell Discharge Planning: Discharge pending ID workup Progress Note: Quality VTE Deep Vein Thrombosis/Pulmonary Embolism Present on Admission: No
[2018-08-01] MEDS: Vancomycin Inj 750 MG in Sodium Chlor 0.9% Inj 250 ML IV.SIG SCH (14:35)
--- NOTE | 2018-08-01 16:40 | ECHRPT ---
Indication: SEPSIS- ENDOCARDITIS CONCLUSIONS Technically difficult study Normal left ventricular size. Mild concentric left ventricular hypertrophy. The left ventricular systolic function is low normal with an estimated ejection fraction in the rang e of 50- 55%. Mitral annular calcification is present. Aortic valve sclerosis is present. BP: / HR: Rhythm: MEASUREMENTS (Male / Female) Normal Values Technical Quality:Technically difficult study 2D ECHO LV Diastolic Diameter PLAX 3.5 cm 4.2 - 5.9 / 3.9 - 5.3 cm LV Systolic Diameter PLAX 2.9 cm IVS Diastolic Thickness 0.9 cm 0.6 - 1.0 / 0.6 - 0.9 cm LVPW Diastolic Thickness 0.8 cm 0.6 - 1.0 / 0.6 - 0.9 cm LV Relative Wall Thickness 0.5 FINDINGS LEFT VENTRICLE Normal left ventricular size. Mild concentric left ventricular hypertrophy. The left ventricular systolic function is low normal with an estimated ejection fraction in the rang e of 50- 55%. RIGHT VENTRICLE Normal right ventricular size and systolic function. LEFT ATRIUM The left atrial size is normal. RIGHT ATRIUM The right atrial size is normal. ATRIAL SEPTUM Normal atrial septal thickness without atrial level shunting by limited color doppler interrogation. AORTA The aortic root and proximal ascending aorta are normal in size on limited imaging. MITRAL VALVE No vegetation noted Mitral annular calcification is present. AORTIC VALVE No vegetation noted Aortic valve sclerosis is present. TRICUSPID VALVE No vegetation noted PULMONARY VALVE The pulmonary valve is not well visualized. VESSELS The inferior vena cava is normal in size. PERICARDIUM No pericardial effusion. Parker Wilson MD, FACC (Electronically Signed) Final Date:01 August 2018 16:39
[2018-08-01] MEDS: Enoxaparin Inj 30 MG/0.3 ML Syringe SQ SCH (20:10)
--- NOTE | 2018-08-01 23:36 | P.PNID ---
Subjective Remarks: Pt seen earlier today during rounds pt is afebrile 2 D echo negative but tech difficult 2/2 lack of cooperation from the pt she remains quite confused she is growing MSSA, GBS, Rothia in multiple bottles pt denies ROQUE BID CLERK shunt placeD [place] [address] Lopez Antibiotics: CFTX vanco Past Medical History: dementia, schitzophrenia Allergies/Adverse Reactions: Allergies lisinopril Allergy (Severe, Verified 07/28/18 14:15) Swelling Objective Vital Signs 08/01/18 00:00 08/01/18 04:00 08/01/18 08:00 Temperature 98.0 F 98.6 F 97.7 F Pulse Rate 80 72 76 Respiratory Rate 18 18 16 Blood Pressure 142/83 H 125/59 L 125/74 Pulse Oximetry 95 95 98 08/01/18 16:00 08/01/18 20:00 Temperature 97.6 F 97.9 F Pulse Rate 70 70 Respiratory Rate 16 18 Blood Pressure 121/72 133/74 Pulse Oximetry 95 18 L Intake & Output 08/01/18 08/01/18 08/02/18 06:59 18:59 06:59 Intake Total 120 / 120 957.5 / 957.5 Balance 120 / 120 957.5 / 957.5 Weight 47.1 kg Intake: IV 357.5 / 357.5 Vancomycin Inj 750 MG In NS Inj 257.5 / 257.5 250 ML @ 250 mls/hr IV.SIG Q24H [facility] Rx#:[id number] Rocephin Inj 1,000 MG In NS Inj 100 / 100 100 ML @ 200 mls/hr IV.SIG Q24H [facility] Rx#:[id number] Oral 120 / 120 600 / 600 Other: # Voids 3 # Incontinent Voids 3 # Urine Diapers 1 Date of Last Bowel Movement 08/01/18 # Bowel Movements 1 07/31/18 16:00 Blood - Peripheral Aerobic Blood Culture - Preliminary No growth in 1 day 07/31/18 16:00 Blood - Peripheral Anaerobic Blood Culture - Preliminary No growth in 1 day 07/31/18 16:05 Blood - Peripheral Aerobic Blood Culture - Preliminary No growth in 1 day 07/31/18 16:05 Blood - Peripheral Anaerobic Blood Culture - Preliminary No growth in 1 day 07/28/18 14:30 Blood - Peripheral Aerobic Blood Culture - Final Group B beta Strep S. aureus MRSA 07/28/18 14:30 Blood - Peripheral Anaerobic Blood Culture - Preliminary 07/28/18 14:29 Blood - Peripheral Aerobic Blood Culture - Final Rothia species 07/28/18 14:29 Blood - Peripheral Anaerobic Blood Culture - Final Group B beta Strep S. aureus MRSA 07/28/18 14:25 Catheterized Urine Urine Culture - Final Escherichia coli Lab - Chemistry Results 07/31/18 07/31/18 08/01/18 08:08 08:08 06:18 Sodium 136 Potassium 3.6 Chloride 103 Carbon Dioxide 25.7 Anion Gap 7 BUN 10 Creatinine 0.84 Cancelled 1.13 H Estimated GFR 67 L Cancelled 48 L Random Glucose 129 H Calcium 8.8 Imaging: ITS Impressions Head CT 07/28/18 14:15 CONCLUSION: 1. No acute intracranial abnormality. 2. Stable ventriculomegaly with shunt. . Shunt Study 07/28/18 14:15 CONCLUSION: Unremarkable exam. Physical Exam: GENERAL: NAD SKIN: Warm and dry. HEAD: Atraumatic. Normocephalic. EYES: Pupils equal and round. No scleral icterus. No injection or drainage. ENT: No nasal bleeding or discharge. Mucous membranes pink and moist. NECK: Trachea midline. No JVD. CARDIOVASCULAR: Regular rate and rhythm. RESPIRATORY: No accessory muscle use. Clear to auscultation. Breath sounds equal bilaterally. GASTROINTESTINAL: Abdomen soft, non-tender, nondistended. Hepatic and splenic margins not palpable. MUSCULOSKELETAL: Extremities without clubbing, cyanosis, or edema. NEUROLOGICAL: Awake and alert. Incoherent speech . follwos commands PSYCHIATRIC: calm, cooperative but definetely incoherent Assessment and Plan - Plan Group Bstrep bacteremia MSSA bacteremia Source is unclear. UTI, E.coli cont CFTX cont vancomycin fu repat blood clx If w/u unrevealing for source will consider shunt resevoir aspiration
[2018-08-02] MEDS: Levothyroxine 112 MCG Tablet PO SCH (05:49)
[2018-08-02 06:56] LABS: Calcium 9.3 mg/dL (8.5-10.1); Potassium 3.3 meq/L (3.5-5.1)
[2018-08-02] MEDS: Vancomycin Inj 1,000 MG in Sodium Chlor 0.9% Inj 250 ML IV.SIG SCH (10:08)
[2018-08-02] MEDS: Senna/Docusate Sodium 8.6/50 MG Tablet PO SCH ×2 (10:08→20:48)
[2018-08-02] MEDS: buPROPion 150 MG 12 HR Tablet PO SCH (10:08)
[2018-08-02] MEDS: Metoprolol Tartrate 25 MG Tablet PO SCH ×2 (10:08→20:49)
[2018-08-02] MEDS: amLODIPine 10 MG Tablet PO SCH (10:08)
[2018-08-02] MEDS: Anastrozole 1 MG Tablet PO SCH (10:09)
[2018-08-02] MEDS: Famotidine 20 MG Tablet PO SCH ×2 (10:09→20:48)
[2018-08-02] MEDS: Enoxaparin Inj 30 MG/0.3 ML Syringe SQ SCH ×2 (16:39→17:24)
--- NOTE | 2018-08-02 17:28 | P.PNIM ---
Subjective Interval history: Follow up on patient with sepsis, bacteremia, UTI. Patient seen and examined. Patient remains significantly confused. Patient is unable to provide any meaningful history and cannot maintain a fluid conversation. She does not voice any acute medical complaints or concerns. Discussed with nursing staff, no adverse events noted overnight. Physical Exam Vital signs: Vital Signs 08/01/18 20:00 08/02/18 00:00 08/02/18 04:00 Temperature 97.9 F 97.7 F 97.3 F L Pulse Rate 72 67 65 Respiratory Rate 18 17 18 Blood Pressure 133/74 121/68 126/71 Pulse Oximetry 18 L 100 100 08/02/18 08:00 08/02/18 12:00 08/02/18 16:00 Temperature 97.5 F L 97.5 F L 97 F L Pulse Rate 73 66 66 Respiratory Rate 16 16 16 Blood Pressure 153/65 H 147/61 H 117/58 L Pulse Oximetry 97 95 96 Intake & Output 08/01/18 08/02/18 08/02/18 18:59 06:59 18:59 Intake Total 957.5 / 957.5 1000 / 1000 250 / 250 Balance 957.5 / 957.5 1000 / 1000 250 / 250 Weight 65.3 kg Intake: IV 357.5 / 357.5 1000 / 1000 250 / 250 NS Inj 1,000 ML @ 75 mls/hr IV. 1000 / 1000 CONT .[id number] [facility] Rx#:[id number] Vancomycin Inj 1,000 MG In NS 250 / 250 Inj 250 ML @ 250 mls/hr IV.SIG Q24H [facility] Rx#:[id number] Vancomycin Inj 750 MG In NS Inj 257.5 / 257.5 250 ML @ 250 mls/hr IV.SIG Q24H [facility] Rx#:[id number] Rocephin Inj 1,000 MG In NS Inj 100 / 100 100 ML @ 200 mls/hr IV.SIG Q24H [facility] Rx#:[id number] Oral 600 / 600 Other: # Voids 1 1 # Incontinent Voids 3 1 # Urine Diapers 1 1 Date of Last Bowel Movement 08/01/18 # Bowel Movements 1 # Incontinent Bowel Movements 0 Narrative: GENERAL: This is a well-developed well-nourished elderly female patient, who appears older than stated age, no acute distress. Awake and alert. Confused. Lying in bed without her gown on. SKIN: Warm/dry, no generalized rash. HEENT: Normocephalic. Pupils equal and round. No scleral icterus. No nasal discharge. Mucous membranes pink and moist. NECK: Trachea midline. CARDIOVASCULAR: Regular rate and rhythm RESPIRATORY: No accessory muscle use. Poor effort. Clear to auscultation anteriorly. Breath sounds equal bilaterally. GASTROINTESTINAL: Abdomen soft, non-tender, nondistended. +BS. MUSCULOSKELETAL: No obvious deformities. No edema noted. NEUROLOGICAL: Awake and alert. +Aphasia. Confused. Does not follow commands. Able to move all extremities spontaneously. Minimal verbalization. PSYCHIATRIC: Calm and cooperative. Urinary Catheter Management Straight: Cath placed during this visit: yes Reason for continuing: Not indwelling catheter Insertion date: 07/28/18 Insertion time: 14:20 Results Labs CBC & Chem 7: 07/29/18 04:08 08/03/18 08:47 Labs: Microbiology 07/31/18 16:00 Blood - Peripheral Aerobic Blood Culture - Preliminary No growth in 2 days 07/31/18 16:00 Blood - Peripheral Anaerobic Blood Culture - Preliminary No growth in 2 days 07/31/18 16:05 Blood - Peripheral Aerobic Blood Culture - Preliminary No growth in 2 days 07/31/18 16:05 Blood - Peripheral Anaerobic Blood Culture - Preliminary No growth in 2 days 07/28/18 14:30 Blood - Peripheral Aerobic Blood Culture - Final Group B beta Strep S. aureus MRSA 07/28/18 14:30 Blood - Peripheral Anaerobic Blood Culture - Final Assessment and Plan Plan 68-year-old female apparently with a history of dementia schizophrenia normally feeds herself but is normally not oriented. Per EMS report presented to emergency department for evaluation of increased altered mental status. 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 Pt. unable to provide any history, per review of EMR, pt. aphasic. Found with UTI and sepsis. Sepsis on admission with bandemia and tachycardia, UTI, improved MSSA and GBS Bacteremia, unclear source Echocardiogram - no vegetation, EF 50-55% -ID following, appreciate assistance. Per ID, If w/u unrevealing for source will consider shunt resevoir aspiration -BCX + staph aureus and group B beta strep -Continue on IV vancomycin and Rocephin pending ID eval/recs -Repeat blood cultures with no growth x 2 days, follow until finalized Ecoli UTI -on IV abx as above VETO on suspected CKD ?Vancomycin related, unlikely Vanc trough 10.6 -creatinine improved s/p IVF -monitor I&Os -continue to hold Lasix -Avoid nephrotoxic agents -Continue to monitor renal indices as indicated Acute metabolic encephalopathy, secondary to infection, also with history of schizophrenia, dementia Aphasia -suspect patient has returned to baseline mentation -Continue Cogentin -Continue Wellbutrin -per ST, changed to puree diet with thin liquids History of RUNSTITCHING MACHINE OPERATOR shunt -RUNSTITCHING MACHINE OPERATOR shunt study done, findings stable Hypertension -Continue Norvasc 10 mg p.o. daily and Lopressor 12.5mg BID -Lasix on hold - monitor K, may need to d/c scheduled K repletion. -Monitor blood pressure and adjust as necessary Hypokalemia -K 3.3 -po repletion ordered -monitor K History of breast cancer -Continue with anastrozole 1 mg p.o. daily Lovenox for DVT prophylaxis Pepcid for GI prophylaxis Code Status: FULL Discussed Condition With: patient, nursing staff, Dr. Bell Discharge Planning: Discharge pending ID workup Progress Note: Quality VTE Deep Vein Thrombosis/Pulmonary Embolism Present on Admission: No
[2018-08-03] MEDS: Levothyroxine 112 MCG Tablet PO SCH (05:46)
[2018-08-03] MEDS: amLODIPine 10 MG Tablet PO SCH (09:27)
[2018-08-03] MEDS: buPROPion 150 MG 12 HR Tablet PO SCH (09:28)
[2018-08-03] MEDS: Anastrozole 1 MG Tablet PO SCH (09:28)
[2018-08-03] MEDS: Famotidine 20 MG Tablet PO SCH ×2 (09:28→21:46)
[2018-08-03] MEDS: Metoprolol Tartrate 25 MG Tablet PO SCH ×2 (09:28→21:45)
[2018-08-03] MEDS: Senna/Docusate Sodium 8.6/50 MG Tablet PO SCH ×2 (09:29→21:46)
[2018-08-03 10:21] LABS: Calcium 8.7 mg/dL (8.5-10.1); Carbon Dioxide 25.7 meq/L (21.0-32.0); Potassium 3.7 meq/L (3.5-5.1)
[2018-08-03] MEDS: Vancomycin Inj 1,000 MG in Sodium Chlor 0.9% Inj 250 ML IV.SIG SCH (10:34)
--- NOTE | 2018-08-03 11:29 | P.PNIM ---
Subjective Interval history: Follow up on patient with sepsis, bacteremia, UTI. Patient seen and examined. Patient remains confused. She does not voice any acute medical complaints or concerns. She denies any complaints of pain. She denies any fever chills. She denies any chest pain or shortness of breath. Physical Exam Vital signs: Vital Signs 08/02/18 12:00 08/02/18 16:00 08/02/18 20:00 Temperature 97.5 F L 97 F L 97.8 F Pulse Rate 66 66 72 Respiratory Rate 16 16 20 Blood Pressure 147/61 H 117/58 L 120/66 Pulse Oximetry 95 96 97 08/03/18 00:00 08/03/18 04:00 Temperature 97.7 F 97.6 F Pulse Rate 63 69 Respiratory Rate 20 20 Blood Pressure 116/62 126/62 Pulse Oximetry 99 97 Intake & Output 08/02/18 08/03/18 08/03/18 18:59 06:59 18:59 Intake Total 350 / 350 150 / 150 Output Total 350 / 350 200 / 200 400 / 400 Balance 0 / 0 -50 / -50 -400 / -400 Weight 59.8 kg Intake: IV 350 / 350 Vancomycin Inj 1,000 MG In NS 250 / 250 Inj 250 ML @ 250 mls/hr IV.SIG Q24H [facility] Rx#:[id number] Rocephin Inj 1,000 MG In NS Inj 100 / 100 100 ML @ 200 mls/hr IV.SIG Q24H [facility] Rx#:[id number] Oral 150 / 150 Output: Urine 350 / 350 200 / 200 Gastric Drainage 400 / 400 Gastrostomy Tube (PEG) 400 / 400 Other: # Voids 1 2 # Incontinent Voids 1 # Urine Diapers 1 Narrative: GENERAL: This is a well-developed well-nourished elderly female patient, who appears older than stated age. Awake and alert. Confused. In no acute distress. SKIN: Warm/dry, no generalized rash. HEENT: Normocephalic. Pupils equal and round. No scleral icterus. No nasal discharge. Airway patent. NECK: Trachea midline. CARDIOVASCULAR: Regular rate and rhythm. RESPIRATORY: No accessory muscle use. Poor effort. Clear to auscultation. Breath sounds equal bilaterally. GASTROINTESTINAL: Abdomen soft, non-tender, nondistended. +BS. MUSCULOSKELETAL: No obvious deformities. No edema noted. NEUROLOGICAL: Awake and alert. +Aphasia. Confused. Does not follow commands. Able to move all extremities spontaneously. Minimal verbalization. PSYCHIATRIC: Calm and cooperative. Urinary Catheter Management Straight: Cath placed during this visit: yes Reason for continuing: Not indwelling catheter Insertion date: 07/28/18 Insertion time: 14:20 Results Labs CBC & Chem 7: 07/29/18 04:08 08/03/18 08:47 Labs: Microbiology 07/31/18 16:00 Blood - Peripheral Aerobic Blood Culture - Preliminary No growth in 3 days 07/31/18 16:00 Blood - Peripheral Anaerobic Blood Culture - Preliminary No growth in 3 days 07/31/18 16:05 Blood - Peripheral Aerobic Blood Culture - Preliminary No growth in 3 days 07/31/18 16:05 Blood - Peripheral Anaerobic Blood Culture - Preliminary No growth in 3 days 07/28/18 14:30 Blood - Peripheral Aerobic Blood Culture - Final Group B beta Strep S. aureus MRSA 07/28/18 14:30 Blood - Peripheral Anaerobic Blood Culture - Final Assessment and Plan Plan 68-year-old female apparently with a history of dementia schizophrenia normally feeds herself but is normally not oriented. Per EMS report presented to emergency department for evaluation of increased altered mental status. Patient apparently has a history of SHRIMP TRAWLER CAPTAIN shunt in place. Pt. unable to provide any history, per review of EMR, pt. aphasic. Found with UTI and sepsis. Sepsis on admission with bandemia and tachycardia, UTI, improved MSSA and GBS Bacteremia, unclear source Echocardiogram - no vegetation, EF 50-55% -ID following, appreciate assistance. Per ID, If w/u unrevealing for source will consider shunt reservoir aspiration. -Continue on IV vancomycin and Rocephin pending ID eval/recs -Repeat blood cultures with no growth x 3 days, follow until finalized. Notified ID, awaiting plan for continued w/u, ?shunt aspiration. Ecoli UTI -on IV abx as above VETO on suspected CKD, resolved ?Vancomycin related, unlikely Vanc trough 10.6. Likely poor oral intake with diuretic use. -creatinine improved s/p IVF -monitor I&Os -continue to hold Lasix -Avoid nephrotoxic agents -Continue to monitor renal indices as indicated Acute metabolic encephalopathy, secondary to infection, also with history of schizophrenia, dementia Aphasia -suspect patient has returned to baseline mentation -Continue Cogentin -Continue Wellbutrin -per ST, changed to puree diet with thin liquids History of SHRIMP TRAWLER CAPTAIN shunt -SHRIMP TRAWLER CAPTAIN shunt study done, findings stable Hypertension, controlled -Continue Norvasc 10 mg p.o. daily and Lopressor 12.5mg BID -Lasix on hold - monitor K, may need to d/c scheduled K repletion. -Monitor blood pressure and adjust as necessary Hypokalemia, resolved -K 3.3 -resolved s/p po repletion -continue on daily scheduled repletion, repeat K level in 2 days History of breast cancer -Continue with anastrozole 1 mg p.o. daily Lovenox for DVT prophylaxis Pepcid for GI prophylaxis Code Status: FULL Discussed Condition With: patient, nursing staff, Dr. Bell Discharge Planning: Discharge pending ID workup Progress Note: Quality VTE Deep Vein Thrombosis/Pulmonary Embolism Present on Admission: No
--- NOTE | 2018-08-03 12:49 | P.CONNS ---
History of Present Illness Service: neurosurg Consult date: 08/03/18 Requesting Physician: Fang Mendieta Reason for Consult: hydrocephalus Primary Care Provider: UNKNOWN Chief Complaint: Altered mental status History of Present Illness: This consultation has been requested in writing by the requesting physician to evaluate the patient for possible neurosurgical treatment. A copy of this consultation will be forwarded to the requesting physician to aid in the medical decision process. Treatment recommendations will be provided as well. This is a 68-year-old female with a history of dementia and schizophrenia, who normally feeds herself, but she now presented to [place] emergency department for evaluation of altered mental status. Patient has a history of hydrocephalus and a CLINICAL APPLICATION CONSULTANT shunt.She was here in 2017 with increasing altered mental status and had been evaluated by neuro since then her baseline mental status appears to have been decreased. The patient would not communicate meningfully and she would not follow any commands on my examination. She is awake, her eyes are open and she does tracks around the room. She did verbalize to nurse her name. She is unable to provide any further history. \ She was found to have an UTI and sepsis she is admitted in the hospital for further evaluation and treatment. Family History: unobtainable due to mental condition and unobtainable due to mental status Review of Systems unobtainable due to mental condition and unobtainable due to mental status PMFSH - History History Provided By: Medical Record - Medical History Medical History: Medical History (Last Reviewed 08/03/18 @ 12:22 by Dajuan Lopez MD) COPD (chronic obstructive pulmonary disease) Depression GERD (gastroesophageal reflux disease) HTN (hypertension) Hx of cardiac arrhythmia PTSD (post-traumatic stress disorder) Schizo affective schizophrenia - Surgical History Surgical History: Surgical History (Last Reviewed 08/03/18 @ 12:22 by Dajuan Lopez MD) History of brain shunt - Family History Family History: Family History (Last Reviewed 08/03/18 @ 12:22 by Dajuan Lopez MD) Other Family history unknown - Tobacco History Second Hand Smoke Exposure: No Smoking Status: Cognitive impairment Tobacco Type: Cigarettes, Cigars - Alcohol History How Often Do You Have a Drink Containing Alcohol: Unable to Obtain - Substance Use History Substance History: Unable to Obtain - Travel History Recent Travel in the [facility] Within the Last 8 Weeks: No Recent Travel Out of the Country Within the Last 8 Weeks: No - Immunization History Tetanus Immunization: Unsure Medications and Allergies Active Medications: Active Medications Acetaminophen (Tylenol) 650 mg PO Q4H PRN PRN Reason: Temp > 100.4 Al Hydroxide/Mg Hydroxide (Milk Of Magnbenjy Liq) 30 ml PO Q12H PRN PRN Reason: Mild Constipation Amlodipine Besylate (Norvasc) 10 mg PO DAILY [facility] Last Admin: 08/03/18 09:27 Dose: 10 mg Anastrozole (Arimidex) 1 mg PO DAILY [facility] Last Admin: 08/03/18 09:28 Dose: 1 mg Aspirin (Ecotrin) 81 mg PO DAILY [facility] Last Admin: 08/03/18 09:28 Dose: 81 mg Atorvastatin Calcium (Lipitor) 40 mg PO HS [facility] Last Admin: 08/02/18 20:49 Dose: 40 mg Benztropine Mesylate (Cogentin) 1.5 mg PO HS [facility] Last Admin: 08/02/18 20:48 Dose: 1.5 mg Benztropine Mesylate (Cogentin) 1 mg PO DAILY [facility] Last Admin: 08/03/18 09:29 Dose: 1 mg Bisacodyl (Dulcolax Supp) 10 mg RECTAL DAILY PRN PRN Reason: SEVERE CONSITIPATION Bupropion HCl (Wellbutrin Sr) 150 mg PO DAILY [facility] Last Admin: 08/03/18 09:28 Dose: 150 mg Enoxaparin Sodium (Lovenox Inj) 30 mg SQ Q24H [facility] Last Admin: 08/02/18 17:24 Dose: Not Given Famotidine (Pepcid) 10 mg PO BID [facility] Last Admin: 08/03/18 09:28 Dose: 10 mg Furosemide (Lasix) 20 mg PO DAILY [facility] Last Admin: 08/01/18 08:39 Dose: 20 mg Ceftriaxone Sodium 1,000 mg/ (Sodium Chloride) 100 mls @ 200 mls/hr IV.SIG Q24H [facility] Last Infusion: 08/02/18 17:25 Dose: Infused Sodium Chloride (Ns Inj) 1,000 mls @ 70 mls/hr IV.CONT .[id number] [facility] Last Admin: 07/30/18 15:36 Dose: Not Given Vancomycin HCl 1,000 mg/ (Sodium Chloride) 250 mls @ 250 mls/hr IV.SIG Q24H [facility] Last Admin: 08/03/18 10:34 Dose: 200 mls/hr Lactulose (Lactulose Liq) 30 ml PO DAILY PRN PRN Reason: SEVERE CONSITIPATION Levothyroxine Sodium (Synthroid) 112 mcg PO DAILY@0600 [facility] Last Admin: 08/03/18 05:46 Dose: 112 mcg Metoprolol Tartrate (Lopressor) 12.5 mg PO BID [facility] Last Admin: 08/03/18 09:28 Dose: 12.5 mg Miscellaneous (Pill Splitter) 1 each OTHER UNSCH PRN PRN Reason: PILL SPLITTER Miscellaneous Information ([facility] Ordered Lab Info) 0 each OTHER ONCE ONE Stop: 08/04/18 09:46 Ondansetron HCl (Zofran Inj) 4 mg IV.PUSH Q6H PRN PRN Reason: NAUSEA OR VOMITING Pharmacy Profile Note (Vancomycin Consult Pharmacy) 1 each OTHER UNSCH PRN PRN Reason: Pharmacy to dose Potassium Chloride (K-Dur) 20 meq PO DAILY [facility] Last Admin: 08/03/18 09:28 Dose: 20 meq Senna/Docusate Sodium (Asuncion-Colace) 1 tab PO BID [facility] Last Admin: 08/03/18 09:29 Dose: 1 tab Sennosides (Senokot) 17.2 mg PO Q12H PRN PRN Reason: Moderate Constipation Sodium Chloride (Ns Flush) 2 ml IV.FLUSH BID [facility] Last Admin: 08/03/18 09:29 Dose: Not Given Sodium Chloride (Ns Flush) 2 ml IV.FLUSH UNSCH PRN PRN Reason: FLUSH AFTER USING IV ACCESS Allergies Allergy/AdvReac Type Severity Reaction Status Date / Time lisinopril Allergy Severe Swelling Verified 07/28/18 14:15 Home Medications Medication Instructions Recorded Confirmed Type acetaminophen 325 mg PO BID PRN 04/04/18 07/28/18 History anastrozole 1 mg PO DAILY 04/04/18 07/28/18 History aspirin [Aspir-81] 81 mg PO DAILY 04/04/18 07/28/18 History atorvastatin 40 mg PO HS 04/04/18 07/28/18 History benztropine 1.5 mg PO HS 04/04/18 07/28/18 History bupropion HCl [Wellbutrin SR] 150 mg PO DAILY 04/04/18 07/28/18 History famotidine 20 mg PO BID 04/04/18 07/28/18 History furosemide 20 mg PO DAILY 04/04/18 07/28/18 History levothyroxine 112 mcg PO DAILY 04/04/18 07/28/18 History sennosides-docusate sodium [Senna 1 tab PO BID 04/04/18 07/28/18 History with Docusate Sodium] alprazolam 0.5 mg PO DAILY 07/28/18 07/28/18 History benztropine 1 mg PO QAM 07/28/18 07/28/18 History potassium chloride 20 meq PO DAILY 07/28/18 07/28/18 History Exam Vital signs: Vital Signs 08/02/18 16:00 08/02/18 20:00 08/03/18 00:00 Temperature 97 F L 97.8 F 97.7 F Pulse Rate 66 72 63 Respiratory Rate 16 20 20 Blood Pressure 117/58 L 120/66 116/62 Pulse Oximetry 96 97 99 08/03/18 04:00 08/03/18 08:00 Temperature 97.6 F 97.9 F Pulse Rate 69 103 H Respiratory Rate 20 15 Blood Pressure 126/62 139/60 Pulse Oximetry 97 98 Intake & Output 08/02/18 08/03/18 08/03/18 18:59 06:59 18:59 Intake Total 350 / 350 150 / 150 Output Total 350 / 350 200 / 200 400 / 400 Balance 0 / 0 -50 / -50 -400 / -400 Weight 59.8 kg Intake: IV 350 / 350 Vancomycin Inj 1,000 MG In NS 250 / 250 Inj 250 ML @ 250 mls/hr IV.SIG Q24H [facility] Rx#:[id number] Rocephin Inj 1,000 MG In NS Inj 100 / 100 100 ML @ 200 mls/hr IV.SIG Q24H [facility] Rx#:[id number] Oral 150 / 150 Output: Urine 350 / 350 200 / 200 Gastric Drainage 400 / 400 Gastrostomy Tube (PEG) 400 / 400 Other: # Voids 1 2 # Incontinent Voids 1 # Urine Diapers 1 Narrative: Narrative: GENERAL: Well-developed, very thin 68 yo female, appears comfortable SKIN: warm/dry. HEAD: Small bruise noted to right forehead, no joyce signs no raccoon's eyes. Normocephalic. EYES: No scleral icterus. No injection or drainage. ENT: No nasal bleeding or discharge. Mucous membranes pink and moist. NECK: Trachea midline. No JVD. CARDIOVASCULAR: Regular rhythm with mild tachycardia. RESPIRATORY: No accessory muscle use. Clear to auscultation. Breath sounds equal bilaterally. GASTROINTESTINAL: Abdomen soft, non-tender, nondistended. Hepatic and splenic margins not palpable. MUSCULOSKELETAL: No obvious deformities. No clubbing. No cyanosis. No edema. NEUROLOGICAL: Awake and alert. We will not participate in neurologic exam. Does move all 4 extremities. Per records patient appears to be at baseline mentation. PSYCHIATRIC: Unable to assess, however she appears to be at baseline Results - Laboratory Findings CBC and BMP: 07/29/18 04:08 08/03/18 08:47 Abnormal lab findings: Abnormal Labs 07/28/18 07/28/18 07/28/18 14:25 14:25 14:28 RBC 3.80 L Hgb Hct Neut % (Auto) Neut # (Auto) Seg Neuts % (Manual) 72 H Band Neuts % (Manual) 24 H Lymphocytes % (Manual) 3 L Abs Neuts (Manual) 8.7 H APTT 22.3 L Potassium BUN Creatinine Estimated GFR POC Glucose Random Glucose Alkaline Phosphatase Total Protein Albumin Urine Clarity Cloudy H Urine Nitrate Positive H Ur Leukocyte Esterase Large H Urine WBC Clumps Few H Urine Bacteria Many H Urine Mucus Few H Vancomycin Trough 07/28/18 07/29/18 07/29/18 14:28 04:08 04:09 RBC 3.46 L Hgb 11.2 L Hct 32.6 L Neut % (Auto) 84.4 H Neut # (Auto) 8.8 H Seg Neuts % (Manual) Band Neuts % (Manual) Lymphocytes % (Manual) Abs Neuts (Manual) APTT Potassium 3.4 L BUN 22 H 21 H Creatinine 1.36 H 1.06 H Estimated GFR 47 L 62 L POC Glucose Random Glucose 111 H Alkaline Phosphatase 160 H Total Protein 6.2 L Albumin 2.9 L Urine Clarity Urine Nitrate Ur Leukocyte Esterase Urine WBC Clumps Urine Bacteria Urine Mucus Vancomycin Trough 07/30/18 07/30/18 07/31/18 06:41 13:59 08:08 RBC Hgb Hct Neut % (Auto) Neut # (Auto) Seg Neuts % (Manual) Band Neuts % (Manual) Lymphocytes % (Manual) Abs Neuts (Manual) APTT Potassium 3.2 L BUN Creatinine Estimated GFR 68 L 67 L POC Glucose 128 H Random Glucose 142 H 129 H Alkaline Phosphatase Total Protein Albumin Urine Clarity Urine Nitrate Ur Leukocyte Esterase Urine WBC Clumps Urine Bacteria Urine Mucus Vancomycin Trough 08/01/18 08/01/18 08/02/18 06:18 14:19 06:04 RBC Hgb Hct Neut % (Auto) Neut # (Auto) Seg Neuts % (Manual) Band Neuts % (Manual) Lymphocytes % (Manual) Abs Neuts (Manual) APTT Potassium 3.3 L BUN Creatinine 1.13 H Estimated GFR 48 L 58 L POC Glucose Random Glucose 122 H Alkaline Phosphatase Total Protein Albumin Urine Clarity Urine Nitrate Ur Leukocyte Esterase Urine WBC Clumps Urine Bacteria Urine Mucus Vancomycin Trough 10.6 H 08/03/18 08:47 RBC Hgb Hct Neut % (Auto) Neut # (Auto) Seg Neuts % (Manual) Band Neuts % (Manual) Lymphocytes % (Manual) Abs Neuts (Manual) APTT Potassium BUN Creatinine Estimated GFR 74 L POC Glucose Random Glucose 122 H Alkaline Phosphatase Total Protein Albumin Urine Clarity Urine Nitrate Ur Leukocyte Esterase Urine WBC Clumps Urine Bacteria Urine Mucus Vancomycin Trough Assessment and Plan - Plan 68-year-old female apparently with a history of dementia schizophrenia and sepsis She has a CLINICAL APPLICATION CONSULTANT shunt in place I have reviewed the clinical and radiological findings Head CT 07/28/18 14:15 CONCLUSION: 1. No acute intracranial abnormality. 2. Stable ventriculomegaly with shunt. Shunt Study 07/28/18 14:15 CONCLUSION: Unremarkable exam. Neuro: neuro checks in a serial fashion. The patient is found with UTI and sepsis. There are no signs of meningitis. Further evaluation could be obtained by Sending CSF for glucose, protein, cell count, cultures Pulmonary: aggressive pulmonary toilette, nasotracheal suction, and breathing treatments with nebulizers. Sepsis on admission with bandemia and tachycardia, UTI Dehydration. Careful IV hydration Mild VETO. monitor closely urine output, BUN and creatinine History of schizophrenia, dementia. Coninue home meds Blood cultures and urine cultures pending ID. Started on Rocephin IV antibiotic Monitor on telemetry until sepsis resolved renal. Gentle IV fluids, hold Lasix, monitor kidney function creatinine is not at baseline Daily PT and OT Endocrine: Monitor serial Acu checks and SSI as needed in detail Protonix for stress ulcer prophylaxis Continue Lamberto hose and SCD's for DVT prophylaxis Caprini VTE Risk Assessment Caprini VTE Risk Assessment: Moderate/High Risk (score >= 2) Caprini Risk Assessment Model: Point Value = 1 Point Value = 2 Point Value = 3 Point Value = 5 Age 41-60 Minor surgery BMI > 25 kg/m2 Swollen legs Varicose veins or History of unexplained or recurrent spontaneous Oral contraceptives or hormone replacement Sepsis (< 1 month) Serious lung disease, including pneumonia (< 1 month) Abnormal pulmonary function Acute myocardial infarction Congestive heart failure (< 1 month) History of inflammatory bowel disease Medical patient at bed rest Age 61-74 Arthroscopic surgery Major open surgery (> 45 min) Laparoscopic surgery (> 45 min) Malignancy Confined to bed (> 72 hours) Immobilizing plaster cast Central venous access Age >= 75 History of VTE Family history of VTE Factor V Leiden Prothrombin [id number] Lupus anticoagulant Anticardiolipin antibodies Elevated serum homocysteine Heparin-induced thrombocytopenia Other congenital or acquired thrombophilia Stroke (< 1 month) Elective arthroplasty Hip, pelvis, or leg fracture Acute spinal cord injury (< 1 month) Prophylaxis Regimen: Total Risk Factor Score Risk Level Prophylaxis Regimen 0-1 Low Early ambulation 2 Moderate Order ONE of the following: *Sequential Compression Device (SCD) *Heparin 5000 units SQ BID 3-4 Higher Order ONE of the following medications: *Heparin 5000 units SQ TID *Enoxaparin/Lovenox 40 mg SQ daily (WT < 150 kg, CrCl > 30 mL/min) *Enoxaparin/Lovenox 30 mg SQ daily (WT < 150 kg, CrCl > 10-29 mL/min) *Enoxaparin/Lovenox 30 mg SQ BID (WT < 150 kg, CrCl > 30 mL/min) AND/OR *Sequential Compression Device (SCD) 5 or more Highest Order ONE of the following medications: *Heparin 5000 units SQ TID (Preferred with Epidurals) *Enoxaparin/Lovenox 40 mg SQ daily (WT < 150 kg, CrCl > 30 mL/min) *Enoxaparin/Lovenox 30 mg SQ daily (WT < 150 kg, CrCl > 10-29 mL/min) *Enoxaparin/Lovenox 30 mg SQ BID (WT < 150 kg, CrCl > 30 mL/min) AND *Sequential Compression Device (SCD) Further recommendations will be provided depending on the patient's clinical evaluation and follow up studies. Discussed the plan with dr mendieta
[2018-08-03] MEDS: Enoxaparin Inj 30 MG/0.3 ML Syringe SQ SCH (18:30)
[2018-08-04] MEDS: Levothyroxine 112 MCG Tablet PO SCH (06:56)
[2018-08-04] MEDS: Metoprolol Tartrate 25 MG Tablet PO SCH ×2 (09:25→21:14)
[2018-08-04] MEDS: buPROPion 150 MG 12 HR Tablet PO SCH (09:25)
[2018-08-04] MEDS: Famotidine 20 MG Tablet PO SCH ×2 (09:26→21:13)
[2018-08-04] MEDS: amLODIPine 10 MG Tablet PO SCH (09:26)
[2018-08-04] MEDS: Anastrozole 1 MG Tablet PO SCH (09:26)
[2018-08-04] MEDS: Senna/Docusate Sodium 8.6/50 MG Tablet PO SCH ×2 (09:26→21:12)
[2018-08-04] MEDS ORDERED: Pharmacy Ordered Lab Info OTHER ONE (09:45)
--- NOTE | 2018-08-04 11:04 | P.PNIM ---
Subjective Interval history: Follow up on patient with sepsis, bacteremia, UTI. Patient seen and examined. Patient encountered in her room lying awake in bed. She denies any medical complaints. DW nursing staff, no adverse events noted overnight. Physical Exam Vital signs: Vital Signs 08/03/18 12:00 08/03/18 16:00 08/03/18 20:00 Temperature 97.6 F 97.9 F 98.0 F Pulse Rate 71 72 59 L Respiratory Rate 15 16 17 Blood Pressure 117/62 150/76 H 136/78 Pulse Oximetry 96 97 96 08/03/18 23:55 08/04/18 00:00 08/04/18 04:00 Temperature 96.9 F L Pulse Rate 77 70 77 Respiratory Rate 17 Blood Pressure 130/80 Pulse Oximetry 97 08/04/18 04:22 08/04/18 08:00 Temperature 96.0 F L 97.7 F Pulse Rate 75 78 Respiratory Rate 18 19 Blood Pressure 147/90 H 128/78 Pulse Oximetry 96 97 Intake & Output 08/03/18 08/04/18 08/04/18 18:59 06:59 18:59 Intake Total 690 / 690 480 / 480 60 / 60 Output Total 400 / 400 Balance 290 / 290 480 / 480 60 / 60 Weight 59.8 kg Intake: IV 350 / 350 Vancomycin Inj 1,000 MG In NS 250 / 250 Inj 250 ML @ 250 mls/hr IV.SIG Q24H [facility] Rx#:[id number] Rocephin Inj 1,000 MG In NS Inj 100 / 100 100 ML @ 200 mls/hr IV.SIG Q24H [facility] Rx#:[id number] Oral 240 / 240 480 / 480 30 / 30 Oral Supplement 100 / 100 30 / 30 Output: Gastric Drainage 400 / 400 Gastrostomy Tube (PEG) 400 / 400 Other: # Voids 4 # Urine Diapers 2 Date of Last Bowel Movement 08/01/18 Narrative: GENERAL: This is a well-developed well-nourished elderly female patient, who appears older than stated age, INAD. Awake and alert. Confused. SKIN: Warm/dry, no generalized rash. HEENT: Normocephalic. Pupils equal and round. No scleral icterus. No nasal discharge. Airway patent. NECK: Trachea midline. CARDIOVASCULAR: Regular rate and rhythm. RESPIRATORY: No accessory muscle use. Poor effort. Clear to auscultation. Breath sounds equal bilaterally. GASTROINTESTINAL: Abdomen soft, non-tender, nondistended. +BS. MUSCULOSKELETAL: No obvious deformities. No edema noted. NEUROLOGICAL: Awake and alert. +Aphasia. Confused. Follows some simple commands. Able to move all extremities spontaneously. Minimal verbalization. PSYCHIATRIC: Cooperative with exam. Restless in bed. Urinary Catheter Management Straight: Cath placed during this visit: yes Reason for continuing: Not indwelling catheter Insertion date: 07/28/18 Insertion time: 14:20 Results Labs CBC & Chem 7: 07/29/18 04:08 08/03/18 08:47 Labs: Microbiology 07/31/18 16:00 Blood - Peripheral Aerobic Blood Culture - Preliminary No growth in 3 days 07/31/18 16:00 Blood - Peripheral Anaerobic Blood Culture - Preliminary No growth in 3 days 07/31/18 16:05 Blood - Peripheral Aerobic Blood Culture - Preliminary No growth in 3 days 07/31/18 16:05 Blood - Peripheral Anaerobic Blood Culture - Preliminary No growth in 3 days Assessment and Plan Plan 68-year-old female apparently with a history of dementia schizophrenia normally feeds herself but is normally not oriented. Per EMS report presented to emergency department for evaluation of increased altered mental status. Patient apparently has a history of DISTRICT RESOURCE OFFICER shunt in place. Pt. unable to provide any history, per review of EMR, pt. aphasic. Found with UTI and sepsis. Sepsis on admission with bandemia and tachycardia, UTI, improved MSSA and GBS Bacteremia, unclear source Echocardiogram - no vegetation, EF 50-55% -ID following, appreciate assistance. Per ID, If w/u unrevealing for source will consider shunt reservoir aspiration. -Continue on IV vancomycin and Rocephin pending ID eval/recs -Repeat blood cultures with no growth x 4 days, follow until finalized. Notified ID, awaiting plan for continued w/u, ?shunt aspiration. Dr. Lopez's evaluation appreciated. -Consult palliative care to assist with goals of care Ecoli UTI -on IV abx as above VETO on suspected CKD, resolved ?Vancomycin related, unlikely Vanc trough 10.6. Likely poor oral intake with diuretic use. -creatinine improved s/p IVF -monitor I&Os -continue to hold Lasix -Avoid nephrotoxic agents -Continue to monitor renal indices as indicated Acute metabolic encephalopathy, secondary to infection, also with history of schizophrenia, dementia Aphasia Tardive dyskinesia -suspect patient has returned to baseline mentation -Continue Cogentin -Continue Wellbutrin -per ST, changed to puree diet with thin liquids History of [employer]OURCE OFFICER shunt -DISTRICT RESOURCE OFFICER shunt study done, findings stable Hypertension, controlled -Continue Norvasc 10 mg p.o. daily and Lopressor 12.5mg BID -Lasix on hold - monitor K, may need to d/c scheduled K repletion. -Monitor blood pressure and adjust as necessary Hypokalemia, resolved -K 3.3 -resolved s/p po repletion -continue on daily scheduled repletion, repeat K level in am History of breast cancer -Continue with anastrozole 1 mg p.o. daily Lovenox for DVT prophylaxis Pepcid for GI prophylaxis Code Status: FULL Discussed Condition With: patient, nursing staff, Dr. Bell Discharge Planning: Discharge pending ID workup Progress Note: Quality VTE Deep Vein Thrombosis/Pulmonary Embolism Present on Admission: No
[2018-08-04] MEDS: Vancomycin Inj 1,000 MG in Sodium Chlor 0.9% Inj 250 ML IV.SIG SCH ×2 (11:11→11:40)
--- NOTE | 2018-08-04 11:14 | P.PNNS ---
Subjective Interval history: 68 year old female with sepsis, bacteremia, UTI. Patient seen and examined. Patient encountered in her room lying awake in bed. She denies any medical complaints. No adverse events noted overnight. Physical Exam Vital signs: Vital Signs 08/03/18 12:00 08/03/18 16:00 08/03/18 20:00 Temperature 97.6 F 97.9 F 98.0 F Pulse Rate 71 72 59 L Respiratory Rate 15 16 17 Blood Pressure 117/62 150/76 H 136/78 Pulse Oximetry 96 97 96 08/03/18 23:55 08/04/18 00:00 08/04/18 04:00 Temperature 96.9 F L Pulse Rate 77 70 77 Respiratory Rate 17 Blood Pressure 130/80 Pulse Oximetry 97 08/04/18 04:22 08/04/18 08:00 Temperature 96.0 F L 97.7 F Pulse Rate 75 78 Respiratory Rate 18 19 Blood Pressure 147/90 H 128/78 Pulse Oximetry 96 97 Intake & Output 08/03/18 08/04/18 08/04/18 18:59 06:59 18:59 Intake Total 690 / 690 480 / 480 60 / 60 Output Total 400 / 400 Balance 290 / 290 480 / 480 60 / 60 Weight 59.8 kg Intake: IV 350 / 350 Vancomycin Inj 1,000 MG In NS 250 / 250 Inj 250 ML @ 250 mls/hr IV.SIG Q24H J[facility] Rx#:[id number] Rocephin Inj 1,000 MG In NS Inj 100 / 100 100 ML @ 200 mls/hr IV.SIG Q24H [facility] Rx#:[id number] Oral 240 / 240 480 / 480 30 / 30 Oral Supplement 100 / 100 30 / 30 Output: Gastric Drainage 400 / 400 Gastrostomy Tube (PEG) 400 / 400 Other: # Voids 4 # Urine Diapers 2 Date of Last Bowel Movement 08/01/18 Narrative: Narrative: GENERAL: Well-developed, very thin 68 yo female, appears comfortable SKIN: warm/dry. HEAD: Small bruise noted to right forehead, no joyce signs no raccoon's eyes. Normocephalic. EYES: No scleral icterus. No injection or drainage. ENT: No nasal bleeding or discharge. Mucous membranes pink and moist. NECK: Trachea midline. No JVD. CARDIOVASCULAR: Regular rhythm with mild tachycardia. RESPIRATORY: No accessory muscle use. Clear to auscultation. Breath sounds equal bilaterally. GASTROINTESTINAL: Abdomen soft, non-tender, nondistended. Hepatic and splenic margins not palpable. MUSCULOSKELETAL: No obvious deformities. No clubbing. No cyanosis. No edema. NEUROLOGICAL: Awake and alert. We will not participate in neurologic exam. Does move all 4 extremities. Per records patient appears to be at baseline mentation. PSYCHIATRIC: Unable to assess, however she appears to be at baseline - Urinary Catheter Management Straight Cath placed during this visit: yes Reason for continuing: Not indwelling catheter Insertion date: 07/28/18 Insertion time: 14:20 Assessment and Plan - Plan 68-year-old female apparently with a history of dementia schizophrenia and sepsis She has a DELIVERER OUTSIDE shunt in place I again reviewed the clinical and radiological findings Head CT 07/28/18 14:15 CONCLUSION: 1. No acute intracranial abnormality. 2. Stable ventriculomegaly with shunt. Shunt Study 07/28/18 14:15 CONCLUSION: Unremarkable exam. Neuro: neuro checks in a serial fashion. The patient is found with UTI and sepsis. Further information could be obtained by Sending CSF for glucose, protein, cell count, cultures Pulmonary: aggressive pulmonary toilette, nasotracheal suction, and breathing treatments with nebulizers. Sepsis on admission with bandemia and tachycardia, UTI Dehydration. Careful IV hydration Mild VETO. monitor closely urine output, BUN and creatinine History of schizophrenia, dementia. Coninue home meds Blood cultures and urine cultures pending ID. Started on Rocephin IV antibiotic Monitor on telemetry until sepsis resolved renal. Gentle IV fluids, hold Lasix, monitor kidney function creatinine is not at baseline Daily PT and OT Endocrine: Monitor serial Acu checks and SSI as needed in detail Protonix for stress ulcer prophylaxis Continue Lamberto miladye and SCD's for DVT prophylaxis Caprini VTE Risk Assessment Caprini VTE Risk Assessment: Moderate/High Risk (score >= 2) Caprini Risk Assessment Model: Point Value = 1 Point Value = 2 Point Value = 3 Point Value = 5 Age 41-60 Minor surgery BMI > 25 kg/m2 Swollen legs Varicose veins or History of unexplained or recurrent spontaneous Oral contraceptives or hormone replacement Sepsis (< 1 month) Serious lung disease, including pneumonia (< 1 month) Abnormal pulmonary function Acute myocardial infarction Congestive heart failure (< 1 month) History of inflammatory bowel disease Medical patient at bed rest Age 61-74 Arthroscopic surgery Major open surgery (> 45 min) Laparoscopic surgery (> 45 min) Malignancy Confined to bed (> 72 hours) Immobilizing plaster cast Central venous access Age >= 75 History of VTE Family history of VTE Factor V Leiden Prothrombin [id number] Lupus anticoagulant Anticardiolipin antibodies Elevated serum homocysteine Heparin-induced thrombocytopenia Other congenital or acquired thrombophilia Stroke (< 1 month) Elective arthroplasty Hip, pelvis, or leg fracture Acute spinal cord injury (< 1 month) Prophylaxis Regimen: Total Risk Factor Score Risk Level Prophylaxis Regimen 0-1 Low Early ambulation 2 Moderate Order ONE of the following: *Sequential Compression Device (SCD) *Heparin 5000 units SQ BID 3-4 Higher Order ONE of the following medications: *Heparin 5000 units SQ TID *Enoxaparin/Lovenox 40 mg SQ daily (WT < 150 kg, CrCl > 30 mL/min) *Enoxaparin/Lovenox 30 mg SQ daily (WT < 150 kg, CrCl > 10-29 mL/min) *Enoxaparin/Lovenox 30 mg SQ BID (WT < 150 kg, CrCl > 30 mL/min) AND/OR *Sequential Compression Device (SCD) 5 or more Highest Order ONE of the following medications: *Heparin 5000 units SQ TID (Preferred with Epidurals) *Enoxaparin/Lovenox 40 mg SQ daily (WT < 150 kg, CrCl > 30 mL/min) *Enoxaparin/Lovenox 30 mg SQ daily (WT < 150 kg, CrCl > 10-29 mL/min) *Enoxaparin/Lovenox 30 mg SQ BID (WT < 150 kg, CrCl > 30 mL/min) AND *Sequential Compression Device (SCD) Further recommendations will be provided depending on the patient's clinical evaluation and follow up studies. Discussed the plan with dr jones
[2018-08-04] MEDS: Enoxaparin Inj 30 MG/0.3 ML Syringe SQ SCH (17:48)
[2018-08-05] MEDS: Levothyroxine 112 MCG Tablet PO SCH (05:10)
--- NOTE | 2018-08-05 08:59 | P.PNNS ---
Subjective Interval history: 68 year old female with sepsis, bacteremia, UTI. Patient seen and examined. Patient encountered in her room lying awake in bed. She denies any medical complaints. No adverse events noted overnight. 07/05. Awaiting for shuntogram and aspiration for CSF cultures Head CT 07/28/18 14:15 CONCLUSION: 1. No acute intracranial abnormality. 2. Stable ventriculomegaly with shunt. Shunt Study 07/28/18 14:15 CONCLUSION: Unremarkable exam. Physical Exam Vital signs: Vital Signs 08/04/18 12:00 08/04/18 16:00 08/04/18 20:00 Temperature 97.9 F 98.1 F 98.3 F Pulse Rate 70 69 74 Respiratory Rate 17 Blood Pressure 122/58 L 129/91 H 129/72 Pulse Oximetry 99 97 99 08/05/18 00:00 08/05/18 04:52 08/05/18 08:00 Temperature 97.4 F L 97.1 F L 97.3 F L Pulse Rate 70 73 68 Respiratory Rate 18 Blood Pressure 141/99 H 120/82 122/77 Pulse Oximetry 96 96 100 Intake & Output 08/04/18 08/05/18 08/05/18 18:59 06:59 18:59 Intake Total 530 / 530 480 / 480 Balance 530 / 530 480 / 480 Weight 59 kg Intake: IV 350 / 350 Vancomycin Inj 1,000 MG In NS 250 / 250 Inj 250 ML @ 250 mls/hr IV.SIG Q24H [facility] Rx#:[id number] Rocephin Inj 1,000 MG In NS Inj 100 / 100 100 ML @ 200 mls/hr IV.SIG Q24H [facility] Rx#:[id number] Oral 150 / 150 480 / 480 Oral Supplement 30 / 30 Other: # Voids 2 # Urine Diapers 1 # Bowel Movements 0 Narrative: Narrative: GENERAL: Well-developed, very thin 68 yo female, appears comfortable SKIN: warm/dry. HEAD: Small bruise noted to right forehead, no joyce signs no raccoon's eyes. Normocephalic. EYES: No scleral icterus. No injection or drainage. ENT: No nasal bleeding or discharge. Mucous membranes pink and moist. NECK: Trachea midline. No JVD. CARDIOVASCULAR: Regular rhythm with mild tachycardia. RESPIRATORY: No accessory muscle use. Clear to auscultation. Breath sounds equal bilaterally. GASTROINTESTINAL: Abdomen soft, non-tender, nondistended. Hepatic and splenic margins not palpable. MUSCULOSKELETAL: No obvious deformities. No clubbing. No cyanosis. No edema. NEUROLOGICAL: Awake and alert. We will not participate in neurologic exam. Does move all 4 extremities. Per records patient appears to be at baseline mentation. PSYCHIATRIC: Unable to assess, however she appears to be at baseline - Urinary Catheter Management Straight Cath placed during this visit: yes Reason for continuing: Not indwelling catheter Insertion date: 07/28/18 Insertion time: 14:20 Assessment and Plan - Plan 68-year-old female apparently with a history of dementia schizophrenia and sepsis She has a ACUTE CARE PHYSICAL THERAPIST shunt in place Neuro: Continue neuro checks. For a shuntogram today The patient has UTI and sepsis. I don't think her shunt is infected Further evaluation could be obtained by Sending CSF for glucose, protein, cell count, cultures Pulmonary: aggressive pulmonary toilette, nasotracheal suction, and breathing treatments with nebulizers. Sepsis on admission with bandemia and tachycardia, UTI Dehydration. Careful IV hydration Mild VETO. monitor closely urine output, BUN and creatinine History of schizophrenia, dementia. Coninue home meds Blood cultures and urine cultures pending ID. Started on Rocephin IV antibiotic Monitor on telemetry until sepsis resolved renal. Gentle IV fluids, hold Lasix, monitor kidney function creatinine is not at baseline Daily PT and OT Endocrine: Monitor serial Acu checks and SSI as needed in detail Protonix for stress ulcer prophylaxis Continue Lamberto hose and SCD's for DVT prophylaxis Caprini VTE Risk Assessment Caprini VTE Risk Assessment: Moderate/High Risk (score >= 2) Caprini Risk Assessment Model: Point Value = 1 Point Value = 2 Point Value = 3 Point Value = 5 Age 41-60 Minor surgery BMI > 25 kg/m2 Swollen legs Varicose veins or History of unexplained or recurrent spontaneous Oral contraceptives or hormone replacement Sepsis (< 1 month) Serious lung disease, including pneumonia (< 1 month) Abnormal pulmonary function Acute myocardial infarction Congestive heart failure (< 1 month) History of inflammatory bowel disease Medical patient at bed rest Age 61-74 Arthroscopic surgery Major open surgery (> 45 min) Laparoscopic surgery (> 45 min) Malignancy Confined to bed (> 72 hours) Immobilizing plaster cast Central venous access Age >= 75 History of VTE Family history of VTE Factor V Leiden Prothrombin [id number] Lupus anticoagulant Anticardiolipin antibodies Elevated serum homocysteine Heparin-induced thrombocytopenia Other congenital or acquired thrombophilia Stroke (< 1 month) Elective arthroplasty Hip, pelvis, or leg fracture Acute spinal cord injury (< 1 month) Prophylaxis Regimen: Total Risk Factor Score Risk Level Prophylaxis Regimen 0-1 Low Early ambulation 2 Moderate Order ONE of the following: *Sequential Compression Device (SCD) *Heparin 5000 units SQ BID 3-4 Higher Order ONE of the following medications: *Heparin 5000 units SQ TID *Enoxaparin/Lovenox 40 mg SQ daily (WT < 150 kg, CrCl > 30 mL/min) *Enoxaparin/Lovenox 30 mg SQ daily (WT < 150 kg, CrCl > 10-29 mL/min) *Enoxaparin/Lovenox 30 mg SQ BID (WT < 150 kg, CrCl > 30 mL/min) AND/OR *Sequential Compression Device (SCD) 5 or more Highest Order ONE of the following medications: *Heparin 5000 units SQ TID (Preferred with Epidurals) *Enoxaparin/Lovenox 40 mg SQ daily (WT < 150 kg, CrCl > 30 mL/min) *Enoxaparin/Lovenox 30 mg SQ daily (WT < 150 kg, CrCl > 10-29 mL/min) *Enoxaparin/Lovenox 30 mg SQ BID (WT < 150 kg, CrCl > 30 mL/min) AND *Sequential Compression Device (SCD) Further recommendations will be provided depending on the patient's clinical evaluation and follow up studies. Discussed the plan with dr jones
[2018-08-05] MEDS: Senna/Docusate Sodium 8.6/50 MG Tablet PO SCH ×2 (09:10→21:09)
[2018-08-05] MEDS: Anastrozole 1 MG Tablet PO SCH (09:10)
[2018-08-05] MEDS: Famotidine 20 MG Tablet PO SCH ×2 (09:10→21:08)
[2018-08-05] MEDS: amLODIPine 10 MG Tablet PO SCH (09:10)
[2018-08-05] MEDS: Metoprolol Tartrate 25 MG Tablet PO SCH ×2 (09:11→21:08)
[2018-08-05] MEDS: buPROPion 150 MG 12 HR Tablet PO SCH (09:11)
[2018-08-05 09:24] LABS: Calcium 9.4 mg/dL (8.5-10.1); Carbon Dioxide 24.8 meq/L (21.0-32.0); Potassium 3.8 meq/L (3.5-5.1)
[2018-08-05] MEDS: Vancomycin Inj 1,000 MG in Sodium Chlor 0.9% Inj 250 ML IV.SIG SCH (11:48)
--- NOTE | 2018-08-05 13:47 | P.CONPAL ---
Consult Service: Palliative Care Requesting Physician: Anjali Quijano Reason for Consult: a. To assist with evaluation and management of symptoms including: Debility. b. To assist medical decision maker(s) with: better understanding of current medical conditions; weighing benefits/burdens of medical treatment options; making medical treatment decisions. Primary Care Provider: UNKNOWN History of Present Illness History of Present Illness: Ms. Urban is a 68-year-old female with a medical history significant for hydrocephalus/ventriculomegaly status post STRETCHING MACHINE OPERATOR shunt, schizophrenia, hyperlipidemia, seizure disorder, COPD who presented to ED via EMS on 07/28/18 for evaluation of altered mental status. Laboratory workup revealing stable hemoglobin, BUN/creatinine 22/1.36, elevated alk phos at 160. UA positive for nitrates and leukocyte. Patient was admitted for further monitoring and management. Head CT negative for acute process. Blood cultures positive for group B beta strep and MRSA. Urine culture positive for E. coli. Infectious disease consulted on 07/30 in the setting of sepsis/bacteremia and UTI. Echocardiogram negative for vegetation, showing EF of 50-55%. Shunt study unremarkable on 07/28/18. Neurosurgery was consulted on 08/03 in the setting of ventriculomegaly with STRETCHING MACHINE OPERATOR shunt. As per neurosurgery, no signs of meningitis. Awaiting shuntogram and aspiration for CSF cultures. Speech therapy following, patient on pured diet with thin liquids. Patient was seen in her room, resting in bed in no acute distress. She is stable hemodynamically, tolerating room air. Patient with slurred speech, was able to tell me her name. Confused as to place and situation. Patient intermittently mumbling words. Unable to self report pain or discomfort at this time. Patient resident of [facility]. No next of kin listed on any of patient's hospitalizations. Complete chart review done since hospitalizations in 2005. Spoke with [facility] sod farmer Mari, she reports that patient has been a resident since 04/07/18, she arrived from [facility] as skilled, later transitioning to long-term on 05/24/18. Mari reports that patient's brother has recently , no other contact information regarding next of kin or guardian. Mari reports that patient was given her own consents and signing her own forms. Reviewed of medical records and prior hospitalizations, patient resident of [facility] [place] [facility] since 2008 given schizophrenia. Case reviewed with palliative care social work lecturer. Requesting [employer] report to locate next of kin. If unable to locate next of kin, patient may need a court appointed guardian. Patient with schizophrenia, reports of dementia, aphasia and worsening confusion. Function/Cognitive Trajectory: Patient resident of [facility] since March 2018. Appears to be a resident of [facility] since 2008. Requiring assistance with all ADLs besides feedings. Dementia/schizophrenia at baseline. Review of Systems unobtainable due to mental condition PMFSH - History History Provided By: Medical Record - Medical History Medical History: Medical History (Last Updated 08/05/18 @ 13:22 by Venus Osorio APRN) Cerebral ventriculomegaly Hydrocephalus Hypothyroidism Seizure disorder COPD (chronic obstructive pulmonary disease) Depression GERD (gastroesophageal reflux disease) HTN (hypertension) Hx of cardiac arrhythmia PTSD (post-traumatic stress disorder) Schizo affective schizophrenia - Surgical History Surgical History: Surgical History (Last Reviewed 08/03/18 @ 12:22 by Dajuan Lopez MD) History of brain shunt - Family History Family History: Family History (Last Updated 08/05/18 @ 13:22 by Venus Osorio APRN) Mother Old age Father Old age - Social History I have reviewed the patient's Social History: Yes - Tobacco History Second Hand Smoke Exposure: No Smoking Status: Former smoker Tobacco Type: Cigarettes, Cigars Packs Per Day: 2 - Alcohol History How Often Do You Have a Drink Containing Alcohol: Unable to Obtain - Substance Use History Substance History: Unable to Obtain - Travel History Recent Travel in the [place] Within the Last 8 Weeks: No Recent Travel Out of the Country Within the Last 8 Weeks: No - Immunization History Tetanus Immunization: Unsure Medications and Allergies Active Medications: Active Medications Acetaminophen (Tylenol) 650 mg PO Q4H PRN PRN Reason: Temp > 100.4 Al Hydroxide/Mg Hydroxide (Milk Of Magnesia Liq) 30 ml PO Q12H PRN PRN Reason: Mild Constipation Amlodipine Besylate (Norvasc) 10 mg PO DAILY [facility] Last Admin: 08/05/18 09:10 Dose: 10 mg Anastrozole (Arimidex) 1 mg PO DAILY [facility] Last Admin: 08/05/18 09:10 Dose: 1 mg Aspirin (Ecotrin) 81 mg PO DAILY [facility] Last Admin: 08/05/18 09:11 Dose: 81 mg Atorvastatin Calcium (Lipitor) 40 mg PO HS [facility] Last Admin: 08/04/18 21:13 Dose: 40 mg Benztropine Mesylate (Cogentin) 1.5 mg PO HS [facility] Last Admin: 08/04/18 21:12 Dose: 1.5 mg Benztropine Mesylate (Cogentin) 1 mg PO DAILY [facility] Last Admin: 08/05/18 09:10 Dose: 1 mg Bisacodyl (Dulcolax Supp) 10 mg RECTAL DAILY PRN PRN Reason: SEVERE CONSITIPATION Bupropion HCl (Wellbutrin Sr) 150 mg PO DAILY [facility] Last Admin: 08/05/18 09:11 Dose: 150 mg Enoxaparin Sodium (Lovenox Inj) 30 mg SQ Q24H [facility] Last Admin: 08/04/18 17:48 Dose: 30 mg Famotidine (Pepcid) 10 mg PO BID [facility] Last Admin: 08/05/18 09:10 Dose: 10 mg Furosemide (Lasix) 20 mg PO DAILY [facility] Last Admin: 08/01/18 08:39 Dose: 20 mg Ceftriaxone Sodium 1,000 mg/ (Sodium Chloride) 100 mls @ 200 mls/hr IV.SIG Q24H [facility] Last Infusion: 08/04/18 16:54 Dose: Infused Sodium Chloride (Ns Inj) 1,000 mls @ 70 mls/hr IV.CONT .[id number] [facility] Last Admin: 07/30/18 15:36 Dose: Not Given Vancomycin HCl 1,000 mg/ (Sodium Chloride) 250 mls @ 250 mls/hr IV.SIG Q24H [facility] Last Admin: 08/05/18 11:48 Dose: 200 mls/hr Lactulose (Lactulose Liq) 30 ml PO DAILY PRN PRN Reason: SEVERE CONSITIPATION Levothyroxine Sodium (Synthroid) 112 mcg PO DAILY@0600 [facility] Last Admin: 08/05/18 05:10 Dose: 112 mcg Metoprolol Tartrate (Lopressor) 12.5 mg PO BID [facility] Last Admin: 08/05/18 09:11 Dose: 12.5 mg Miscellaneous (Pill Splitter) 1 each OTHER UNSCH PRN PRN Reason: PILL SPLITTER Ondansetron HCl (Zofran Inj) 4 mg IV.PUSH Q6H PRN PRN Reason: NAUSEA OR VOMITING Pharmacy Profile Note (Vancomycin Consult Pharmacy) 1 each OTHER UNSCH PRN PRN Reason: Pharmacy to dose Potassium Chloride (K-Dur) 20 meq PO DAILY [facility] Last Admin: 08/05/18 09:11 Dose: 20 meq Senna/Docusate Sodium (Asuncion-Colace) 1 tab PO BID [facility] Last Admin: 08/05/18 09:10 Dose: 1 tab Sennosides (Senokot) 17.2 mg PO Q12H PRN PRN Reason: Moderate Constipation Sodium Chloride (Ns Flush) 2 ml IV.FLUSH BID [facility] Last Admin: 08/05/18 09:11 Dose: 2 ml Sodium Chloride (Ns Flush) 2 ml IV.FLUSH UNSCH PRN PRN Reason: FLUSH AFTER USING IV ACCESS Allergies Allergy/AdvReac Type Severity Reaction Status Date / Time lisinopril Allergy Severe Swelling Verified 07/28/18 14:15 Home Medications Medication Instructions Recorded Confirmed Type acetaminophen 325 mg PO BID PRN 04/04/18 07/28/18 History anastrozole 1 mg PO DAILY 04/04/18 07/28/18 History aspirin [Aspir-81] 81 mg PO DAILY 04/04/18 07/28/18 History atorvastatin 40 mg PO HS 04/04/18 07/28/18 History benztropine 1.5 mg PO HS 04/04/18 07/28/18 History bupropion HCl [Wellbutrin SR] 150 mg PO DAILY 04/04/18 07/28/18 History famotidine 20 mg PO BID 04/04/18 07/28/18 History furosemide 20 mg PO DAILY 04/04/18 07/28/18 History levothyroxine 112 mcg PO DAILY 04/04/18 07/28/18 History sennosides-docusate sodium [Senna 1 tab PO BID 04/04/18 07/28/18 History with Docusate Sodium] alprazolam 0.5 mg PO DAILY 07/28/18 07/28/18 History benztropine 1 mg PO QAM 07/28/18 07/28/18 History potassium chloride 20 meq PO DAILY 07/28/18 07/28/18 History Advance Directives Living Will: Unknown Power of Data Base Design Analyst: Unknown Physical Exam Vital Signs: Vital Signs - 24 hr 08/04/18 16:00 08/04/18 20:00 08/05/18 00:00 Temperature 98.1 F 98.3 F 97.4 F L Pulse Rate 69 74 70 Respiratory Rate 17 17 18 Blood Pressure 129/91 H 129/72 141/99 H Pulse Oximetry 97 99 96 08/05/18 04:52 08/05/18 08:00 08/05/18 12:00 Temperature 97.1 F L 97.3 F L 97.4 F L Pulse Rate 73 68 60 Respiratory Rate 18 16 Blood Pressure 120/82 122/77 123/59 L Pulse Oximetry 96 100 100 I&O: Intake & Output 08/03/18 08/04/18 08/05/18 08/06/18 06:59 06:59 06:59 06:59 Intake Total 500 / 500 1170 / 1170 1010 / 1010 Output Total 550 / 550 400 / 400 Balance -50 / -50 770 / 770 1010 / 1010 Weight 59.8 kg 59.8 kg 59 kg Physical Exam: CONSTITUTIONAL/GENERAL: Elderly, thin female laying in bed in moderate distress , restless. She appears much older than stated age. TUBES/LINES/DRAINS: PIV. SKIN: No jaundice, rashes, or lesions. Ecchymoses on upper extremities. Skin temperature appropriate. Not diaphoretic. HEAD: Atraumatic. Normocephalic. EYES: Pupils equal and round and reactive. Extraocular motions intact. No scleral icterus. No injection or drainage. ENT: Hearing grossly normal. Nose without bleeding or purulent drainage. Moist oral mucosa. Edentulous. NECK: Trachea midline. Supple, nontender. CARDIOVASCULAR: Regular rate and rhythm. Peripheral pulses symmetric. RESPIRATORY/CHEST: Symmetric, unlabored respirations. Clear to auscultation. Breath sounds equal bilaterally. No wheezes, rales, or rhonchi. GASTROINTESTINAL: Abdomen soft, non-tender, nondistended. Bowel sounds present. GENITOURINARY: Without palpable bladder distension. MUSCULOSKELETAL: Extremities without clubbing, cyanosis, or edema. No mottling or clubbing. Muscle atrophy to all 4 extremities. NEUROLOGICAL: Alert to self. Confused as to place and situation. Garbled speech. Moving all extremities spontaneously. Aphasia. PSYCHIATRIC: Restless. Diagnostic Tests Laboratory: Laboratory Results - last 72 hr 08/03/18 08/04/18 08/05/18 08:47 11:40 07:58 Sodium 138 137 Potassium 3.7 3.8 Chloride 105 102 Carbon Dioxide 25.7 24.8 Anion Gap 7 10 BUN 9 9 Creatinine 0.77 0.87 Estimated GFR 74 L 65 L Random Glucose 122 H 118 H Calcium 8.7 9.4 Vancomycin Trough 15.3 H Result Diagrams: 07/29/18 04:08 08/05/18 07:58 Microbiology: Microbiology 07/31/18 16:00 Aerobic Blood Culture - Final Blood - Peripheral No growth in 5 days Anaerobic Blood Culture - Final No growth in 5 days 07/31/18 16:05 Aerobic Blood Culture - Final Blood - Peripheral No growth in 5 days Anaerobic Blood Culture - Final No growth in 5 days 07/28/18 14:30 Aerobic Blood Culture - Final Blood - Peripheral Group B beta Strep S. aureus MRSA Anaerobic Blood Culture - Final Patient/Family Conference Present at Family Conference: No family at bedside. Pending identification of next of kin. Case discussed with [facility] liaison Mari. Family Conference Time: Family Conference Location: Telephone Issues Discussed: * Palliative care role, purpose, approach * Additional medical, psychosocial, and spiritual history * Patients general health, functional status, and cognitive changes in the months leading up to the current hospitalization * Palliative care contact information provided Assessment and Plan - Disease Oriented Problem List (1) Acute metabolic encephalopathy (2) Schizophrenia (3) Acute UTI (4) Sepsis - Symptom Scale (1) Anxiety 0-10 Scale: Unable to quantify Pertinent Non-Medical Issues: Psychosocial: Resident of long-term facility. , unclear if advance directives have been completed. Spiritual: Anabaptism alivia. Legal: Unknown if advanced directives have been completed. Ethical issues impacting care: Pending identification of next of kin. Important Contacts: No next of kin/pending [employer] Report. Prognosis: Ms. Urban is a 68-year-old female with a medical history significant for hydrocephalus/ventriculomegaly status post STRETCHING MACHINE OPERATOR shunt, schizophrenia, hyperlipidemia, seizure disorder, COPD who presented to ED via EMS on 07/28/18 for evaluation of altered mental status. She was found with sepsis bacteremia, UTI. Patient resident of longterm [place] [facility] for the past few years. She requires assistance with most ADLs. She is a very high risk for further complications, continued decline and . Code Status: Full Code Plan: * CODE STATUS: Full code by default. * HEALTHCARE DECISION-MAKING: Patient unable to participate in medical decision making given clinical condition, acute metabolic encephalopathy with also history of schizophrenia, dementia. Patient not likely to regain medical decision-making. Patient resident of [facility] for the past few years. No advance directives reported as per long-term facility, her brother is reported to have recently. Patient is , unknown if she has any biological children. Pending [employer] report to identify of next of kin. * GOALS OF CARE: Unable to address, pending identification of next of kin. Patient unable to participating medical decision making, see above. custodial reports that patient was given her own consents and signing her own forms as of last year. If we are unable to identified next of kin, patient will likely require a guardian. * SYMPTOMS: = Restlessness/agitation. In the setting of acute infection, acute metabolic encephalopathy, schizophrenia and dementia at baseline. Patient has been continued on home regimen to include Wellbutrin and Cogentin. No other recommendations. * Palliative care will continue to follow-up for further clarifications of goals of care as patient's clinical course continues to evolve. Time Spent Total Floor Time (mins): 48 (Total time to include review of medical records to include multiple prior hospitalizations, physical exam, conversation with long- term facility liaison, case discussion with palliative care social work lecturer.) >50% Time in Counseling or Coordination of Care: Yes (Total visit time = 48 minutes; > 50% spent counseling/coordinating care) Appreciation Thank you for the opportunity to participate in the care of Allison Urban. Attestation Attestation: To help prompt me to consider important information that might be impacting today's encounter and assessment, information from prior notes written by myself or my colleagues may have been "brought forward" into today's note. My signature on this note, however, is an attestation that I personally performed the exam, history, and/or decision-making noted today, and, unless otherwise indicated, the interactions with patient, family, and staff as well as the review of records all occurred today. I also attest that the listed assessment and stated plan reflect my best clinical judgment today based on the combination of historical information, prior notes, and today's exam/ interactions. When time spent is documented, it refers only to time spent today by the signer, or if indicated, combined time spent today by collaborating physician/nurse practitioner.
--- NOTE | 2018-08-05 16:21 | P.PNIM ---
Subjective Interval history: Follow up on patient with sepsis, bacteremia, UTI. Patient seen and examined. No significant change. Patient remains stable. She does not voice any acute medical complaints or concerns. She is scheduled to undergo a TAR DISTRIBUTOR OPERATOR shunt aspiration. Discussed with nursing staff, no adverse events noted overnight. Physical Exam Vital signs: Vital Signs 08/04/18 20:00 08/05/18 00:00 08/05/18 04:52 Temperature 98.3 F 97.4 F L 97.1 F L Pulse Rate 74 70 73 Respiratory Rate 17 18 18 Blood Pressure 129/72 141/99 H 120/82 Pulse Oximetry 99 96 96 08/05/18 08:00 08/05/18 12:00 Temperature 97.3 F L 97.4 F L Pulse Rate 68 60 Respiratory Rate 17 16 Blood Pressure 122/77 123/59 L Pulse Oximetry 100 100 Intake & Output 08/04/18 08/05/18 08/05/18 18:59 06:59 18:59 Intake Total 530 / 530 480 / 480 350 / 350 Balance 530 / 530 480 / 480 350 / 350 Weight 59 kg Intake: IV 350 / 350 350 / 350 Vancomycin Inj 1,000 MG In NS 250 / 250 250 / 250 Inj 250 ML @ 250 mls/hr IV.SIG Q24H [facility] Rx#:[id number] Rocephin Inj 1,000 MG In NS Inj 100 / 100 100 / 100 100 ML @ 200 mls/hr IV.SIG Q24H [facility] Rx#:[id number] Oral 150 / 150 480 / 480 Oral Supplement 30 / 30 Other: # Voids 2 # Urine Diapers 1 # Bowel Movements 0 Narrative: GENERAL: This is a well-developed well-nourished elderly female patient, who appears older than stated age, INAD. Awake and alert. Confused. Appears comfortable lying in bed. SKIN: Warm/dry, no generalized rash. HEENT: Normocephalic. Pupils equal and round. No scleral icterus. No nasal discharge. Airway patent. NECK: Trachea midline. CARDIOVASCULAR: Regular rate and rhythm. RESPIRATORY: No accessory muscle use. Poor effort. Clear to auscultation. Breath sounds equal bilaterally. GASTROINTESTINAL: Abdomen soft, non-tender, nondistended. +BS. MUSCULOSKELETAL: No obvious deformities. No edema noted. NEUROLOGICAL: Awake and alert. +Aphasia. Confused. Follows some simple commands. Able to move all extremities spontaneously. Minimal verbalization. PSYCHIATRIC: Cooperative with exam. Restless in bed. Urinary Catheter Management Straight: Cath placed during this visit: yes Reason for continuing: Not indwelling catheter Insertion date: 07/28/18 Insertion time: 14:20 Results Labs CBC & Chem 7: 07/29/18 04:08 08/05/18 07:58 Labs: Microbiology 07/31/18 16:00 Blood - Peripheral Aerobic Blood Culture - Final No growth in 5 days 07/31/18 16:00 Blood - Peripheral Anaerobic Blood Culture - Final No growth in 5 days 07/31/18 16:05 Blood - Peripheral Aerobic Blood Culture - Final No growth in 5 days 07/31/18 16:05 Blood - Peripheral Anaerobic Blood Culture - Final No growth in 5 days Assessment and Plan Plan 68-year-old female apparently with a history of dementia schizophrenia normally feeds herself but is normally not oriented. Per EMS report presented to emergency department for evaluation of increased altered mental status. Patient apparently has a history of TAR DISTRIBUTOR OPERATOR shunt in place. Pt. unable to provide any history, per review of EMR, pt. aphasic. Found with UTI and sepsis. Sepsis on admission with bandemia and tachycardia, UTI, improved MSSA and GBS Bacteremia, unclear source Echocardiogram - no vegetation, EF 50-55% -ID following, appreciate assistance. Per ID, If w/u unrevealing for source will consider shunt reservoir aspiration. Scheduled for IR aspiration. follow up on CSF cultures -Neurosurgery following, appreciate assistance -Continue on IV vancomycin and Rocephin pending ID eval/recs -Repeat blood cultures with no growth x 5 days -Palliative care following, appreciate assistance Ecoli UTI -on IV abx as above VETO on suspected CKD, resolved ?Vancomycin related, unlikely Vanc trough 10.6. Likely poor oral intake with diuretic use. -creatinine improved s/p IVF -monitor I&Os -continue to hold Lasix -Avoid nephrotoxic agents -Continue to monitor renal indices as indicated Acute metabolic encephalopathy, secondary to infection, also with history of schizophrenia, dementia Aphasia Tardive dyskinesia -suspect patient has returned to baseline mentation -Continue Cogentin -Continue Wellbutrin -per ST, changed to puree diet with thin liquids History of TAR DISTRIBUTOR OPERATOR shunt -TAR DISTRIBUTOR OPERATOR shunt study done, findings stable Hypertension, controlled -Continue Norvasc 10 mg p.o. daily and Lopressor 12.5mg BID -Lasix on hold - monitor K, may need to d/c scheduled K repletion. -Monitor blood pressure and adjust as necessary Hypokalemia, resolved -K 3.3 -resolved s/p po repletion -continue on daily scheduled repletion, repeat K level in am History of breast cancer -Continue with anastrozole 1 mg p.o. daily Lovenox for DVT prophylaxis Pepcid for GI prophylaxis Code Status: FULL Discussed Condition With: patient, nursing staff, Dr. Bell Discharge Planning: Discharge pending ID workup Progress Note: Quality VTE Deep Vein Thrombosis/Pulmonary Embolism Present on Admission: No
--- NOTE | 2018-08-05 17:09 | P.PNID ---
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 [place] [address] [place] she is unable to sign conscent for IR procedure Antibiotics: CFTX vanco Past Medical History: dementia, schitzophrenia Allergies/Adverse Reactions: Allergies lisinopril Allergy (Severe, Verified 07/28/18 14:15) Swelling Objective Vital Signs 08/04/18 20:00 08/05/18 00:00 08/05/18 04:52 Temperature 98.3 F 97.4 F L 97.1 F L Pulse Rate 74 70 73 Respiratory Rate 17 18 18 Blood Pressure 129/72 141/99 H 120/82 Pulse Oximetry 99 96 96 08/05/18 08:00 08/05/18 12:00 08/05/18 16:00 Temperature 97.3 F L 97.4 F L 97.5 F L Pulse Rate 68 60 92 H Respiratory Rate 17 16 17 Blood Pressure 122/77 123/59 L 124/70 Pulse Oximetry 100 100 100 Intake & Output 08/04/18 08/05/18 08/05/18 18:59 06:59 18:59 Intake Total 530 / 530 480 / 480 350 / 350 Balance 530 / 530 480 / 480 350 / 350 Weight 59 kg Intake: IV 350 / 350 350 / 350 Vancomycin Inj 1,000 MG In NS 250 / 250 250 / 250 Inj 250 ML @ 250 mls/hr IV.SIG Q24H [facility] Rx#:[id number] Rocephin Inj 1,000 MG In NS Inj 100 / 100 100 / 100 100 ML @ 200 mls/hr IV.SIG Q24H [facility] Rx#:[id number] Oral 150 / 150 480 / 480 Oral Supplement 30 / 30 Other: # Voids 2 # Urine Diapers 1 # Bowel Movements 0 07/31/18 16:00 Blood - Peripheral Aerobic Blood Culture - Final No growth in 5 days 07/31/18 16:00 Blood - Peripheral Anaerobic Blood Culture - Final No growth in 5 days 07/31/18 16:05 Blood - Peripheral Aerobic Blood Culture - Final No growth in 5 days 07/31/18 16:05 Blood - Peripheral Anaerobic Blood Culture - Final No growth in 5 days Lab - Chemistry Results 08/05/18 07:58 Sodium 137 Potassium 3.8 Chloride 102 Carbon Dioxide 24.8 Anion Gap 10 BUN 9 Creatinine 0.87 Estimated GFR 65 L Random Glucose 118 H Calcium 9.4 Imaging: ITS Impressions Head CT 07/28/18 14:15 CONCLUSION: 1. No acute intracranial abnormality. 2. Stable ventriculomegaly with shunt. . Shunt Study 07/28/18 14:15 CONCLUSION: Unremarkable exam. Physical Exam: GENERAL: NAD SKIN: Warm and dry. HEAD: Atraumatic. Normocephalic. EYES: Pupils equal and round. No scleral icterus. No injection or drainage. ENT: No nasal bleeding or discharge. Mucous membranes pink and moist. NECK: Trachea midline. No JVD. CARDIOVASCULAR: Regular rate and rhythm. RESPIRATORY: No accessory muscle use. Clear to auscultation. Breath sounds equal bilaterally. GASTROINTESTINAL: Abdomen soft, non-tender, nondistended. Hepatic and splenic margins not palpable. MUSCULOSKELETAL: Extremities without clubbing, cyanosis, or edema. NEUROLOGICAL: Awake and alert. Incoherent speech . follwos commands PSYCHIATRIC: calm, cooperative but definetely incoherent Assessment and Plan - Plan Group Bstrep bacteremia MRSA bacteremia Source is unclear. Possible shunt infection - pt presented with confusion, ? ROQUE UTI, E.coli cont CFTX cont vancomycin fu repat blood clx If w/u unrevealing for source will consider shunt resevoir aspiration Procedure is medically necessary
[2018-08-05] MEDS: Enoxaparin Inj 30 MG/0.3 ML Syringe SQ SCH (17:44)
[2018-08-06] MEDS: Levothyroxine 112 MCG Tablet PO SCH (06:20)
[2018-08-06] MEDS: Metoprolol Tartrate 25 MG Tablet PO SCH ×2 (08:28→21:12)
[2018-08-06] MEDS: amLODIPine 10 MG Tablet PO SCH (08:29)
[2018-08-06] MEDS: Famotidine 20 MG Tablet PO SCH ×2 (08:29→21:10)
[2018-08-06] MEDS: buPROPion 150 MG 12 HR Tablet PO SCH (08:29)
[2018-08-06] MEDS: Senna/Docusate Sodium 8.6/50 MG Tablet PO SCH ×2 (08:29→21:12)
[2018-08-06] MEDS: Anastrozole 1 MG Tablet PO SCH (08:29)
[2018-08-06] MEDS: Vancomycin Inj 1,000 MG in Sodium Chlor 0.9% Inj 250 ML IV.SIG SCH (09:40)
--- NOTE | 2018-08-06 14:32 | P.PNIM ---
Subjective Interval history: Follow up on patient with sepsis, bacteremia, UTI. Patient seen and examined. Patient remains stable. There has not been any interval change. She is calm, confused. She does not respond to any my questions today but does make eye contact. She appears to be comfortable. No respiratory distress appreciated. Physical Exam Vital signs: Vital Signs 08/05/18 16:00 08/05/18 20:00 08/06/18 00:00 Temperature 97.5 F L 98.1 F 98.2 F Pulse Rate 92 H 72 73 Respiratory Rate 17 20 18 Blood Pressure 124/70 133/89 127/78 Pulse Oximetry 100 96 98 08/06/18 04:00 08/06/18 08:00 Temperature 98.1 F 97.4 F L Pulse Rate 88 81 Respiratory Rate 18 19 Blood Pressure 165/79 H 157/94 H Pulse Oximetry 98 95 Intake & Output 08/05/18 08/06/18 08/06/18 18:59 06:59 18:59 Intake Total 350 / 350 150 / 150 250 / 250 Balance 350 / 350 150 / 150 250 / 250 Weight 53.3 kg Intake: IV 350 / 350 250 / 250 Vancomycin Inj 1,000 MG In NS 250 / 250 250 / 250 Inj 250 ML @ 250 mls/hr IV.SIG Q24H [facility] Rx#:[id number] Rocephin Inj 1,000 MG In NS Inj 100 / 100 100 ML @ 200 mls/hr IV.SIG Q24H [facility] Rx#:[id number] Oral Supplement 150 / 150 Other: # Voids 1 Narrative: GENERAL: This is a well-developed well-nourished elderly female patient, who appears older than stated age, INAD. Awake and alert. Confused. Not responding to my questions today but makes eye contact. SKIN: Warm/dry, no generalized rash. HEENT: Normocephalic. Pupils equal and round. No scleral icterus. No nasal discharge. Airway patent. NECK: Trachea midline. CARDIOVASCULAR: Regular rate and rhythm. RESPIRATORY: No accessory muscle use. Poor effort. Clear to auscultation. Breath sounds equal bilaterally. GASTROINTESTINAL: Abdomen soft, non-tender, nondistended. +BS. MUSCULOSKELETAL: No obvious deformities. No edema noted. NEUROLOGICAL: Awake and alert. +Aphasia. Confused. Follows some simple commands. Able to move all extremities spontaneously. PSYCHIATRIC: Cooperative with exam. Restless in bed. Urinary Catheter Management Straight: Cath placed during this visit: yes Reason for continuing: Not indwelling catheter Insertion date: 07/28/18 Insertion time: 14:20 Results Labs CBC & Chem 7: 07/29/18 04:08 08/05/18 07:58 Labs: Microbiology 07/31/18 16:00 Blood - Peripheral Aerobic Blood Culture - Final No growth in 5 days 07/31/18 16:00 Blood - Peripheral Anaerobic Blood Culture - Final No growth in 5 days 07/31/18 16:05 Blood - Peripheral Aerobic Blood Culture - Final No growth in 5 days 07/31/18 16:05 Blood - Peripheral Anaerobic Blood Culture - Final No growth in 5 days Assessment and Plan Plan 68-year-old female apparently with a history of dementia schizophrenia normally feeds herself but is normally not oriented. Per EMS report presented to emergency department for evaluation of increased altered mental status. Patient apparently has a history of HAND WOODWORKING SANDER shunt in place. Pt. unable to provide any history, per review of EMR, pt. aphasic. Found with UTI and sepsis. Sepsis on admission with bandemia and tachycardia, UTI, improved MSSA and GBS Bacteremia, unclear source Echocardiogram - no vegetation, EF 50-55% -ID following, appreciate assistance. Per ID, If w/u unrevealing for source will consider shunt reservoir aspiration. Scheduled for IR aspiration. follow up on CSF cultures. Patient is unconsentable. Procedure is medically necessary. -Neurosurgery following, appreciate assistance -Continue on IV vancomycin and Rocephin pending ID eval/recs -Repeat blood cultures with no growth x 5 days -Palliative care following, appreciate assistance Ecoli UTI -on IV abx as above VETO on suspected CKD, resolved ?Vancomycin related, unlikely Vanc trough 10.6. Likely poor oral intake with diuretic use. -creatinine improved s/p IVF -monitor I&Os -Avoid nephrotoxic agents -Continue to monitor renal indices as indicated Acute metabolic encephalopathy, secondary to infection, also with history of schizophrenia, dementia Aphasia Tardive dyskinesia -suspect patient has returned to baseline mentation -Continue Cogentin -Continue Wellbutrin -per ST, changed to puree diet with thin liquids History of HAND WOODWORKING SANDER shunt -HAND WOODWORKING SANDER shunt study done, findings stable Hypertension, controlled -Continue Norvasc 10 mg p.o. daily and Lopressor 12.5mg BID -08/06 BP elevated, resume Lasix -Monitor blood pressure and adjust as necessary Hypokalemia, resolved -resolved s/p po repletion -continue on daily scheduled repletion, repeat K level in am History of breast cancer -Continue with anastrozole 1 mg p.o. daily Lovenox for DVT prophylaxis Pepcid for GI prophylaxis Code Status: FULL Discussed Condition With: Dr. Robison, patient, Dr. Mendieta, nursing staff Discharge Planning: Discharge pending ID workup Progress Note: Quality VTE Deep Vein Thrombosis/Pulmonary Embolism Present on Admission: No
[2018-08-06] MEDS ORDERED: Iohexol 300 MG/ML 50 ML Vial (for Rad Diag) IT ONE (17:36)
[2018-08-06] MEDS: Enoxaparin Inj 30 MG/0.3 ML Syringe SQ SCH (17:55)
[2018-08-06 19:10] LABS: Lymphocytes, CSF 72 %; Monocytes,CSF 28 %
[2018-08-06 19:16] LABS: RBC on Tube 2 1 /mm3
[2018-08-06 19:20] LABS: Neutrophils,CSF 0 %
[2018-08-07] MEDS: Levothyroxine 112 MCG Tablet PO SCH (06:09)
[2018-08-07 07:20] LABS: Baso % (Auto) 0.8 % (0.0-2.0); Eos # (Auto) 0.1 th/mm3 (0.0-0.4); Eos % (Auto) 1.3 % (0.0-4.0); Hemoglobin 11.8 gm/dL (11.6-15.3); Lymph % (Auto) 18.3 % (9.0-44.0); Mean Corpuscular HGB Conc 33.8 % (32.0-36.0); Mean Corpuscular Hemoglobin 31.4 pg (27.0-34.0); Mean Corpuscular Volume 92.8 fL (80.0-100.0); Mean Platelet Volume 8.1 fL (7.0-11.0); Mono # (Auto) 0.8 th/mm3 (0.0-0.9); Mono % (Auto) 14.9 % (0.0-8.0); Neut # (Auto) 3.7 th/mm3 (1.8-7.7); Neut % (Auto) 64.7 % (16.0-70.0); Platelet Count 338 th/mm3 (150-450); Red Blood Count 3.77 mil/mm3 (4.00-5.30); Red Cell Distribution Width 15.4 % (11.6-17.2); White Blood Count 5.7 th/mm3 (4.0-11.0)
[2018-08-07 07:43] LABS: Calcium 9.3 mg/dL (8.5-10.1); Carbon Dioxide 26.4 meq/L (21.0-32.0); Potassium 3.7 meq/L (3.5-5.1)
[2018-08-07] MEDS: buPROPion 150 MG 12 HR Tablet PO SCH (08:11)
[2018-08-07] MEDS: Senna/Docusate Sodium 8.6/50 MG Tablet PO SCH ×2 (08:11→20:36)
[2018-08-07] MEDS: Famotidine 20 MG Tablet PO SCH ×2 (08:12→20:36)
[2018-08-07] MEDS: Furosemide 20 MG Tablet PO SCH (08:12)
[2018-08-07] MEDS: amLODIPine 10 MG Tablet PO SCH (08:12)
[2018-08-07] MEDS: Anastrozole 1 MG Tablet PO SCH (08:12)
[2018-08-07] MEDS: Metoprolol Tartrate 25 MG Tablet PO SCH ×2 (08:12→20:36)
--- NOTE | 2018-08-07 10:00 | P.PNIM ---
Subjective Interval history: Follow up on patient with sepsis, bacteremia, UTI. Patient seen and examined. No fever overnight. Doesn't verbalize very much. Noted with jerky movements, which are not new. Makes eye contact, but doesn't follow commands. Unable to obtain ROS. Physical Exam Vital signs: Vital Signs 08/06/18 20:00 08/07/18 00:00 08/07/18 04:00 Temperature 98.6 F 98.4 F 97.5 F L Pulse Rate 76 75 74 Respiratory Rate 18 18 18 Blood Pressure 112/70 148/65 H 125/89 Pulse Oximetry 98 100 98 08/07/18 08:00 Temperature 97.8 F Pulse Rate 73 Respiratory Rate 16 Blood Pressure 140/68 Pulse Oximetry 100 Intake & Output 08/06/18 08/07/18 08/07/18 18:59 06:59 18:59 Intake Total 350 / 350 Balance 350 / 350 Weight 65.8 kg Intake: IV 350 / 350 Vancomycin Inj 1,000 MG In NS 250 / 250 Inj 250 ML @ 250 mls/hr IV.SIG Q24H [facility] Rx#:[id number] Rocephin Inj 1,000 MG In NS Inj 100 / 100 100 ML @ 200 mls/hr IV.SIG Q24H [facility] Rx#:[id number] Narrative: GENERAL: This is a well-developed well-nourished elderly female patient, who appears older than stated age, INAD. Not talking, keeps eye contact. SKIN: Warm/dry, no generalized rash. HEENT: Normocephalic. Pupils equal and round. No scleral icterus. No nasal discharge. Airway patent. NECK: Trachea midline. CARDIOVASCULAR: Regular rate and rhythm. RESPIRATORY: No accessory muscle use. Poor effort. Clear to auscultation. Breath sounds equal bilaterally. GASTROINTESTINAL: Abdomen soft, non-tender, nondistended. +BS. MUSCULOSKELETAL: No obvious deformities. No edema noted. BLE atrophy. NEUROLOGICAL: Awake and alert. +Aphasia. Confused. Not following commands. Able to move all extremities spontaneously. PSYCHIATRIC: Jerky movements noted. Urinary Catheter Management Straight: Cath placed during this visit: yes Reason for continuing: Not indwelling catheter Insertion date: 07/28/18 Insertion time: 14:20 Results Labs CBC & Chem 7: 08/07/18 06:21 08/07/18 06:21 Labs: Microbiology 08/06/18 17:20 Shunt Fluid Gram Stain - Final Assessment and Plan (1) Acute metabolic encephalopathy: Code(s): G93.41 - Metabolic encephalopathy Status: Acute (2) Sepsis: Code(s): A41.9 - Sepsis, unspecified organism Status: Acute (3) Acute UTI: Code(s): N39.0 - Urinary tract infection, site not specified Status: Acute (4) Schizophrenia: Code(s): F20.9 - Schizophrenia, unspecified Status: Chronic (5) Dementia: Code(s): F03.90 - Unspecified dementia without behavioral disturbance Status: Chronic (6) Hypertension, uncontrolled: Code(s): I10 - Essential (primary) hypertension Status: Chronic Plan 68-year-old female apparently with a history of dementia schizophrenia normally feeds herself but is normally not oriented. Per EMS report presented to emergency department for evaluation of increased altered mental status. 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 Pt. unable to provide any history, per review of EMR, pt. aphasic. Found with UTI and sepsis. Sepsis on admission with bandemia and tachycardia, UTI, improved MSSA and GBS Bacteremia, unclear source Echocardiogram - no vegetation, EF 50-55% -ID following, appreciate assistance. Per ID, If w/u unrevealing for source- recommends shunt reservoir aspiration. -S/P shunt aspiration 08/06. Follow up on CSF cultures. Patient unconsentable. Procedure was medically necessary. -Neurosurgery following, appreciate assistance -Continue on IV vancomycin and Rocephin pending ID eval/recs -Repeat blood cultures with no growth (07/31) Ecoli UTI -on IV abx as above VETO on suspected CKD, resolved ?Vancomycin related, unlikely Vanc trough 10.6. Likely poor oral intake with diuretic use. 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 daily and Lopressor 12.5mg BID -2/19 BP elevated, resumed Lasix -Monitor blood pressure and adjust as necessary Hypokalemia, resolved -resolved s/p po repletion -continue on daily scheduled repletion, repeat K level in am History of breast cancer -Continue with anastrozole 1 mg p.o. daily Lovenox for DVT prophylaxis Pepcid for GI prophylaxis PT eval and tx Palliative care following, pt. has no family/no POA. Will need guardian appointed, CM assisting with process DC telemetry labs in am Code Status: Full code Discussed Condition With: RN, pt, CM Dr. Robison Discharge Planning: to SNF when cleared by ID and infection source identified Progress Note: Quality VTE Deep Vein Thrombosis/Pulmonary Embolism Present on Admission: No _ (1) Sepsis Qualifiers: Sepsis type: (2) Schizophrenia Qualifiers: Schizophrenia type: (3) Dementia Qualifiers: Dementia type: Alzheimer's disease onset: Dementia behavioral disturbance :
[2018-08-07] MEDS: Vancomycin Inj 1,000 MG in Sodium Chlor 0.9% Inj 250 ML IV.SIG SCH (10:03)
--- NOTE | 2018-08-07 15:27 | P.PNPAL ---
Reason for Visit Reason for visit: a. To assist with evaluation and management of symptoms including: Debility. b. To assist medical decision maker(s) with: better understanding of current medical conditions; weighing benefits/burdens of medical treatment options; making medical treatment decisions. Subjective Subjective/Interval History: Ms. Urban is a 68-year-old female with a medical history significant for hydrocephalus/ventriculomegaly status post DIPLOMA MAKER shunt, schizophrenia, hyperlipidemia, seizure disorder, COPD who presented to ED via EMS on 07/28/18 for evaluation of altered mental status. She was found with sepsis bacteremia, UTI. Patient resident of long-term [facility] for the past few years. She requires assistance with most ADLs. She is a very high risk for further complications, continued decline and . Palliative care follow-up for further clarifications of goals of care. Patient seen in her room, laying in bed in no acute distress. Jerking movements /spasticity noted. Patient alert to self, slower speech. Was able to tell me her name but unable to elaborate further. No visitors at bedside. Patient underwent shuntogram on 08/06 with aspiration of CSF for cultures, pending results. Patient afebrile, stable hemodynamically. Tolerating room air with oxygen saturation in the high 90s. Patient resident of [facility]. No next of kin listed on any of patient's hospitalizations. Complete chart review done since hospitalizations in 2001, no next of kin or contact information found. [facility] report unable to identify next of kin. As per [facility] neonatal icu coordinator Mari, patient is in the process of obtaining court appointed guardian: Aracelis Seth on 08/26/18. Court hearing cannot be rescheduled to an earlier day, [id number] cannot serve in this role until legally appointed. Pending social work advantage involvement to assist in medical decision making in the interim. Patient with progressive clinical decline, remains at high risk for further complications, continued decline and . Case discussed with casework supervisor Erica Buckley and palliative care certified social workers in health care Karla Matt. 15:22. Spoke with casework supervisor Erica Buckley. Social work advantage guardian assigned to patient is Brenda Gaona . community engagement manager reports that guardian will be visiting patient tomorrow morning 08/08 around 9 AM. Left message on voicemail to contact palliative care to further discuss goals of care. Advance Directives Living Will: Never completed Health Care Surrogate: Never completed Durable Power of Supervisor White [employer]: Never completed Objective Vital Signs: Vital Signs 08/06/18 20:00 08/07/18 00:00 08/07/18 04:00 Temperature 98.6 F 98.4 F 97.5 F L Pulse Rate 76 75 74 Respiratory Rate 18 18 18 Blood Pressure 112/70 148/65 H 125/89 Pulse Oximetry 98 100 98 08/07/18 08:00 08/07/18 12:00 Temperature 97.8 F 97.9 F Pulse Rate 73 72 Respiratory Rate 16 16 Blood Pressure 140/68 123/72 Pulse Oximetry 100 99 Intake & Output 08/06/18 08/07/18 08/07/18 18:59 06:59 18:59 Intake Total 350 / 350 250 / 250 Balance 350 / 350 250 / 250 Weight 65.8 kg Intake: IV 350 / 350 250 / 250 Vancomycin Inj 1,000 MG In NS 250 / 250 250 / 250 Inj 250 ML @ 250 mls/hr IV.SIG Q24H [facility] Rx#:[id number] Rocephin Inj 1,000 MG In NS Inj 100 / 100 100 ML @ 200 mls/hr IV.SIG Q24H [facility] Rx#:[id number] Physical Exam: CONSTITUTIONAL/GENERAL: Elderly, thin female laying in bed in moderate distress , restless. She appears much older than stated age. TUBES/LINES/DRAINS: PIV. SKIN: No jaundice, rashes, or lesions. Ecchymoses on upper extremities. Skin temperature appropriate. Not diaphoretic. HEAD: Atraumatic. Normocephalic. EYES: Pupils equal and round and reactive. Extraocular motions intact. No scleral icterus. No injection or drainage. ENT: Hearing grossly normal. Nose without bleeding or purulent drainage. Moist oral mucosa. Edentulous. NECK: Trachea midline. Supple, nontender. CARDIOVASCULAR: Regular rate and rhythm. Peripheral pulses symmetric. RESPIRATORY/CHEST: Symmetric, unlabored respirations. Clear to auscultation. Breath sounds equal bilaterally. No wheezes, rales, or rhonchi. GASTROINTESTINAL: Abdomen soft, non-tender, nondistended. Bowel sounds present. GENITOURINARY: Without palpable bladder distension. MUSCULOSKELETAL: Extremities without clubbing, cyanosis, or edema. No mottling or clubbing. Muscle atrophy to all 4 extremities. NEUROLOGICAL: Alert to self. Confused as to place and situation. Garbled speech. Moving all extremities spontaneously. Aphasia. PSYCHIATRIC: Restless. Diagnostic Tests Laboratory: Laboratory Results - last 72 hr 08/05/18 08/06/18 08/06/18 07:58 17:20 17:20 WBC RBC Hgb Hct MCV MCH MCHC RDW Plt Count MPV Neut % (Auto) Lymph % (Auto) [place] % (Auto) Eos % (Auto) Baso % (Auto) Neut # (Auto) Lymph # (Auto) [place] # (Auto) Eos # (Auto) Baso # (Auto) WBC Differential Differential Comment Sodium 137 Potassium 3.8 Chloride 102 Carbon Dioxide 24.8 Anion Gap 10 BUN 9 Creatinine 0.87 Estimated GFR 65 L Random Glucose 118 H Calcium 9.4 CSF Volume (1) 4.0 CSF Supernat Color (1) Clear CSF Gross Blood (1) 0 CSF Volume (2) 6.0 CSF Supernat Color (2) Clear CSF Gross Blood (2) 0 CSF WBC (2) 1 CSF RBC (2) 1 H CSF Neutrophils % 0 CSF Lymphocytes % 72 CSF Monocytes % 28 CSF Glucose 75 08/07/18 08/07/18 06:21 06:21 WBC 5.7 RBC 3.77 L Hgb 11.8 Hct 35.0 MCV 92.8 MCH 31.4 MCHC 33.8 RDW 15.4 Plt Count 338 D MPV 8.1 Neut % (Auto) 64.7 Lymph % (Auto) 18.3 [place] % (Auto) 14.9 H Eos % (Auto) 1.3 Baso % (Auto) 0.8 Neut # (Auto) 3.7 Lymph # (Auto) 1.0 [place] # (Auto) 0.8 Eos # (Auto) 0.1 Baso # (Auto) 0.0 WBC Differential . Differential Comment Auto diff final Sodium 139 Potassium 3.7 Chloride 104 Carbon Dioxide 26.4 Anion Gap 9 BUN 10 Creatinine 0.83 Estimated GFR 68 L Random Glucose 138 H Calcium 9.3 CSF Volume (1) CSF Supernat Color (1) CSF Gross Blood (1) CSF Volume (2) CSF Supernat Color (2) CSF Gross Blood (2) CSF WBC (2) CSF RBC (2) CSF Neutrophils % CSF Lymphocytes % CSF Monocytes % CSF Glucose Result Diagrams: 08/07/18 06:21 08/07/18 06:21 Microbiology: Microbiology 08/06/18 17:20 Gram Stain - Final Shunt Fluid 07/31/18 16:00 Aerobic Blood Culture - Final Blood - Peripheral No growth in 5 days Anaerobic Blood Culture - Final No growth in 5 days 07/31/18 16:05 Aerobic Blood Culture - Final Blood - Peripheral No growth in 5 days Anaerobic Blood Culture - Final No growth in 5 days Assessment and Plan - Disease Oriented Problem List (1) Acute metabolic encephalopathy (2) Schizophrenia (3) Acute UTI (4) Sepsis Pertinent Non-Medical Issues: Psychosocial: Resident of long-term facility. , unclear if advance directives have been completed. Spiritual: Hindu alivia. Legal: Unknown if advanced directives have been completed. Ethical issues impacting care: Pending identification of next of kin. Important Contacts: No next of kin/pending [facility] Report. Prognosis: Ms. Urban is a 68-year-old female with a medical history significant for hydrocephalus/ventriculomegaly status post DIPLOMA MAKER shunt, schizophrenia, hyperlipidemia, seizure disorder, COPD who presented to ED via EMS on 07/28/18 for evaluation of altered mental status. She was found with sepsis bacteremia, UTI. Patient resident of long-term [facility] for the past few years. She requires assistance with most ADLs. She is a very high risk for further complications, continued decline and . Code Status: Full Code Plan: * CODE STATUS: Full code by default. * HEALTHCARE DECISION-MAKING: Patient unable to participate in medical decision making given clinical condition, acute metabolic encephalopathy with also history of schizophrenia, dementia. Patient not likely to regain medical decision-making. No advance directives reported as per [facility], her brother is reported to have recently. Patient is , unknown if she has any biological children. Complete chart review done since hospitalizations in 2001, no next of kin or contact information found. [employer] report unable to identify next of kin. As per [facility] neonatal icu coordinator Mari, patient is in the process of obtaining court appointed guardian: Aracelis Seth on . Court hearing cannot be rescheduled to an earlier day, [id number] cannot serve in this role until legally appointed. Pending social work advantage involvement to assist in medical decision making in the interim. * GOALS OF CARE: Unable to discuss, pending contact with social work advantage guardian Brenda Gaona . Guardian will be visiting patient tomorrow morning 08/08 around 9 AM, palliative care left message on voicemail to further discuss goals of care. Patient with progressive clinical decline, remains at high risk for further complications, continued decline and . * SYMPTOMS: = Restlessness/agitation. In the setting of acute infection, acute metabolic encephalopathy, schizophrenia and dementia at baseline. Patient has been continued on home regimen to include Wellbutrin and Cogentin. No other recommendations. * Case discussed with casework supervisor Erica Buckley and palliative care certified social workers in health care Karla Matt. * Palliative care will continue to follow-up for further clarifications of goals of care as patient's clinical course continues to evolve. Time Spent Total Floor Time (mins): 40 (Total time to include review of medical records, physical exam, case discussion with casework supervisor and certified social workers in health care.) >50% Time in Counseling or Coordination of Care: Yes (Total visit time = 40 minutes; > 50% spent counseling/coordinating care) Attestation Attestation: To help prompt me to consider important information that might be impacting today's encounter and assessment, information from prior notes written by myself or my colleagues may have been "brought forward" into today's note. My signature on this note, however, is an attestation that I personally performed the exam, history, and/or decision-making noted today, and, unless otherwise indicated, the interactions with patient, family, and staff as well as the review of records all occurred today. I also attest that the listed assessment and stated plan reflect my best clinical judgment today based on the combination of historical information, prior notes, and today's exam/ interactions. When time spent is documented, it refers only to time spent today by the signer, or if indicated, combined time spent today by collaborating physician/nurse practitioner.
[2018-08-07] MEDS: Enoxaparin Inj 30 MG/0.3 ML Syringe SQ SCH (17:01)
[2018-08-08 01:45] VITALS: RESP 17
[2018-08-08] MEDS: Levothyroxine 112 MCG Tablet PO SCH (05:41)
[2018-08-08] MEDS: Senna/Docusate Sodium 8.6/50 MG Tablet PO SCH (08:26)
[2018-08-08] MEDS: Furosemide 20 MG Tablet PO SCH (08:26)
[2018-08-08] MEDS: Metoprolol Tartrate 25 MG Tablet PO SCH (08:27)
[2018-08-08] MEDS: Anastrozole 1 MG Tablet PO SCH (08:27)
[2018-08-08] MEDS: Famotidine 20 MG Tablet PO SCH (08:27)
[2018-08-08] MEDS: amLODIPine 10 MG Tablet PO SCH (08:27)
[2018-08-08] MEDS: buPROPion 150 MG 12 HR Tablet PO SCH (08:27)
--- NOTE | 2018-08-08 08:46 | IR ---
EXAM DATE: 08/06/2018 5:50 PM EST AGE/SEX: 68 years / Female INDICATIONS: Patient with dementia and schizophrenia, possible csf infection. CLINICAL DATA: This is the patient's initial encounter. Patient reports that signs and symptoms have been present for 2 days and indicates a pain score of 0/10. MEDICAL/SURGICAL HISTORY: . COPD depression GERD HTN Cardiac arrhythmia Dementia Schizophrenia . 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 FLUORO TIME (min): 0.1 IMAGE SERIES: 2 RADIATION DOSE: 1.0mGy CAK CONTRAST (cc): 2cc omni 300 . . PROCEDURE: 1. Fluoroscopically guided shuntogram. The risks, benefits and alternatives to the procedure were explained and verbal and written consent w as obtained. The site was prepped in sterile fashion. Full sterile technique was used, including ca p, mask, sterile gloves and gown and a large sterile sheet. Hand hygiene and 2% chlorhexidine and/or betadine/alcohol prep was utilized per protocol for cutaneous antisepsis. The skin and subcutaneous tissues were infiltrated with local anesthetic solution. With fluoroscopic guidance the previously placed shunt was injected with a 23 gauge butterfly needle and positive contrast was injected. 8 cc of clear CSF was removed and following this contrast was injected confirming the patency of the intraventricular limb of the shunt. CONCLUSION: 1. Uncomplicated shunt aspiration with patent intraventricular limb Electronically signed by: John Schneider MD Board Certified Radiologist 08/08/2018 8:45 AM EST
--- NOTE | 2018-08-08 09:23 | P.PNNS ---
Subjective Interval history: THIS NOTE REPRESENTS MY ENCOUNTER ON 08/07/2018 68 year old female with sepsis, bacteremia, UTI. Patient seen and examined. Patient encountered in her room lying awake in bed. She denies any medical complaints. No adverse events noted overnight. 07/05. Awaiting for shuntogram and aspiration for CSF cultures 07/07. She has a shunt tap yesterday and CSf was sent for cultures Physical Exam Vital signs: Vital Signs 08/07/18 12:00 08/07/18 16:00 08/07/18 20:00 Temperature 97.9 F 98.6 F 98.0 F Pulse Rate 72 75 78 Respiratory Rate 16 16 18 Blood Pressure 123/72 125/75 104/59 L Pulse Oximetry 99 99 98 08/08/18 00:00 08/08/18 08:00 Temperature 98.3 F 97.5 F L Pulse Rate 75 74 Respiratory Rate 17 17 Blood Pressure 137/60 128/68 Pulse Oximetry 97 98 Intake & Output 08/07/18 08/08/18 08/08/18 18:59 06:59 18:59 Intake Total 350 / 350 0 / 0 Balance 350 / 350 0 / 0 Intake: IV 350 / 350 Vancomycin Inj 1,000 MG In NS 250 / 250 Inj 250 ML @ 250 mls/hr IV.SIG Q24H [facility] Rx#:[id number] Rocephin Inj 1,000 MG In NS Inj 100 / 100 100 ML @ 200 mls/hr IV.SIG Q24H [facility] Rx#:[id number] Oral 0 / 0 Other: # Voids 0 Date of Last Bowel Movement 08/01/18 08/01/18 # Bowel Movements 0 Narrative: THIS NOTE REPRESENTS MY ENCOUNTER ON 08/07/2018 Narrative: GENERAL: Well-developed, very thin 68 yo female, appears comfortable SKIN: warm/dry. HEAD: Small bruise noted to right forehead, no joyce signs no raccoon's eyes. Normocephalic. EYES: No scleral icterus. No injection or drainage. ENT: No nasal bleeding or discharge. Mucous membranes pink and moist. NECK: Trachea midline. No JVD. CARDIOVASCULAR: Regular rhythm with mild tachycardia. RESPIRATORY: No accessory muscle use. Clear to auscultation. Breath sounds equal bilaterally. GASTROINTESTINAL: Abdomen soft, non-tender, nondistended. Hepatic and splenic margins not palpable. MUSCULOSKELETAL: No obvious deformities. No clubbing. No cyanosis. No edema. NEUROLOGICAL: Awake and alert. We will not participate in neurologic exam. Does move all 4 extremities. Per records patient appears to be at baseline mentation. PSYCHIATRIC: Unable to assess, however she appears to be at baseline - Urinary Catheter Management Straight Cath placed during this visit: yes Reason for continuing: Not indwelling catheter Insertion date: 07/28/18 Insertion time: 14:20 Assessment and Plan - Plan THIS NOTE REPRESENTS MY ENCOUNTER ON 08/07/2018 68-year-old female apparently with a history of dementia schizophrenia and sepsis She has a MONUMENT MASON shunt in place Neuro: Continue neuro checks. Status post shunt tap yesterday. cultures pending The patient has UTI and sepsis. Continue antibiotics Pulmonary: aggressive pulmonary toilette, nasotracheal suction, and breathing treatments with nebulizers. Sepsis on admission with bandemia and tachycardia, UTI Dehydration. Careful IV hydration Mild VETO. monitor closely urine output, BUN and creatinine History of schizophrenia, dementia. Coninue home meds Blood cultures and urine cultures pending ID. Started on Rocephin IV antibiotic Monitor on telemetry until sepsis resolved renal. Gentle IV fluids, hold Lasix, monitor kidney function creatinine is not at baseline Daily PT and OT Endocrine: Monitor serial Acu checks and SSI as needed in detail Protonix for stress ulcer prophylaxis Continue Lamberto hose and SCD's for DVT prophylaxis Caprini VTE Risk Assessment Caprini VTE Risk Assessment: Moderate/High Risk (score >= 2) Caprini Risk Assessment Model: Point Value = 1 Point Value = 2 Point Value = 3 Point Value = 5 Age 41-60 Minor surgery BMI > 25 kg/m2 Swollen legs Varicose veins or History of unexplained or recurrent spontaneous Oral contraceptives or hormone replacement Sepsis (< 1 month) Serious lung disease, including pneumonia (< 1 month) Abnormal pulmonary function Acute myocardial infarction Congestive heart failure (< 1 month) History of inflammatory bowel disease Medical patient at bed rest Age 61-74 Arthroscopic surgery Major open surgery (> 45 min) Laparoscopic surgery (> 45 min) Malignancy Confined to bed (> 72 hours) Immobilizing plaster cast Central venous access Age >= 75 History of VTE Family history of VTE Factor V Leiden Prothrombin [id number] Lupus anticoagulant Anticardiolipin antibodies Elevated serum homocysteine Heparin-induced thrombocytopenia Other congenital or acquired thrombophilia Stroke (< 1 month) Elective arthroplasty Hip, pelvis, or leg fracture Acute spinal cord injury (< 1 month) Prophylaxis Regimen: Total Risk Factor Score Risk Level Prophylaxis Regimen 0-1 Low Early ambulation 2 Moderate Order ONE of the following: *Sequential Compression Device (SCD) *Heparin 5000 units SQ BID 3-4 Higher Order ONE of the following medications: *Heparin 5000 units SQ TID *Enoxaparin/Lovenox 40 mg SQ daily (WT < 150 kg, CrCl > 30 mL/min) *Enoxaparin/Lovenox 30 mg SQ daily (WT < 150 kg, CrCl > 10-29 mL/min) *Enoxaparin/Lovenox 30 mg SQ BID (WT < 150 kg, CrCl > 30 mL/min) AND/OR *Sequential Compression Device (SCD) 5 or more Highest Order ONE of the following medications: *Heparin 5000 units SQ TID (Preferred with Epidurals) *Enoxaparin/Lovenox 40 mg SQ daily (WT < 150 kg, CrCl > 30 mL/min) *Enoxaparin/Lovenox 30 mg SQ daily (WT < 150 kg, CrCl > 10-29 mL/min) *Enoxaparin/Lovenox 30 mg SQ BID (WT < 150 kg, CrCl > 30 mL/min) AND *Sequential Compression Device (SCD) Further recommendations will be provided depending on the patient's clinical evaluation and follow up studies.
--- NOTE | 2018-08-08 09:25 | P.PNNS ---
Subjective Interval history: Pt awake. She follows some simple commands. Moves all 4 extremities with generalized weakness. Not verbalizing to questions. No growth from shunt tap in 48 hours. Physical Exam Vital signs: Vital Signs 08/07/18 12:00 08/07/18 16:00 08/07/18 20:00 Temperature 97.9 F 98.6 F 98.0 F Pulse Rate 72 75 78 Respiratory Rate 16 16 18 Blood Pressure 123/72 125/75 104/59 L Pulse Oximetry 99 99 98 08/08/18 00:00 08/08/18 08:00 Temperature 98.3 F 97.5 F L Pulse Rate 75 74 Respiratory Rate 17 17 Blood Pressure 137/60 128/68 Pulse Oximetry 97 98 Intake & Output 08/07/18 08/08/18 08/08/18 18:59 06:59 18:59 Intake Total 350 / 350 0 / 0 Balance 350 / 350 0 / 0 Intake: IV 350 / 350 Vancomycin Inj 1,000 MG In NS 250 / 250 Inj 250 ML @ 250 mls/hr IV.SIG Q24H [facility] Rx#:[id number] Rocephin Inj 1,000 MG In NS Inj 100 / 100 100 ML @ 200 mls/hr IV.SIG Q24H [facility] Rx#:[id number] Oral 0 / 0 Other: # Voids 0 Date of Last Bowel Movement 08/01/18 08/01/18 # Bowel Movements 0 - Constitutional no acute distress - Routine HEENT Exam Head: Absent: normocephalic (Right METAL PLATER shunt in place and palpable without any obvious abnormality.) Eye: Present: PERRL. Absent: conjunctival icterus - Routine Neck Exam Present: supple - Routine Respiratory Exam Present: CTA bilaterally. Absent: respiratory distress, rhonchi, wheezes - Routine Cardiovascular Exam Present: RRR, S1, S2. Absent: murmur - Routine Abdominal Exam Present: soft, normoactive bowel sounds. Absent: distended, firm - Routine Skin Exam Absent: cyanosis, erythema - Routine Neurological Exam Present: alert, altered mental status (reportedly at baseline.), moving all extremities. Absent: oriented X3, motor deficit (generalized weakness in all 4. ) - Routine Psychiatric Exam Present: unable to assess - Urinary Catheter Management Straight Cath placed during this visit: yes Reason for continuing: Not indwelling catheter Insertion date: 07/28/18 Insertion time: 14:20 Assessment and Plan - Assessment (1) Dizziness Code(s): R42 - Dizziness and giddiness Status: Resolved (2) S/P METAL PLATER shunt Code(s): Z98.2 - Presence of cerebrospinal fluid drainage device Status: Chronic (3) Hypertension, uncontrolled Code(s): I10 - Essential (primary) hypertension Status: Chronic (4) Dementia Code(s): F03.90 - Unspecified dementia without behavioral disturbance Status: Chronic (5) Schizophrenia Code(s): F20.9 - Schizophrenia, unspecified Status: Chronic (6) Polypharmacy Code(s): Z79.899 - Other senior living (current) drug therapy Status: Acute (7) Acute UTI Code(s): N39.0 - Urinary tract infection, site not specified Status: Acute (8) Sepsis Code(s): A41.9 - Sepsis, unspecified organism Status: Acute - Plan 68-year-old female apparently with a history of dementia schizophrenia and sepsis She has a METAL PLATER shunt in place Neuro: Continue neuro checks. For a shuntogram on 08/06/18. The patient has UTI and sepsis. Shunt cultures negative so far. Pulmonary: aggressive pulmonary toilette, nasotracheal suction, and breathing treatments with nebulizers. Sepsis on admission with bandemia and tachycardia, UTI Dehydration. Careful IV hydration Mild VETO. monitor closely urine output, BUN and creatinine History of schizophrenia, dementia. Coninue home meds Blood cultures and urine cultures pending ID. Started on Rocephin IV antibiotic Monitor on telemetry until sepsis resolved renal. Gentle IV fluids, hold Lasix, monitor kidney function creatinine is not at baseline Daily PT and OT Endocrine: Monitor serial Acu checks and SSI as needed in detail Protonix for stress ulcer prophylaxis Continue Lamberto hose and SCD's for DVT prophylaxis Caprini VTE Risk Assessment Caprini VTE Risk Assessment: Moderate/High Risk (score >= 2) Caprini Risk Assessment Model: Point Value = 1 Point Value = 2 Point Value = 3 Point Value = 5 Age 41-60 Minor surgery BMI > 25 kg/m2 Swollen legs Varicose veins or History of unexplained or recurrent spontaneous Oral contraceptives or hormone replacement Sepsis (< 1 month) Serious lung disease, including pneumonia (< 1 month) Abnormal pulmonary function Acute myocardial infarction Congestive heart failure (< 1 month) History of inflammatory bowel disease Medical patient at bed rest Age 61-74 Arthroscopic surgery Major open surgery (> 45 min) Laparoscopic surgery (> 45 min) Malignancy Confined to bed (> 72 hours) Immobilizing plaster cast Central venous access Age >= 75 History of VTE Family history of VTE Factor V Leiden Prothrombin [id number] Lupus anticoagulant Anticardiolipin antibodies Elevated serum homocysteine Heparin-induced thrombocytopenia Other congenital or acquired thrombophilia Stroke (< 1 month) Elective arthroplasty Hip, pelvis, or leg fracture Acute spinal cord injury (< 1 month) Prophylaxis Regimen: Total Risk Factor Score Risk Level Prophylaxis Regimen 0-1 Low Early ambulation 2 Moderate Order ONE of the following: *Sequential Compression Device (SCD) *Heparin 5000 units SQ BID 3-4 Higher Order ONE of the following medications: *Heparin 5000 units SQ TID *Enoxaparin/Lovenox 40 mg SQ daily (WT < 150 kg, CrCl > 30 mL/min) *Enoxaparin/Lovenox 30 mg SQ daily (WT < 150 kg, CrCl > 10-29 mL/min) *Enoxaparin/Lovenox 30 mg SQ BID (WT < 150 kg, CrCl > 30 mL/min) AND/OR *Sequential Compression Device (SCD) 5 or more Highest Order ONE of the following medications: *Heparin 5000 units SQ TID (Preferred with Epidurals) *Enoxaparin/Lovenox 40 mg SQ daily (WT < 150 kg, CrCl > 30 mL/min) *Enoxaparin/Lovenox 30 mg SQ daily (WT < 150 kg, CrCl > 10-29 mL/min) *Enoxaparin/Lovenox 30 mg SQ BID (WT < 150 kg, CrCl > 30 mL/min) AND *Sequential Compression Device (SCD) Further recommendations will be provided depending on the patient's clinical evaluation and follow up studies.
[2018-08-08] MEDS ORDERED: Pharmacy Ordered Lab Info OTHER ONE (09:45)
--- NOTE | 2018-08-08 10:37 | P.PNIM ---
Subjective Interval history: Follow up on patient with sepsis, bacteremia, UTI: Patient seen and examined, neuro status remains unchanged, verbalizing very little, said hello today. Was able to eat a small amount assisted by nurse. No fever. Unable to obtain ROS. Physical Exam Vital signs: Vital Signs 08/07/18 12:00 08/07/18 16:00 08/07/18 20:00 Temperature 97.9 F 98.6 F 98.0 F Pulse Rate 72 75 78 Respiratory Rate 16 16 18 Blood Pressure 123/72 125/75 104/59 L Pulse Oximetry 99 99 98 08/08/18 00:00 08/08/18 08:00 Temperature 98.3 F 97.5 F L Pulse Rate 75 74 Respiratory Rate 17 17 Blood Pressure 137/60 128/68 Pulse Oximetry 97 98 Intake & Output 08/07/18 08/08/18 08/08/18 18:59 06:59 18:59 Intake Total 350 / 350 0 / 0 Balance 350 / 350 0 / 0 Intake: IV 350 / 350 Vancomycin Inj 1,000 MG In NS 250 / 250 Inj 250 ML @ 250 mls/hr IV.SIG Q24H [facility] Rx#:[id number] Rocephin Inj 1,000 MG In NS Inj 100 / 100 100 ML @ 200 mls/hr IV.SIG Q24H [facility] Rx#:[id number] Oral 0 / 0 Other: # Voids 0 Date of Last Bowel Movement 08/01/18 08/01/18 # Bowel Movements 0 Narrative: GENERAL: This is a well-developed well-nourished elderly female patient, who appears older than stated age, INAD. Not talking, keeps eye contact. SKIN: Warm/dry, no generalized rash. HEENT: Normocephalic. Pupils equal and round. No scleral icterus. No nasal discharge. Airway patent. NECK: Trachea midline. CARDIOVASCULAR: Regular rate and rhythm. RESPIRATORY: No accessory muscle use. Poor effort. Clear to auscultation. Breath sounds equal bilaterally. GASTROINTESTINAL: Abdomen soft, non-tender, nondistended. +BS. MUSCULOSKELETAL: No obvious deformities. No edema noted. BLE atrophy. NEUROLOGICAL: Awake and alert. +Aphasia. Confused. Not following commands. Able to move all extremities spontaneously. PSYCHIATRIC: Jerky movements noted, unable to assess Urinary Catheter Management Straight: Cath placed during this visit: yes Reason for continuing: Not indwelling catheter Insertion date: 07/28/18 Insertion time: 14:20 Results Labs CBC & Chem 7: 08/07/18 06:21 08/07/18 06:21 Labs: Microbiology 08/06/18 17:20 Shunt Fluid Gram Stain - Final 08/06/18 17:20 Shunt Fluid CSF Culture - Preliminary No growth in 48 hours Imaging Imaging: Impressions Shuntogram 08/06/18 11:20 CONCLUSION: 1. Uncomplicated shunt aspiration with patent intraventricular limb Assessment and Plan (1) Dizziness: Code(s): R42 - Dizziness and giddiness Status: Resolved (2) S/P DIESEL DINKEY ENGINEER shunt: Code(s): Z98.2 - Presence of cerebrospinal fluid drainage device Status: Chronic (3) Hypertension, uncontrolled: Code(s): I10 - Essential (primary) hypertension Status: Chronic (4) Dementia: Code(s): F03.90 - Unspecified dementia without behavioral disturbance Status: Chronic (5) Schizophrenia: Code(s): F20.9 - Schizophrenia, unspecified Status: Chronic (6) Polypharmacy: Code(s): Z79.899 - Other fdc (current) drug therapy Status: Acute (7) Acute UTI: Code(s): N39.0 - Urinary tract infection, site not specified Status: Acute (8) Sepsis: Code(s): A41.9 - Sepsis, unspecified organism Status: Acute Plan 68-year-old female apparently with a history of dementia schizophrenia normally feeds herself but is normally not oriented. Per EMS report presented to emergency department for evaluation of increased altered mental status. Patient apparently has a history of DIESEL DINKEY ENGINEER shunt in place. Pt. unable to provide any history, per review of EMR, pt. aphasic. Found with UTI and sepsis. Sepsis on admission with bandemia and tachycardia, UTI, improved MSSA and GBS Bacteremia, unclear source Echocardiogram - no vegetation, EF 50-55% -ID following, appreciate assistance. Per ID, If w/u unrevealing for source- recommends shunt reservoir aspiration. -S/P shunt aspiration 08/06. Follow up on CSF cultures. Patient unconsentable. Procedure was medically necessary. -Neurosurgery following, appreciate assistance -Continue on IV vancomycin and Rocephin pending ID eval/recs -Repeat blood cultures with no growth (07/31) -CSF cultures negative so far x 48 hours Ecoli UTI -on IV abx as above VETO on suspected CKD, resolved ?Vancomycin related, unlikely Vanc trough 10.6. Likely poor oral intake with diuretic use. -creatinine improved s/p IVF -monitor I&Os -Avoid nephrotoxic agents -Continue to monitor renal indices as indicated Acute metabolic encephalopathy, secondary to infection, also with history of schizophrenia, dementia Aphasia Tardive dyskinesia -suspect patient has returned to baseline mentation -Continue Cogentin -Continue Wellbutrin -per ST, changed to puree diet with thin liquids History of DIESEL DINKEY ENGINEER shunt -DIESEL DINKEY ENGINEER shunt study done, findings stable -s/p aspiration of shunt 08/06 Hypertension, controlled -Continue Norvasc 10 mg p.o. daily and Lopressor 12.5mg BID -08/06 BP elevated, resumed Lasix -Monitor blood pressure and adjust as necessary Hypokalemia, resolved -resolved s/p po repletion -continue on daily scheduled repletion, repeat K level in am History of breast cancer -Continue with anastrozole 1 mg p.o. daily Lovenox for DVT prophylaxis Pepcid for GI prophylaxis PT eval and tx Palliative care following, input appreciated Social work advange guardian evaluated pt. and made DNR/DNI Hospice consult pending Labs pending -will follow up Code Status: DNR/DNI Discussed Condition With: Discussed with Venus GALVEZ palliative care and Social work Advantage guardian Brendazak Gaona. Updated on condition. Pt. now DNR/DNI Hospice consult now D/W RN, CM Dr. Robison Discharge Planning: Poss SNF with hospice vs hospice care center today Progress Note: Quality VTE Deep Vein Thrombosis/Pulmonary Embolism Present on Admission: No _ (1) Dementia Qualifiers: Dementia type: Alzheimer's disease onset: Dementia behavioral disturbance : (2) Schizophrenia Qualifiers: Schizophrenia type: (3) Sepsis Qualifiers: Sepsis type:
[2018-08-08] MEDS: Vancomycin Inj 1,000 MG in Sodium Chlor 0.9% Inj 250 ML IV.SIG SCH (10:52)
--- NOTE | 2018-08-08 11:06 | P.PNPAL ---
Reason for Visit Reason for visit: a. To assist with evaluation and management of symptoms including: Debility. b. To assist medical decision maker(s) with: better understanding of current medical conditions; weighing benefits/burdens of medical treatment options; making medical treatment decisions. Subjective Subjective/Interval History: Ms. Urban is a 68-year-old female with a medical history significant for hydrocephalus/ventriculomegaly status post MEDICAL SCIENTIFIC OFFICER shunt, schizophrenia, hyperlipidemia, seizure disorder, COPD who presented to ED via EMS on 07/28/18 for evaluation of altered mental status. She was found with sepsis bacteremia, UTI. Patient resident of long-term facility for the past few years. She requires assistance with most ADLs. She is a very high risk for further complications, continued decline and . Palliative care follow-up for further clarifications of goals of care. Patient seen in her room, laying in bed in no acute distress. Jerking movements /spasticity noted. Patient alert to self, slurred speech. Was able to tell me her name but unable to elaborate further. Patient underwent shuntogram on 08/06 with aspiration of CSF for cultures, pending results -no growth in 48 hours thus far. Patient afebrile, stable hemodynamically. Tolerating room air with oxygen saturation in the high 90s. Very poor oral intake. Met with patient's guardian/social work advantage Selena Gaona at bedside. Case discussed with VANDANA Yao. Patient with progressive clinical decline, resident of care home for the past couple of years. Very debilitated, deconditioned with notable contractures. Baseline schizophrenia/ dementia. Being followed for sepsis, bacteremia, UTI. Neurological status remains unchanged. Discussed overall poor prognosis given the above. Guardian Selena Gaona electing to change CODE STATUS to DNR/DNI, transition patient to comfort-directed care with hospice. Disposition long-term facility with hospice versus hospice care center for symptom management. Advance Directives Living Will: Never completed Health Care Surrogate: Never completed Durable Power of Air Table Operator: Never completed Objective Vital Signs: Vital Signs 08/07/18 12:00 08/07/18 16:00 08/07/18 20:00 Temperature 97.9 F 98.6 F 98.0 F Pulse Rate 72 75 78 Respiratory Rate 16 16 18 Blood Pressure 123/72 125/75 104/59 L Pulse Oximetry 99 99 98 08/08/18 00:00 08/08/18 08:00 Temperature 98.3 F 97.5 F L Pulse Rate 75 74 Respiratory Rate 17 17 Blood Pressure 137/60 128/68 Pulse Oximetry 97 98 Intake & Output 08/07/18 08/08/18 08/08/18 18:59 06:59 18:59 Intake Total 350 / 350 0 / 0 Balance 350 / 350 0 / 0 Intake: IV 350 / 350 Vancomycin Inj 1,000 MG In NS 250 / 250 Inj 250 ML @ 250 mls/hr IV.SIG Q24H JESÚS Rx#:[id number] Rocephin Inj 1,000 MG In NS Inj 100 / 100 100 ML @ 200 mls/hr IV.SIG Q24H JESÚS Rx#:[id number] Oral 0 / 0 Other: # Voids 0 Date of Last Bowel Movement 08/01/18 08/01/18 # Bowel Movements 0 Physical Exam: CONSTITUTIONAL/GENERAL: Elderly, thin female laying in bed in moderate distress , restless. She appears much older than stated age. TUBES/LINES/DRAINS: PIV. SKIN: No jaundice, rashes, or lesions. Ecchymoses on upper extremities. Skin temperature appropriate. Not diaphoretic. HEAD: Atraumatic. Normocephalic. EYES: Pupils equal and round and reactive. Extraocular motions intact. No scleral icterus. No injection or drainage. ENT: Hearing grossly normal. Nose without bleeding or purulent drainage. Moist oral mucosa. Edentulous. NECK: Trachea midline. Supple, nontender. CARDIOVASCULAR: Regular rate and rhythm. Peripheral pulses symmetric. RESPIRATORY/CHEST: Symmetric, unlabored respirations. Clear to auscultation. Breath sounds equal bilaterally. No wheezes, rales, or rhonchi. GASTROINTESTINAL: Abdomen soft, non-tender, nondistended. Bowel sounds present. GENITOURINARY: Without palpable bladder distension. MUSCULOSKELETAL: Extremities without clubbing, cyanosis, or edema. No mottling or clubbing. Muscle atrophy to all 4 extremities. Contractor to lower extremities. NEUROLOGICAL: Alert to self. Confused as to place and situation. Garbled speech. Moving all extremities spontaneously. Aphasia. Spasticity/jerking movements to all 4 extremities. PSYCHIATRIC: Restless. Diagnostic Tests Laboratory: Laboratory Results - last 72 hr 08/06/18 08/06/18 08/07/18 17:20 17:20 06:21 WBC 5.7 RBC 3.77 L Hgb 11.8 Hct 35.0 MCV 92.8 MCH 31.4 MCHC 33.8 RDW 15.4 Plt Count 338 D MPV 8.1 Neut % (Auto) 64.7 Lymph % (Auto) 18.3 [place] % (Auto) 14.9 H Eos % (Auto) 1.3 Baso % (Auto) 0.8 Neut # (Auto) 3.7 Lymph # (Auto) 1.0 [place] # (Auto) 0.8 Eos # (Auto) 0.1 Baso # (Auto) 0.0 WBC Differential . Differential Comment Auto diff final Sodium Potassium Chloride Carbon Dioxide Anion Gap BUN Creatinine Estimated GFR Random Glucose Calcium CSF Volume (1) 4.0 CSF Supernat Color (1) Clear CSF Gross Blood (1) 0 CSF Volume (2) 6.0 CSF Supernat Color (2) Clear CSF Gross Blood (2) 0 CSF WBC (2) 1 CSF RBC (2) 1 H CSF Neutrophils % 0 CSF Lymphocytes % 72 CSF Monocytes % 28 CSF Glucose 75 Vancomycin Trough 08/07/18 08/08/18 06:21 09:45 WBC RBC Hgb Hct MCV MCH MCHC RDW Plt Count MPV Neut % (Auto) Lymph % (Auto) [place] % (Auto) Eos % (Auto) Baso % (Auto) Neut # (Auto) Lymph # (Auto) [place] # (Auto) Eos # (Auto) Baso # (Auto) WBC Differential Differential Comment Sodium 139 Potassium 3.7 Chloride 104 Carbon Dioxide 26.4 Anion Gap 9 BUN 10 Creatinine 0.83 Estimated GFR 68 L Random Glucose 138 H Calcium 9.3 CSF Volume (1) CSF Supernat Color (1) CSF Gross Blood (1) CSF Volume (2) CSF Supernat Color (2) CSF Gross Blood (2) CSF WBC (2) CSF RBC (2) CSF Neutrophils % CSF Lymphocytes % CSF Monocytes % CSF Glucose Vancomycin Trough 20.4 H Result Diagrams: 08/07/18 06:21 08/07/18 06:21 Microbiology: Microbiology 08/06/18 17:20 Gram Stain - Final Shunt Fluid CSF Culture - Preliminary No growth in 48 hours 07/31/18 16:00 Aerobic Blood Culture - Final Blood - Peripheral No growth in 5 days Anaerobic Blood Culture - Final No growth in 5 days 07/31/18 16:05 Aerobic Blood Culture - Final Blood - Peripheral No growth in 5 days Anaerobic Blood Culture - Final No growth in 5 days Assessment and Plan - Disease Oriented Problem List (1) Acute metabolic encephalopathy (2) Schizophrenia (3) Acute UTI (4) Sepsis Pertinent Non-Medical Issues: Psychosocial: Resident of long-term facility. , unclear if advance directives have been completed. Spiritual: Jain alivia. Legal: Unknown if advanced directives have been completed. Ethical issues impacting care: Pending identification of next of kin. Important Contacts: No next of kin/pending [employer] Report. Prognosis: Ms. Urban is a 68-year-old female with a medical history significant for hydrocephalus/ventriculomegaly status post MEDICAL SCIENTIFIC OFFICER shunt, schizophrenia, hyperlipidemia, seizure disorder, COPD who presented to ED via EMS on 07/28/18 for evaluation of altered mental status. She was found with sepsis bacteremia, UTI. Patient resident of long-term facility for the past few years. She requires assistance with most ADLs. She is a very high risk for further complications, continued decline and . Code Status: No Code DNR Plan: * CODE STATUS: Full code by default. * HEALTHCARE DECISION-MAKING: Patient unable to participate in medical decision making given clinical condition, acute metabolic encephalopathy with also history of schizophrenia, dementia. Patient not anticipated to regain medical decision-making. No advance directives reported as per [facility], her brother is reported to have recently. Patient is , unknown if she has any biological children. Complete chart review done since hospitalizations in 2001, no next of kin or contact information found. [employer] report unable to identify next of kin. As per [facility] emergency preparedness coordinator Mari, patient is in the process of obtaining court appointed guardian: Aracelis Seth on . Court hearing cannot be rescheduled to an earlier day, [id number] cannot serve in this role until legally appointed. Social work advantage guarditony Gaona designated to assist with medical decisions in the interim. * GOALS OF CARE: Social work advantage guarditony Gaona electing to transition patient to comfort-directed care with hospice in the setting of overall poor prognosis. Disposition [facility]- with hospice vs hospice care center for symptom management/end-of-life care. * SYMPTOMS: = Restlessness/agitation. In the setting of acute infection, acute metabolic encephalopathy, schizophrenia and dementia at baseline. Patient has been continued on home regimen to include Wellbutrin and Cogentin. No other recommendations. * Case discussed with supportive employment case manager Erica Buckley and palliative care social media executive Karla Matt. * Palliative care will continue to follow-up for further clarifications of goals of care as patient's clinical course continues to evolve. Time Spent Total Floor Time (mins): 42 (Total time to include review of medical records, physical exam, goals of care conversation with patient's guardian, case discussion with attending, palliative care social media executive and patient liaison.) >50% Time in Counseling or Coordination of Care: Yes (Total visit time = 42 minutes; > 50% spent counseling/coordinating care) Attestation Attestation: To help prompt me to consider important information that might be impacting today's encounter and assessment, information from prior notes written by myself or my colleagues may have been "brought forward" into today's note. My signature on this note, however, is an attestation that I personally performed the exam, history, and/or decision-making noted today, and, unless otherwise indicated, the interactions with patient, family, and staff as well as the review of records all occurred today. I also attest that the listed assessment and stated plan reflect my best clinical judgment today based on the combination of historical information, prior notes, and today's exam/ interactions. When time spent is documented, it refers only to time spent today by the signer, or if indicated, combined time spent today by collaborating physician/nurse practitioner.
[2018-08-08 12:13] LABS: Hematocrit 38.5 % (35.0-46.0); Hemoglobin 12.8 gm/dL (11.6-15.3); Mean Corpuscular HGB Conc 33.2 % (32.0-36.0); Mean Corpuscular Hemoglobin 31.1 pg (27.0-34.0); Mean Corpuscular Volume 93.8 fL (80.0-100.0); Mean Platelet Volume 8.1 fL (7.0-11.0); Platelet Count 376 th/mm3 (150-450); Red Blood Count 4.11 mil/mm3 (4.00-5.30); Red Cell Distribution Width 15.5 % (11.6-17.2); White Blood Count 5.4 th/mm3 (4.0-11.0)
[2018-08-08 12:33] LABS: Calcium 9.3 mg/dL (8.5-10.1); Carbon Dioxide 28.9 meq/L (21.0-32.0); Potassium 3.7 meq/L (3.5-5.1)
[2018-08-08 13:08] VITALS: BP 125/65; PULSE 72; TEMP 97.8; O2SAT 97
--- NOTE | 2018-08-08 14:07 | P.DS ---
DS: Providers Date of admission: 07/28/18 16:57 Primary care physician: UNKNOWN Attending physician on admission: Lisa Garg Consults: 07/29/18 13:42 HUB Only Consult Order Routine Consulting Provider: [facility] 07/29/18 18:24 Consult to Infectious Diseases Routine Consulting Provider: Fang Mendieta Reason for Consultation: UTI, bacteremia Notified:: Service Spoke with:: Lisa Date Notified:: 07/29/18 Time Notified:: 18:39 Ordering Provider: SUSANNAH 08/03/18 12:12 Consult to Neurosurgery Routine Consulting Provider: Dajuan Lopez Preferred Puncher:: Dajuan Lopez Patient known to:: Dajuan Lopez Reason for Consultation: evaluta CAR EXAMINER shunt for possible infection in a pt with MRSA bacteremia and headache Notified:: Physician Spoke with:: Dr Lopez Date Notified:: 08/03/18 Time Notified:: 12:41 Ordering Provider: KIZZY 08/04/18 11:09 Consult to Palliative Care Routine Consulting Provider: Mendez Feliciano Reason for Consultation: please assist with goals of care Notified:: Service Spoke with:: RENETTA Date Notified:: 08/04/18 Time Notified:: 11:12 Ordering Provider: SUE Attending physician on discharge: Ry Robison Discharging clinician: Nessa Mccollum Anticipated date of discharge: 08/08/18 Brief History from admission: Patient is a 68-year-old female apparently with a history of dementia schizophrenia normally feeds herself but is normally not oriented according to EMS report presents emergency department for evaluation of increased altered mental status. Patient apparently has a history of CAR EXAMINER shunt in place, looking back through her records she was here in 2017 with increasing altered mental status and had been evaluated by neuro since then her baseline mental status appears to have been documented is nearly a phasic. The patient would not converse with me and would not follow any commands on my examination, her eyes are open and she does track me around the room and she is fairly alert. She did verbalize to nurse her name. This significantly limits further history. The patient is found with UTI and sepsis she is admitted in the hospital for further evaluation and treatment. DS: Diagnosis Discharge Diagnosis (1) Dizziness: Status: Resolved (2) S/P CAR EXAMINER shunt: Status: Chronic (3) Hypertension, uncontrolled: Status: Chronic (4) Dementia: Status: Chronic (5) Schizophrenia: Status: Chronic (6) Polypharmacy: Status: Acute (7) Acute UTI: Status: Acute (8) Sepsis: Status: Acute DS: Summary 68-year-old female apparently with a history of dementia schizophrenia normally feeds herself but is normally not oriented. Per EMS report presented to emergency department for evaluation of increased altered mental status. Patient apparently has a history of CAR EXAMINER shunt in place. Pt. was unable to provide any history, per review of EMR, pt. aphasic. Found with UTI and sepsis. Sepsis on admission with bandemia and tachycardia poss secondary to UTI pt. started on antibioitics, given IVF, cultures followed. Blood cultures positive MSSA, [place], GBS Bacteremia, unclear source Echocardiogram - no vegetation, EF 50-55% ID following, appreciate assistance. Per ID, If w/u unrevealing for source- recommends shunt reservoir aspiration. Neurosurgery consulted, Dr. Lopez evaluated. CAR EXAMINER shunt study done, findings stable S/P shunt aspiration 08/06. Follow up on CSF cultures. Patient unconsentable. Procedure was medically necessary. Tolerated procedure well. CSF cultures negative was continued on abx-IV vancomycin and Rocephin Ecoli in UTI noted, treated as above. Was noted with VETO on admit, this improved with IVF. PT. initially with AMS, secondary to infection. Pt. back to baseline. Hx of schizophrenia, dementia Aphasia Tardive dyskinesia suspected patient has returned to baseline mentation Continue Cogentin and Wellbutrin per ST, changed to puree diet with thin liquids PT. remained mostly aphasic, noted with muscle wasting, not eating much. Appeared to be declining and poor functional status. High risk for complications , dependent on others for ADLs. palliative care consulted, pt. had no family left. CM assisted, Social work advantage services requested. Healthcare surrogate designated. Surrogate met with palliative care, medical team and pt. Decided DNR/DNI and consult hospice. Hospice evaluated, was accepted. Pt. was discharged in stable condition Time Spent with Patient Total time spent providing and/or coordinating discharge services: 45 minutes Greater than 30 minutes Status at Discharge Cognitive/behavioral status at discharge: remains disoriented, aphasic Functional status at discharge: bed bound Overall status at discharge: patient is not back to baseline Quality: VTE Deep Vein Thrombosis/Pulmonary Embolism Present on Admission: No Results Procedures completed during hospitalization: S/P shunt aspiration 08/06 Labs on day of discharge: Labs from last 24 hours 08/08/18 08/08/18 08/08/18 11:37 11:37 09:45 WBC 5.4 RBC 4.11 Hgb 12.8 Hct 38.5 MCV 93.8 MCH 31.1 MCHC 33.2 RDW 15.5 Plt Count 376 MPV 8.1 Sodium 141 Potassium 3.7 Chloride 105 Carbon Dioxide 28.9 Anion Gap 7 BUN 13 Creatinine 1.01 H Estimated GFR 54 L Random Glucose 83 Calcium 9.3 Vancomycin Trough 20.4 H Preliminary micro results at discharge 08/06/18 17:20 CSF Culture - Preliminary Shunt Fluid No growth in 48 hours Impressions ITS Impressions Head CT 07/28/18 14:15 CONCLUSION: 1. No acute intracranial abnormality. 2. Stable ventriculomegaly with shunt. . Shunt Study 07/28/18 14:15 CONCLUSION: Unremarkable exam. Shuntogram 08/06/18 11:20 CONCLUSION: 1. Uncomplicated shunt aspiration with patent intraventricular limb Discharge Plan Discharge Disposition Patient Disposition: 51 Hospice/Med Facility Discharge Condition Condition: Fair Discharge Order Discharge Orders: Discharge Order (Routine); Ordered 08/08/18 Ordered By: Nessa Mccollum Discharge Details Anticipated Discharge Date: 08/08/18 Physicians Team Primary Care Provider: UNKNOWN, Attending Provider: Ry Robison [facility] ; Fang Mendieta ; Dajuan Lopez ; Mendez Feliciano Rxs /Orders / Referrals /Forms Prescriptions: Continue anastrozole 1 mg Tablet 1 mg PO DAILY RF: 0 acetaminophen 325 mg Tablet 325 mg PO BID PRN (Reason: Pain) RF: 0 benztropine 0.5 mg Tablet 1.5 mg PO HS RF: 0 sennosides-docusate sodium [Senna with Docusate Sodium] 8.6-50 mg Tablet 1 tab PO BID RF: 0 aspirin [Aspir-81] 81 mg Tablet,Delayed Release (Dr/Ec) 81 mg PO DAILY RF: 0 bupropion HCl [Wellbutrin SR] 100 mg Tablet Sustained-Release 12 Hr 150 mg PO DAILY RF: 0 famotidine 20 mg Tablet 20 mg PO BID RF: 0 furosemide 20 mg Tablet 20 mg PO DAILY RF: 0 levothyroxine 112 mcg Tablet 112 mcg PO DAILY RF: 0 atorvastatin 40 mg PO HS RF: 0 amlodipine [Norvasc] 10 mg Tablet 10 mg PO QAM Qty: 30 RF: 0 alprazolam 0.5 mg Tablet 0.5 mg PO DAILY RF: 0 benztropine 1 mg Tablet 1 mg PO QAM RF: 0 potassium chloride 20 mEq Tablet Extended Release 20 meq PO DAILY RF: 0 Referrals: UNKNOWN, [Primary Care Provider] - See Instructions Discharge Instructions Patient Printed Instructions: Urinary Tract Infection in Women (DC), Sepsis ( GEN) Post Discharge Care Plan Care Plan Goals: Your Health Problems: Goals to Promote Your Health: * To prevent worsening of your condition * To maintain your health at the optimal level Directions to Meet Your Goals: * Take your medications as prescribed * Follow your dietary instruction * Follow activity as directed * Keep your appointments as scheduled * Take your immunizations and boosters as scheduled * If your symptoms worsen call your PCP * If no PCP go to Urgent Care or Emergency Room Smoking is dangerous to your health. Avoid second hand smoke. You may reach the 24-hour crisis hotline for domestic abuse at . Status ED Status: Left Department Discharge Information Discharge Date/Time: 08/08/18 16:23
[2018-08-09] MEDS ORDERED: Vancomycin Inj 750 MG in Sodium Chlor 0.9% Inj 250 ML IV.SIG SCH (11:00)
[2018-08-12] MEDS ORDERED: Pharmacy Ordered Lab Info OTHER ONE (10:45)
== END 2018-08-08 16:23 | disposition hospice, inpatient (51) | DRG 871 ==
LOC: NEPE 13:48 → NEDA 16:57 → N07 18:17
PROVIDERS: ADMIT Hospitalist; ATTEND Hospitalist
DX: I11.0 Hypertensive heart disease with heart failure; G40.909 Epilepsy, unspecified, not intractable, without status epilepticus; E86.0 Dehydration; A41.02 Sepsis due to Methicillin resistant Staphylococcus aureus; G24.01 Drug induced subacute dyskinesia; R47.01 Aphasia; F25.9 Schizoaffective disorder, unspecified; M62.50 Muscle wasting and atrophy, not elsewhere classified, unspecified site; J44.9 Chronic obstructive pulmonary disease, unspecified; K21.9 Gastro-esophageal reflux disease without esophagitis; G30.9 Alzheimer's disease, unspecified; E78.5 Hyperlipidemia, unspecified; Z66 Do not resuscitate; N17.9 Acute kidney failure, unspecified; Z93.1 Gastrostomy status; G93.41 Metabolic encephalopathy; F32.9 Major depressive disorder, single episode, unspecified; B96.20 Unspecified Escherichia coli [E. coli] as the cause of diseases classified elsewhere; G91.9 Hydrocephalus, unspecified; E87.6 Hypokalemia; Z98.2 Presence of cerebrospinal fluid drainage device; F02.81 Dementia in other diseases classified elsewhere, unspecified severity, with behavioral disturbance; N39.0 Urinary tract infection, site not specified; Z85.3 Personal history of malignant neoplasm of breast; Z51.5 Encounter for palliative care; I50.9 Heart failure, unspecified; A40.1 Sepsis due to streptococcus, group B
CPT/HCPCS: 61070; 70250; 70450; 71010; 71045; 72040; 74000; 74018; 75809; 76937; 80048; 80053; 80202; 81001; 82565; 82945; 82948; 82962; 83605; 83735; 85025; 85027; 85610; 85730; 86403; 87040; 87070; 87077; 87086; 87149; 87186; 87205; 89051; 90765; 90768; 92526; 92610; 93005; 93308; 96365; 96368; 97110; 97116; 97162; 99285; A4646; G0195; J0696; J1650; J3370; J7030; J7050; P9612; Q9949; Q9967